=== PATIENT | male | born 1995 | race Caucasian/White ===

== ENCOUNTER 2020-06-04 18:29 | Emergency (ER) | payer MEDICAID, SELFPAY ==
[2020-06-04 18:31] VITALS: BP 172/100; PULSE 120; RESP 20; TEMP 38.7; O2SAT 98; BMI 21.4
[2020-06-04 19:29] LABS: Strep Scrn Group A (Rapid) Positive (Negative)
[2020-06-04 19:40] VITALS: BP 159/88; PULSE 110; RESP 18; O2SAT 100
[2020-06-04 20:14] VITALS: BP 154/83; PULSE 90; RESP 18; O2SAT 95
--- NOTE | 2020-06-04 20:18 | HMH.EDURI ---
ED Disposition Clinical Impression: Strep pharyngitis Disposition: Home, Self-Care Condition on Discharge: Good Instructions: DI for Strep Throat Additional Instructions: see pcp for follow up Referrals: Jeannette Hernandez MD [Primary Care Provider] - - Critical Care Critical Care Time: No Attestation: On 06/04/20, the high probability of a clinically significant, sudden or life threatening deterioration of the following system(s) required my full and direct attention, intervention and personal management. The time I documented below is in addition to time spent performing reported procedures but includes the following listed in this critical care notation. Medical Decision Making - Medical Records Medical records reviewed: Yes: I reviewed the patient's medical records. - Omar Inquiry Pt receiving controlled substance: No Vital Signs: 06/04/20 18:31 06/04/20 19:40 06/04/20 20:14 Temperature 101.6 F H Temperature Source Oral Pulse Rate [Left Radial] 120 H 110 H 90 Respiratory Rate 20 18 18 Blood Pressure [Right Arm] 172/100 H 159/88 H 154/83 H Blood Pressure Mean [Right Arm] 124 111 106 Blood Pressure Position [Right Arm] Sitting 02 Sat by Pulse Oximetry 98 100 95 Oxygen Delivery Method Room Air Room Air - Lab Data Lab results reviewed: Yes: I reviewed the patient's lab results. Lab Results 06/04/20 19:15: Influenza Type A Ag Negative, Influenza Type B Ag Negative 06/04/20 19:15: Group A Strep Rapid Positive A Orders (Tests/Meds): ED MEDICATIONS Discontinued Medications Generic Name Dose Route Start Last Admin Trade Name Freq PRN Reason Stop Dose Admin Acetaminophen 1,000 mg 06/04/20 19:08 06/04/20 19:11 Tylenol 500mg Tablet PO 06/04/20 19:09 1,000 mg ONCE ONE Administration URI/Sore Throat HPI - General Chief Complaint: Fever Stated Complaint: fever Time Seen by Provider: 06/04/20 20:00 Mode of Arrival: Ambulatory Source of Information: Patient, Medical Record Limitations: No Limitations Description of Symptoms (Recalled from ER Triage Doc. by RN): to ed per pvt car with c/o fever, sorethroat, generalized aches, headache, chills, x 3 days pt states tested for covid 2 days ago with neg results. 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 - History of Present Illness HPI Narrative: sore throat with fever over the last few days - no rash MD Complaint: fever, cough, sore throat Onset (ago): day(s) Severity: moderate Able to tolerate fluids by mouth: Yes Associated symptoms: denies other symptoms Treatments prior to arrival: none - Related Data Home Medications Medication Instructions Recorded Confirmed dextroamphetamine-amphetamine 20 20 mg PO DAILY tab 02/21/18 12/07/19 mg tablet Dextroamphetamine/Amphetamine 7.5 mg PO DAILY 12/07/19 12/07/19 [Dextroamp-Amphetam 7.5 mg Tab] Gabapentin [Neurontin 400mg 400 mg PO QID 12/07/19 12/07/19 cap] Hydrocodone/Acetaminophen [[place] 1 each PO BID 12/07/19 12/07/19 5-325 Tablet] Tramadol HCl [Tramadol 50mg 50 mg PO TID PRN 12/07/19 12/07/19 Tab] Venlafaxine HCl [Effexor XR 75mg 150 mg PO DAILY 12/07/19 12/07/19 capsule] Previous Rx's Medication Instructions Recorded Azithromycin [Z-Lemuel 250mg Tab*] 250 mg PO UD DOSE PK #6 tab 12/07/19 Allergies Allergy/AdvReac Type Severity Reaction Status Date / Time doxycycline [DOXYCYCLINE] Allergy Intermediate Verified 03/06/18 08:58 codeine [CODEINE] Allergy Mild Verified 03/06/18 08:58 [facility] History - Hepatitis A Screen Drug use history?: No High risk sexual behaviors?: No History of sexually transmitted infection?: No Currently employed?: No Childcare worker?: No Do you have indoor plumbing?: Yes Do you have electricity?: Yes Attestation statement:: This patient has been screened for Hepatitis A risk factors. I have reviewed the patient's past medical history: Yes Medical History: Reports:: Anxiety Denies:: Cancer, Diabet
[2020-06-04 20:51] VITALS: BP 154/83; PULSE 90; RESP 18; TEMP 37.9; O2SAT 95
== END 2020-06-04 20:35 | disposition home or self-care (01) ==
PROVIDERS: Emergency Provider Emergency Medicine; PCP Internal Medicine
DX: J02.0 Streptococcal pharyngitis (principal); F41.9 Anxiety disorder, unspecified; Z88.5 Allergy status to narcotic agent; F17.210 Nicotine dependence, cigarettes, uncomplicated
CPT/HCPCS: 87275; 87276; 87430; 96372; 99283; J0561

== ENCOUNTER 2020-09-01 15:50 | Emergency (ER) | payer MEDICAID, SELFPAY ==
[2020-09-01 16:00] VITALS: BP 164/95; PULSE 127; RESP 20; TEMP 37.3; O2SAT 95; BMI 21.4
[2020-09-01 16:23] VITALS: BP 164/95; PULSE 116; O2SAT 95
[2020-09-01 16:35] VITALS: BP 141/85; PULSE 118; O2SAT 95
--- NOTE | 2020-09-01 16:39 | XR_ITS ---
PROCEDURE: XR KNEE RT 3V CLINICAL INDICATION: right knee trauma Posttraumatic pain COMPARISON: No exams were available for comparison FINDINGS: No fracture or dislocation. No lytic or blastic change. There is normal mineralization. The joint spaces are well-preserved. No significant degenerative/arthritic changes. No erosive changes evident. Other findings:None. IMPRESSION: No acute findings. Dictated by: Antony Stratton MD 09/01/2020 17:43 Antony Stratton MD in [place] 09/01/2020 17:44
--- NOTE | 2020-09-01 16:40 | HMH.EDGENADL ---
ED Disposition Clinical Impression: Knee injury Disposition: Home, Self-Care Condition on Discharge: Good Additional Instructions: Return to the emergency department for pain swelling or any other concerns within the next day. Otherwise follow-up with your primary care physician within the next week Prescriptions: Ketorolac Tromethamine [Toradol 10mg tablet] 10 mg PO Q6H 5 Days #20 tab Transmission Status: Pending to [facility] Referrals: Jeannette Hernandez MD [Primary Care Provider] - - Critical Care Critical Care Time: No Attestation: On 09/01/20, the high probability of a clinically significant, sudden or life threatening deterioration of the following system(s) required my full and direct attention, intervention and personal management. The time I documented below is in addition to time spent performing reported procedures but includes the following listed in this critical care notation. Medical Decision Making - Medical Records Medical records reviewed: Yes: I reviewed the patient's medical records. - Omar Inquiry Pt receiving controlled substance: No Vital Signs: 09/01/20 16:00 09/01/20 16:23 09/01/20 16:35 Temperature 99.2 F Temperature Source Tympanic Pulse Rate [Left] 127 H 116 H 118 H Respiratory Rate 20 Blood Pressure [Right Arm] 164/95 H 164/95 H 141/85 H Blood Pressure Mean [Right Arm] 118 118 103 Blood Pressure Source [Right Arm] Automatic Cuff Automatic Cuff Automatic Cuff Blood Pressure Position [Right Arm] Sitting Sitting Sitting 02 Sat by Pulse Oximetry 95 95 95 Oxygen Delivery Method Room Air Room Air Room Air 09/01/20 17:11 Temperature Temperature Source Pulse Rate [Left] 96 H Respiratory Rate 18 Blood Pressure [Right Arm] 140/81 Blood Pressure Mean [Right Arm] 100 Blood Pressure Source [Right Arm] Blood Pressure Position [Right Arm] 02 Sat by Pulse Oximetry 95 Oxygen Delivery Method Orders (Tests/Meds): ED MEDICATIONS Discontinued Medications Generic Name Dose Route Start Last Admin Trade Name Freq PRN Reason Stop Dose Admin Ketorolac Tromethamine 60 mg 09/01/20 16:39 09/01/20 16:44 Ketorolac 60mg/2ml Vial IM 09/01/20 16:40 60 mg ONCE ONE Administration ORDERS Category Date Time Status Knee XR right 3 views [XR knee RT 3V] Stat Exams 09/01/20 16:39 Taken Medical Decision Narrative: Patient presents with right knee injury as above. No concern for septic joint on exam or traumatic effusion that needs to be drained. X-ray was obtained to evaluate for displaced fracture. X-ray shows no large displaced fracture on my initial read. Plan to give crutches and anti-inflammatories as the Toradol did help in the emergency department. Recommend RICE treatment and follow-up with primary care physician for continued outpatient management General Adult HPI - General Chief complaint: PAIN Stated complaint: Pain in Rt Knee;Fall 08/29/20 Time Seen by Provider: 09/01/20 16:05 Mode of Arrival: Ambulatory Limitations: No Limitations Description of Symptoms (Recalled from ER Triage Doc. by RN): Right knee pain- Pt states he got up on Sunday night and tripped over something and hit his right knee on the wall. Pt states that he is unable to put pressure on it. - History of Present Illness HPI narrative: 24-year-old male with history of multiple sclerosis has right knee pain. He says he hit his knee on a desk while he was walking and now has medial pain no swelling or deformity. No redness or warmth. He has had difficulty bearing weight because of the pain on the medial side of his knee. Onset (ago): day(s) (3) Location: lower extremity Radiation: non-radiation Severity: mild Quality: constant Consistency: constant - Related Data Home Medications Medication Instructions Recorded Confirmed dextroamphetamine-amphetamine 20 20 mg PO DAILY tab 02/21/1820 mg tablet Gabapentin [Neurontin 400mg 400 mg PO QID
[2020-09-01 17:11] VITALS: BP 140/81; PULSE 96; RESP 18; O2SAT 95
[2020-09-01 17:57] VITALS: BP 140/81; PULSE 96; RESP 18; TEMP 37.3; O2SAT 95
== END 2020-09-01 17:58 | disposition home or self-care (01) ==
PROVIDERS: Emergency Provider Emergency Medicine; PCP Internal Medicine
DX: S80.11XA Contusion of right lower leg, initial encounter (principal); W01.0XXA Fall on same level from slipping, tripping and stumbling without subsequent striking against object, initial encounter; Y92.019 Unspecified place in single-family (private) house as the place of occurrence of the external cause; Z88.1 Allergy status to other antibiotic agents; F41.9 Anxiety disorder, unspecified; G35 Multiple sclerosis
CPT/HCPCS: 73562; 99283

== ENCOUNTER 2020-09-23 11:27 | Observation (INO) | payer MEDICAID, SELFPAY ==
[2020-09-23] VITALS (13 sets, daily range): BP systolic 124–181; BP diastolic 71–103; PULSE 70–130; RESP 14–20; TEMP 36.4–37; O2SAT 93–100; BMI 22.8; BMI 21.6
--- NOTE | 2020-09-23 11:53 | HMH.EDGENADL ---
ED Disposition Clinical Impression: Delirium Headache Qualifiers: Headache type: unspecified Headache chronicity pattern: acute headache Intractability: not intractable Qualified Code(s): R51.9 - Headache, unspecified Disposition: Admitted as Observation Condition on Discharge: Fair - Critical Care Critical Care Time: Yes Attestation: On 09/23/20, the high probability of a clinically significant, sudden or life threatening deterioration of the following system(s) required my full and direct attention, intervention and personal management. The time I documented below is in addition to time spent performing reported procedures but includes the following listed in this critical care notation. Total Critical Care Time: 40 Vital system(s) involved:: Central Nervous System My critical care processes included: Assessment & monitoring of V/S, Initial and Re-exams, Data Review/Interpretation, Coordinating Care, Medication Orders and management, Documentation Medical Decision Making - Omar Inquiry Pt receiving controlled substance: Yes Omar was queried for this patient: No Reference #:: [id number] Reason not queried -: Emergent pt cond-no time Risks and benefits of using a controlled substance: were not discussed with pt by me Comment: 53 rxs. last 2 rxs zolpidem. Vital Signs: 09/23/20 11:28 09/23/20 11:50 09/23/20 12:23 Temperature 98.6 F Temperature Source Oral Pulse Rate Pulse Rate [Right] 87 110 H 109 H Respiratory Rate 14 20 16 Blood Pressure Blood Pressure [Right Arm] 181/96 H 143/71 H 158/99 H Blood Pressure Mean [Right Arm] 124 95 118 Blood Pressure Source Blood Pressure Source [Right Arm] Automatic Cuff Automatic Cuff Blood Pressure Position Blood Pressure Position [Right Arm] Sitting Sitting 02 Sat by Pulse Oximetry 99 93 L 95 Oxygen Delivery Method Room Air Room Air 09/23/20 13:00 09/23/20 13:19 09/23/20 13:31 Temperature Temperature Source Pulse Rate Pulse Rate [Right] 115 H 130 H 118 H Respiratory Rate 20 20 Blood Pressure Blood Pressure [Right Arm] 155/89 H 132/86 131/87 Blood Pressure Mean [Right Arm] 111 101 101 Blood Pressure Source Blood Pressure Source [Right Arm] Automatic Cuff Automatic Cuff Blood Pressure Position Blood Pressure Position [Right Arm] Sitting Sitting Sitting 02 Sat by Pulse Oximetry 94 L 97 Oxygen Delivery Method Room Air 09/23/20 14:29 09/23/20 14:41 09/23/20 15:03 Temperature Temperature Source Pulse Rate Pulse Rate [Right] 114 H 101 H 101 H Respiratory Rate 20 16 18 Blood Pressure Blood Pressure [Right Arm] 141/82 H 141/82 H 156/103 H Blood Pressure Mean [Right Arm] 101 101 120 Blood Pressure Source Blood Pressure Source [Right Arm] Automatic Cuff Automatic Cuff Automatic Cuff Blood Pressure Position Blood Pressure Position [Right Arm] Sitting 02 Sat by Pulse Oximetry 95 93 L 97 Oxygen Delivery Method Room Air Room Air 09/23/20 16:12 09/23/20 17:26 Temperature 98 F Temperature Source Oral Pulse Rate 70 Pulse Rate [Right] 89 Respiratory Rate 16 16 Blood Pressure 128/75 Blood Pressure [Right Arm] 135/84 Blood Pressure Mean [Right Arm] 101 Blood Pressure Source Automatic Cuff Blood Pressure Source [Right Arm] Automatic Cuff Blood Pressure Position Sitting Blood Pressure Position [Right Arm] Sitting 02 Sat by Pulse Oximetry 98 Oxygen Delivery Method Room Air - Lab Data Lab results reviewed: Yes: I reviewed the patient's lab results. Lab Results 09/23/20 11:35: WBC 9.6, RBC 5.03, Hgb 14.2, Hct 43.1, MCV 85.7, MCH 28.3, MCHC 33.0, RDW 13.1, Plt Count 333, MPV 7.1 L, Neut % (Auto) 71.2, Lymph % (Auto) 24.0, [place] % (Auto) 4.3, Eos % (Auto) 0.2, Baso % (Auto) 0.3, Neut # (Auto) 6.8, Lymph # (Auto) 2.3, [place] # (Auto) 0.4, Eos # (Auto) 0.0, Baso # (Auto) 0.0 09/23/20 11:35: Sodium 137, Potassium 3.9, Chloride 102, Carbon Dioxide 25, Anion Gap 13.9, BUN 10, Creatinine 0.90, Estimate
--- NOTE | 2020-09-23 12:07 | CT_ITS ---
PROCEDURE: CT HEAD/BRAIN WO CON CLINICAL INDICATION: migraine Severe headache, Altered mental status, altered level of consciousness, confusion, disorientation COMPARISON: CT HDWO CT HEAD W/O CONTRAST from 01/28/2017 TECHNIQUE: Axial images obtained. All CT scans at the facility use one or more dose reduction, viz: automated exposure control, ma/kV adjustment per patient size (including targeted exams where dose is matched to indication, i.e. head), or iterative reconstruction technique. FINDINGS: No midline shift, mass effect, intracranial hemorrhage, hydrocephalus, or extra-axial fluid collection is evident. The calvarium has an unremarkable appearance. No mastoid effusion. No sinus air-fluid level. IMPRESSION: No acute intracranial finding Dictated by: Antony Stratton MD 09/23/2020 13:07 Antony Stratton MD in [place] 09/23/2020 13:07
[2020-09-23 12:14] LABS: Basophils % 0.3 % (0.1-2.0); Eosinophils % 0.2 % (0.1-12.0); Hematocrit 43.1 % (42.0-52.0); Hemoglobin 14.2 g/dL (14.1-18.0); Lymphocytes # 2.3 K/mm3 (0.7-4.5); Mean Corpuscular Hemoglobin 28.3 pg (27.0-31.2); Mean Corpuscular Volume 85.7 fl (80-94); Mean Platelet Volume 7.1 fl (7.4-10.4); Monocytes # 0.4 K/mm3 (0.1-1.0); Monocytes % 4.3 % (1.7-9.3); Neutrophils # 6.8 K/mm3 (1.8-7.8); Neutrophils % 71.2 % (37.0-80.0); Platelet Count 333 K/mm3 (142-424); Red Blood Count 5.03 M/mm3 (4.60-6.20); Red Cell Distribution Width 13.1 % (11.5-17.5); White Blood Count 9.6 K/mm3 (4.8-10.8)
--- NOTE | 2020-09-23 12:18 | PC.NURSE ---
Pt medicated per MAR and when MD went in to asses pt he was having a ahrd time speaking. went in with Fausto and was able to arouse pt and he sat up on the side of the bed and c/o leg/knee joint pain. Pt was moved over to room 6 and placed on monitor and order for head CT was placed.
[2020-09-23 12:23] LABS: Chloride 102 mmol/L (98-107); Potassium 3.9 mmoL/L (3.5-5.1); Sodium 137 mmol/L (136-145)
[2020-09-23 12:26] LABS: Anion Gap 13.9 mEq/L (5-15); Blood Urea Nitrogen 10 mg/dl (9-20); Calcium 9.4 mg/dl (8.4-10.2); Carbon Dioxide 25 mmol/L (22.0-30.0); Creatinine Clearance Estimated 125 mL/min (50-200); Estimated Glomerular Filt Rate 103 ml/min (>60); GFR (African American) 124 ML/MIN (>60); Glucose 103 mg/dl (74-100)
--- NOTE | 2020-09-23 12:40 | PC.NURSE ---
RADIOLOGY CALLED WANTED SOMEONE TO COME UP THERE , PT VERY ANXIOUS BUT HE LAID STILL FOR HIS CT, AFTER RETURNING TO ER PT STILL VERY ANXIOUS DR LUGO IN WITH PT. ATIVAN 1MG ORDERED AND RECEIVED
--- NOTE | 2020-09-23 12:44 | PC.NURSE ---
PT GONE TO CT
--- NOTE | 2020-09-23 12:44 | PC.NURSE ---
pt tp CT
[2020-09-23 14:03] LABS: Microscopic, Urine URINE MICROSCOPIC (MICROSCOPIC)
[2020-09-23 14:07] LABS: Appearance,Urine CLEAR (Clear); Bilirubin,Urine Negative (Negative); Blood, Urine Negative (Negative); Color,Urine YELLOW (Yellow); Glucose,Urine (UA) Negative (Negative); Ketones,Urine Negative (Negative); Leukocyte Esterase,Urine Negative (Negative); Nitrate,Urine Negative (Negative); PH,Urine 5.5 (5.0-8.5); Protein,Urine TRACE (Negative); Specific Gravity, Urine >= 1.030 (1.005-1.030); Urobilinogen,Urine 0.2 EU/dl (0.2)
[2020-09-23 14:19] LABS: Amphetamine/Metha Screen,Urine Negative ng/ml (<1000)
[2020-09-23 14:20] LABS: Barbiturates Screen,Urine Negative ng/ml (<200)
[2020-09-23 14:21] LABS: Benzodiazepines Screen,Urine Negative ng/ml (<200); Cannabinoid Screen,Urine Negative ng/ml (<50)
[2020-09-23 14:22] LABS: Cocaine Screen,Urine Negative ng/ml (<300)
[2020-09-23 14:23] LABS: Methadone Screen,Urine Negative ng/ml (<300); Opiate Screen,Urine Positive ng/ml (<300)
[2020-09-23 14:24] LABS: Phencyclidine Screen,Urine Negative ng/ml (<25)
--- NOTE | 2020-09-23 14:40 | PC.NURSE ---
decided to do LP at this time. Aunt with pt gives consent for us to complete procedure. Spoke with pt and he is agreeable also. Procedure consent signed by aunt and pt set up for LP
[2020-09-23 15:21] LABS: Glucose,CSF 61 mg/dl (40-70)
--- NOTE | 2020-09-23 15:28 | PC.NURSE ---
Pt tolerated procedure well and is resting at this time
[2020-09-23 15:30] LABS: Coronavirus 19 IgG Antibody Negative (Negative); Coronavirus 19 IgM Antibody Negative (Negative)
[2020-09-23 15:31] LABS: Appearance,CSF Clear (Clear); Red Blood Cell,CSF 72 cells/uL (0); Volume,CSF 3 mL; White Blood Cell,CSF 16 cells/uL (0-5)
--- NOTE | 2020-09-23 15:59 | PC.NURSE ---
speaking with Dr. Jay
--- NOTE | 2020-09-23 16:05 | PC.NURSE ---
notoified eclectic of admission
--- NOTE | 2020-09-23 16:44 | PC.NURSE ---
Notified floor pt ready for admission
--- NOTE | 2020-09-23 20:06 | HMH.HP ---
*Admission Date: 09/23/20 *Chief complaint: migraine headache and delerium *History of present illness: Patient is a 24-year-old white male who presented to the emergency room earlier today with complaints of a migraine headache x3 hours. Patient has a longstanding history of migraines. In the emergency room he received a mixture of Toradol Compazine and Benadryl, he became restless after receiving the above medications, also became tachycardic into the 140s. He began repeatedly shouting out oh God oh God and got increasingly restless. Further work-up included a CT of the brain which was negative. A lumbar puncture was performed, the fluid was clear, 16 white cells, 72 red cells normal protein normal glucose. Urine drug screen was positive for opiates, he did relay taking a [place] earlier. He received several doses of Ativan in the emergency room, a total of 4 mg. He is admitted for further observation and treatment of his delirium. On examination the patient was sleeping heavily. He did arouse and was startled. He spoke clearly and coherently, he is oriented to person and place. He knows the date. He has recollection of his time in the emergency room, but is not delirious at the time of his exam. He reports a residual headache, minimal. Denies nausea, emesis, or seizure activity. [facility] History Medical History: Reports:: Anxiety Denies:: Cancer, Diabetes Mellitus Type 1, Diabetes Mellitus Type 2, Internal Pacemaker, MRSA, Seizures *Have you ever received a pneumonia vaccine?: No *Have you received a flu vaccine this season?: No Other Medical History: Reports: Arthritis, Other (Gastric ulcers, ADHD, smoker). Denies: Blood Transfusion Reaction Laterality Cases: Right: Arthroscopy Shoulder, Bilateral: Other Other Surgeries: No: Pacemaker Amputation: No Fractures: No - *Social History Last grade of school completed: High school graduate Smoking Status: Current every day smoker Tobacco Type: e-cigarettes # Packs/Day (cigarettes): 1 Alcohol Intake: never *Occupational Status:: unemployed Housing: other Household Members: other *Travel in the last 8 weeks: None - Psychiatric History Pschychiatric History:: Reports:: Anxiety Family Hx:: Cancer, Diabetes Review of Systems - Constitutional Reports headache(s) - Eyes Reports pain, Reports sensitivity to light, Denies change in vision - ENT Denies bleeding gums - *Cardiovascular Denies chest pain - *Respiratory Denies chest congestion - *Gastrointestinal Denies abdominal pain - *Genitourinary Denies difficulty urinating - *Musculoskeletal Denies abnormal walking - Integumentary/Breasts Denies yellowing of the skin - *Neurologic Reports confusion, Denies seizure-like activity, Denies seizure-like activity - Psychiatric Reports anxiety - Endocrine Denies cold intolerance, Denies flushing, Denies heat intolerance - Hematologic/Lymphatic Denies easy bleeding - Allergic/Immunologic Denies hives Meds Home Medications Medication Instructions Recorded Confirmed Type Gabapentin [Neurontin 400mg 400 mg PO QID 12/07/19 09/23/20 History cap] Hydrocodone/Acetaminophen [[place] 1 each PO BID 12/07/19 09/23/20 History 5-325 Tablet] Tramadol HCl [Tramadol 50mg 50 mg PO TID PRN 12/07/19 09/23/20 History Tab] Venlafaxine HCl [Effexor XR 75mg 150 mg PO DAILY 12/07/19 09/23/20 History capsule] Baclofen 20 mg PO TID 09/23/20 09/23/20 History Diclofenac Sodium [Diclofenac 75mg 75 mg PO BID 09/23/20 09/23/20 History Tab] Ketorolac Tromethamine [Toradol 10 mg PO Q6H 09/23/20 09/23/20 History 10mg tablet] Zolpidem Tartrate 10 mg PO HS 09/23/20 09/23/20 History Allergies Allergy/AdvReac Type Severity Reaction Status Date / Time doxycycline [DOXYCYCLINE] Allergy Intermediate Verified 09/01/20 16:06 codeine [CODEINE] Allergy Mild Verified 09/01/20 16:06 Exam Vital signs and Labs for Last 24 Hours: Temp Pu
[2020-09-24 04:00] VITALS: BP 144/78; PULSE 103; RESP 16; TEMP 36.7; O2SAT 98
--- NOTE | 2020-09-24 04:38 | PC.NURSE ---
PT. ABLE TO STATE NAME, , PLACE AND YEAR. PT. HAS HAD NO EPISODES OF AGITATION OR CONFUSION. ABLE TO FOLLOW COMMANDS AND STATE NEEDS. AMBULATES TO BR INDEPENDENTLY, STAFF STILL ON STANDBY FOR SAFETY. NO C/O H/A, DIZZINESS, N/V/D, SOA OR PAIN.
[2020-09-24 05:00] VITALS: BMI 21.6
--- NOTE | 2020-09-24 07:20 | HMH.PHAVTE ---
[facility] Pharmacy VTE Monitoring - Patient Demographics Admission date: 09/23/20 Report Date: 09/24/20 Time: 07:20 Allergies/Adverse Reactions: Patient Allergies doxycycline [DOXYCYCLINE] Allergy (Intermediate, Verified 09/01/20 16:06) codeine [CODEINE] Allergy (Mild, Verified 09/01/20 16:06) Height: 1.78 m Weight: 68.492 kg Patient Problems: Current Active Problems Delirium (Acute) Headache (Acute) Migraine (Chronic) - VTE Risk Labs: VTE Related Lab Results Hgb 14.2 g/dL (14.1-18.0) 09/23/20 11:35 Hct 43.1 % (42.0-52.0) 09/23/20 11:35 Plt Count 333 K/mm3 (142-424) 09/23/20 11:35 BUN 10 mg/dl (9-20) 09/23/20 11:35 Creatinine 0.90 mg/dl (0.66-1.25) 09/23/20 11:35 Estimated Creat Clear 125 mL/min (50-200) 09/23/20 11:35 VTE Score: 1 VTE Risk Level: Very Low Risk - Prophylaxis VTE Prophylaxis Ordered?: Yes Types of VTE Prophylaxis: TEDS Knee High Location of Applied Device: Bilateral Lower Extremeties
[2020-09-24 08:00] VITALS: BP 144/78; PULSE 95; RESP 18; TEMP 36.9; O2SAT 96
--- NOTE | 2020-09-24 09:00 | HMH.DCSUM ---
General - General Admission date:: 09/23/20 Discharge date: 09/24/20 HPI HPI: Patient is a 24-year-old white male who presented to the emergency room earlier today with complaints of a migraine headache x3 hours. Patient has a longstanding history of migraines. In the emergency room he received a mixture of Toradol Compazine and Benadryl, he became restless after receiving the above medications, also became tachycardic into the 140s. He began repeatedly shouting out oh God oh God and got increasingly restless. Further work-up included a CT of the brain which was negative. A lumbar puncture was performed, the fluid was clear, 16 white cells, 72 red cells normal protein normal glucose. Urine drug screen was positive for opiates, he did relay taking a [place] earlier. He received several doses of Ativan in the emergency room, a total of 4 mg. He is admitted for further observation and treatment of his delirium. On examination the patient was sleeping heavily. He did arouse and was startled. He spoke clearly and coherently, he is oriented to person and place. He knows the date. He has recollection of his time in the emergency room, but is not delirious at the time of his exam. He reports a residual headache, minimal. Denies nausea, emesis, or seizure activity. Hospital Course Hospital Course: Laboratory Tests 09/23/20 09/23/20 09/23/20 11:35 11:35 11:35 WBC 9.6 RBC 5.03 Hgb 14.2 Hct 43.1 MCV 85.7 MCH 28.3 MCHC 33.0 RDW 13.1 Plt Count 333 MPV 7.1 L Neut % (Auto) 71.2 Lymph % (Auto) 24.0 [place] % (Auto) 4.3 Eos % (Auto) 0.2 Baso % (Auto) 0.3 Neut # (Auto) 6.8 Lymph # (Auto) 2.3 [place] # (Auto) 0.4 Eos # (Auto) 0.0 Baso # (Auto) 0.0 Sodium 137 Potassium 3.9 Chloride 102 Carbon Dioxide 25 Anion Gap 13.9 BUN 10 Creatinine 0.90 Estimated Creat Clear 125 Estimated GFR 103 Est GFR ( Amer) 124 Glucose 103 H Calcium 9.4 Urine Color Urine Appearance Urine pH Ur Specific [place] Urine Protein Urine Glucose (UA) Urine Ketones Urine Blood Urine Nitrate Urine Bilirubin Urine Urobilinogen Ur Leukocyte Esterase Urine WBC Ur Squamous Epith Cells CSF Volume CSF Appearance CSF WBC CSF RBC CSF Mononuclear WBCs % CSF Polynuclear WBCs % CSF Glucose CSF Total Protein Urine Opiates Screen Urine Methadone Screen Ur Barbituates Screen Ur Phencyclidine Scrn Ur Amphetamines Screen U Benzodiazepines Scrn Urine Cocaine Screen U Marijuana (THC) Screen SARS-CoV-2 IgG Ab (Rapid) Negative SARS-CoV-2 IgM Ab (Rapid) Negative 09/23/20 09/23/20 09/23/20 13:58 13:58 15:00 WBC RBC Hgb Hct MCV MCH MCHC RDW Plt Count MPV Neut % (Auto) Lymph % (Auto) [place] % (Auto) Eos % (Auto) Baso % (Auto) Neut # (Auto) Lymph # (Auto) [place] # (Auto) Eos # (Auto) Baso # (Auto) Sodium Potassium Chloride Carbon Dioxide Anion Gap BUN Creatinine Estimated Creat Clear Estimated GFR Est GFR ( Amer) Glucose Calcium Urine Color Yellow Urine Appearance Clear Urine pH 5.5 Ur Specific [place] >= 1.030 Urine Protein Trace Urine Glucose (UA) Negative Urine Ketones Negative Urine Blood Negative Urine Nitrate Negative Urine Bilirubin Negative Urine Urobilinogen 0.2 Ur Leukocyte Esterase Negative Urine WBC 3-5 Ur Squamous Epith Cells 3-5 CSF Volume 3 CSF Appearance Clear CSF WBC 16 H CSF RBC 72 CSF Mononuclear WBCs % CSF Polynuclear WBCs % CSF Glucose CSF Total Protein Urine Opiates Screen Positive H Urine Methadone Screen Negative Ur Barbituates Screen Negative Ur Phencyclidine Scrn Negative Ur Amphetamines Screen Negative U Benzodiazepine
== END 2020-09-24 09:30 | disposition home or self-care (01) ==
LOC: ER 16:08 → 2ND 16:33
PROVIDERS: Admitting Provider Family Medicine; Emergency Provider Emergency Medicine; Visit Provider Family Medicine
DX: G43.909 Migraine, unspecified, not intractable, without status migrainosus (principal); Z79.899 Other long term (current) drug therapy; Z72.0 Tobacco use; Z88.5 Allergy status to narcotic agent
CPT/HCPCS: 62270; 70450; 80048; 80305; 81001; 82945; 84155; 85025; 86328; 87070; 87205; 89051; 96365; 96375; 96376; 99284; G0378

== ENCOUNTER 2020-09-27 14:20 | Outpatient (RCR) | payer MEDICAID, SELFPAY | END 2020-12-26 14:20 | disposition home or self-care (01) | LOC: PT 14:20 | PROVIDERS: Visit Provider Internal Medicine | DX: M25.561 Pain in right knee (principal) | CPT/HCPCS: 97110; 97163 ==

== ENCOUNTER 2021-11-18 08:35 | Day surgery (SDC) | payer MEDICAID, SELFPAY ==
[2021-11-16 11:20] VITALS: BMI 21.4
[2021-11-18] VITALS (7 sets, daily range): BP systolic 104–152; BP diastolic 61–85; PULSE 64–92; RESP 16–18; TEMP 36.4–36.5; O2SAT 97–100
--- NOTE | 2021-11-18 10:42 | HMH.ANESCL ---
[facility] Anesthesia Checklist - Structural Data Admitted From: Home Planned Operative Procedure/s: cysto Consent for Planned Operative Procedure(s) Verified: Yes - Additional verifications Anesthesia Reactions: No Hx Blood Transfusions: No Blood Transfusion Reaction: No - Airway Assessment C-Spine Mobility Assessed: Yes TMJ Mobility Assessed: Yes Dentition: Dentures-good fit - Neurological Assessment Level of Consciousness: Awake, Alert, Appropriate - Anesthesia Plan Anesthesia Risk discussed: Yes Anesthesia Plan: Verified ASA Class: II Anesthesia Type: MAC [facility] History I have reviewed the patient's past medical history: Yes Medical History: Reports:: Anxiety, MRSA Denies:: Cancer, Diabetes Mellitus Type 1, Diabetes Mellitus Type 2, Internal Pacemaker, Seizures *Have you ever received a pneumonia vaccine?: No *Have you received a flu vaccine this season?: No Other Medical History: Reports: Arthritis, Other. Denies: Blood Transfusion Reaction Anesthesia experience/problems:: none Laterality Cases: Right: Arthroscopy Shoulder, Bilateral: Other Other Surgeries: No: Pacemaker Amputation: No Fractures: No - *Social History Last grade of school completed: Some college Smoking Status: Current every day smoker Tobacco Type: cigarettes # Packs/Day (cigarettes): 1 Alcohol Intake: never Substance Use Type: denies use *Occupational Status:: unemployed Housing: house Household Members: other *Travel in the last 8 weeks: None - Psychiatric History Pschychiatric History:: Reports:: Anxiety Family Hx:: Diabetes, Hypertension
--- NOTE | 2021-11-18 13:00 | HMH.OPNOTE ---
Date of procedure: 11/18/21 Pre-op Diagnosis:: History of interstitial cystitis Post-op Diagnosis:: History of interstitial cystitis Procedure performed:: Cystoscopy with hydrodistention of bladder Surgeon:: Anjum Brar MD [employer] PORT[employer] DEVELOPER:: Manny Breaux Anesthesia: MAC Estimated blood loss (mL): 0 Clinical Note:: 26-year-old white male with lower urinary tract symptoms and suprapubic pain has a history of interstitial cystitis. He states that hydrodistention has been therapeutic in the past for his symptoms and wishes to repeat the procedure. Operative findings:: Bladder capacity was 1 L after gravity fill. There was some mild petechial hemorrhages along the bladder base after distention. Operative note:: Patient taken to the operating room after informed consent was obtained. Was placed on the operating table in the supine position and general anesthesia administered. Preoperative antibiotics were administered. He was then placed into the dorsal lithotomy position and prepped and draped in the standard surgical fashion. A 22 [place] cystoscope passed into the urethra and into the bladder without difficulty. The bladder was entered and examined in a systematic fashion. There is no evidence of stones, diverticula, cellules or trabeculation. The ureteral orifices in their normal anatomic position with clear efflux of urine. With a 3 L bag at the appropriate height water was allowed to fill the bladder under gravity. When the flow came to a stop we emptied the bladder and there was 1 L noted as the bladder capacity. After emptying the bladder we looked back in with the scope and there was some mild petechial hemorrhages along the bladder base. The bladder was filled again under gravity and once the flow was stopped and again emptied the bladder and there was a 1 L residual. There was no increase in the amount of small petechial hemorrhages at the bladder base. Little bit of oozing was noted from the bladder neck. Scope then removed. Patient tolerated procedure well. Condition: stable Disposition: same day Specimens:: None Complications:: None
== END 2021-11-18 12:05 | disposition home or self-care (01) ==
LOC: OR 08:36
PROVIDERS: PCP Internal Medicine; Visit Provider Urology
PROC: 0TJB8ZZ Inspection of Bladder, Via Natural or Artificial Opening Endoscopic (ICD-10-PCS; CPT 52000; principal; 2021-11-18 10:30)
DX: N30.11 Interstitial cystitis (chronic) with hematuria (principal); F41.9 Anxiety disorder, unspecified; Z86.14 Personal history of Methicillin resistant Staphylococcus aureus infection; Z72.0 Tobacco use; Z83.3 Family history of diabetes mellitus; Z82.49 Family history of ischemic heart disease and other diseases of the circulatory system; Z88.6 Allergy status to analgesic agent; Z79.899 Other long term (current) drug therapy
CPT/HCPCS: 52260; 96374

== ENCOUNTER 2023-12-22 20:46 | Observation (INO) | payer MEDICAID, SELFPAY ==
[2023-12-22] VITALS (8 sets, daily range): BP systolic 131–166; BP diastolic 78–109; PULSE 93–106; RESP 18–21; TEMP 36.8–37; O2SAT 95–98; BMI 23.1; BMI 25.3
--- NOTE | 2023-12-22 21:18 | CT_ITS ---
PROCEDURE INFORMATION: Exam: CT Abdomen And Pelvis With Contrast Exam date and time: 12/22/2023 9:40 PM Age: 28 years old Clinical indication: Constipation; Additional info: Recently sbo TECHNIQUE: Imaging protocol: Computed tomography of the abdomen and pelvis with contrast. Radiation optimization: All CT scans at this facility use at least one of these dose optimization techniques: automated exposure control; mA and/or kV adjustment per patient size (includes targeted exams where dose is matched to clinical indication); or iterative reconstruction. Contrast material: ISOVUE; Contrast volume: 75 ml; Contrast route: IV; COMPARISON: CR XR CHEST 2V 12/07/2019 8:18 PM FINDINGS: Tubes, catheters and devices: Enteric tube extends to the stomach there is moderate gas and stool distension of the colon without a focal point of obstruction seen. Liver: Normal. Gallbladder and bile ducts: No acute process. Pancreas: Normal. Spleen: Normal. Adrenal glands: The adrenal glands appear normal. Kidneys and ureters: There are no soft tissue renal masses or hydronephrosis. Stomach and bowel: Small bowel is mildly dilated and fluid-filled without a focal point of obstruction identified. Appendix: No evidence of appendicitis. Intraperitoneal space: Unremarkable. Vasculature: The abdominal aorta and its major branches appear normal without evidence of aneurysm or stenosis. There are pelvic phleboliths. Lymph nodes: Mildly prominent nodes in the central mesentery, nonspecific. Urinary bladder: There is moderate distention of the urinary bladder. Reproductive: No acute process. Bones/joints: The visualized osseous structures of the abdomen and pelvis appear normal for patient age. Soft tissues: There is a small fat containing umbilical hernia. IMPRESSION: Air and stool distension of the colon. Fluid distension of small bowel loops without a focal point of obstruction identified.
[2023-12-22 21:26] LABS: Chloride 109 mmol/L (98-107); Potassium 4.4 mmoL/L (3.5-5.1); Sodium 138 mmol/L (136-145)
[2023-12-22 21:27] LABS: Basophils # 0.1 K/mm3 (0-0.2); Basophils % 1.3 % (0.1-2.0); Eosinophils # 0.2 K/mm3 (0.0-0.4); Eosinophils % 4.5 % (0.1-12.0); Hematocrit 36.9 % (42.0-52.0); Hemoglobin 11.9 g/dL (14.1-18.0); Lymphocytes # 2.1 K/mm3 (0.7-4.5); Lymphocytes % 39.4 % (10-50); Mean Corpuscular HGB Conc 32.3 g/dL (31.8-35.4); Mean Corpuscular Hemoglobin 29.4 pg (27.0-31.2); Mean Corpuscular Volume 91.1 fl (80-94); Mean Platelet Volume 7.9 fl (7.4-10.4); Monocytes # 0.3 K/mm3 (0.1-1.0); Monocytes % 4.9 % (1.7-9.3); Neutrophils # 2.6 K/mm3 (1.8-7.8); Neutrophils % 49.9 % (37.0-80.0); Platelet Count 325 K/mm3 (142-424); Red Blood Count 4.05 M/mm3 (4.60-6.20); Red Cell Distribution Width 14.2 % (11.5-17.5); White Blood Count 5.2 K/mm3 (4.8-10.8)
[2023-12-22 21:29] LABS: Alanine Aminotransferase 20 U/L (12-78); Albumin Level 3.3 g/dl (3.5-5.0); Albumin/Globulin Ratio 1.4 (1.1-1.8); Alkaline Phosphatase 97 U/L (38-126); Anion Gap 5.4 mEq/L (5-15); Aspartate Amino Transferase 31 U/L (17-59); Bilirubin,Total 0.2 mg/dl (0.2-1.3); Blood Urea Nitrogen 5 mg/dl (9-20); Carbon Dioxide 28 mmol/L (22.0-30.0); Creatinine Clearance Estimated 100 mL/min (50-200); Estimated Glomerular Filt Rate 79 ml/min (>60); GFR (African American) 96 ML/MIN (>60); Globulin 2.4 g/dL (1.3-3.2); Total Protein,Serum 5.7 g/dl (6.3-8.2)
[2023-12-22 21:30] LABS: Calcium 8.5 mg/dl (8.4-10.2); Glucose 102 mg/dl (74-100)
--- NOTE | 2023-12-22 21:36 | XR_ITS ---
PROCEDURE INFORMATION: Exam: XR Chest Exam date and time: 12/22/2023 9:42 PM Age: 28 years old Clinical indication: Device placement; Ng tube; Additional info: Ng placement TECHNIQUE: Imaging protocol: Radiologic exam of the chest. Views: 1 view. COMPARISON: CR XR CHEST 2V 12/07/2019 8:18 PM FINDINGS: Tubes, catheters and devices: Enteric tube in place, tip and side port project over the stomach. Lungs: See Heart/Mediastinum finding. Pleural spaces: See Heart/Mediastinum finding. Heart/Mediastinum: Visualized portions of the heart, lungs, pleural spaces, and osseous structures are without significant pathology. Bones/joints: See Heart/Mediastinum finding. Gastrointestinal tract: Moderate gaseous distension of the colon is noted. IMPRESSION: Radiographically appropriate position of enteric tube.
[2023-12-22] MEDS: PHENOL THROAT SPRAY 177 ML BOTTLE MM (21:43)
[2023-12-22] MEDS: LACTATED RINGERS 1000ML 1,000 ML 999 ML IV (21:43)
--- NOTE | 2023-12-22 21:43 | ED_ITS ---
Discharge Plan Disposition Patient Disposition: Admitted Clinical Impressions Clinical Impression: Small bowel obstruction Discharge ED Provider: Samm Gupta General Adult HPI General Chief complaint: Abdominal Pain Stated complaint: poss SBO Time Seen by Provider: 12/22/23 21:01 Mode of Arrival: Wheelchair Source of Information: Patient Limitations: No Limitations Description of Symptoms (Recalled from ER Triage Doc. by RN): pt states was admitted last sunday @ [facility] for SBO and on sunday night had a small BM and was discharged on sunday. pt states hasn't had BM since sunday and no passing gas. pt c/o abd pain and swelling and vomitting History of Present Illness HPI narrative: 28-year-old male with history of numerous abdominal surgeries presenting with distention and concern for obstruction. Patient states he was discharged from [facility] a few days prior to this visit. He had 1 small bowel movement at [place]. Had NG tube and concern for obstruction at that point. States that he was passing gas until today, 12/21. Since this morning, no gas and extremely distended. He is also nauseated and vomiting what looks like dark reddish-orange. No fevers or chills, dysuria, but abdominal pain is severe, does not radiate, diffuse. Please note that above description of symptoms, in this electronic medical record under categorization of recalled from ER triage doctor by RN are reflective of an initial nursing assessment, however, is not reflective of my full history and physical exam that was personally taken and clarified. Consequentially, this preceding description of symptoms, which may include the patient's categorized chief complaint in the EMR, do not reflect my personal clinical impression, and the ultimate description of history of present illness and patient stated complaints should be deferred to this section of the note. Unless stated otherwise or congruent with this section of the note, additional signs, symptoms, or incongruence should be interpreted as inaccurate with my clinical impression. Related Data Home Medications Medication Instructions Recorded Confirmed gabapentin 400 mg capsule 400 mg PO QID NERVE PAIN 12/07/19 12/22/23 tramadol 50 mg tablet 50 mg PO TID PRN Moderate Pain 12/07/19 12/22/23 baclofen 20 mg tablet 20 mg PO TID Pain 09/23/20 12/22/23 diclofenac sodium 75 mg 75 mg PO BID Pain 09/23/20 12/22/23 tablet,delayed release erenumab-aooe 70 mg/mL 70 mg SQ MONTHLY MIGRAINES 11/08/21 12/22/23 subcutaneous auto-injector (Aimovig Autoinjector) ergocalciferol (vitamin D2) 1,250 1,250 mcg PO WEEKLY Supplement 11/08/21 12/22/23 mcg (50,000 unit) capsule (Vitamin D2) fesoterodine 8 mg tablet,extended 8 mg PO DAILY BLADDER 11/08/21 12/22/23 release 24 hr (Toviaz) hydroxyzine pamoate 25 mg capsule 25 mg PO TID PRN Anxiety 11/08/21 12/22/23 loratadine 10 mg tablet 10 mg PO DAILY ALLERGIES 11/08/21 12/22/23 ondansetron 4 mg disintegrating 4 mg PO Q8 PRN nausea and vomiting 11/08/21 12/22/23 tablet ubrogepant 50 mg tablet (Ubrelvy) 50 mg PO BID PRN MIGRAINES 11/08/21 12/22/23 venlafaxine 150 mg 150 mg PO DAILY Anxiety 11/08/21 12/22/23 capsule,extended release 24 hr quetiapine 25 mg tablet 25 mg PO HS 12/22/23 12/22/23 Allergies Allergy/AdvReac Type Severity Reaction Status Date / Time doxycycline [DOXYCYCLINE] Allergy Intermediate Verified 11/16/21 10:56 codeine [CODEINE] Allergy Mild Verified 11/16/21 10:56 lidocaine AdvReac Verified 11/16/21 10:56 PFSH PFSH Disclaimer: The information contained in this section may have been updated after the patient was seen, as this information can be updated by other users. Medical History (Updated 12/22/23 @ 23:14 by Jenna Elder RN) Interstitial cystitis Surgical History (Updated 12/22/23 @ 23:14 by Jenna Elder RN) H/O shoulder surgery Social History Smoking Status: Current every day smoker tobacco type: cigarettes packs per day: 1 second hand exposure: Yes alcohol intake: never substance use type: denies use current occupational status: unemployed Travel in the last 8 weeks: None household members: other housing: house current occupational exposures/hazards: No caffeine: Yes ROS Obtained: Yes All systems reviewed & no additional complaints except as documented Physical Exam General General appearance: alert and in no apparent distress Head Head exam: atraumatic and normocephalic Eye Eye exam: Present normal appearance, PERRL and EOMI ENT ENT exam: Present mucous membranes moist Neck Neck exam: Present normal inspection, full ROM and trachea midline Respiratory Respiratory exam: Present normal lung sounds bilaterally; Absent respiratory distress, wheezes, stridor, accessory muscle use or prolonged expiratory phase Cardiovascular Cardiovascular exam: Present regular rate and normal rhythm Abdominal Exam Abdominal exam: Present distention, tenderness and guarding; Absent soft, rebound or rigidity Abdominal tenderness: Present diffuse and moderate Extremities Exam Extremities exam: Absent edema Neurological Exam Neurological exam: Present alert, oriented X3, CN II-XII intact and normal gait; Absent motor sensory deficit Skin Skin exam: Present warm and dry; Absent diaphoresis or erythema Medical Decision Making Medical Records Medical records reviewed: Yes I reviewed the patient's medical records. Omar Inquiry Pt receiving controlled substance: No Omar was queried for this patient: No Vital Signs: 12/22/23 20:48 12/22/23 21:14 12/22/23 21:31 Temperature 98.2 F Temperature Source Oral Pulse Rate 98 H 106 H Pulse Rate [Right] 93 H Respiratory Rate 21 Blood Pressure 164/103 H 165/78 H Blood Pressure [Right Arm] 164/103 H Blood Pressure Mean 123 117 Blood Pressure Mean [Right Arm] 123 02 Sat by Pulse Oximetry 98 95 95 Oxygen Delivery Method 12/22/23 21:35 12/22/23 22:00 12/22/23 22:30 Temperature Temperature Source Pulse Rate 106 H 95 H 95 H Pulse Rate [Right] Respiratory Rate Blood Pressure 131/104 H 154/109 H 166/98 H Blood Pressure [Right Arm] Blood Pressure Mean 113 119 128 Blood Pressure Mean [Right Arm] 02 Sat by Pulse Oximetry 98 98 95 Oxygen Delivery Method 12/22/23 22:43 Temperature 98.5 F Temperature Source Oral Pulse Rate 94 H Pulse Rate [Right] Respiratory Rate 18 Blood Pressure 166/98 H Blood Pressure [Right Arm] Blood Pressure Mean Blood Pressure Mean [Right Arm] 02 Sat by Pulse Oximetry Oxygen Delivery Method Room Air Lab Data Lab Results 12/22/23 21:10: WBC 5.2, RBC 4.05 L, Hgb 11.9 L, Hct 36.9 L, MCV 91.1, MCH 29.4, MCHC 32.3, RDW 14.2, Plt Count 325, MPV 7.9, Neut % (Auto) 49.9, Lymph % (Auto) 39.4, Bibb % (Auto) 4.9, Eos % (Auto) 4.5, Baso % (Auto) 1.3, Neut # (Auto) 2.6, Lymph # (Auto) 2.1, Bibb # (Auto) 0.3, Eos # (Auto) 0.2, Baso # (Auto) 0.1, Sodium 138, Potassium 4.4, Chloride 109 H, Carbon Dioxide 28, Anion Gap 5.4, BUN 5 L, Creatinine 1.10, Estimated Creat Clear 100, Estimated GFR 79, Est GFR ( Amer) 96, Glucose 102 H, Calcium 8.5, Total Bilirubin 0.2, AST 31, ALT 20, Alkaline Phosphatase 97, Total Protein 5.7 L, Albumin 3.3 L, Globulin 2.4, Albumin/Globulin Ratio 1.4, Lipase 253 12/22/23 21:44: Lactate 1.0 12/22/23 21:10 12/22/23 21:10 Orders (Tests/Meds): ED MEDICATIONS Generic Name Dose Route Start Last Admin Trade Name Freq PRN Reason Stop Dose Admin Phenol 0 ml 12/22/23 21:19 12/22/23 21:43 Phenol Throat [place] 177 Ml Bottle MM 01/21/24 21:18 1 ml NEEDED PRN Administration Cough Sodium Chloride 10 ml 12/22/23 22:00 12/22/23 22:01 Sodium Chloride 0.9% 10ml Syr (Rad Only) IV 01/21/24 21:59 10 ml NEEDED PRN Administration Maintain IV Site Discontinued Medications Generic Name Dose Route Start Last Admin Trade Name Freq PRN Reason Stop Dose Admin Hydromorphone HCl 1 mg 12/22/23 22:02 12/22/23 22:06 Hydromorphone 2mg/Ml Syringe IV 12/22/23 22:03 1 mg ONCE ONE Administration Lactated Ringer's 1,000 mls @ 999 mls/hr 12/22/23 21:18 12/22/23 21:43 Lactated Ringer's 1000 Ml Bag IV 12/22/23 22:18 999 mls/hr .Q1H1M ONE Administration Iopamidol 75 ml 12/22/23 22:00 12/22/23 22:01 Iopamidol-370 (76%);100ml Bottle IV 12/22/23 22:01 75 ml ONCE ONE Administration Ketorolac Tromethamine 30 mg 12/22/23 21:18 12/22/23 21:44 Ketorolac 30mg/Ml Vial IV 12/22/23 21:19 30 mg ONCE ONE Administration Ondansetron HCl 4 mg 12/22/23 21:18 12/22/23 21:44 Ondansetron 4mg/2ml Vial IV 12/22/23 21:19 4 mg ONCE ONE Administration ORDERS Category Date Time Status CT abdomen pelvis w con Stat Cat Scan 12/22/23 21:18 Completed Chest XR -- portable [XR chest portable] Stat Exams 12/22/23 21:36 Completed Complete Blood Count Auto Diff Stat Lab 12/22/23 21:10 Completed Comprehensive Metabolic Panel Stat Lab 12/22/23 21:10 Completed Lactic Acid Stat Lab 12/22/23 21:44 Completed Lipase Stat Lab 12/22/23 21:10 Completed Medical Decision Narrative: 28-year-old male with history of numerous abdominal surgeries including cholecystectomy, bowel bowel e twisting surgery, appendectomy presenting with distention and concern for obstruction. Patient states he was discharged from [facility] a few days prior to this visit. He had 1 small bowel movement at [place]. Had NG tube and concern for obstruction at that point. States that he was passing gas until today, 12/21. Since this morning, no gas and extremely distended. He is also nauseated and vomiting what looks like dark reddish-orange. No fevers or chills, dysuria, but abdominal pain is severe, does not radiate, diffuse. History was obtained via conversation with patient and family. On arrival, patient hemodynamically stable, alert, oriented x4, appropriate, GCS 15, moving all extremities spontaneously, pupils equal and reactive to light. Full physical exam performed and significant for extremely distended, tender abdomen with voluntary guarding. Tympanitic, no flank tenderness. Lungs are clear to auscultation bilaterally. Mildly tachycardic intermittently. No overlying skin changes. Differential includes obstruction, pancreatitis, gastroenteritis, perforation, among others. Patient was given Toradol, Zofran, NG tube for symptomatic management and correction of underlying abnormalities. Patient had immediate relief after NG tube. Workup independently interpreted and significant for nonactionable CBC or chemistry. CT abdomen pelvis with significant distention of multiple loops of bowel concerning for small bowel obstruction. See radiology read for full review of final resusults. on reevaluation, patient's pain significantly better, minimal at best. Results relayed to patient, frustrated, but understanding. Because patient high risk for clinical decompensation, deemed appropriate for inpatient admission. Results were relayed to patient who voiced understanding and patient was agreeable to inpatient admission and management. Patient was admitted to the hospital for further definitive management. Critical Care Critical Care Time Critical Care Time: No
[2023-12-22] MEDS: KETOROLAC 30MG/ML VIAL 30 MG IV (21:44)
[2023-12-22] MEDS: ONDANSETRON 4MG/2ML VIAL 4 MG IV (21:44)
--- NOTE | 2023-12-22 21:53 | PC.NURSE ---
medical release faxed and received by [facility]
[2023-12-22 22:00] LABS: Lipase 253 U/L (23-300)
[2023-12-22] MEDS: IOPAMIDOL-370 (76%);100ML BOTTLE 75 ML IV (22:01)
[2023-12-22] MEDS: SODIUM CHLORIDE 0.9% 10ML SYR (RAD ONLY) 10 ML IV (22:01)
[2023-12-22] MEDS: HYDROMORPHONE 2MG/ML SYRINGE 1 MG IV ×2 (22:06→23:55)
--- NOTE | 2023-12-22 22:39 | PC.NURSE ---
notified nanny/household manager of admission
--- NOTE | 2023-12-22 23:04 | PC.NURSE ---
NGT right nare @ 59 on [facility] with castellanos output - 5ml residual. Patient's abd tender in all 4 quads, distended, and hypoactive BS. States he has not had a BM since 12/15 and was very small.
--- NOTE | 2023-12-22 23:54 | EXP.HP ---
History of Present Illness *Admission Date: 12/22/23 *Reason for visit:: SBO *History of present illness: 28 year old male presented to [facility] ED for c/o abdominal pain, distention, nausea, and vomiting since this afternoon. He recently was admitted at [place] one week prior for a SBO that was decompressed with an NG tube. He was discharged a few days ago. He also reports having abdominal surgery in [place], [place] one year prior for bowel twisting . PMHX of HTN, tobacco abuse, and chronic pain medication use for a torn rotator cuff. Upon arrival to the ED, a NG tube was placed and the pt felt relief. CT of abd and pelvis demonstrate air and stool distention of the colon with fluid distention in the small bowel loops. On exam the pt is still distended pt states nausea has improved. The ED physician consulted the hospitalist team for further medical management. I admitted the pt to the medical floor. He will remain NPO for bowel rest, receive PRN medications for nausea and pain, and gentle IV hydration. [facility] Disclaimer: The information contained in this section may have been updated after the patient was seen, as this information can be updated by other users. Medical History (Updated 12/23/23 @ 00:26 by LISA Bender) Interstitial cystitis Surgical History (Updated 12/22/23 @ 23:14 by Jenna Elder RN) H/O shoulder surgery Social History Smoking Status: Current every day smoker tobacco type: cigarettes packs per day: 1 second hand exposure: Yes alcohol intake: never substance use type: denies use current occupational status: unemployed Travel in the last 8 weeks: None household members: other housing: house current occupational exposures/hazards: No caffeine: Yes Review of Systems Review of Systems Review of systems:: pertinent systems reviewed and negative unless documented below *Gastrointestinal Gastrointestinal: Reports as per [facility] Meds Home Medications and Allergies Home Medications Medication Instructions Recorded Confirmed Type gabapentin 400 mg capsule 400 mg PO QID NERVE PAIN 12/07/19 12/22/23 History tramadol 50 mg tablet 50 mg PO TID PRN Moderate Pain 12/07/19 12/22/23 History baclofen 20 mg tablet 20 mg PO TID Pain 09/23/20 12/22/23 History diclofenac sodium 75 mg 75 mg PO BID Pain 09/23/20 12/22/23 History tablet,delayed release erenumab-aooe 70 mg/mL 70 mg SQ MONTHLY MIGRAINES 11/08/21 12/22/23 History subcutaneous auto-injector (Aimovig Autoinjector) ergocalciferol (vitamin D2) 1,250 1,250 mcg PO WEEKLY Supplement 11/08/21 12/22/23 History mcg (50,000 unit) capsule (Vitamin D2) fesoterodine 8 mg tablet,extended 8 mg PO DAILY BLADDER 11/08/21 12/22/23 History release 24 hr (Toviaz) hydroxyzine pamoate 25 mg capsule 25 mg PO TID PRN Anxiety 11/08/21 12/22/23 History loratadine 10 mg tablet 10 mg PO DAILY ALLERGIES 11/08/21 12/22/23 History ondansetron 4 mg disintegrating 4 mg PO Q8 PRN nausea and vomiting 11/08/21 12/22/23 History tablet ubrogepant 50 mg tablet (Ubrelvy) 50 mg PO BID PRN MIGRAINES 11/08/21 12/22/23 History venlafaxine 150 mg 150 mg PO DAILY Anxiety 11/08/21 12/22/23 History capsule,extended release 24 hr quetiapine 25 mg tablet 25 mg PO HS 12/22/23 12/22/23 History New Prescriptions to Start Prescriptions: Allergies Allergy/AdvReac Type Severity Reaction Status Date / Time doxycycline [DOXYCYCLINE] Allergy Intermediate Verified 11/16/21 10:56 codeine [CODEINE] Allergy Mild Verified 11/16/21 10:56 lidocaine AdvReac Verified 11/16/21 10:56 Exam Data for Last 24 hours Vital signs and Labs for Last 24 Hours: Temp Pulse Resp BP Pulse Ox O2 Del Method 98.5 F 94 H 18 166/98 H 95 Room Air 12/22/23 22:43 12/22/23 22:43 12/22/23 22:43 12/22/23 22:43 12/22/23 22:30 12/22/23 23:00 Laboratory Results - last 24 hr 12/22/23 21:10: WBC 5.2, RBC 4.05 L, Hgb 11.9 L, Hct 36.9 L, MCV 91.1, MCH 29.4, MCHC 32.3, RDW 14.2, Plt Count 325, MPV 7.9, Neut % (Auto) 49.9, Lymph % (Auto) 39.4, [place] % (Auto) 4.9, Eos % (Auto) 4.5, Baso % (Auto) 1.3, Neut # (Auto) 2.6, Lymph # (Auto) 2.1, [place] # (Auto) 0.3, Eos # (Auto) 0.2, Baso # (Auto) 0.1, Sodium 138, Potassium 4.4, Chloride 109 H, Carbon Dioxide 28, Anion Gap 5.4, BUN 5 L, Creatinine 1.10, Estimated Creat Clear 100, Estimated GFR 79, Est GFR ( Amer) 96, Glucose 102 H, Calcium 8.5, Total Bilirubin 0.2, AST 31, ALT 20, Alkaline Phosphatase 97, Total Protein 5.7 L, Albumin 3.3 L, Globulin 2.4, Albumin/Globulin Ratio 1.4, Lipase 253 12/22/23 21:44: Lactate 1.0 I & O for Last 24 hours: Intake & Output 12/19/23 12/20/23 12/21/23 12/22/23 23:59 23:59 23:59 23:59 Weight 71.214 kg Constitutional Constitutional: no acute distress *Routine HEENT Exam Head: Present normocephalic and atraumatic Eye: Present EOMI, PERRL and normal accommodation ENT: Present mucous membranes moist *Routine Neck Exam Neck: Present supple and full ROM *Routine Respiratory Exam Respiratory: Present wheezes and symmetric chest movement *Routine Cardiovascular Exam Cardiovascular: Present RRR *Routine Abdominal Exam Abdominal: Present tenderness and distended; Absent soft or rigid *Routine Rectal Exam Rectal:: deferred *Routine Genitalia Exam Genitalia:: deferred *Routine Extremities Exam Extremities: Present full ROM; Absent edema *Routine Skin Exam Skin: Present intact *Routine Neurological Exam Neurological: Present alert and oriented X3 Assessment and Plan *Assessment and plan (1) Small bowel obstruction: Status: Acute Category: Medical Code(s): K56.609 - Unspecified intestinal obstruction, unspecified as to partial versus complete obstruction (2) Interstitial cystitis: Status: Acute Category: Medical Code(s): N30.10 - Interstitial cystitis (chronic) without hematuria (3) HTN (hypertension): Status: Acute Category: Medical Code(s): I10 - Essential (primary) hypertension (4) Chronic pain: Status: Acute Category: Medical Code(s): G89.29 - Other chronic pain (5) Insomnia: Status: Acute Category: Medical Code(s): G47.00 - Insomnia, unspecified (6) Tobacco abuse: Status: Acute Category: Medical Code(s): Z72.0 - Tobacco use Plan 28 year old male presented to [facility] ED for c/o abdominal pain, distention, nausea, and vomiting since this afternoon. He recently was admitted at [place] one week prior for a SBO that was decompressed with an NG tube. He was discharged a few days ago. He also reports having abdominal surgery in [place], [place] one year prior for bowel twisting . CT of abd and pelvis demonstrate air and stool distention of the colon with fluid distention in the small bowel loops. On exam the pt is still distended pt states nausea has improved. The ED physician consulted the hospitalist team for further medical management. I admitted the pt to the medical floor. He will remain NPO for bowel rest, receive PRN medications for nausea and pain, and gentle IV hydration. His ED lab workup was unremarkable. I will repeat CBC and BMP in the morning to monitor for infection, electrolytes, and kidney function. Plan as to follow: SMALL BOWEL OBSTRUCTION -CT of abd and pelvis demonstrate air and stool distention of the colon with fluid distention in the small bowel loops -Admitted last week at [place] for SBO -NPO -General Surgery consult, thank you for the recommendations!! -LR @ 75 mL/hr for gentle hydration -Zofran 4 mg Q 6hr PRN for nasuea -Dilaudid 1mg Q 6 hr PRN for pain INTERSTITIAL CYSTITIS HTN CHRONIC PAIN-chronic pain from torn rotator cuff. INSOMNIA -Changed baclofen, gabapentin, and tramadol from schedule to PRN -Continue quetiapine as needed for insomnia -continue toviaz 8mg TOBACCO ABUSE -nicotine patch PRN FULL CODE NPO DVT: SCD
[2023-12-22] MEDS: NICOTINE 21MG/24HR PATCH 21 MG TD (23:55)
--- NOTE | 2023-12-23 01:46 | PC.NURSE ---
patient had medium soft BM
[2023-12-23] MEDS: ONDANSETRON 4MG/2ML VIAL 4 MG IV ×4 (01:49→21:56)
[2023-12-23 04:00] VITALS: BP 143/90; PULSE 83; RESP 22; TEMP 36.4; O2SAT 95; BMI 25.2
[2023-12-23] MEDS: HYDROMORPHONE 2MG/ML SYRINGE 1 MG IV ×3 (06:25→18:39)
[2023-12-23 07:27] LABS: Chloride 106 mmol/L (98-107); Potassium 4.4 mmoL/L (3.5-5.1); Sodium 140 mmol/L (136-145)
[2023-12-23 07:30] LABS: Anion Gap 5.4 mEq/L (5-15); Blood Urea Nitrogen 7 mg/dl (9-20); Calcium 9.1 mg/dl (8.4-10.2); Carbon Dioxide 33 mmol/L (22.0-30.0); Creatinine Clearance Estimated 92 mL/min (50-200); Estimated Glomerular Filt Rate 65 ml/min (>60); GFR (African American) 79 ML/MIN (>60); Glucose 86 mg/dl (74-100)
[2023-12-23 07:40] LABS: Basophils % 0.9 % (0.1-2.0); Eosinophils # 0.3 K/mm3 (0.0-0.4); Eosinophils % 5.2 % (0.1-12.0); Hematocrit 36.7 % (42.0-52.0); Hemoglobin 11.5 g/dL (14.1-18.0); Lymphocytes # 1.7 K/mm3 (0.7-4.5); Lymphocytes % 35.8 % (10-50); Mean Corpuscular HGB Conc 31.5 g/dL (31.8-35.4); Mean Corpuscular Hemoglobin 29.2 pg (27.0-31.2); Mean Platelet Volume 7.6 fl (7.4-10.4); Monocytes # 0.2 K/mm3 (0.1-1.0); Monocytes % 4.8 % (1.7-9.3); Neutrophils # 2.6 K/mm3 (1.8-7.8); Neutrophils % 53.2 % (37.0-80.0); Platelet Count 300 K/mm3 (142-424); Red Blood Count 3.95 M/mm3 (4.60-6.20); Red Cell Distribution Width 14.1 % (11.5-17.5); White Blood Count 4.8 K/mm3 (4.8-10.8)
[2023-12-23 07:41] VITALS: BP 155/96; PULSE 92; RESP 18; TEMP 36.7; O2SAT 96
[2023-12-23] MEDS: GABAPENTIN 800MG TABLET 800 MG PO ×3 (08:37→20:42)
--- NOTE | 2023-12-23 09:17 | P.CONS_ITS ---
History of Present Illness *Admission Date: 12/22/23 *Reason for visit:: Small bowel obstruction *History of present illness: This is a 28-year-old gentleman seen in consultation for possible small bowel obstruction. Although he continues to complain of abdominal pain he states that it is better after the tube was placed . He reports a small to moderate bowel movement and intermittent flatus over the last 24 hours. Forwarded from admission H&P/emergency department evaluation: 28 year old male presented to [facility] ED for c/o abdominal pain, distention, nausea, and vomiting since this afternoon. He recently was admitted at [place] one week prior for a SBO that was decompressed with an NG tube. He was discharged a few days ago. He also reports having abdominal surgery in [place], [place] one year prior for bowel twisting . PMHX of HTN, tobacco abuse, and chronic pain medication use for a torn rotator cuff. Upon arrival to the ED, a NG tube was placed and the pt felt relief. CT of abd and pelvis demonstrate air and stool distention of the colon with fluid distention in the small bowel loops. On exam the pt is still distended pt states nausea has improved. The ED physician consulted the hospitalist team for further medical management. I admitted the pt to the medical floor. He will remain NPO for bowel rest, receive PRN medications for nausea and pain, and gentle IV hydration. [facility] Disclaimer: The information contained in this section may have been updated after the patient was seen, as this information can be updated by other users. Medical History (Updated 12/23/23 @ 00:26 by LISA Bender) Interstitial cystitis Surgical History (Updated 12/22/23 @ 23:14 by Jenna Elder RN) H/O shoulder surgery Social History Smoking Status: Current every day smoker tobacco type: cigarettes packs per day: 1 second hand exposure: Yes alcohol intake: never substance use type: denies use current occupational status: unemployed Travel in the last 8 weeks: None household members: other housing: house current occupational exposures/hazards: No caffeine: Yes Meds Home Medications and Allergies Home Medications Medication Instructions Recorded Confirmed Type gabapentin 400 mg capsule 400 mg PO QID NERVE PAIN 12/07/19 12/22/23 History tramadol 50 mg tablet 50 mg PO TID PRN Moderate Pain 12/07/19 12/22/23 History baclofen 20 mg tablet 20 mg PO TID Pain 09/23/20 12/22/23 History diclofenac sodium 75 mg 75 mg PO BID Pain 09/23/20 12/22/23 History tablet,delayed release erenumab-aooe 70 mg/mL 70 mg SQ MONTHLY MIGRAINES 11/08/21 12/22/23 History subcutaneous auto-injector (Aimovig Autoinjector) ergocalciferol (vitamin D2) 1,250 1,250 mcg PO WEEKLY Supplement 11/08/21 12/22/23 History mcg (50,000 unit) capsule (Vitamin D2) fesoterodine 8 mg tablet,extended 8 mg PO DAILY BLADDER 11/08/21 12/22/23 History release 24 hr (Toviaz) hydroxyzine pamoate 25 mg capsule 25 mg PO TID PRN Anxiety 11/08/21 12/22/23 History loratadine 10 mg tablet 10 mg PO DAILY ALLERGIES 11/08/21 12/22/23 History ondansetron 4 mg disintegrating 4 mg PO Q8 PRN nausea and vomiting 11/08/21 12/22/23 History tablet ubrogepant 50 mg tablet (Ubrelvy) 50 mg PO BID PRN MIGRAINES 11/08/21 12/22/23 History venlafaxine 150 mg 150 mg PO DAILY Anxiety 11/08/21 12/22/23 History capsule,extended release 24 hr quetiapine 25 mg tablet 25 mg PO HS 12/22/23 12/22/23 History New Prescriptions to Start Prescriptions: Allergies Allergy/AdvReac Type Severity Reaction Status Date / Time doxycycline [DOXYCYCLINE] Allergy Intermediate Verified 11/16/21 10:56 codeine [CODEINE] Allergy Mild Verified 11/16/21 10:56 lidocaine AdvReac Verified 11/16/21 10:56 Exam (Inpt) Vital signs and Labs for Last 24 Hours: Temp Pulse Resp BP Pulse Ox O2 Del Method 98.1 F 92 H 18 155/96 H 96 Room Air 12/23/23 07:41 12/23/23 07:41 12/23/23 07:41 12/23/23 07:41 12/23/23 07:41 12/23/23 07:41 Laboratory Results - last 24 hr 12/22/23 21:10: WBC 5.2, RBC 4.05 L, Hgb 11.9 L, Hct 36.9 L, MCV 91.1, MCH 29.4, MCHC 32.3, RDW 14.2, Plt Count 325, MPV 7.9, Neut % (Auto) 49.9, Lymph % (Auto) 39.4, [place] % (Auto) 4.9, Eos % (Auto) 4.5, Baso % (Auto) 1.3, Neut # (Auto) 2.6, Lymph # (Auto) 2.1, [place] # (Auto) 0.3, Eos # (Auto) 0.2, Baso # (Auto) 0.1, Sodium 138, Potassium 4.4, Chloride 109 H, Carbon Dioxide 28, Anion Gap 5.4, B UN 5 L, Creatinine 1.10, Estimated Creat Clear 100, Estimated GFR 79, Est GFR ( Amer) 96, Glucose 102 H, Calcium 8.5, Total Bilirubin 0.2, AST 31, ALT 20, Alkaline Phosphatase 97, Total Protein 5.7 L, Albumin 3.3 L, Globulin 2.4, Albumin/Globulin Ratio 1.4, Lipase 253 12/22/23 21:44: Lactate 1.0 12/23/23 06:58: WBC 4.8, RBC 3.95 L, Hgb 11.5 L, Hct 36.7 L, MCV 93.0, MCH 29.2, MCHC 31.5 L, RDW 14.1, Plt Count 300, MPV 7.6, Neut % (Auto) 53.2, Lymph % (Auto) 35.8, [place] % (Auto) 4.8, Eos % (Auto) 5.2, Baso % (Auto) 0.9, Neut # (Auto) 2.6, Lymph # (Auto) 1.7, [place] # (Auto) 0.2, Eos # (Auto) 0.3, Baso # (Auto) 0.0, Sodium 140, Potassium 4.4, Chloride 106, Carbon Dioxide 33 H, Anion Gap 5.4, BUN 7 L D, Creatinine 1.30 H, Estimated Creat Clear 92, Estimated GFR 65, Est GFR ( Amer) 79, Glucose 86, Calcium 9.1 I & O for Labs for Last 24 Hours: Intake & Output 12/20/23 12/21/23 12/22/23 12/23/23 11:59 11:59 11:59 11:59 Intake Total 1000 / 1000 Output Total 0 / 0 Balance 1000 / 1000 Weight 170 lb 9 oz Constitutional: no acute distress Respiratory: Absent respiratory distress Cardiac: Absent Tachycardia GI: Present distention and tenderness Comments:: Abdomen is fairly firm Rectal (male): Present deferred (male): Present deferred Extremities: Present full ROM Skin: Present intact Neuro: Present alert and oriented x 3 Results Labs 12/23/23 06:58 12/23/23 06:58 Labs: Laboratory Results - last 24 hr 12/22/23 21:10: WBC 5.2, RBC 4.05 L, Hgb 11.9 L, Hct 36.9 L, MCV 91.1, MCH 29.4, MCHC 32.3, RDW 14.2, Plt Count 325, MPV 7.9, Neut % (Auto) 49.9, Lymph % (Auto) 39.4, [place] % (Auto) 4.9, Eos % (Auto) 4.5, Baso % (Auto) 1.3, Neut # (Auto) 2.6, Lymph # (Auto) 2.1, [place] # (Auto) 0.3, Eos # (Auto) 0.2, Baso # (Auto) 0.1, Sodium 138, Potassium 4.4, Chloride 109 H, Carbon Dioxide 28, Anion Gap 5.4, B UN 5 L, Creatinine 1.10, Estimated Creat Clear 100, Estimated GFR 79, Est GFR ( Amer) 96, Glucose 102 H, Calcium 8.5, Total Bilirubin 0.2, AST 31, ALT 20, Alkaline Phosphatase 97, Total Protein 5.7 L, Albumin 3.3 L, Globulin 2.4, Albumin/Globulin Ratio 1.4, Lipase 253 12/22/23 21:44: Lactate 1.0 12/23/23 06:58: WBC 4.8, RBC 3.95 L, Hgb 11.5 L, Hct 36.7 L, MCV 93.0, MCH 29.2, MCHC 31.5 L, RDW 14.1, Plt Count 300, MPV 7.6, Neut % (Auto) 53.2, Lymph % (Auto) 35.8, [place] % (Auto) 4.8, Eos % (Auto) 5.2, Baso % (Auto) 0.9, Neut # (Auto) 2.6, Lymph # (Auto) 1.7, [place] # (Auto) 0.2, Eos # (Auto) 0.3, Baso # (Auto) 0.0, Sodium 140, Potassium 4.4, Chloride 106, Carbon Dioxide 33 H, Anion Gap 5.4, BUN 7 L D, Creatinine 1.30 H, Estimated Creat Clear 92, Estimated GFR 65, Est GFR ( Amer) 79, Glucose 86, Calcium 9.1 Assessment and Plan *Assessment and plan (1) Small bowel obstruction: Status: Acute Category: Medical Code(s): K56.609 - Unspecified intestinal obstruction, unspecified as to partial versus complete obstruction Plan: CT shows mild dilatation with fluid-filled small bowel loops without transition point and air/stool distention of the colon. Radiographically, this is not consistent with complete obstruction. In addition, he notes at least some degree of ongoing bowel function over the past 24 hours. His abdominal exam however remains somewhat concerning. Continue NPO/nasogastric decompression for now Continue serial abdominal exams Modified Gastrografin challenge with follow-up films in AM
--- NOTE | 2023-12-23 09:40 | PC.NURSE ---
dr vaughn at bedside
[2023-12-23] MEDS: TRAMADOL 50MG TABLET 50 MG PO (10:34)
[2023-12-23] MEDS: GLYCERIN ADULT 3GM SUPP 3 GM RC (10:35)
[2023-12-23 12:00] VITALS: BP 153/98; PULSE 98; RESP 17; TEMP 36.7; O2SAT 93
--- NOTE | 2023-12-23 12:25 | HMH.PHAINT1 ---
Pharmacy Intervention Comments: MEDICATION RECONCILIATION COMPLETED ON PATIENT USING EXTERNAL FILL HISTORY FROM PHARMACY AND АНДРЕЙ REPORT. -PADMINI PIMENTEL, MELISSAD
[2023-12-23] MEDS: LACTATED RINGERS 1000ML 1,000 ML 75 ML IV ×2 (12:55)
[2023-12-23] MEDS: MINERAL OIL ENEMA 133ML 133 ML RC (14:46)
[2023-12-23] MEDS: NICOTINE 21MG/24HR PATCH 21 MG TD (15:20)
--- NOTE | 2023-12-23 15:46 | EXP.PN ---
Subjective *Date: 12/23/23 *Time: 15:46 Interval history: seen at bedside, passing gas, denied CP, SOB Exam Data for Last 24 hours Vital signs and Labs for Last 24 Hours: Temp Pulse Resp BP Pulse Ox O2 Del Method 98.0 F 98 H 17 153/98 H 93 L Room Air 12/23/23 12:00 12/23/23 12:00 12/23/23 12:00 12/23/23 12:00 12/23/23 12:00 12/23/23 13:15 Laboratory Results - last 24 hr 12/22/23 21:10: WBC 5.2, RBC 4.05 L, Hgb 11.9 L, Hct 36.9 L, MCV 91.1, MCH 29.4, MCHC 32.3, RDW 14.2, Plt Count 325, MPV 7.9, Neut % (Auto) 49.9, Lymph % (Auto) 39.4, [place] % (Auto) 4.9, Eos % (Auto) 4.5, Baso % (Auto) 1.3, Neut # (Auto) 2.6, Lymph # (Auto) 2.1, [place] # (Auto) 0.3, Eos # (Auto) 0.2, Baso # (Auto) 0.1, Sodium 138, Potassium 4.4, Chloride 109 H, Carbon Dioxide 28, Anion Gap 5.4, BUN 5 L, Creatinine 1.10, Estimated Creat Clear 100, Estimated GFR 79, Est GFR ( Amer) 96, Glucose 102 H, Calcium 8.5, Total Bilirubin 0.2, AST 31, ALT 20, Alkaline Phosphatase 97, Total Protein 5.7 L, Albumin 3.3 L, Globulin 2.4, Albumin/Globulin Ratio 1.4, Lipase 253 12/22/23 21:44: Lactate 1.0 12/23/23 06:58: WBC 4.8, RBC 3.95 L, Hgb 11.5 L, Hct 36.7 L, MCV 93.0, MCH 29.2, MCHC 31.5 L, RDW 14.1, Plt Count 300, MPV 7.6, Neut % (Auto) 53.2, Lymph % (Auto) 35.8, [place] % (Auto) 4.8, Eos % (Auto) 5.2, Baso % (Auto) 0.9, Neut # (Auto) 2.6, Lymph # (Auto) 1.7, [place] # (Auto) 0.2, Eos # (Auto) 0.3, Baso # (Auto) 0.0, Sodium 140, Potassium 4.4, Chloride 106, Carbon Dioxide 33 H, Anion Gap 5.4, BUN 7 L D, Creatinine 1.30 H, Estimated Creat Clear 92, Estimated GFR 65, Est GFR ( Amer) 79, Glucose 86, Calcium 9.1 I & O for Last 24 hours: Intake & Output 12/20/23 12/21/23 12/22/23 12/23/23 23:59 23:59 23:59 23:59 Intake Total 1000 / 1000 Output Total 0 / 0 Balance 1000 / 1000 0 / 0 Weight 77.621 kg 77.366 kg Constitutional Constitutional: no acute distress Comments: he has NG tube placed in *Routine HEENT Exam Head: Present normocephalic Eye: Present EOMI and PERRL ENT: Present mucous membranes moist *Routine Neck Exam Neck: Present supple; Absent lymphadenopathy *Routine Respiratory Exam Respiratory: Present CTA bilaterally *Routine Cardiovascular Exam Cardiovascular: Present RRR *Routine Abdominal Exam Abdominal: Present soft and normoactive bowel sounds; Absent tenderness *Routine Extremities Exam Extremities: Absent cyanosis, clubbing or edema *Routine Skin Exam Skin: Present warm; Absent rash *Routine Neurological Exam Neurological: Present alert and oriented X3 Assessment and Plan *Assessment and plan (1) Small bowel obstruction: Status: Acute Category: Medical Code(s): K56.609 - Unspecified intestinal obstruction, unspecified as to partial versus complete obstruction (2) Interstitial cystitis: Status: Acute Category: Medical Code(s): N30.10 - Interstitial cystitis (chronic) without hematuria (3) HTN (hypertension): Status: Acute Category: Medical Code(s): I10 - Essential (primary) hypertension (4) Chronic pain: Status: Acute Category: Medical Code(s): G89.29 - Other chronic pain (5) Insomnia: Status: Acute Category: Medical Code(s): G47.00 - Insomnia, unspecified (6) Tobacco abuse: Status: Acute Category: Medical Code(s): Z72.0 - Tobacco use Plan 28 year old male presented to [facility] ED for c/o abdominal pain, distention, nausea, and vomiting since this afternoon. He recently was admitted at [place] one week prior for a SBO that was decompressed with an NG tube. He was discharged a few days ago. He also reports having abdominal surgery in [place], [place] one year prior for bowel twisting . CT of abd and pelvis demonstrate air and stool distention of the colon with fluid distention in the small bowel loops. SMALL BOWEL OBSTRUCTION -CT of abd and pelvis demonstrate air and stool distention of the colon with fluid distention in the small bowel loops -Admitted last week at [place] for SBO -NPO -General Surgery consult, thank you for the recommendations!! - plan for SBFT/gastrograffin test -LR @ 75 mL/hr for gentle hydration -Zofran 4 mg Q 6hr PRN for nasuea -Dilaudid 1mg Q 6 hr PRN for pain INTERSTITIAL CYSTITIS HTN CHRONIC PAIN-chronic pain from torn rotator cuff. INSOMNIA -Changed baclofen, gabapentin, and tramadol from schedule to PRN -Continue quetiapine as needed for insomnia -continue toviaz 8mg TOBACCO ABUSE -nicotine patch PRN FULL CODE NPO DVT: SCD continue NPO, continue NG tube IV fluids, follow up gastrograffin test tomorrow, serial abdominal xrays
--- NOTE | 2023-12-23 15:52 | PC.NURSE ---
A&OX4. PT HAS BEEN NPO THROUGHOUT SHIFT. PT IS ON RA TOLERATING WELL. RESPIRATIONS REGULAR AND UNLABORED. LUNG SOUNDS CLEAR THROUGHOUT. HAND SEARCH ADVERTISING STRATEGIST EQUAL. +2 PULSES NOTED THROUGHOUT. NO EDEMA NOTED. ROUND, TENDER, DISTENDED, FIRM ABDOMEN NOTED. HYPOACTIVE BOWEL SOUNDS. PT RECEIVED SUPPOSITORY AND MINERAL OIL ENEMA THIS SHIFT. TOLERATED WELL. REPORTS LARGE FORMED BM AFTER SUPPOSITORY AND SMALL AMOUNT AFTER ENEMA. VOIDS PER BATHROOM WITH CLEAR YELLOW URINE NOTED. STEADY GAIT NOTED WITH AMBULATION AROUND THE ROOM. PT DID WALK A LAP AROUND 2ND FLOOR TODAY AND TOLERATED WELL. REPORTS PASSING FLATUS. HEART RATE REGULAR. NG IN PLACE TO R NARE CONNECTED TO LOW WALL SUCTION. PT HAS REPORTED NAUSEA TWICE THIS SHIFT AND RECEIVED ZOFREN PER NOV. ON REASSESSMENT, NAUSEA HAD EASED. PT STATES HE STATES NAUSEOUS OFF AND ON AFTER A SURGERY HE HAD AROUND A YEAR AGO. PT REPORTED PAIN TWICE THIS SHIFT THUS FAR. PAIN MEDS ADMINISTERED PER MAR. ON REASSESSMENT, PAIN WAS TOLERABLE. PT DID RECEIVE A SHOWER TODAY. TOLERATED WELL. MOM HAS REMAINED AT BEDSIDE THROUGHOUT SHIFT. VSS. BED IN LOWEST POSITION. CALL LIGHT WITHIN REACH.
[2023-12-23 16:00] VITALS: BP 151/91; PULSE 87; RESP 18; TEMP 37.2; O2SAT 93
[2023-12-23 20:00] VITALS: BP 159/92; PULSE 90; RESP 20; TEMP 36.9; O2SAT 98
[2023-12-23] MEDS: QUETIAPINE 25MG TABLET 25 MG PO (20:42)
[2023-12-23] MEDS: SODIUM PHOS/BIPHOSPHATE FLEET 133ML ENEMA 133 ML RC (20:42)
[2023-12-23] MEDS: DIATRIZOATE MEG 66% & DIATRIZOATE NA 10% 30ML UDC 120 ML PO (21:59)
[2023-12-24] VITALS (7 sets, daily range): BP systolic 132–165; BP diastolic 71–105; PULSE 82–99; RESP 16–21; TEMP 36.6–37.3; O2SAT 91–100; BMI 25.0
[2023-12-24] MEDS: HYDROMORPHONE 2MG/ML SYRINGE 1 MG IV ×3 (00:30→15:12)
[2023-12-24] MEDS: TRAMADOL 50MG TABLET 50 MG PO ×2 (02:55→22:26)
[2023-12-24] MEDS: LACTATED RINGERS 1000ML 1,000 ML 75 ML IV ×2 (03:44→15:19)
--- NOTE | 2023-12-24 04:37 | PC.NURSE ---
Addendum entered by Aziza Recio RN 12/24/23 05:09: NG output 350mL dark green. Original Note: Pt is alert and oriented. Pt had one small bowel movement this shift. Pt has complained of pain and nausea, treated per mar. Bowel sounds active all quadrants, passing gas. Abdomen distended and tender. NG tube in place and hooked to suction. Pt received gastrografin per orders. Pt independent in room, mother at bedside. Call light in reach.
[2023-12-24] MEDS: ONDANSETRON 4MG/2ML VIAL 4 MG IV (05:40)
--- NOTE | 2023-12-24 05:49 | PC.NURSE ---
Pt is alert and oriented. NG in place to right nare connected to suction, 400mL dark output noted. Pt has complained of pain and nausea, treated per mar. Abdomen distended and tender, bowel sounds active. Pt has one small stool early in the shift, pt had extra large loose bowel movement this AM, passing gas. Pt has had no other complaints. Ambulates to the restroom. Call light in reach.
--- NOTE | 2023-12-24 06:00 | XR_ITS ---
FINAL REPORT CLINICAL HISTORY: sbo FINDINGS: A single view of the abdomen was obtained. An NG tube is present with the tip in the region of the fundus of the stomach. Contrast is seen mostly within the colon. IMPRESSION: Nonspecific bowel gas pattern with contrast seen mostly within the colon. Reviewed, Interpreted and Dictated by Glynn Pearce III, MD Transcribed by Greta Gordillo Authenticated and [facility]
[2023-12-24 06:27] LABS: Chloride 105 mmol/L (98-107); Potassium 4.3 mmoL/L (3.5-5.1); Sodium 138 mmol/L (136-145)
[2023-12-24 06:30] LABS: Anion Gap 7.3 mEq/L (5-15); Basophils % 0.6 % (0.1-2.0); Blood Urea Nitrogen 8 mg/dl (9-20); Carbon Dioxide 30 mmol/L (22.0-30.0); Creatinine Clearance Estimated 99 mL/min (50-200); Eosinophils # 0.2 K/mm3 (0.0-0.4); Eosinophils % 2.8 % (0.1-12.0); Estimated Glomerular Filt Rate 72 ml/min (>60); GFR (African American) 87 ML/MIN (>60); Hematocrit 36.5 % (42.0-52.0); Hemoglobin 12.1 g/dL (14.1-18.0); Lymphocytes # 2.1 K/mm3 (0.7-4.5); Lymphocytes % 31.6 % (10-50); Mean Corpuscular HGB Conc 33.1 g/dL (31.8-35.4); Mean Corpuscular Hemoglobin 29.6 pg (27.0-31.2); Mean Corpuscular Volume 89.3 fl (80-94); Mean Platelet Volume 7.5 fl (7.4-10.4); Monocytes # 0.3 K/mm3 (0.1-1.0); Monocytes % 4.7 % (1.7-9.3); Neutrophils % 60.3 % (37.0-80.0); Platelet Count 295 K/mm3 (142-424); Red Blood Count 4.09 M/mm3 (4.60-6.20); Red Cell Distribution Width 14.3 % (11.5-17.5); White Blood Count 6.6 K/mm3 (4.8-10.8)
[2023-12-24 06:31] LABS: Calcium 9.1 mg/dl (8.4-10.2); Glucose 96 mg/dl (74-100)
--- NOTE | 2023-12-24 08:49 | EXP.SURG.PN ---
Subjective Patient reports: no new complaints, feels better, flatus and bowel movement Narrative: Excellent response to suppositories/enemas yesterday. Exam Data for Last 24 hours Vital signs and Labs for Last 24 Hours: Temp Pulse Resp BP Pulse Ox O2 Del Method 98.6 F 94 H 21 159/89 H 94 L Room Air 12/24/23 08:00 12/24/23 08:00 12/24/23 08:00 12/24/23 08:00 12/24/23 08:00 12/24/23 08:31 Laboratory Results - last 24 hr 12/24/23 06:07: WBC 6.6 D, RBC 4.09 L, Hgb 12.1 L, Hct 36.5 L, MCV 89.3, MCH 29.6, MCHC 33.1, RDW 14.3, Plt Count 295, MPV 7.5, Neut % (Auto) 60.3, Lymph % (Auto) 31.6, [place] % (Auto) 4.7, Eos % (Auto) 2.8, Baso % (Auto) 0.6, Neut # (Auto) 4.0, Lymph # (Auto) 2.1, [place] # (Auto) 0.3, Eos # (Auto) 0.2, Baso # (Auto) 0.0, Sodium 138, Potassium 4.3, Chloride 105, Carbon Dioxide 30, Anion Gap 7.3, BUN 8 L, Creatinine 1.20, Estimated Creat Clear 99, Estimated GFR 72, Est GFR ( Amer) 87, Glucose 96, Calcium 9.1 I & O for Last 24 hours: Intake & Output 12/21/23 12/22/23 12/23/23 12/24/23 11:59 11:59 11:59 11:59 Intake Total 1000 / 1000 2143 / 2143 Output Total 0 / 0 1025 / 1025 Balance 1000 / 1000 1118 / 1118 Weight 170 lb 9 oz 169 lb 5 oz Radiology Reports for the Last 24 Hours: Morning flat/upright abdominal films reveal contrast within colon Constitutional Constitutional: no acute distress *Routine Respiratory Exam Respiratory: Absent respiratory distress *Routine Cardiovascular Exam Cardiovascular: Absent tachycardia *Routine Abdominal Exam Abdominal: Absent firm Comments: Much less tenderness and less distention Progress Note: A&P Assessment and plan (1) Colon distention: Status: Acute Assessment and plan: Causative etiology remains somewhat equivocal. Excellent clinical response to suppositories/enemas yesterday. Nasogastric tube to drain bag/clamped Possibly remove nasogastric tube later today and slowly advance diet Further evaluation for colonic pathology (dysmotility, inflammatory bowel disease, etc.) likely deferred to the gastroenterology service (2) Small bowel obstruction: Status: Acute Assessment and plan: No definitive evidence of small bowel obstruction noted radiographically
[2023-12-24] MEDS: GABAPENTIN 800MG TABLET 800 MG PO ×3 (09:05→20:33)
--- NOTE | 2023-12-24 11:13 | P.PN_ITS ---
Subjective *Date: 12/24/23 *Time: 11:13 Interval history: he had 2 BMs this morning, passing gas. Denied Abdominal pain chest pain, SOB Exam Data for Last 24 hours Vital signs and Labs for Last 24 Hours: Temp Pulse Resp BP Pulse Ox O2 Del Method 98.6 F 94 H 21 159/89 H 94 L Room Air 12/24/23 08:00 12/24/23 08:00 12/24/23 08:00 12/24/23 08:00 12/24/23 08:00 12/24/23 08:31 Laboratory Results - last 24 hr 12/24/23 06:07: WBC 6.6 D, RBC 4.09 L, Hgb 12.1 L, Hct 36.5 L, MCV 89.3, MCH 29.6, MCHC 33.1, RDW 14.3, Plt Count 295, MPV 7.5, Neut % (Auto) 60.3, Lymph % (Auto) 31.6, [place] % (Auto) 4.7, Eos % (Auto) 2.8, Baso % (Auto) 0.6, Neut # (Auto) 4.0, Lymph # (Auto) 2.1, [place] # (Auto) 0.3, Eos # (Auto) 0.2, Baso # (Auto) 0.0, Sodium 138, Potassium 4.3, Chloride 105, Carbon Dioxide 30, Anion Gap 7.3, BUN 8 L, Creatinine 1.20, Estimated Creat Clear 99, Estimated GFR 72, Est GFR ( Amer) 87, Glucose 96, Calcium 9.1 I & O for Last 24 hours: Intake & Output 12/21/23 12/22/23 12/23/23 12/24/23 23:59 23:59 23:59 23:59 Intake Total 1000 / 1000 1421 / 1421 722 / 722 Output Total 125 / 125 900 / 900 Balance 1000 / 1000 1296 / 1296 -178 / -178 Weight 77.621 kg 77.366 kg 76.799 kg Constitutional Constitutional: no acute distress Comments: he has NG tube placed in *Routine HEENT Exam Head: Present normocephalic Eye: Present EOMI and PERRL ENT: Present mucous membranes moist *Routine Neck Exam Neck: Present supple; Absent lymphadenopathy *Routine Respiratory Exam Respiratory: Present CTA bilaterally *Routine Cardiovascular Exam Cardiovascular: Present RRR *Routine Abdominal Exam Abdominal: Present soft and normoactive bowel sounds; Absent tenderness *Routine Extremities Exam Extremities: Absent cyanosis, clubbing or edema *Routine Skin Exam Skin: Present warm; Absent rash *Routine Neurological Exam Neurological: Present alert and oriented X3 Assessment and Plan *Assessment and plan (1) Small bowel obstruction: Status: Acute Category: Medical Code(s): K56.609 - Unspecified intestinal obstruction, unspecified as to partial versus complete obstruction (2) Interstitial cystitis: Status: Acute Category: Medical Code(s): N30.10 - Interstitial cystitis (chronic) without hematuria (3) HTN (hypertension): Status: Acute Category: Medical Code(s): I10 - Essential (primary) hypertension (4) Chronic pain: Status: Acute Category: Medical Code(s): G89.29 - Other chronic pain (5) Insomnia: Status: Acute Category: Medical Code(s): G47.00 - Insomnia, unspecified (6) Tobacco abuse: Status: Acute Category: Medical Code(s): Z72.0 - Tobacco use Plan 28 year old male presented to [facility] ED for c/o abdominal pain, distention, nausea, and vomiting since this afternoon. He recently was admitted at [place] one week prior for a SBO that was decompressed with an NG tube. He was discharged a few days ago. He also reports having abdominal surgery in [place], [place] one year prior for bowel twisting . CT of abd and pelvis demonstrate air and stool distention of the colon with fluid distention in the small bowel loops. SMALL BOWEL OBSTRUCTION -CT of abd and pelvis demonstrate air and stool distention of the colon with fluid distention in the small bowel loops -Admitted last week at [place] for SBO -NPO, ok to advance diet per GS -General Surgery consult Xray KUB shows improvement, NG clamped, -LR @ 75 mL/hr for gentle hydration -Zofran 4 mg Q 6hr PRN for nasuea -Dilaudid 1mg Q 6 hr PRN for pain INTERSTITIAL CYSTITIS HTN CHRONIC PAIN-chronic pain from torn rotator cuff. INSOMNIA -Changed baclofen, gabapentin, and tramadol from schedule to PRN -Continue quetiapine as needed for insomnia -continue toviaz 8mg TOBACCO ABUSE -nicotine patch PRN FULL CODE NPO DVT: SCD serial abdominal xrays, advance diet as per GS, likely DC 1-2 days pending improvement, NG tube clamped
[2023-12-24] MEDS: NICOTINE 21MG/24HR PATCH 21 MG TD (11:39)
[2023-12-24] MEDS: UBROGEPANT 50MG TABLET 100 MG PO (15:23)
[2023-12-24] MEDS: LORATADINE 10MG TABLET 10 MG PO (16:50)
--- NOTE | 2023-12-24 18:21 | PC.NURSE ---
pt alert and oriented x4, checked gastric residual at 1145, <50ml clear/brown output noted, patient denied nausea, vomiting, and abdominal pain, NG removed at 12:30. Patient is tolerating clear liquids. Patient has had 3 large liquid bowel movements during my shift, and continues to deny nausea, vomiting, and abdominal pain. He complained of a migraine at 1500, treated per MAR. MD was called and pt home med Ubrelvy 100mg was ordered and given. New IV started in pts R. upper arm, LR going at 75ml/hr. Bed is in lowest position, call light in reach.
[2023-12-24] MEDS: VENLAFAXINE XR 75MG CAPSULE 150 MG PO (20:33)
[2023-12-24] MEDS: QUETIAPINE 25MG TABLET 25 MG PO (20:33)
[2023-12-25] MEDS: LACTATED RINGERS 1000ML 1,000 ML 75 ML IV (00:43)
[2023-12-25 04:00] VITALS: BP 115/76; PULSE 78; RESP 16; TEMP 36.8; O2SAT 95; BMI 23.6
--- NOTE | 2023-12-25 06:00 | XR_ITS ---
PROCEDURE INFORMATION: Exam: XR Complete Acute Abdomen Series Including Chest Exam date and time: 12/25/2023 6:17 AM Age: 28 years old Clinical indication: Other: Sbo TECHNIQUE: Imaging protocol: Radiologic exam. Complete acute abdomen series, including 2 or more views of the abdomen and a single view chest. COMPARISON: CR XR KUB 12/24/2023 5:46 AM FINDINGS: Tubes, catheters and devices: Interval removal of enteric tube Lungs: Normal. No consolidation. Pleural spaces: Normal. No pleural effusions. No pneumothorax. Heart/Mediastinum: Normal. No cardiomegaly. Diaphragm: Left diaphragmatic eventration. Gastrointestinal tract: Prominent loops of air distended bowel. No fluid fluid levels. Dense stool is appreciated within the colon, and rectum. Intraperitoneal space: Normal. No free air. Bones/joints: Normal. No acute fracture. Soft tissues: Normal. IMPRESSION: Air dilated large bowel without fluid fluid levels, nonspecific. Radiopaque contrast and stool is appreciated within the rectum and colon.
[2023-12-25 06:40] LABS: Basophils # 0.1 K/mm3 (0-0.2); Eosinophils # 0.2 K/mm3 (0.0-0.4); Eosinophils % 4.9 % (0.1-12.0); Hematocrit 40.8 % (42.0-52.0); Hemoglobin 13.1 g/dL (14.1-18.0); Lymphocytes # 1.7 K/mm3 (0.7-4.5); Lymphocytes % 37.5 % (10-50); Mean Corpuscular HGB Conc 32.1 g/dL (31.8-35.4); Mean Corpuscular Hemoglobin 29.1 pg (27.0-31.2); Mean Corpuscular Volume 90.6 fl (80-94); Mean Platelet Volume 7.5 fl (7.4-10.4); Monocytes # 0.3 K/mm3 (0.1-1.0); Monocytes % 6.7 % (1.7-9.3); Neutrophils # 2.2 K/mm3 (1.8-7.8); Neutrophils % 49.9 % (37.0-80.0); Platelet Count 348 K/mm3 (142-424); Red Cell Distribution Width 14.5 % (11.5-17.5); White Blood Count 4.5 K/mm3 (4.8-10.8)
--- NOTE | 2023-12-25 06:57 | P.PN_ITS ---
Subjective Patient reports: no new complaints, feels better, flatus and bowel movement Narrative: Nasogastric tube removed yesterday. The patient states he feels almost normal . Exam Data for Last 24 hours Vital signs and Labs for Last 24 Hours: Temp Pulse Resp BP Pulse Ox O2 Del Method 98.2 F 78 16 115/76 95 Room Air 12/25/23 04:00 12/25/23 04:00 12/25/23 04:00 12/25/23 04:00 12/25/23 04:00 12/25/23 05:00 Laboratory Results - last 24 hr 12/25/23 05:40: WBC 4.5 L D, RBC 4.50 L, Hgb 13.1 L, Hct 40.8 L, MCV 90.6, MCH 29.1, MCHC 32.1, RDW 14.5, Plt Count 348, MPV 7.5, Neut % (Auto) 49.9, Lymph % (Auto) 37.5, [place] % (Auto) 6.7, Eos % (Auto) 4.9, Baso % (Auto) 1.0, Neut # (Auto) 2.2, Lymph # (Auto) 1.7, [place] # (Auto) 0.3, Eos # (Auto) 0.2, Baso # (Auto) 0.1 I & O for Last 24 hours: Intake & Output 12/22/23 12/23/23 12/24/23 12/25/23 11:59 11:59 11:59 11:59 Intake Total 1000 / 1000 2143 / 2143 950 / 950 Output Total 0 / 0 1025 / 1025 0 / 0 Balance 1000 / 1000 1118 / 1118 950 / 950 Weight 170 lb 9 oz 169 lb 5 oz 159 lb 11.2 oz Constitutional Constitutional: no acute distress *Routine Respiratory Exam Respiratory: Absent respiratory distress *Routine Cardiovascular Exam Cardiovascular: Absent tachycardia *Routine Abdominal Exam Abdominal: Present soft Progress Note: A&P Assessment and plan (1) Colon distention: Status: Acute Assessment and plan: Causative etiology remains somewhat equivocal. Currently without significant symptoms. Patient does report history of multiple colonoscopies in childhood secondary to ulcers . Okay from surgical standpoint for discharge home with close outpatient follow-up Slowly advance diet over the next few days Further evaluation for colonic pathology (dysmotility, inflammatory bowel disease, etc.) likely deferred to the gastroenterology service (2) Small bowel obstruction: Status: Acute Assessment and plan: No definitive evidence of small bowel obstruction noted radiographically
[2023-12-25 07:06] LABS: Chloride 106 mmol/L (98-107); Sodium 137 mmol/L (136-145)
[2023-12-25 07:07] LABS: Potassium 4.2 mmoL/L (3.5-5.1)
[2023-12-25 07:09] LABS: Alanine Aminotransferase 54 U/L (12-78); Alkaline Phosphatase 110 U/L (38-126); Anion Gap 6.2 mEq/L (5-15); Aspartate Amino Transferase 63 U/L (17-59); Bilirubin,Total 0.4 mg/dl (0.2-1.3); Blood Urea Nitrogen 6 mg/dl (9-20); Carbon Dioxide 29 mmol/L (22.0-30.0); Creatinine Clearance Estimated 112 mL/min (50-200); Estimated Glomerular Filt Rate 88 ml/min (>60); GFR (African American) 107 ML/MIN (>60)
[2023-12-25 07:10] LABS: Albumin Level 3.6 g/dl (3.5-5.0); Albumin/Globulin Ratio 1.4 (1.1-1.8); Calcium 9.5 mg/dl (8.4-10.2); Globulin 2.6 g/dL (1.3-3.2); Glucose 97 mg/dl (74-100); Magnesium 1.8 mg/dl (1.6-2.3); Total Protein,Serum 6.2 g/dl (6.3-8.2)
[2023-12-25 07:27] VITALS: BP 136/75; PULSE 85; RESP 22; TEMP 36.9; O2SAT 98
[2023-12-25 08:00] VITALS: O2SAT 94
[2023-12-25] MEDS: LORATADINE 10MG TABLET 10 MG PO (10:19)
[2023-12-25] MEDS: VENLAFAXINE XR 75MG CAPSULE 150 MG PO (10:19)
[2023-12-25] MEDS: GABAPENTIN 800MG TABLET 800 MG PO (10:20)
[2023-12-25 11:33] VITALS: BP 131/76; PULSE 80; RESP 20; O2SAT 92
--- NOTE | 2023-12-25 11:35 | EXP.DC.SUM ---
General Admission date:: 12/22/23 Discharge date: 12/25/23 HPI HPI HPI: This is a 28-year-old gentleman seen in consultation for possible small bowel obstruction. Although he continues to complain of abdominal pain he states that it is better after the tube was placed . He reports a small to moderate bowel movement and intermittent flatus over the last 24 hours. Forwarded from admission H&P/emergency department evaluation: 28 year old male presented to [facility] ED for c/o abdominal pain, distention, nausea, and vomiting since this afternoon. He recently was admitted at [place] one week prior for a SBO that was decompressed with an NG tube. He was discharged a few days ago. He also reports having abdominal surgery in [place], [place] one year prior for bowel twisting . PMHX of HTN, tobacco abuse, and chronic pain medication use for a torn rotator cuff. Upon arrival to the ED, a NG tube was placed and the pt felt relief. CT of abd and pelvis demonstrate air and stool distention of the colon with fluid distention in the small bowel loops. On exam the pt is still distended pt states nausea has improved. The ED physician consulted the hospitalist team for further medical management. I admitted the pt to the medical floor. He will remain NPO for bowel rest, receive PRN medications for nausea and pain, and gentle IV hydration. Hospital Course Hospital Course Hospital Course: 28 year old male presented to [facility] ED for c/o abdominal pain, distention, nausea, and vomiting since this afternoon. He recently was admitted at [place] one week prior for a SBO that was decompressed with an NG tube. He was discharged a few days ago. He also reports having abdominal surgery in [place], [place] one year prior for bowel twisting . CT of abd and pelvis demonstrate air and stool distention of the colon with fluid distention in the small bowel loops. Patient had numerous bowel movements (greater than 6) after admission. Given improvement in abdominal discomfort, passing of gas and bowel movements, progression of gas to colon on imaging, stable for discharge home. Surgery was consulted and evaluated patient. No surgical intervention at this time. Needs further workup as an outpatient for chronic conditions and follow-up with surgery in the coming weeks for reevaluation. Problems addressed as follows: SMALL BOWEL OBSTRUCTION versus ileus -CT of abd and pelvis demonstrate air and stool distention of the colon with fluid distention in the small bowel loops. Patient was decompressed with NG. Developed progression of bowels with bowel movements and passing of flatus. Was recently admitted to [place] last week for similar presentation. Was discharged after observation. Surgery was consulted, given that patient is passing gas and having bowel movements, stable to discharge home. Will plan to follow-up with surgery as an outpatient for further evaluation. No emesis during admission. Tolerating p.o. intake without difficulty. Symptoms most consistent with ileus. INTERSTITIAL CYSTITIS -Has previously seen urology. On multiple medications for overactive bladder. Will refer to Dr. Weston for further management as he has not seen urology in well over a year. Needs further evaluation of his interstitial cystitis and overactive bladder. Continue Toviaz 8 mg daily. CHRONIC PAIN-chronic pain from torn rotator cuff. INSOMNIA -Changed baclofen, gabapentin, and tramadol from scheduled to PRN during admission. Resume home regimen at discharge. Continue quetiapine as needed for insomnia Exam Data for Last 24 hours Vital signs and Labs for Last 24 Hours: Temp Pulse Resp BP Pulse Ox O2 Del Method 98.5 F 80 20 131/76 92 L Room Air 12/25/23 07:27 12/25/23 11:33 12/25/23 11:33 12/25/23 11:33 12/25/23 11:33 12/25/23 11:33 Laboratory Results - last 24 hr 12/25/23 05:40: WBC 4.5 L D, RBC 4.50 L, Hgb 13.1 L, Hct 40.8 L, MCV 90.6, MCH 29.1, MCHC 32.1, RDW 14.5, Plt Count 348, MPV 7.5, Neut % (Auto) 49.9, Lymph % (Auto) 37.5, [place] % (Auto) 6.7, Eos % (Auto) 4.9, Baso % (Auto) 1.0, Neut # (Auto) 2.2, Lymph # (Auto) 1.7, [place] # (Auto) 0.3, Eos # (Auto) 0.2, Baso # (Auto) 0.1, Sodium 137, Potassium 4.2, Chloride 106, Carbon Dioxide 29, Anion Gap 6.2, BUN 6 L, Creatinine 1.00, Estimated Creat Clear 112, Estimated GFR 88, Est GFR ( Amer) 107 D, Glucose 97, Calcium 9.5, Magnesium 1.8, Total Bilirubin 0.4, AST 63 H D, ALT 54 D, Alkaline Phosphatase 110, Total Protein 6.2 L, Albumin 3.6, Globulin 2.6, Albumin/Globulin Ratio 1.4 I & O for Last 24 hours: Intake & Output 12/22/23 12/23/23 12/24/23 12/25/23 23:59 23:59 23:59 23:59 Intake Total 1000 / 1000 1421 / 1421 1672 / 1672 285 / 285 Output Total 125 / 125 900 / 900 0 / 0 Balance 1000 / 1000 1296 / 1296 772 / 772 285 / 285 Weight 77.621 kg 77.366 kg 76.799 kg 72.439 kg Constitutional Constitutional: no acute distress and average body habitus *Routine HEENT Exam Head: Present normocephalic Eye: Present EOMI and PERRL ENT: Present mucous membranes moist *Routine Neck Exam Neck: Present supple; Absent lymphadenopathy *Routine Respiratory Exam Respiratory: Present CTA bilaterally; Absent rhonchi, wheezes or crackles *Routine Cardiovascular Exam Cardiovascular: Present RRR *Routine Abdominal Exam Abdominal: Present soft and normoactive bowel sounds; Absent tenderness Comments: well healed midline scar below umbilicus *Routine Rectal Exam Patient deferred: visual exam *Routine Exam Patient deferred: penile exam *Routine Extremities Exam Extremities: Absent cyanosis, clubbing or edema *Routine Skin Exam Skin: Present warm; Absent rash *Routine Neurological Exam Neurological: Present alert, oriented X3 and moving all extremities; Absent altered mental status Results Data Completed and Pending Labs on day of discharge: Labs from last 24 hours 12/25/23 05:40 WBC 4.5 L D RBC 4.50 L Hgb 13.1 L Hct 40.8 L MCV 90.6 MCH 29.1 MCHC 32.1 RDW 14.5 Plt Count 348 MPV 7.5 Neut % (Auto) 49.9 Lymph % (Auto) 37.5 [place] % (Auto) 6.7 Eos % (Auto) 4.9 Baso % (Auto) 1.0 Neut # (Auto) 2.2 Lymph # (Auto) 1.7 [place] # (Auto) 0.3 Eos # (Auto) 0.2 Baso # (Auto) 0.1 Sodium 137 Potassium 4.2 Chloride 106 Carbon Dioxide 29 Anion Gap 6.2 BUN 6 L Creatinine 1.00 Estimated Creat Clear 112 Estimated GFR 88 Est GFR ( Amer) 107 D Glucose 97 Calcium 9.5 Magnesium 1.8 Total Bilirubin 0.4 AST 63 H D ALT 54 D Alkaline Phosphatase 110 Total Protein 6.2 L Albumin 3.6 Globulin 2.6 Albumin/Globulin Ratio 1.4 DS: Diagnosis Discharge Diagnosis (1) Colon distention: Status: Acute Code(s): K63.89 - Other specified diseases of intestine (2) Small bowel obstruction: Status: Acute Code(s): K56.609 - Unspecified intestinal obstruction, unspecified as to partial versus complete obstruction Meds Home Medications and Allergies Home Medications Medication Instructions Recorded Confirmed Type tramadol 50 mg tablet 50 mg PO TIDP PRN Moderate Pain 12/07/19 12/23/23 History baclofen 20 mg tablet 20 mg PO TIDP PRN Muscle Spasm 09/23/20 12/23/23 History diclofenac sodium 75 mg 75 mg PO BID 09/23/20 12/22/23 History tablet,delayed release erenumab-aooe 70 mg/mL 70 mg SQ MONTHLY 11/08/21 12/22/23 History subcutaneous auto-injector (Aimovig Autoinjector) ergocalciferol (vitamin D2) 1,250 1,250 mcg PO WEEKLY 11/08/21 12/22/23 History mcg (50,000 unit) capsule (Vitamin D2) fesoterodine 8 mg tablet,extended 8 mg PO DAILY 11/08/21 12/22/23 History release 24 hr (Toviaz) hydroxyzine pamoate 25 mg capsule 25 mg PO TIDP PRN Anxiety 11/08/21 12/23/23 History loratadine 10 mg tablet 10 mg PO DAILY 11/08/21 12/22/23 History ondansetron 4 mg disintegrating 4 mg PO TIDP PRN nausea and 11/08/21 12/23/23 History tablet vomiting venlafaxine 150 mg 150 mg PO DAILY 11/08/21 12/22/23 History capsule,extended release 24 hr quetiapine 25 mg tablet 25 - 50 mg PO HS 12/22/23 12/23/23 History gabapentin 800 mg tablet 800 mg PO TID 12/23/23 12/23/23 History ubrogepant 100 mg tablet (Ubrelvy) 100 mg PO DAILYP PRN Migraines 12/23/23 12/23/23 History New Prescriptions to Start Prescriptions: Allergies Allergy/AdvReac Type Severity Reaction Status Date / Time doxycycline [DOXYCYCLINE] Allergy Intermediate Verified 11/16/21 10:56 codeine [CODEINE] Allergy Mild Verified 11/16/21 10:56 lidocaine AdvReac Verified 11/16/21 10:56 Discharge Plan Disposition Patient Disposition: Home, Self-Care Condition: Fair Discharge Order Discharge Orders: Discharge Order (Routine); Ordered 12/25/23 Ordered By: Jose Issa Follow up Plan Follow up with: Kam Weston MD [Staff Physician] - 01/14/24 10:45 am Moises Silva MD [Staff Physician] - 01/09/24 1:45 pm Prescriptions/Medication Reconciliation: Continued venlafaxine 150 mg capsule,extended release 24hr 150 mg PO DAILY ergocalciferol (vitamin D2) [Vitamin D2] 1,250 mcg (50,000 unit) capsule 1,250 mcg PO WEEKLY Patient Comments: TAKE 1 CAPSULE BY MOUTH EVERY WEEK loratadine 10 mg tablet 10 mg PO DAILY Patient Comments: TAKE 1 TABLET BY MOUTH DAILY. ondansetron 4 mg tablet,disintegrating 4 mg PO TIDP PRN (Reason: nausea and vomiting) Aimovig Autoinjector 70 mg/mL auto-injector 70 mg SQ MONTHLY Toviaz 8 mg tablet extended release 24 hr 8 mg PO DAILY hydroxyzine pamoate 25 mg capsule 25 mg PO TIDP PRN (Reason: Anxiety) tramadol 50 MG tablet 50 mg PO TIDP PRN (Reason: Moderate Pain) baclofen 20 MG tablet 20 mg PO TIDP PRN (Reason: Muscle Spasm) diclofenac sodium 75 MG tablet,delayed release (DR/EC) 75 mg PO BID quetiapine 25 mg tablet 25 - 50 mg PO HS Patient Comments: TAKE 1 TO 2 TABLETS BY MOUTH EVERY NIGHT gabapentin 800 mg tablet 800 mg PO TID Ubrelvy 100 mg tablet 100 mg PO DAILYP PRN (Reason: Migraines) Patient Comments: TAKE 1 TABLET BY MOUTH DAILY NEEDED FOR MIGRAINES FOR UP TO 30 DAYS Problem Reconciliation Problems Reviewed?: Yes Patient Discharge Instructions ACTIVITY: Continue current activity DIET: continue same diet Patient Instructions: Small Bowel Obstruction, DI for Small Bowel Obstruction Providers Primary Care Provider: Jeannette Hernandez Admit Provider: Vincent Gee Attending Provider: Vincent Gee
[2023-12-25] MEDS: TRAMADOL 50MG TABLET 50 MG PO (11:47)
--- NOTE | 2023-12-27 13:48 | CARE MANAGER ---
Attempted to call patient to discuss recent discharge. Unable to reach via phone, call attempted x 2 and VM left.
== END 2023-12-25 12:18 | disposition home or self-care (01) ==
LOC: ER 21:17 → 2ND 22:44
PROVIDERS: Internal Medicine Adolescent Medicine; Nurse Practitioner Critical Care Medicine; Surgery; Admitting Provider Internal Medicine; Emergency Provider Emergency Medicine; PCP Internal Medicine; Visit Provider Internal Medicine
DX: K56.609 Unspecified intestinal obstruction, unspecified as to partial versus complete obstruction (principal); F17.210 Nicotine dependence, cigarettes, uncomplicated; N30.10 Interstitial cystitis (chronic) without hematuria; I10 Essential (primary) hypertension; G47.00 Insomnia, unspecified; G89.29 Other chronic pain; Z79.899 Other long term (current) drug therapy; K63.89 Other specified diseases of intestine
CPT/HCPCS: 36415; 71045; 74018; 74021; 74177; 80048; 80053; 83605; 83690; 83735; 85025; 99285; G0378; J2405; Q9967

== ENCOUNTER 2024-03-20 17:07 | Inpatient (IN) | payer MEDICAID, SELFPAY ==
[2024-03-20] VITALS (10 sets, daily range): BP systolic 121–148; BP diastolic 79–107; PULSE 104–139; RESP 16–24; TEMP 36.9–37; O2SAT 90–96; BMI 23.8; BMI 25.8
--- NOTE | 2024-03-20 17:13 | PC.NURSE ---
DR RONQUILLO AT BEDSIDE
--- NOTE | 2024-03-20 17:25 | HMH.EDGENADL ---
Discharge Plan Disposition Patient Disposition: Admitted Clinical Impressions Clinical Impression: Abdominal pain, Vomiting and diarrhea, BLAIRE (acute kidney injury) Discharge ED Provider: Samm Gupta General Adult HPI General Chief complaint: Abdominal Pain Stated complaint: stomach swelling and diarrhea Time Seen by Provider: 03/20/24 17:09 Mode of Arrival: Ambulatory Source of Information: Patient Limitations: No Limitations Description of Symptoms (Recalled from ER Triage Doc. by RN): N/V/D HX OF SBO History of Present Illness HPI narrative: Please note that above description of symptoms, in this electronic medical record under categorization of recalled from ER triage doctor by RN are reflective of an initial nursing assessment, however, is not reflective of my full history and physical exam that was personally taken and clarified. Consequentially, this preceding description of symptoms, which may include the patient's categorized chief complaint in the EMR, do not reflect my personal clinical impression, and the ultimate description of history of present illness and patient stated complaints should be deferred to this section of the note. Unless stated otherwise or congruent with this section of the note, additional signs, symptoms, or incongruence should be interpreted as inaccurate with my clinical impression. Related Data Home Medications Medication Instructions Recorded Confirmed ergocalciferol (vitamin D2) 1,250 1,250 mcg PO WEEKLY 03/20/24 03/20/24 mcg (50,000 unit) capsule fesoterodine 8 mg tablet,extended 8 mg PO DAILY 03/20/24 03/20/24 release 24 hr (Toviaz) gabapentin 800 mg tablet 800 mg PO TID 03/20/24 03/20/24 hydroxyzine pamoate 25 mg capsule 25 mg PO TIDP PRN Anxiety 03/20/24 03/20/24 linaclotide 145 mcg capsule 145 mcg PO DAILY 03/20/24 03/20/24 (Linzess) metoprolol tartrate 25 mg tablet 25 mg PO DAILY 03/20/24 03/20/24 ondansetron 4 mg disintegrating 4 mg PO Q8HP PRN Nausea And 03/20/24 03/20/24 tablet Vomiting quetiapine 25 mg tablet 25 - 50 mg PO HS 03/20/24 03/20/24 sodium,potassium,mag sulfates 17.5 See Rx Instructions .Route .COMPLEX 03/20/24 03/20/24 gram-3.13 gram-1.6 gram oral soln tramadol 50 mg tablet 50 mg PO Q8HP PRN Moderate Pain 03/20/24 03/20/24 (Scale Score 5-6) ubrogepant 100 mg tablet (Ubrelvy) 100 mg PO DAILYP PRN Migraine 03/20/24 03/20/24 Headache venlafaxine 150 mg 150 mg PO DAILY 03/20/24 03/20/24 capsule,extended release 24 hr Allergies Allergy/AdvReac Type Severity Reaction Status Date / Time doxycycline [DOXYCYCLINE] Allergy Intermediate Verified 01/14/24 10:33 codeine [CODEINE] Allergy Mild Verified 01/14/24 10:33 lidocaine AdvReac Verified 01/14/24 10:33 PFSH PFSH Disclaimer: The information contained in this section may have been updated after the patient was seen, as this information can be updated by other users. Medical History Interstitial cystitis Surgical History History of colonoscopy H/O shoulder surgery Social History Smoking Status: Never smoker second hand exposure: Yes alcohol intake: never substance use type: denies use current occupational status: unemployed Travel in the last 8 weeks: None household members: other housing: house current occupational exposures/hazards: No caffeine: Yes ROS Obtained: Yes All systems reviewed & no additional complaints except as documented Physical Exam General General appearance: alert and in distress (Secondary to pain, splinting in bed) Head Head exam: atraumatic and normocephalic Eye Eye exam: Present normal appearance, PERRL and EOMI ENT ENT exam: Present mucous membranes moist Neck Neck exam: Present normal inspection, full ROM and trachea midline Respiratory Respiratory exam: Present normal lung sounds bilaterally; Absent respiratory distress, wheezes, stridor, accessory muscle use or prolonged expiratory phase Cardiovascular Cardiovascular exam: Present normal rhythm and tachycardia Abdominal Exam Abdominal exam: Present soft, distention, tenderness, guarding and scar; Absent rebound or rigidity Abdominal tenderness: Present LLQ, diffuse and severe Extremities Exam Extremities exam: Absent edema Neurological Exam Neurological exam: Present alert, oriented X3, CN II-XII intact and normal gait; Absent motor sensory deficit Skin Skin exam: Present warm and dry; Absent diaphoresis or erythema Medical Decision Making Medical Records Medical records reviewed: Yes I reviewed the patient's medical records. Omar Inquiry Pt receiving controlled substance: No Omar was queried for this patient: No Vital Signs: 03/20/24 17:08 03/20/24 17:30 03/20/24 18:00 Temperature 98.5 F Temperature Source Oral Pulse Rate 130 H 128 H Pulse Rate [Right] 139 H Respiratory Rate 20 Blood Pressure 141/97 H 148/100 H Blood Pressure [Right Arm] 131/103 H Blood Pressure Mean Blood Pressure Mean [Right Arm] 112 02 Sat by Pulse Oximetry 96 92 L 92 L Oxygen Delivery Method Room Air Room Air Room Air 03/20/24 18:30 03/20/24 19:00 03/20/24 19:12 Temperature Temperature Source Pulse Rate 126 H 119 H 119 H Pulse Rate [Right] Respiratory Rate 19 Blood Pressure 138/96 H 141/99 H 131/90 Blood Pressure [Right Arm] Blood Pressure Mean 103 Blood Pressure Mean [Right Arm] 02 Sat by Pulse Oximetry 91 L 91 L 94 L Oxygen Delivery Method Room Air Room Air Room Air 03/20/24 19:31 03/20/24 20:00 Temperature Temperature Source Pulse Rate 121 H 119 H Pulse Rate [Right] Respiratory Rate 24 19 Blood Pressure 147/107 H 131/84 Blood Pressure [Right Arm] Blood Pressure Mean 118 Blood Pressure Mean [Right Arm] 02 Sat by Pulse Oximetry 94 L 90 L Oxygen Delivery Method Room Air Room Air Lab Data Lab Results 03/20/24 17:22: WBC 18.1 H, RBC 5.36, Hgb 15.8, Hct 47.4, MCV 88.4, MCH 29.4, MCHC 33.3, RDW 14.8, Plt Count 328, MPV 8.0, Neut % (Auto) 77.2, Lymph % (Auto) 15.5, [place] % (Auto) 4.7, Eos % (Auto) 2.0, Baso % (Auto) 0.5, Neut # (Auto) 14.0 H, Lymph # (Auto) 2.8, [place] # (Auto) 0.9, Eos # (Auto) 0.4, Baso # (Auto) 0.1, Total Counted 100, Neutrophils % (Manual) 72, Lymphocytes % (Manual) 21, Atypical Lymphs % 3.0, Monocytes % (Manual) 4, Platelet Estimate Normal, RBC Morphology Normal, ESR 5, Sodium 137, Potassium 4.3, Chloride 108 H, Carbon Dioxide 15 L, Anion Gap 18.3 H, BUN 13, Creatinine 1.40 H, Estimated Creat Clear 80, Estimated GFR 60, Est GFR ( Amer) 72, Glucose 123 H, Lactate 2.1, Calcium 9.5, Total Bilirubin 0.6, AST 25, ALT 32, Alkaline Phosphatase 88, C-Reactive Protein 8.0 H, Total Protein 8.2 D, Albumin 5.0, Globulin 3.2, Albumin/Globulin Ratio 1.6, Lipase 72 03/20/24 17:48: Stl Aeromonas (PCR) Not detected, Stl C. cayetanensis PCR Not detected, Stool Rotavirus (PCR) Not detected, Stl Adenov F 40/41 PCR Not detected, Stool Astrovirus (PCR) Not detected, Stool Campylobacter PCR Not detected, Stl C.difficile Tox PCR Not detected, Stool Cryptosporidium PCR Not detected, Stl E.coli Shiga Tox PCR Not detected, Stool E coli O157 PCR Not detected, Stl Enterotoxigenic E PCR Not detected, Stool EPEC (PCR) Not detected, Stool EAEC (PCR) Not detected, Stl E. histolytica PCR Not detected, Stool Giardia Lamblia PCR Not detected, Stool Salmonella PCR Not detected, Stool Sapovirus (PCR) Not detected, Stl P. shigelloides PCR Not detected, Stl Shigella/EIEC PCR Not detected, St Y.enterocolitica PCR Not detected, Stool Vibrio (PCR) Not detected, Stl Vibrio cholerae PCR Not detected, Stl Norovirus GI/GII PCR Not detected 03/20/24 19:23: Urine Color Yellow, Urine Appearance Clear, Urine pH 6.0, Ur Specific [place] >= 1.030, Urine Protein 1+, Urine Glucose (UA) Negative, Urine Ketones Trace, Urine Blood Negative, Urine Nitrate Negative, Urine Bilirubin 1+ A, Urine Urobilinogen 0.2, Ur Leukocyte Esterase Negative, Urine RBC None, Urine WBC Occasional, Ur Squamous Epith Cells Occasional, Urine Bacteria Trace, Hyaline Casts 10-20, Urine Mucus 2+ 03/20/24 17:22 03/20/24 17:22 Orders (Tests/Meds): ED MEDICATIONS Generic Name Dose Route Start Last Admin Trade Name Freq PRN Reason Stop Dose Admin Acetaminophen 650 mg 03/20/24 21:52 Acetaminophen 325mg Tab PO 04/19/24 21:51 Q4HP PRN Fever or Mild Pain (1-3) Enoxaparin Sodium 40 mg 03/21/24 09:00 Enoxaparin 40mg/0.4ml Syringe SQ 04/20/24 08:59 DAILY HECTOR Lactated Ringer's 1,000 mls @ 50 mls/hr 03/20/24 22:00 Lactated Ringer's 1000 Ml Bag IV 04/19/24 21:59 .Q20H HECTOR Morphine Sulfate 4 mg 03/20/24 21:52 Morphine 4mg/Ml Syringe IV 04/19/24 21:51 Q4HP PRN Severe Pain (7-10) Nicotine 21 mg 03/20/24 21:52 Nicotine 21mg/24hr Patch TD 04/19/24 21:51 DAILYP PRN Nicotine Cravings Ondansetron HCl 4 mg 03/20/24 21:52 Ondansetron 4mg/2ml Vial IV 04/19/24 21:51 Q8HP PRN Nausea Pantoprazole Sodium 40 mg 03/21/24 21:00 Pantoprazole 40mg Vial IV 04/20/24 20:59 HS [facility] Discontinued Medications Generic Name Dose Route Start Last Admin Trade Name Freddie PRN Reason Stop Dose Admin Hydromorphone HCl 0.5 mg 03/20/24 17:21 03/20/24 17:36 Hydromorphone 2mg/Ml Syringe IV 03/20/24 17:22 0.5 mg ONCE ONE Administration Hydromorphone HCl 1 mg 03/20/24 19:13 03/20/24 19:17 Hydromorphone 2mg/Ml Syringe IV 03/20/24 19:14 1 mg ONCE ONE Administration Lactated Ringer's 1,000 mls @ 999 mls/hr 03/20/24 17:21 03/20/24 17:35 Lactated Ringer's 1000 Ml Bag IV 03/20/24 18:21 999 mls/hr .Q1H1M ONE Administration Lactated Ringer's 1,000 mls @ 999 mls/hr 03/20/24 19:20 03/20/24 19:21 Lactated Ringer's 1000 Ml Bag IV 03/20/24 20:20 999 mls/hr .Q1H1M ONE Administration Ampicillin Sodium/Sulbactam 100 mls @ 200 mls/hr 03/20/24 19:22 03/20/24 19:44 Sodium 3 gm/ Sodium Chloride IV 03/20/24 19:23 Not Given ONCE ONE Ampicillin Sodium/Sulbactam 100 mls @ 200 mls/hr 03/20/24 19:41 03/20/24 19:41 Sodium 3 gm/ Sodium Chloride IV 03/20/24 19:42 200 mls/hr ONCE ONE Administration Iopamidol 75 ml 03/20/24 19:51 03/20/24 19:52 Iopamidol-370 (76%);100ml Bottle IV 03/20/24 19:52 75 ml ONCE ONE Administration Ketorolac Tromethamine 15 mg 03/20/24 17:21 03/20/24 17:36 Ketorolac 30mg/Ml Vial IV 03/20/24 17:22 15 mg ONCE ONE Administration Loperamide HCl 4 mg 03/20/24 19:22 03/20/24 19:44 Loperamide 2mg Capsule PO 03/20/24 19:23 4 mg ONCE ONE Administration Ondansetron HCl 4 mg 03/20/24 17:21 03/20/24 17:36 Ondansetron 4mg/2ml Vial IV 03/20/24 17:22 4 mg ONCE ONE Administration Sodium Chloride 10 ml 03/20/24 19:51 03/20/24 19:52 Sodium Chloride 0.9% 10ml Syr (Rad Only) IV 03/20/24 19:52 10 ml ONCE ONE Administration ORDERS Category Date Time Status CT abdomen pelvis w con Stat Cat Scan 03/20/24 18:14 Completed Surgery Consult (on-call) [Consult to On-Call Gen'l Cons 03/20/24 21:52 Ordered Surgeon] [CONS] Routine CBC w/Auto Diff [Complete Blood Count Auto Diff] Stat Lab 03/20/24 17:22 Completed CMP [Comprehensive Metabolic Panel] Stat Lab 03/20/24 17:22 Completed CRP [C-Reactive Protein] Stat Lab 03/20/24 17:22 Completed Complete Blood Count Auto Diff AMLAB Lab 03/21/24 06:00 Ordered Comprehensive Metabolic Panel AMLAB Lab 03/21/24 06:00 Ordered Diarrhea 6-11 Panel, Cdiff PCR Stat Lab 03/20/24 17:48 Completed ESR [Erythrocyte Sedimentation Rate] Stat Lab 03/20/24 17:22 Completed Lactic Acid Stat Lab 03/20/24 17:22 Completed Lipase Stat Lab 03/20/24 17:22 Completed Magnesium AMLAB Lab 03/21/24 06:00 Ordered UA [Urinalysis and Microscopic] Stat Lab 03/20/24 19:23 Completed Blood Culture Stat Micro 03/20/24 19:31 Received Medical Decision Narrative: 28-year-old male history of spontaneous small bowel obstruction in 2022 necessitating surgical intervention, appendectomy, numerous small bowel obstructions managed medically with nonsurgical options presenting with abdominal pain. Abdomen started hurting this morning, 03/20 around 6 AM. Has had 11 episodes of diarrhea, a few episodes of vomiting. No blood in either. No bile needed. Patient states that his abdomen is distended, tender diffusely, but primarily in left lower quadrant and suprapubic area. No urinary symptoms. No fevers or chills, but has not been able to tolerate any p.o. intake. Has not been around anybody has been sick. He states that this feels like his first bowel obstruction, the 1 that necessitated surgery. Has not noticed anything that makes his pain better. History was obtained via conversation with patient and family. On arrival, patient hemodynamically stable, alert, oriented x4, appropriate, GCS 15, moving all extremities spontaneously, pupils equal and reactive to light. Full physical exam performed and significant for uncomfortable appearing male in mild distress secondary to pain. Sitting still in bed. Abdomen is soft, but distended and diffusely tender, primarily in left lower quadrant. No overlying skin changes. He does have previous surgical scar. No flank tenderness. Tachycardic, hypertensive. Differential includes SBO, pancreatitis, colitis, diverticulitis, nephrolithiasis, UTI, cholecystitis, PUD, gastritis, enteritis, gastroenteritis, aortic pathology, mesenteric ischemia among others. Patient was given Dilaudid, Toradol, fluids, Zofran for symptomatic management and correction of underlying abnormalities. Workup independently interpreted and significant for leukocytosis 18,000, chemistry with mild BLAIRE with creatinine 1.4. Anion gap elevated mildly at 18. Glucose normal. Lipase negative. On independent rotation, CT abdomen pelvis with diffuse dilation of the colon, but normal-appearing small bowel. Patient given another milligram of Dilaudid due to continued pain. Conversation was had with radiologist. Given similar appearance on previous CT scan, could be due to underlying IBD versus undiagnosed Hirschsprung's disease. ESR and CRP sent, these were negative on independent interpretation. Conversation was had with patient regarding home-going versus staying. I feel patient is appropriate for home-going as we would be doing pain control and hydration here in the emergency department. Patient able to tolerate p.o. intake here. Because would be doing largely pain control and symptomatic control if admitted, patient wanted some time to think about home-going versus not. After contemplation, patient opting for coming into the hospital for fluids, symptomatic management, etc. Patient does have a follow-up with his GI doctor on 03/28. It was recommended that he talk to the GI doctor about potential Hirschsprung's and rectal biopsy for diagnosis or rule out. Patient voiced his understanding. Hospitalist was contacted and case was discussed at length, patient to be admitted for further definitive management. Addiction Medicine Physician disclaimer Much of this encounter note is an electronic fisher hand line spoken language to printed text. Electronic fisher hand line of the spoken language may permit errors. Although I have reviewed the note, some errors may still exist. Critical Care Critical Care Time Critical Care Time: No
[2024-03-20 17:32] LABS: Basophils # 0.1 K/mm3 (0-0.2); Basophils % 0.5 % (0.1-2.0); Eosinophils # 0.4 K/mm3 (0.0-0.4); Hematocrit 47.4 % (42.0-52.0); Hemoglobin 15.8 g/dL (14.1-18.0); Lymphocytes # 2.8 K/mm3 (0.7-4.5); Lymphocytes % 15.5 % (10-50); MANUAL DIFFERENTIAL MANUAL DIFFERENTIAL (MANUAL DIFF); Mean Corpuscular HGB Conc 33.3 g/dL (31.8-35.4); Mean Corpuscular Hemoglobin 29.4 pg (27.0-31.2); Mean Corpuscular Volume 88.4 fl (80-94); Monocytes # 0.9 K/mm3 (0.1-1.0); Monocytes % 4.7 % (1.7-9.3); Neutrophils % 77.2 % (37.0-80.0); Platelet Count 328 K/mm3 (142-424); Red Blood Count 5.36 M/mm3 (4.60-6.20); Red Cell Distribution Width 14.8 % (11.5-17.5); White Blood Count 18.1 K/mm3 (4.8-10.8)
[2024-03-20] MEDS: LACTATED RINGERS 1000ML 1,000 ML 999 ML IV ×2 (17:35→19:21)
[2024-03-20] MEDS: HYDROMORPHONE 2MG/ML SYRINGE 0.5 MG IV (17:36)
[2024-03-20] MEDS: KETOROLAC 30MG/ML VIAL 15 MG IV (17:36)
[2024-03-20] MEDS: ONDANSETRON 4MG/2ML VIAL 4 MG IV ×2 (17:36→23:02)
[2024-03-20 17:39] LABS: Alanine Aminotransferase 32 U/L (12-78); Albumin/Globulin Ratio 1.6 (1.1-1.8); Alkaline Phosphatase 88 U/L (38-126); Anion Gap 18.3 mEq/L (5-15); Aspartate Amino Transferase 25 U/L (17-59); Bilirubin,Total 0.6 mg/dl (0.2-1.3); Blood Urea Nitrogen 13 mg/dl (9-20); Calcium 9.5 mg/dl (8.4-10.2); Carbon Dioxide 15 mmol/L (22.0-30.0); Chloride 108 mmol/L (98-107); Creatinine Clearance Estimated 80 mL/min (50-200); Estimated Glomerular Filt Rate 60 ml/min (>60); GFR (African American) 72 ML/MIN (>60); Globulin 3.2 g/dL (1.3-3.2); Glucose 123 mg/dl (74-100); Lipase 72 U/L (23-300); Potassium 4.3 mmoL/L (3.5-5.1); Sodium 137 mmol/L (136-145); Total Protein,Serum 8.2 g/dl (6.3-8.2)
[2024-03-20 17:44] LABS: Lactic Acid 2.1 mmol/L (0.7-2.1)
[2024-03-20 17:53] LABS: Adenovirus F 40/41, stool Not Detected (NotDetected); Astrovirus Not Detected (NotDetected); Campylobacter Not Detected (NotDetected); Clostridium Difficile A/B, PCR Not Detected (NotDetected); Cryptosporidium Not Detected (NotDetected); Cyclospora Cayetanesis Not Detected (NotDetected); Entamoeba histolytica Not Detected (NotDetected); Enteroaggregative E coli Not Detected (NotDetected); Enteropathogenic E coli Not Detected (NotDetected); Enterotoxigenic E coli Not Detected (NotDetected); Giardia lamblia Not Detected (NotDetected); Norovirus Not Detected (NotDetected); Plesimonas Shigalloides, PCR Not Detected (NotDetected); Rotavirus A Not Detected (NotDetected); Salmonella, PCR Not Detected (NotDetected); Sapovirus Not Detected (NotDetected); Shiga-like toxin E coli Not Detected (NotDetected); Shigella Enterovasive E coli Not Detected (NotDetected); Vibrio Cholerae Not Detected (NotDetected); Vibrio, PCR Not Detected (NotDetected); Yersinia Entercolitica, PCR Not Detected (NotDetected)
[2024-03-20 18:10] LABS: Lymphocytes % 21 % (10-50); Monocytes % 4 % (2-9); Neutrophils % 72 % (42-76); Platelet Estimate Normal; RBC Morphology Normal; Total Cells Counted 100
--- NOTE | 2024-03-20 18:14 | CT_ITS ---
PROCEDURE INFORMATION: Exam: CT Abdomen And Pelvis With Contrast Exam date and time: 03/20/2024 7:52 PM Age: 28 years old Clinical indication: Abdominal pain; Additional info: Severe diffuse abd pain TECHNIQUE: Imaging protocol: Computed tomography of the abdomen and pelvis with contrast. Radiation optimization: All CT scans at this facility use at least one of these dose optimization techniques: automated exposure control; mA and/or kV adjustment per patient size (includes targeted exams where dose is matched to clinical indication); or iterative reconstruction. Contrast material: ISOVUE; Contrast volume: 75 ml; Contrast route: IV; COMPARISON: CT ABDOMEN PELVIS W CON 12/22/2023 9:40 PM FINDINGS: Lungs: Focal soft tissue nodule with a central area of calcification measures 11 mm anterior basal segment right lower lobe abutting the major fissure. Stable from prior exam most likely a partially calcified granuloma. Liver: The liver appears within normal limits. Gallbladder and biliary ducts: The gallbladder is normal. There is no evidence of biliary ductal dilation. Pancreas: The pancreas is normal. Spleen: The spleen is normal. Adrenal glands: The adrenal glands appear within normal limits. Kidneys and ureters: Focal area of cortical scarring within the right kidney upper pole. Otherwise the kidneys unremarkable. Stomach and bowel: Redemonstration of moderate distension of the ascending and transverse colon descending colon. The colon is noted to be redundant. There is a persistent area of transition between distended descending colon and at the level of the upper sigmoid colon best seen on sagittal image 54. This transition persists from the prior CT scan raising concern for a colonic stricture with secondary dilation. Appendix: No evidence of appendicitis. Intraperitoneal space: Unremarkable. No free air. No significant fluid collection. Vasculature: Unremarkable. No abdominal aortic aneurysm. Lymph nodes: Unremarkable. No enlarged lymph nodes. Urinary bladder: Unremarkable as visualized. Reproductive: Unremarkable as visualized. Bones/joints: Unremarkable. No acute fracture. Soft tissues: Unremarkable. IMPRESSION: 1. Persistent moderate dilation of a significant portion of the colon mostly the ascending transverse and varying degrees of the descending colon. There is a persistent narrowing near the mid sigmoid colon junction with decompressed remainder of sigmoid and rectum. This finding noted on prior CT scan. The chronicity of this finding raises concern for entities adult diagnosis of Hirschsprung disease or a variant form of inflammatory bowel disease of the colon. Recommend GI consultation and colonoscopy 2. No significant small bowel dilation. 3. Other incidental and ancillary findings as discussed above. 4. These findings were verbally discussed withSamm Gupta at03/20/2024 851 PM EDT. The ordering provider acknowledged findings..
--- NOTE | 2024-03-20 19:09 | PC.NURSE ---
Report received from Mayelin Lea RN
[2024-03-20] MEDS: HYDROMORPHONE 2MG/ML SYRINGE 1 MG IV (19:17)
[2024-03-20 19:26] LABS: Microscopic, Urine URINE MICROSCOPIC (MICROSCOPIC)
[2024-03-20 19:29] LABS: Appearance,Urine CLEAR (Clear); Blood, Urine Negative (Negative); Color,Urine YELLOW (Yellow); Glucose,Urine (UA) Negative (Negative); Ketones,Urine TRACE (Negative); Leukocyte Esterase,Urine Negative (Negative); Nitrate,Urine Negative (Negative); Protein,Urine 1+ (Negative); Specific Gravity, Urine >= 1.030 (1.005-1.030); Urobilinogen,Urine 0.2 EU/dl (0.2)
[2024-03-20 19:35] LABS: Bacteria,Urine Trace /lpf; Bilirubin,Urine 1+ (Negative); Mucus,Urine 2+ /lpf; Squamous Epithelial Cell,Urine Occasional #/hpf (0-5); WBC,Urine Occasional #/hpf (0-3)
[2024-03-20] MEDS: AMPICILLIN SODIUM/SULBACTAM 3 GM in 0.9 % SODIUM CHLORIDE 100 ML IV (19:41)
[2024-03-20] MEDS: LOPERAMIDE 2MG CAPSULE 4 MG PO (19:44)
--- NOTE | 2024-03-20 19:46 | PC.NURSE ---
Patient and mother has been updated that they are next to get CT scan. They understood the wait r/t other critical patient's before him. No needs or concerns
--- NOTE | 2024-03-20 19:49 | PC.NURSE ---
STool has 35 min left to result
[2024-03-20] MEDS: IOPAMIDOL-370 (76%);100ML BOTTLE 75 ML IV (19:52)
[2024-03-20] MEDS: SODIUM CHLORIDE 0.9% 10ML SYR (RAD ONLY) 10 ML IV (19:52)
[2024-03-20 21:26] LABS: Reflex Lactic Add Lactic Reflex
[2024-03-20 21:28] LABS: Erythrocyte Sedimentation Rate 5 mm/hr (0-15)
--- NOTE | 2024-03-20 21:47 | PC.NURSE ---
on phone with hospitalist
--- NOTE | 2024-03-20 21:47 | PC.NURSE ---
[facility] worker notified of admission
--- NOTE | 2024-03-20 21:52 | EXP.HP ---
History of Present Illness *Admission Date: 03/20/24 *Reason for visit:: abd pain *History of present illness: This is a 28-year-old male history of spontaneous small bowel obstruction in 2022 necessitating surgical intervention, appendectomy, numerous small bowel obstructions managed medically with nonsurgical options presenting with abdominal pain. Abdomen started hurting this morning, 03/20 around 6 AM. Has had 11 episodes of diarrhea, a few episodes of vomiting. No blood in either. No bile needed. Patient states that his abdomen is distended, tender diffusely, but primarily in left lower quadrant and suprapubic area. No urinary symptoms. No fevers or chills, but has not been able to tolerate any p.o. intake. Has not been around anybody has been sick. Admitted for further management. [facility] Disclaimer: The information contained in this section may have been updated after the patient was seen, as this information can be updated by other users. Medical History Interstitial cystitis Surgical History History of colonoscopy H/O shoulder surgery Social History (Updated 03/20/24 @ 22:25 by Elvira Brenner RN) Smoking Status: Never smoker second hand exposure: Yes alcohol intake: never substance use type: denies use current occupational status: unemployed Travel in the last 8 weeks: None household members: other housing: house current occupational exposures/hazards: No caffeine: Yes Review of Systems Review of Systems Review of systems:: pertinent systems reviewed and negative unless documented below Meds Home Medications and Allergies Home Medications Medication Instructions Recorded Confirmed Type ergocalciferol (vitamin D2) 1,250 1,250 mcg PO WEEKLY 03/20/24 03/20/24 History mcg (50,000 unit) capsule fesoterodine 8 mg tablet,extended 8 mg PO DAILY 03/20/24 03/20/24 History release 24 hr (Toviaz) gabapentin 800 mg tablet 800 mg PO TID 03/20/24 03/20/24 History hydroxyzine pamoate 25 mg capsule 25 mg PO TIDP PRN Anxiety 03/20/24 03/20/24 History linaclotide 145 mcg capsule 145 mcg PO DAILY 03/20/24 03/20/24 History (Linzess) metoprolol tartrate 25 mg tablet 25 mg PO DAILY 03/20/24 03/20/24 History ondansetron 4 mg disintegrating 4 mg PO Q8HP PRN Nausea And 03/20/24 03/20/24 History tablet Vomiting quetiapine 25 mg tablet 25 - 50 mg PO HS 03/20/24 03/20/24 History tramadol 50 mg tablet 50 mg PO Q8HP PRN Moderate Pain 03/20/24 03/20/24 History (Scale Score 5-6) ubrogepant 100 mg tablet (Ubrelvy) 100 mg PO DAILYP PRN Migraine 03/20/24 03/20/24 History Headache venlafaxine 150 mg 150 mg PO DAILY 03/20/24 03/20/24 History capsule,extended release 24 hr New Prescriptions to Start Prescriptions: Allergies Allergy/AdvReac Type Severity Reaction Status Date / Time doxycycline [DOXYCYCLINE] Allergy Intermediate Verified 01/14/24 10:33 codeine [CODEINE] Allergy Mild Verified 01/14/24 10:33 lidocaine AdvReac Verified 01/14/24 10:33 Exam Data for Last 24 hours Vital signs and Labs for Last 24 Hours: Temp Pulse Resp BP Pulse Ox O2 Del Method 98.5 F 119 H 19 131/84 90 L Room Air 03/20/24 17:08 03/20/24 20:00 03/20/24 20:00 03/20/24 20:00 03/20/24 20:00 03/20/24 20:00 Laboratory Results - last 24 hr 03/20/24 17:22: WBC 18.1 H, RBC 5.36, Hgb 15.8, Hct 47.4, MCV 88.4, MCH 29.4, MCHC 33.3, RDW 14.8, Plt Count 328, MPV 8.0, Neut % (Auto) 77.2, Lymph % (Auto) 15.5, [place] % (Auto) 4.7, Eos % (Auto) 2.0, Baso % (Auto) 0.5, Neut # (Auto) 14.0 H, Lymph # (Auto) 2.8, [place] # (Auto) 0.9, Eos # (Auto) 0.4, Baso # (Auto) 0.1, Total Counted 100, Neutrophils % (Manual) 72, Lymphocytes % (Manual) 21, Atypical Lymphs % 3.0, Monocytes % (Manual) 4, Platelet Estimate Normal, RBC Morphology Normal, ESR 5, Sodium 137, Potassium 4.3, Chloride 108 H, Carbon Dioxide 15 L, Anion Gap 18.3 H, BUN 13, Creatinine 1.40 H, Estimated Creat Clear 80, Estimated GFR 60, Est GFR ( Amer) 72, Glucose 123 H, Lactate 2.1, Calcium 9.5, Total Bilirubin 0.6, AST 25, ALT 32, Alkaline Phosphatase 88, C-Reactive Protein 8.0 H, Total Protein 8.2 D, Albumin 5.0, Globulin 3.2, Albumin/Globulin Ratio 1.6, Lipase 72 03/20/24 17:48: Stl Aeromonas (PCR) Not detected, Stl C. cayetanensis PCR Not detected, Stool Rotavirus (PCR) Not detected, Stl Adenov F 40/41 PCR Not detected, Stool Astrovirus (PCR) Not detected, Stool Campylobacter PCR Not detected, Stl C.difficile Tox PCR Not detected, Stool Cryptosporidium PCR Not detected, Stl E.coli Shiga Tox PCR Not detected, Stool E coli O157 PCR Not detected, Stl Enterotoxigenic E PCR Not detected, Stool EPEC (PCR) Not detected, Stool EAEC (PCR) Not detected, Stl E. histolytica PCR Not detected, Stool Giardia Lamblia PCR Not detected, Stool Salmonella PCR Not detected, Stool Sapovirus (PCR) Not detected, Stl P. shigelloides PCR Not detected, Stl Shigella/EIEC PCR Not detected, St Y.enterocolitica PCR Not detected, Stool Vibrio (PCR) Not detected, Stl Vibrio cholerae PCR Not detected, Stl Norovirus GI/GII PCR Not detected 03/20/24 19:23: Urine Color Yellow, Urine Appearance Clear, Urine pH 6.0, Ur Specific [place] >= 1.030, Urine Protein 1+, Urine Glucose (UA) Negative, Urine Ketones Trace, Urine Blood Negative, Urine Nitrate Negative, Urine Bilirubin 1+ A, Urine Urobilinogen 0.2, Ur Leukocyte Esterase Negative, Urine RBC None, Urine WBC Occasional, Ur Squamous Epith Cells Occasional, Urine Bacteria Trace, Hyaline Casts 10-20, Urine Mucus 2+ Temp Pulse Resp BP Pulse Ox O2 Del Method 98.5 F 94 H 18 166/98 H 95 Room Air 12/22/23 22:43 12/22/23 22:43 12/22/23 22:43 12/22/23 22:43 12/22/23 22:30 12/22/23 23:00 Laboratory Results - last 24 hr 12/22/23 21:10: WBC 5.2, RBC 4.05 L, Hgb 11.9 L, Hct 36.9 L, MCV 91.1, MCH 29.4, MCHC 32.3, RDW 14.2, Plt Count 325, MPV 7.9, Neut % (Auto) 49.9, Lymph % (Auto) 39.4, [place] % (Auto) 4.9, Eos % (Auto) 4.5, Baso % (Auto) 1.3, Neut # (Auto) 2.6, Lymph # (Auto) 2.1, [place] # (Auto) 0.3, Eos # (Auto) 0.2, Baso # (Auto) 0.1, Sodium 138, Potassium 4.4, Chloride 109 H, Carbon Dioxide 28, Anion Gap 5.4, BUN 5 L, Creatinine 1.10, Estimated Creat Clear 100, Estimated GFR 79, Est GFR ( Amer) 96, Glucose 102 H, Calcium 8.5, Total Bilirubin 0.2, AST 31, ALT 20, Alkaline Phosphatase 97, Total Protein 5.7 L, Albumin 3.3 L, Globulin 2.4, Albumin/Globulin Ratio 1.4, Lipase 253 12/22/23 21:44: Lactate 1.0 I & O for Last 24 hours: Intake & Output 03/17/24 03/18/24 03/19/24 03/20/24 23:59 23:59 23:59 23:59 Weight 73.028 kg Intake & Output 12/19/23 12/20/23 12/21/23 12/22/23 23:59 23:59 23:59 23:59 Weight 71.214 kg Constitutional Constitutional: no acute distress *Routine HEENT Exam Head: Present normocephalic and atraumatic Eye: Present EOMI, PERRL and normal accommodation ENT: Present mucous membranes moist *Routine Neck Exam Neck: Present supple and full ROM *Routine Respiratory Exam Respiratory: Present wheezes and symmetric chest movement *Routine Cardiovascular Exam Cardiovascular: Present RRR *Routine Abdominal Exam Abdominal: Present tenderness and distended; Absent soft or rigid *Routine Rectal Exam Rectal:: deferred *Routine Genitalia Exam Genitalia:: deferred *Routine Extremities Exam Extremities: Present full ROM; Absent edema *Routine Skin Exam Skin: Present intact *Routine Neurological Exam Neurological: Present alert and oriented X3 Assessment and Plan *Assessment and plan (1) BLAIRE (acute kidney injury): Status: Acute Category: Medical Code(s): N17.9 - Acute kidney failure, unspecified (2) Abdominal pain: Status: Acute Qualifiers: Abdominal location: lower abdomen, unspecified Qualified Code(s): R10.30 - Lower abdominal pain, unspecified Category: Medical Code(s): R10.9 - Unspecified abdominal pain (3) Vomiting and diarrhea: Status: Acute Category: Medical Code(s): R11.10 - Vomiting, unspecified; R19.7 - Diarrhea, unspecified (4) Colon distention: Problem Comment: History of colon ulcers in childhood. Status: Acute Category: Medical Code(s): K63.89 - Other specified diseases of intestine (5) HTN (hypertension): Status: Acute Qualifiers: Hypertension type: unspecified Qualified Code(s): I10 - Essential (primary) hypertension Category: Medical Code(s): I10 - Essential (primary) hypertension (6) Insomnia: Status: Acute Qualifiers: Insomnia type: unspecified Qualified Code(s): G47.00 - Insomnia, unspecified Category: Medical Code(s): G47.00 - Insomnia, unspecified (7) Tobacco abuse: Status: Acute Category: Medical Code(s): Z72.0 - Tobacco use Plan 28-year-old male history of spontaneous small bowel obstruction in 2022 necessitating surgical intervention, appendectomy, numerous small bowel obstructions managed medically with nonsurgical options presenting with abdominal pain . Workup independently interpreted and significant for leukocytosis 18,000, chemistry with mild BLAIRE with creatinine 1.4. Anion gap elevated mildly at 18. Glucose normal. Lipase negative. On independent rotation, CT abdomen pelvis with diffuse dilation of the colon, but normal-appearing small bowel. Patient given another milligram of Dilaudid due to continued pain. Conversation was had with radiologist. Given similar appearance on previous CT scan, could be due to underlying IBD versus undiagnosed Hirschsprung's disease. ED requested admission for symptoms management. we agreed for it. Plan: -Acute kidney injury secondary to dehydration, due to intractable nausea and vomiting with diarrhea Abdominal pain related to colon distention leukocytosis likely inflammatory CT of abd and pelvis demonstrate air and stool distention of the colon. concerning Hirschsprung's disease -NPO, -General Surgery consult diarrhea panel pending continue iV hydration pain management avoid nephrotoxic medication patient would benefit for colon biopsy for definitive diagnosis, patient has appt for GI f/u on March 28 as outpatient. -LR @ 125 mL/hr for gentle hydration -Zofran 4 mg Q 6hr PRN for nasuea -Dilaudid 1mg Q 6 hr PRN for pain HTN INSOMNIA hold nephrotoxic meds -Continue quetiapine as needed for insomnia TOBACCO ABUSE -nicotine patch PRN FULL CODE NPO DVT: lovenox Rounded on patient after nurse practitioner. Personally examined and interviewed patient. Agree with exam findings and care plan as documented.
[2024-03-20] MEDS: LACTATED RINGERS 1000ML 1,000 ML 50 ML IV ×2 (22:05→23:08)
--- NOTE | 2024-03-20 22:05 | PC.NURSE ---
Report to DEJUAN Brown
[2024-03-20] MEDS: MORPHINE 4MG/ML SYRINGE 4 MG IV (23:02)
[2024-03-20] MEDS: QUETIAPINE 25MG TABLET 50 MG PO (23:56)
[2024-03-21] VITALS: BP 128/83; PULSE 92; RESP 16; TEMP 37.1; O2SAT 100
[2024-03-21 01:30] VITALS: PULSE 104; O2SAT 95
[2024-03-21 04:00] VITALS: BP 105/69; PULSE 84; RESP 16; TEMP 36.4; O2SAT 93; BMI 25.9
[2024-03-21] MEDS: MORPHINE 4MG/ML SYRINGE 4 MG IV ×5 (04:00→20:32)
[2024-03-21] MEDS: NICOTINE 21MG/24HR PATCH 21 MG TD (04:04)
[2024-03-21 06:22] LABS: Basophils % 0.3 % (0.1-2.0); Eosinophils # 0.4 K/mm3 (0.0-0.4); Eosinophils % 5.3 % (0.1-12.0); Hematocrit 37.1 % (42.0-52.0); Lymphocytes # 2.2 K/mm3 (0.7-4.5); Lymphocytes % 30.1 % (10-50); Mean Corpuscular HGB Conc 33.3 g/dL (31.8-35.4); Mean Corpuscular Hemoglobin 29.9 pg (27.0-31.2); Mean Corpuscular Volume 89.6 fl (80-94); Mean Platelet Volume 8.3 fl (7.4-10.4); Monocytes # 0.4 K/mm3 (0.1-1.0); Monocytes % 5.7 % (1.7-9.3); Neutrophils # 4.3 K/mm3 (1.8-7.8); Neutrophils % 58.5 % (37.0-80.0); Platelet Count 197 K/mm3 (142-424); Red Blood Count 4.14 M/mm3 (4.60-6.20); Red Cell Distribution Width 14.9 % (11.5-17.5); White Blood Count 7.3 K/mm3 (4.8-10.8)
[2024-03-21 06:25] LABS: Chloride 110 mmol/L (98-107)
--- NOTE | 2024-03-21 06:25 | PC.NURSE ---
Patient alert and oriented x4 throughout shift. Tolerating room air well. Patient reported one loose bowel movement this shift. He stated this was a smaller amount than he had been having. Frequently complaining of abdominal pain and nausea, rating the pain an 8/10, treated per MAR. Bowel sounds active. Patient ambulates to and from bathroom independently and does well. Mother at bedside throughout night. Call light within reach.
[2024-03-21 06:26] LABS: Potassium 3.7 mmoL/L (3.5-5.1); Sodium 138 mmol/L (136-145)
[2024-03-21 06:28] LABS: Blood Urea Nitrogen 12 mg/dl (9-20); Creatinine Clearance Estimated 102 mL/min (50-200); Estimated Glomerular Filt Rate 72 ml/min (>60); GFR (African American) 87 ML/MIN (>60)
[2024-03-21 06:29] LABS: Alanine Aminotransferase 16 U/L (12-78); Albumin Level 3.3 g/dl (3.5-5.0); Albumin/Globulin Ratio 1.4 (1.1-1.8); Alkaline Phosphatase 76 U/L (38-126); Anion Gap 9.7 mEq/L (5-15); Aspartate Amino Transferase 18 U/L (17-59); Bilirubin,Total 0.6 mg/dl (0.2-1.3); Calcium 8.3 mg/dl (8.4-10.2); Carbon Dioxide 22 mmol/L (22.0-30.0); Globulin 2.4 g/dL (1.3-3.2); Glucose 90 mg/dl (74-100); Magnesium 1.4 mg/dl (1.6-2.3); Total Protein,Serum 5.7 g/dl (6.3-8.2)
[2024-03-21 06:30] LABS: Hemoglobin 12.4 g/dL (14.1-18.0)
[2024-03-21] MEDS: ONDANSETRON 4MG/2ML VIAL 4 MG IV ×3 (06:39→21:50)
--- NOTE | 2024-03-21 07:04 | EXP.ACUTE.PN ---
Subjective *Date: 03/21/24 *Time: 22:28 Interval history: Still having abdominal pain this morning. States he is feeling little better with no nausea or vomiting. Has been tolerating ice chips and states he would like to try some liquids. Denies any current nausea. Did have 3 bowel movements this morning that he described as 6/7 on the [place] stool scale. At home he has been having difficulty with his bowels, they have been loose predominantly over the past few months. Recently had a colonoscopy per his report at [facility] that did not show Crohn's or UC per his report but we have not received the records yet. Denies any chest pain. No shortness of breath. Further history and talking to his mother, she reports that he has had issues with bowel dysfunction since infancy. Was constipated as an infant necessitating manual disimpaction with a baby spoon . Had multiple colonoscopies as a child. Unclear the findings. States he has been struggling with his bowels most of his life. Struggling to the point he cannot keep a job. Had an episode in his teens where an enema was given that improved his symptoms. Unclear if he had a volvulus or intussusception. Denies any blood in his stool. Reviewed CT showing narrowing in the sigmoid colon with paucity of gas or stool through the rectum. Medical Exam Vital signs and Labs for Last 24 Hours: Vital Signs Temp Pulse Pulse Resp BP BP Pulse Ox 03/21/24 06:39 03/21/24 05:00 03/21/24 04:00 97.5 F L 84 16 105/69 L 93 L 03/21/24 03:00 03/21/24 01:30 104 H 95 03/21/24 01:00 03/21/24 00:00 98.7 F 92 H 16 128/83 100 03/20/24 23:00 03/20/24 22:26 98.6 F 104 H 16 145/83 H 95 03/20/24 22:05 98.5 F 104 H 16 121/79 03/20/24 20:00 119 H 19 131/84 90 L 03/20/24 19:31 121 H 24 147/107 H 94 L 03/20/24 19:12 119 H 19 131/90 94 L 03/20/24 19:00 119 H 141/99 H 91 L 03/20/24 18:30 126 H 138/96 H 91 L 03/20/24 18:00 128 H 148/100 H 92 L 03/20/24 17:30 130 H 141/97 H 92 L 03/20/24 17:08 98.5 F 139 H 20 131/103 H 96 O2 Del Method 03/21/24 06:39 Room Air 03/21/24 05:00 Room Air 03/21/24 04:00 Room Air 03/21/24 03:00 Room Air 03/21/24 01:30 Room Air 03/21/24 01:00 Room Air 03/21/24 00:00 Room Air 03/20/24 23:00 Room Air 03/20/24 22:26 Room Air 03/20/24 22:05 Room Air 03/20/24 20:00 Room Air 03/20/24 19:31 Room Air 03/20/24 19:12 Room Air 03/20/24 19:00 Room Air 03/20/24 18:30 Room Air 03/20/24 18:00 Room Air 03/20/24 17:30 Room Air 03/20/24 17:08 Room Air Intake and Output 03/20/24 03/20/24 03/21/24 15:59 23:59 07:59 Intake Total 365 / 365 Output Total 0 / 0 Balance 365 / 365 Intake: Intake, Total IV Amount 365 / 365 Lactated Ringers 1000ML 1,000 365 / 365 ml @ 50 mls/hr IV .Q20H [facility] Rx# :[id number] Output: Output, Urine Amount 0 / 0 Other: Number of Unmeasured Voids 1 Number of Bowel Movements 2 Weight 79.124 kg 79.464 kg Patient Weight 03/21/24 23:59 Weight 79.464 kg Laboratory Results - last 24 hr 03/20/24 17:22: WBC 18.1 H, RBC 5.36, Hgb 15.8, Hct 47.4, MCV 88.4, MCH 29.4, MCHC 33.3, RDW 14.8, Plt Count 328, MPV 8.0, Neut % (Auto) 77.2, Lymph % (Auto) 15.5, [place] % (Auto) 4.7, Eos % (Auto) 2.0, Baso % (Auto) 0.5, Neut # (Auto) 14.0 H, Lymph # (Auto) 2.8, [place] # (Auto) 0.9, Eos # (Auto) 0.4, Baso # (Auto) 0.1, Total Counted 100, Neutrophils % (Manual) 72, Lymphocytes % (Manual) 21, Atypical Lymphs % 3.0, Monocytes % (Manual) 4, Platelet Estimate Normal, RBC Morphology Normal, ESR 5, Sodium 137, Potassium 4.3, Chloride 108 H, Carbon Dioxide 15 L, Anion Gap 18.3 H, BUN 13, Creatinine 1.40 H, Estimated Creat Clear 80, Estimated GFR 60, Est GFR ( Amer) 72, Glucose 123 H, Lactate 2.1, Calcium 9.5, Total Bilirubin 0.6, AST 25, ALT 32, Alkaline Phosphatase 88, C-Reactive Protein 8.0 H, Total Protein 8.2 D, Albumin 5.0, Globulin 3.2, Albumin/Globulin Ratio 1.6, Lipase 72 03/20/24 17:48: Stl Aeromonas (PCR) Not detected, Stl C. cayetanensis PCR Not detected, Stool Rotavirus (PCR) Not detected, Stl Adenov F 40/41 PCR Not detected, Stool Astrovirus (PCR) Not detected, Stool Campylobacter PCR Not detected, Stl C.difficile Tox PCR Not detected, Stool Cryptosporidium PCR Not detected, Stl E.coli Shiga Tox PCR Not detected, Stool E coli O157 PCR Not detected, Stl Enterotoxigenic E PCR Not detected, Stool EPEC (PCR) Not detected, Stool EAEC (PCR) Not detected, Stl E. histolytica PCR Not detected, Stool Giardia Lamblia PCR Not detected, Stool Salmonella PCR Not detected, Stool Sapovirus (PCR) Not detected, Stl P. shigelloides PCR Not detected, Stl Shigella/EIEC PCR Not detected, St Y.enterocolitica PCR Not detected, Stool Vibrio (PCR) Not detected, Stl Vibrio cholerae PCR Not detected, Stl Norovirus GI/GII PCR Not detected 03/20/24 19:23: Urine Color Yellow, Urine Appearance Clear, Urine pH 6.0, Ur Specific [place] >= 1.030, Urine Protein 1+, Urine Glucose (UA) Negative, Urine Ketones Trace, Urine Blood Negative, Urine Nitrate Negative, Urine Bilirubin 1+ A, Urine Urobilinogen 0.2, Ur Leukocyte Esterase Negative, Urine RBC None, Urine WBC Occasional, Ur Squamous Epith Cells Occasional, Urine Bacteria Trace, Hyaline Casts 10-20, Urine Mucus 2+ 03/21/24 05:15: WBC 7.3 D, RBC 4.14 L, Hgb 12.4 L D, Hct 37.1 L, MCV 89.6, MCH 29.9, MCHC 33.3, RDW 14.9, Plt Count 197 D, MPV 8.3, Neut % (Auto) 58.5, Lymph % (Auto) 30.1, [place] % (Auto) 5.7, Eos % (Auto) 5.3, Baso % (Auto) 0.3, Neut # (Auto) 4.3, Lymph # (Auto) 2.2, [place] # (Auto) 0.4, Eos # (Auto) 0.4, Baso # (Auto) 0.0, Sodium 138, Potassium 3.7, Chloride 110 H, Carbon Dioxide 22, Anion Gap 9.7, BUN 12, Creatinine 1.20, Estimated Creat Clear 102, Estimated GFR 72, Est GFR ( Amer) 87 D, Glucose 90 D, Calcium 8.3 L, Magnesium 1.4 L, Total Bilirubin 0.6, AST 18 D, ALT 16 D, Alkaline Phosphatase 76, Total Protein 5.7 L D, Albumin 3.3 L D, Globulin 2.4, Albumin/Globulin Ratio 1.4 I & O for Labs for Last 24 Hours: Intake & Output 03/18/24 03/19/24 03/20/24 03/21/24 23:59 23:59 23:59 23:59 Intake Total 365 / 365 Output Total 0 / 0 Balance 365 / 365 Weight 79.124 kg 79.464 kg Constitutional: Present no acute distress, average body habitus and chronically ill appearing Head: Present atraumatic and normocephalic ENT: Present normal exam Respiratory: Present normal respiratory effort; Absent rhonchi, wheezes or crackles Cardiac: Present Reg Rate and Rhythm GI: Present soft, distention, tenderness (Diffuse, worse in left lower abdomen.) and diminished bowel sounds Comments:: Well-healed midline scar. Rectal (male): Present deferred Extremities: Present normal inspection and full ROM Skin: Present intact; Absent erythema Neuro: Present Grossly Intact, alert, awake, oriented x 3 and moves all extremities Assessment and Plan *Assessment and plan (1) BLAIRE (acute kidney injury): Status: Acute Category: Medical Code(s): N17.9 - Acute kidney failure, unspecified (2) Abdominal pain: Status: Acute Qualifiers: Abdominal location: lower abdomen, unspecified Qualified Code(s): R10.30 - Lower abdominal pain, unspecified Category: Medical Code(s): R10.9 - Unspecified abdominal pain (3) Vomiting and diarrhea: Status: Acute Category: Medical Code(s): R11.10 - Vomiting, unspecified; R19.7 - Diarrhea, unspecified (4) Colon distention: Problem Comment: History of colon ulcers in childhood. Status: Acute Category: Medical Code(s): K63.89 - Other specified diseases of intestine (5) HTN (hypertension): Status: Acute Qualifiers: Hypertension type: unspecified Qualified Code(s): I10 - Essential (primary) hypertension Category: Medical Code(s): I10 - Essential (primary) hypertension (6) Insomnia: Status: Acute Qualifiers: Insomnia type: unspecified Qualified Code(s): G47.00 - Insomnia, unspecified Category: Medical Code(s): G47.00 - Insomnia, unspecified (7) Tobacco abuse: Status: Acute Category: Medical Code(s): Z72.0 - Tobacco use Plan 28-year-old male history of spontaneous small bowel obstruction in 2022 necessitating surgical intervention, appendectomy, numerous small bowel obstructions managed medically with nonsurgical options presenting with abdominal pain . Workup independently interpreted and significant for leukocytosis 18,000, chemistry with mild BALIRE with creatinine 1.4. Anion gap elevated mildly at 18. Glucose normal. Lipase negative. On independent rotation, CT abdomen pelvis with diffuse dilation of the colon, but normal-appearing small bowel. Patient given another milligram of Dilaudid due to continued pain. Conversation was had with radiologist. Given similar appearance on previous CT scan, could be due to underlying IBD versus undiagnosed Hirschsprung's disease. ED requested admission for symptoms management. we agreed for it. Continues to require inpatient management. Intolerance of p.o. intake. Nausea and vomiting persist today. Attempting transfer. Problems addressed as follows: -Acute kidney injury secondary to dehydration, due to intractable nausea and vomiting with diarrhea Abdominal pain related to colon distention leukocytosis likely inflammatory CT of abd and pelvis demonstrate air and stool distention of the colon. concerning Hirschsprung's disease Surgery consulted, discussed case today, concerned that patient needs evaluation by colorectal surgery and GI. Would benefit from scope with deep tissue biopsies. Recommend attempting transfer. Diarrhea panel negative pain management with Toradol, morphine, Tylenol. Monitoring for toxicity. avoid nephrotoxic medication -LR @ 125 mL/hr for gentle hydration -Zofran 4 mg Q 6hr PRN for nasuea BLAIRE somewhat better creatinine 1.4. Electrolytes stable with potassium 3.7, sodium 138. Bicarb 22. -NG placed due to persistent nausea and abdominal pain. HTN INSOMNIA hold nephrotoxic meds -Continue quetiapine as needed for insomnia TOBACCO ABUSE: nicotine patch PRN FULL CODE NPO DVT: lovenox
--- NOTE | 2024-03-21 07:21 | EXP.SURG.CON ---
History of Present Illness *Admission Date: 03/20/24 *Reason for visit:: Abdominal pain, colon distention *History of present illness: Patient is a 28-year-old male with previous abdominal surgical and GI issues essentially his entire life. Reportedly has had bowel issues since he was an infant. Reportedly had previous colonoscopies and upper endoscopy when he was young for ulcers . Reportedly he had undergone laparotomy in [place], [place] in 2022 for obstruction described as bowel twisting . Exact details are unknown. Reportedly had numerous hospitalizations for bowel obstruction managed nonoperatively, most recently in [place], [place]. He was admitted to this facility on 12/22/2023 with possible bowel obstruction characterized by abdominal pain, distention, nausea. At that time he had a CT scan performed which revealed air and stool distention of the colon but some fluid distention of small bowel loops without focal obstruction. He was managed nonoperatively and he was seen by Dr. Silva as an inpatient and followed up as an outpatient. Recommendations were for gastroenterology assessment. Patient reportedly did undergo evaluation with Dr. Nino in [place] and had a subsequent colonoscopy. Apparently biopsies were not performed according to the patient. Patient had presented to the emergency department on 03/20/2024 with multiple episodes of diarrhea and vomiting with abdominal distention and tenderness. He underwent CT scan of the abdomen pelvis which revealed persistent moderate dilatation of a significant portion of the colon mostly the ascending transverse and varying degrees of the descending colon. There is persistent narrowing near the mid sigmoid junction with decompressed remainder of sigmoid colon and rectum. This finding noted on prior CT scan. The chronicity of this finding raises concern for entities adult diagnosis of Hirschsprung's disease or a variant form of inflammatory bowel disease of the colon. Recommend GI consultation and colonoscopy. Given these findings tentative plan was for management as an outpatient. However, the patient had persistent pain and was admitted for inpatient management. Surgical consultation was ordered. He has had some bowel movements. . [facility] Disclaimer: The information contained in this section may have been updated after the patient was seen, as this information can be updated by other users. Medical History Interstitial cystitis Surgical History History of colonoscopy H/O shoulder surgery Social History (Updated 03/20/24 @ 22:25 by Elvira Brenner RN) Smoking Status: Never smoker second hand exposure: Yes alcohol intake: never substance use type: denies use current occupational status: unemployed Travel in the last 8 weeks: None household members: other housing: house current occupational exposures/hazards: No caffeine: Yes Meds Home Medications and Allergies Home Medications Medication Instructions Recorded Confirmed Type ergocalciferol (vitamin D2) 1,250 1,250 mcg PO WEEKLY 03/20/24 03/20/24 History mcg (50,000 unit) capsule fesoterodine 8 mg tablet,extended 8 mg PO DAILY 03/20/24 03/20/24 History release 24 hr (Toviaz) gabapentin 800 mg tablet 800 mg PO TID 03/20/24 03/20/24 History hydroxyzine pamoate 25 mg capsule 25 mg PO TIDP PRN Anxiety 03/20/24 03/20/24 History linaclotide 145 mcg capsule 145 mcg PO DAILY 03/20/24 03/20/24 History (Linzess) metoprolol tartrate 25 mg tablet 25 mg PO DAILY 03/20/24 03/20/24 History ondansetron 4 mg disintegrating 4 mg PO Q8HP PRN Nausea And 03/20/24 03/20/24 History tablet Vomiting quetiapine 25 mg tablet 25 - 50 mg PO HS 03/20/24 03/20/24 History tramadol 50 mg tablet 50 mg PO Q8HP PRN Moderate Pain 03/20/24 03/20/24 History (Scale Score 5-6) ubrogepant 100 mg tablet (Ubrelvy) 100 mg PO DAILYP PRN Migraine 03/20/24 03/20/24 History Headache venlafaxine 150 mg 150 mg PO DAILY 03/20/24 03/20/24 History capsule,extended release 24 hr New Prescriptions to Start Prescriptions: Allergies Allergy/AdvReac Type Severity Reaction Status Date / Time doxycycline [DOXYCYCLINE] Allergy Intermediate Verified 01/14/24 10:33 codeine [CODEINE] Allergy Mild Verified 01/14/24 10:33 lidocaine AdvReac Verified 01/14/24 10:33 Exam (Inpt) Vital signs and Labs for Last 24 Hours: Temp Pulse Resp BP Pulse Ox O2 Del Method 97.5 F L 84 16 105/69 L 93 L Room Air 03/21/24 04:00 03/21/24 04:00 03/21/24 04:00 03/21/24 04:00 03/21/24 04:00 03/21/24 06:39 Laboratory Results - last 24 hr 03/20/24 17:22: WBC 18.1 H, RBC 5.36, Hgb 15.8, Hct 47.4, MCV 88.4, MCH 29.4, MCHC 33.3, RDW 14.8, Plt Count 328, MPV 8.0, Neut % (Auto) 77.2, Lymph % (Auto) 15.5, [place] % (Auto) 4.7, Eos % (Auto) 2.0, Baso % (Auto) 0.5, Neut # (Auto) 14.0 H, Lymph # (Auto) 2.8, [place] # (Auto) 0.9, Eos # (Auto) 0.4, Baso # (Auto) 0.1, Total Counted 100, Neutrophils % (Manual) 72, Lymphocytes % (Manual) 21, Atypical Lymphs % 3.0, Monocytes % (Manual) 4, Platelet Estimate Normal, RBC Morphology Normal, ESR 5, Sodium 137, Potassium 4.3, Chloride 108 H, Carbon Dioxide 15 L, Anion Gap 18.3 H, BUN 13, Creatinine 1.40 H, Estimated Creat Clear 80, Estimated GFR 60, Est GFR ( Amer) 72, Glucose 123 H, Lactate 2.1, Calcium 9.5, Total Bilirubin 0.6, AST 25, ALT 32, Alkaline Phosphatase 88, C-Reactive Protein 8.0 H, Total Protein 8.2 D, Albumin 5.0, Globulin 3.2, Albumin/Globulin Ratio 1.6, Lipase 72 03/20/24 17:48: Stl Aeromonas (PCR) Not detected, Stl C. cayetanensis PCR Not detected, Stool Rotavirus (PCR) Not detected, Stl Adenov F 40/41 PCR Not detected, Stool Astrovirus (PCR) Not detected, Stool Campylobacter PCR Not detected, Stl C.difficile Tox PCR Not detected, Stool Cryptosporidium PCR Not detected, Stl E.coli Shiga Tox PCR Not detected, Stool E coli O157 PCR Not detected, Stl Enterotoxigenic E PCR Not detected, Stool EPEC (PCR) Not detected, Stool EAEC (PCR) Not detected, Stl E. histolytica PCR Not detected, Stool Giardia Lamblia PCR Not detected, Stool Salmonella PCR Not detected, Stool Sapovirus (PCR) Not detected, Stl P. shigelloides PCR Not detected, Stl Shigella/EIEC PCR Not detected, St Y.enterocolitica PCR Not detected, Stool Vibrio (PCR) Not detected, Stl Vibrio cholerae PCR Not detected, Stl Norovirus GI/GII PCR Not detected 03/20/24 19:23: Urine Color Yellow, Urine Appearance Clear, Urine pH 6.0, Ur Specific [place] >= 1.030, Urine Protein 1+, Urine Glucose (UA) Negative, Urine Ketones Trace, Urine Blood Negative, Urine Nitrate Negative, Urine Bilirubin 1+ A, Urine Urobilinogen 0.2, Ur Leukocyte Esterase Negative, Urine RBC None, Urine WBC Occasional, Ur Squamous Epith Cells Occasional, Urine Bacteria Trace, Hyaline Casts 10-20, Urine Mucus 2+ 03/21/24 05:15: WBC 7.3 D, RBC 4.14 L, Hgb 12.4 L D, Hct 37.1 L, MCV 89.6, MCH 29.9, MCHC 33.3, RDW 14.9, Plt Count 197 D, MPV 8.3, Neut % (Auto) 58.5, Lymph % (Auto) 30.1, [place] % (Auto) 5.7, Eos % (Auto) 5.3, Baso % (Auto) 0.3, Neut # (Auto) 4.3, Lymph # (Auto) 2.2, [place] # (Auto) 0.4, Eos # (Auto) 0.4, Baso # (Auto) 0.0, Sodium 138, Potassium 3.7, Chloride 110 H, Carbon Dioxide 22, Anion Gap 9.7, BUN 12, Creatinine 1.20, Estimated Creat Clear 102, Estimated GFR 72, Est GFR ( Amer) 87 D, Glucose 90 D, Calcium 8.3 L, Magnesium 1.4 L, Total Bilirubin 0.6, AST 18 D, ALT 16 D, Alkaline Phosphatase 76, Total Protein 5.7 L D, Albumin 3.3 L D, Globulin 2.4, Albumin/Globulin Ratio 1.4 I & O for Labs for Last 24 Hours: Intake & Output 03/18/24 03/19/24 03/20/24 03/21/24 11:59 11:59 11:59 11:59 Intake Total 365 / 365 Output Total 0 / 0 Balance 365 / 365 Weight 175 lb 3 oz Constitutional: no acute distress Head: Present normocephalic Respiratory: Present accessory muscle use GI: Present soft, tenderness and scar Results Labs 03/21/24 05:15 03/21/24 05:15 Labs: Laboratory Results - last 24 hr 03/20/24 17:22: WBC 18.1 H, RBC 5.36, Hgb 15.8, Hct 47.4, MCV 88.4, MCH 29.4, MCHC 33.3, RDW 14.8, Plt Count 328, MPV 8.0, Neut % (Auto) 77.2, Lymph % (Auto) 15.5, [place] % (Auto) 4.7, Eos % (Auto) 2.0, Baso % (Auto) 0.5, Neut # (Auto) 14.0 H, Lymph # (Auto) 2.8, [place] # (Auto) 0.9, Eos # (Auto) 0.4, Baso # (Auto) 0.1, Total Counted 100, Neutrophils % (Manual) 72, Lymphocytes % (Manual) 21, Atypical Lymphs % 3.0, Monocytes % (Manual) 4, Platelet Estimate Normal, RBC Morphology Normal, ESR 5, Sodium 137, Potassium 4.3, Chloride 108 H, Carbon Dioxide 15 L, Anion Gap 18.3 H, BUN 13, Creatinine 1.40 H, Estimated Creat Clear 80, Estimated GFR 60, Est GFR ( Amer) 72, Glucose 123 H, Lactate 2.1, Calcium 9.5, Total Bilirubin 0.6, AST 25, ALT 32, Alkaline Phosphatase 88, C-Reactive Protein 8.0 H, Total Protein 8.2 D, Albumin 5.0, Globulin 3.2, Albumin/Globulin Ratio 1.6, Lipase 72 03/20/24 17:48: Stl Aeromonas (PCR) Not detected, Stl C. cayetanensis PCR Not detected, Stool Rotavirus (PCR) Not detected, Stl Adenov F 40/41 PCR Not detected, Stool Astrovirus (PCR) Not detected, Stool Campylobacter PCR Not detected, Stl C.difficile Tox PCR Not detected, Stool Cryptosporidium PCR Not detected, Stl E.coli Shiga Tox PCR Not detected, Stool E coli O157 PCR Not detected, Stl Enterotoxigenic E PCR Not detected, Stool EPEC (PCR) Not detected, Stool EAEC (PCR) Not detected, Stl E. histolytica PCR Not detected, Stool Giardia Lamblia PCR Not detected, Stool Salmonella PCR Not detected, Stool Sapovirus (PCR) Not detected, Stl P. shigelloides PCR Not detected, Stl Shigella/EIEC PCR Not detected, St Y.enterocolitica PCR Not detected, Stool Vibrio (PCR) Not detected, Stl Vibrio cholerae PCR Not detected, Stl Norovirus GI/GII PCR Not detected 03/20/24 19:23: Urine Color Yellow, Urine Appearance Clear, Urine pH 6.0, Ur Specific [place] >= 1.030, Urine Protein 1+, Urine Glucose (UA) Negative, Urine Ketones Trace, Urine Blood Negative, Urine Nitrate Negative, Urine Bilirubin 1+ A, Urine Urobilinogen 0.2, Ur Leukocyte Esterase Negative, Urine RBC None, Urine WBC Occasional, Ur Squamous Epith Cells Occasional, Urine Bacteria Trace, Hyaline Casts 10-20, Urine Mucus 2+ 03/21/24 05:15: WBC 7.3 D, RBC 4.14 L, Hgb 12.4 L D, Hct 37.1 L, MCV 89.6, MCH 29.9, MCHC 33.3, RDW 14.9, Plt Count 197 D, MPV 8.3, Neut % (Auto) 58.5, Lymph % (Auto) 30.1, [place] % (Auto) 5.7, Eos % (Auto) 5.3, Baso % (Auto) 0.3, Neut # (Auto) 4.3, Lymph # (Auto) 2.2, [place] # (Auto) 0.4, Eos # (Auto) 0.4, Baso # (Auto) 0.0, Sodium 138, Potassium 3.7, Chloride 110 H, Carbon Dioxide 22, Anion Gap 9.7, BUN 12, Creatinine 1.20, Estimated Creat Clear 102, Estimated GFR 72, Est GFR ( Amer) 87 D, Glucose 90 D, Calcium 8.3 L, Magnesium 1.4 L, Total Bilirubin 0.6, AST 18 D, ALT 16 D, Alkaline Phosphatase 76, Total Protein 5.7 L D, Albumin 3.3 L D, Globulin 2.4, Albumin/Globulin Ratio 1.4 Assessment and Plan *Assessment and plan (1) Abdominal pain: Status: Acute Qualifiers: Abdominal location: lower abdomen, unspecified Qualified Code(s): R10.30 - Lower abdominal pain, unspecified Category: Medical Code(s): R10.9 - Unspecified abdominal pain Plan I reviewed his CT scan. There is concern for possible stricture left colon creating possible partial large bowel obstruction. Underlying etiology is unclear but may be inflammatory bowel disease or possible Hirschsprung's disease. This is beyond the capabilities of treatment at this facility and recommend transfer to facility with gastroenterology and potential colorectal availability.
[2024-03-21 07:42] VITALS: BP 112/74; PULSE 93; RESP 18; TEMP 36.6; O2SAT 96
--- NOTE | 2024-03-21 08:27 | HMH.PHAINT1 ---
Pharmacy Intervention Comments: HOME MEDICATION LIST VERIFIED USING LIST FROM OUTPATIENT PHARMACY
[2024-03-21] MEDS: MAGNESIUM SULFATE IN WATER 2 GM/50 ML PIGGYBACK IV (08:34)
[2024-03-21] MEDS: ENOXAPARIN 40MG/0.4ML SYRINGE 40 MG SQ (08:34)
[2024-03-21] MEDS: GABAPENTIN 400MG CAPSULE 400 MG PO (10:24)
[2024-03-21] MEDS: VENLAFAXINE XR 75MG CAPSULE 150 MG PO (11:04)
[2024-03-21] MEDS: GABAPENTIN 800MG TABLET 800 MG PO ×2 (12:03→20:32)
[2024-03-21 16:00] VITALS: BP 123/69; PULSE 91; RESP 18; TEMP 36.7; O2SAT 93
--- NOTE | 2024-03-21 18:43 | PC.NURSE ---
Went to help place a NG tube and patient refused and wants more pain meds before allowing.
[2024-03-21] MEDS: KETOROLAC 30MG/ML VIAL 15 MG IV (19:49)
[2024-03-21 20:00] VITALS: BP 134/68; PULSE 98; RESP 16; TEMP 37.2; O2SAT 99
[2024-03-21] MEDS: QUETIAPINE 25MG TABLET 50 MG PO (20:32)
[2024-03-21] MEDS: SODIUM CHLORIDE 0.9% 10ML VIAL 10 ML IV (20:32)
[2024-03-21] MEDS: PANTOPRAZOLE 40MG VIAL 40 MG IV (20:32)
[2024-03-21] MEDS: LACTATED RINGERS 1000ML 1,000 ML 50 ML IV (20:40)
--- NOTE | 2024-03-21 21:15 | PC.NURSE ---
14 F NG tube placed to right nare, secured at 60, pt. tolerated well, Xray to confirm placement ordered, pt. requesting nausea medication notified [facility], ethanfran ordered q4 hr
--- NOTE | 2024-03-21 21:19 | XR_ITS ---
PROCEDURE INFORMATION: Exam: XR Chest Exam date and time: 03/21/2024 9:45 PM Age: 28 years old Clinical indication: Device placement; Ng tube; Additional info: Confirm ng placement TECHNIQUE: Imaging protocol: Radiologic exam of the chest. Views: 1 view. COMPARISON: CR XR CHEST PORTABLE 12/22/2023 9:42 PM FINDINGS: Tubes, catheters and devices: Enteral tube is in satisfactory position. Lungs: Clear, symmetrically inflated lungs. Pleural spaces: No pleural effusion. No pneumothorax. Heart/Mediastinum: Cardiac silhouette is normal in size for technique. Bones/joints: Age appropriate. IMPRESSION: No acute cardiopulmonary abnormality. Enteral tube is in satisfactory
[2024-03-22] MEDS: MORPHINE 4MG/ML SYRINGE 4 MG IV ×6 (00:40→22:35)
[2024-03-22] MEDS: PROCHLORPERAZINE 10MG/2ML VIAL 5 MG IV (00:40)
[2024-03-22 04:00] VITALS: BP 125/74; PULSE 85; RESP 16; TEMP 36.4; O2SAT 96; BMI 25.9
[2024-03-22] MEDS: ONDANSETRON 4MG/2ML VIAL 4 MG IV ×5 (06:44→22:35)
[2024-03-22 07:22] LABS: Basophils % 0.4 % (0.1-2.0); Eosinophils # 0.2 K/mm3 (0.0-0.4); Eosinophils % 5.6 % (0.1-12.0); Hematocrit 36.8 % (42.0-52.0); Hemoglobin 12.1 g/dL (14.1-18.0); Lymphocytes # 1.5 K/mm3 (0.7-4.5); Lymphocytes % 36.9 % (10-50); Mean Corpuscular HGB Conc 32.9 g/dL (31.8-35.4); Mean Corpuscular Hemoglobin 29.6 pg (27.0-31.2); Mean Platelet Volume 7.8 fl (7.4-10.4); Monocytes # 0.3 K/mm3 (0.1-1.0); Monocytes % 7.2 % (1.7-9.3); Platelet Count 196 K/mm3 (142-424); Red Blood Count 4.09 M/mm3 (4.60-6.20); Red Cell Distribution Width 14.8 % (11.5-17.5)
[2024-03-22 07:31] LABS: Alanine Aminotransferase 16 U/L (12-78); Albumin Level 3.3 g/dl (3.5-5.0); Albumin/Globulin Ratio 1.4 (1.1-1.8); Alkaline Phosphatase 73 U/L (38-126); Anion Gap 3.9 mEq/L (5-15); Aspartate Amino Transferase 20 U/L (17-59); Bilirubin,Total 0.5 mg/dl (0.2-1.3); Blood Urea Nitrogen 7 mg/dl (9-20); Calcium 8.4 mg/dl (8.4-10.2); Carbon Dioxide 29 mmol/L (22.0-30.0); Chloride 110 mmol/L (98-107); Creatinine Clearance Estimated 111 mL/min (50-200); Estimated Glomerular Filt Rate 79 ml/min (>60); GFR (African American) 96 ML/MIN (>60); Globulin 2.3 g/dL (1.3-3.2); Glucose 81 mg/dl (74-100); Magnesium 1.8 mg/dl (1.6-2.3); Potassium 3.9 mmoL/L (3.5-5.1); Sodium 139 mmol/L (136-145); Total Protein,Serum 5.6 g/dl (6.3-8.2)
[2024-03-22 08:00] VITALS: BP 127/75; PULSE 83; RESP 18; TEMP 36.3; O2SAT 96
--- NOTE | 2024-03-22 08:36 | PC.NURSE ---
Just spoke with , they stated that they may have a bed later today
--- NOTE | 2024-03-22 08:56 | EXP.SURG.PN ---
Subjective Narrative: Patient has had nausea. Required nasogastric tube placement. No output. He has had some bowel movements. Still having abdominal pain. Exam Data for Last 24 hours Vital signs and Labs for Last 24 Hours: Temp Pulse Resp BP Pulse Ox O2 Del Method 97.4 F L 83 18 127/75 96 Room Air 03/22/24 08:00 03/22/24 08:00 03/22/24 08:00 03/22/24 08:00 03/22/24 08:00 03/22/24 08:00 Laboratory Results - last 24 hr 03/22/24 06:30: WBC 4.0 L D, RBC 4.09 L, Hgb 12.1 L, Hct 36.8 L, MCV 90.0, MCH 29.6, MCHC 32.9, RDW 14.8, Plt Count 196, MPV 7.8, Neut % (Auto) 50.0, Lymph % (Auto) 36.9, [place] % (Auto) 7.2, Eos % (Auto) 5.6, Baso % (Auto) 0.4, Neut # (Auto) 2.0, Lymph # (Auto) 1.5, Drew # (Auto) 0.3, Eos # (Auto) 0.2, Baso # (Auto) 0.0, Sodium 139, Potassium 3.9, Chloride 110 H, Carbon Dioxide 29, Anion Gap 3.9 L, BUN 7 L D, Creatinine 1.10, Estimated Creat Clear 111, Estimated GFR 79, Est GFR ( Amer) 96, Glucose 81, Calcium 8.4, Magnesium 1.8 D, Total Bilirubin 0.5, AST 20, ALT 16, Alkaline Phosphatase 73, Total Protein 5.6 L, Albumin 3.3 L, Globulin 2.3, Albumin/Globulin Ratio 1.4 I & O for Last 24 hours: Intake & Output 03/19/24 03/20/24 03/21/24 03/22/24 11:59 11:59 11:59 11:59 Intake Total / 365 2720 / 2720 Output Total 0 / 0 0 / 0 Balance / 365 2720 / 2720 Weight 175 lb 3 oz 175 lb 3.01 oz Microbiology Reports for the Last 24 Hours: Microbiology 03/20/24 19:15 Blood Blood Culture - Preliminary NO GROWTH AFTER 24 HOURS 03/20/24 19:31 Blood Blood Culture - Preliminary NO GROWTH AFTER 24 HOURS *Routine Abdominal Exam Abdominal: Present tenderness and distended Progress Note: A&P Assessment and plan (1) BLAIRE (acute kidney injury): Status: Acute (2) Abdominal pain: Status: Acute Assessment and plan: Patient has been accepted reportedly after discussion with colorectal surgery at [facility]. Awaiting bed availability (3) Vomiting and diarrhea: Status: Acute (4) Colon distention: Problem details: History of colon ulcers in childhood. Status: Acute (5) HTN (hypertension): Status: Acute (6) Insomnia: Status: Acute (7) Tobacco abuse: Status: Acute
[2024-03-22] MEDS: ENOXAPARIN 40MG/0.4ML SYRINGE 40 MG SQ (09:02)
[2024-03-22] MEDS: METOPROLOL TARTRATE 25MG TABLET 25 MG PO (09:03)
[2024-03-22] MEDS: GABAPENTIN 800MG TABLET 800 MG PO ×3 (09:03→20:00)
--- NOTE | 2024-03-22 15:50 | PC.NURSE ---
Pt placed to intermittent low wall suction to see if he is having any output. If little to no output NG may be removed this evening.
[2024-03-22 16:00] VITALS: BP 132/78; PULSE 81; RESP 20; TEMP 36.6; O2SAT 97
--- NOTE | 2024-03-22 17:45 | PC.NURSE ---
at approx. 1700 pt called out and stated that he sneezed out his NG tube. This RN went to check on pt. NG tube was laying on the bedside table. MD made aware and stated to NOT reinsert the NG tube.
--- NOTE | 2024-03-22 17:52 | EXP.ACUTE.PN ---
Subjective *Date: 03/22/24 *Time: 17:52 Interval history: No further emesis after placement of NG. Still having abdominal pain and distention. Has had a loose bowel movement. Denies any chest pain or shortness of breath. Afebrile. Awaiting transfer to . Medical Exam Vital signs and Labs for Last 24 Hours: Vital Signs Temp Pulse Resp BP Pulse Ox O2 Del Method 03/22/24 17:00 Room Air 03/22/24 16:00 98 F 81 20 132/78 97 Room Air 03/22/24 15:00 Room Air 03/22/24 13:00 Room Air 03/22/24 11:00 Room Air 03/22/24 09:00 Room Air 03/22/24 08:00 Room Air 03/22/24 08:00 97.4 F L 83 18 127/75 96 Room Air 03/22/24 06:48 Room Air 03/22/24 05:00 Room Air 03/22/24 04:00 97.6 F 85 16 125/74 96 Room Air 03/22/24 03:00 Room Air 03/22/24 01:00 Room Air 03/21/24 23:00 Room Air 03/21/24 21:00 Room Air 03/21/24 20:00 Room Air 03/21/24 20:00 98.9 F 98 H 16 134/68 99 Room Air 03/21/24 19:00 Room Air Intake and Output 03/22/24 03/22/24 03/22/24 07:59 15:59 23:59 Intake Total 720 / 1717 997 / 1717 Output Total 0 / 0 0 / 0 Balance 720 / 1717 997 / 1717 Intake: Intake, Oral Amount 120 / 762 642 / 762 Intake, Total IV Amount 600 / 955 355 / 955 Lactated Ringers 1000ML 1,000 600 / 955 355 / 955 ml @ 50 mls/hr IV .Q20H [facility] Rx# :[id number] Output: Output, Urine Amount 0 / 0 0 / 0 Other: Number of Voids 0 Number of Unmeasured Voids 1 Weight 79.464 kg Patient Weight 03/22/24 23:59 Weight 79.464 kg Laboratory Results - last 24 hr 03/22/24 06:30: WBC 4.0 L D, RBC 4.09 L, Hgb 12.1 L, Hct 36.8 L, MCV 90.0, MCH 29.6, MCHC 32.9, RDW 14.8, Plt Count 196, MPV 7.8, Neut % (Auto) 50.0, Lymph % (Auto) 36.9, [place] % (Auto) 7.2, Eos % (Auto) 5.6, Baso % (Auto) 0.4, Neut # (Auto) 2.0, Lymph # (Auto) 1.5, [place] # (Auto) 0.3, Eos # (Auto) 0.2, Baso # (Auto) 0.0, Sodium 139, Potassium 3.9, Chloride 110 H, Carbon Dioxide 29, Anion Gap 3.9 L, BUN 7 L D, Creatinine 1.10, Estimated Creat Clear 111, Estimated GFR 79, Est GFR ( Amer) 96, Glucose 81, Calcium 8.4, Magnesium 1.8 D, Total Bilirubin 0.5, AST 20, ALT 16, Alkaline Phosphatase 73, Total Protein 5.6 L, Albumin 3.3 L, Globulin 2.3, Albumin/Globulin Ratio 1.4 I & O for Labs for Last 24 Hours: Intake & Output 03/19/24 03/20/24 03/21/24 03/22/24 23:59 23:59 23:59 23:59 Intake Total 2365 / 2485 1717 / 1717 Output Total 0 / 0 0 / 0 Balance 2365 / 2485 1717 / 1717 Weight 79.124 kg 79.464 kg 79.464 kg Microbiology Reports for the Last 24 Hours: Microbiology 03/20/24 19:15 Blood Blood Culture - Preliminary NO GROWTH AFTER 24 HOURS 03/20/24 19:31 Blood Blood Culture - Preliminary NO GROWTH AFTER 24 HOURS Constitutional: Present no acute distress, average body habitus and chronically ill appearing Head: Present atraumatic and normocephalic ENT: Present normal exam Comment:: NG in right nare Respiratory: Present normal respiratory effort; Absent rhonchi, wheezes or crackles Cardiac: Present Reg Rate and Rhythm GI: Present soft, distention, tenderness (Diffuse, worse in left lower abdomen.) and diminished bowel sounds Comments:: Well-healed midline scar. Rectal (male): Present deferred Extremities: Present normal inspection and full ROM Skin: Present intact; Absent erythema Neuro: Present Grossly Intact, alert, awake, oriented x 3 and moves all extremities Assessment and Plan *Assessment and plan (1) Vomiting and diarrhea: Status: Acute Category: Medical Code(s): R11.10 - Vomiting, unspecified; R19.7 - Diarrhea, unspecified (2) Abdominal pain: Status: Acute Qualifiers: Abdominal location: lower abdomen, unspecified Qualified Code(s): R10.30 - Lower abdominal pain, unspecified Category: Medical Code(s): R10.9 - Unspecified abdominal pain (3) BLAIRE (acute kidney injury): Status: Acute Category: Medical Code(s): N17.9 - Acute kidney failure, unspecified (4) Colon distention: Problem Comment: History of colon ulcers in childhood. Status: Acute Category: Medical Code(s): K63.89 - Other specified diseases of intestine (5) HTN (hypertension): Status: Acute Qualifiers: Hypertension type: unspecified Qualified Code(s): I10 - Essential (primary) hypertension Category: Medical Code(s): I10 - Essential (primary) hypertension (6) Insomnia: Status: Acute Qualifiers: Insomnia type: unspecified Qualified Code(s): G47.00 - Insomnia, unspecified Category: Medical Code(s): G47.00 - Insomnia, unspecified (7) Tobacco abuse: Status: Acute Category: Medical Code(s): Z72.0 - Tobacco use Plan 28-year-old male history of spontaneous small bowel obstruction in 2022 necessitating surgical intervention, appendectomy, numerous small bowel obstructions managed medically with nonsurgical options presenting with abdominal pain . Workup independently interpreted and significant for leukocytosis 18,000, chemistry with mild BLAIRE with creatinine 1.4. Anion gap elevated mildly at 18. Glucose normal. Lipase negative. On independent rotation, CT abdomen pelvis with diffuse dilation of the colon, but normal-appearing small bowel. Patient given another milligram of Dilaudid due to continued pain. Conversation was had with radiologist. Given similar appearance on previous CT scan, could be due to underlying IBD versus undiagnosed Hirschsprung's disease. ED requested admission for symptoms management. we agreed for it. Continues to require inpatient management. Intolerance of p.o. intake. Continue NG. Awaiting transfer. Has been accepted to . Problems addressed as follows: Acute kidney injury secondary to dehydration, due to intractable nausea and vomiting with diarrhea Abdominal pain related to colon distention leukocytosis likely inflammatory CT of abd and pelvis demonstrate air and stool distention of the colon. concerning Hirschsprung's disease Surgery consulted, discussed case today, concerned that patient needs evaluation by colorectal surgery and GI. Would benefit from scope with deep tissue biopsies. Recommend transfer. Diarrhea panel negative pain management with Toradol, morphine, Tylenol. Monitoring for toxicity. avoid nephrotoxic medication Appears euvolemic. Will provide bolus fluids as needed. Discontinue maintenance fluids Zofran 4 mg Q 6hr PRN for nasuea Kidney function improved. BUN 7, creatinine 1.1. Potassium 3.9, magnesium 1.8. Sodium 139. Bicarb 29. NG placed due to persistent nausea and abdominal pain. Repeat CBC, CMP, magnesium ordered for the morning HTN INSOMNIA hold nephrotoxic meds -Continue quetiapine as needed for insomnia TOBACCO ABUSE: nicotine patch PRN FULL CODE NPO DVT: lovenox In regard to abdominal symptoms that are longstanding: At home he has been having difficulty with his bowels, they have been loose predominantly over the past few months. Recently had a colonoscopy per his report at [facility] (attempting to obtain records) that did not show Crohn's or UC per his report but we have not received the records yet. Denies any chest pain. No shortness of breath. Further history and talking to his mother, she reports that he has had issues with bowel dysfunction since infancy. Was constipated as an infant necessitating manual disimpaction with a baby spoon . Had multiple colonoscopies as a child. Unclear the findings. States he has been struggling with his bowels most of his life. Struggling to the point he cannot keep a job. Had an episode in his teens where an enema was given that improved his symptoms. Unclear if he had a volvulus or intussusception. Denies any blood in his stool. Reviewed CT showing narrowing in the sigmoid colon with paucity of gas or stool through the rectum. Image finding concerning for Hirschsprung's.
[2024-03-22 20:00] VITALS: BP 159/98; PULSE 87; RESP 18; TEMP 37.1; O2SAT 97
[2024-03-22] MEDS: SODIUM CHLORIDE 0.9% 10ML VIAL 10 ML IV (20:00)
[2024-03-22] MEDS: QUETIAPINE 25MG TABLET 50 MG PO (20:00)
[2024-03-22] MEDS: PANTOPRAZOLE 40MG VIAL 40 MG IV (20:00)
[2024-03-22] MEDS: KETOROLAC 30MG/ML VIAL 15 MG IV (20:03)
[2024-03-22] MEDS: OXYMETAZOLINE NASAL SPRAY 0.05% 15ML NS (23:22)
[2024-03-23] MEDS: PROCHLORPERAZINE 10MG/2ML VIAL 5 MG IV (01:06)
[2024-03-23] MEDS: ONDANSETRON 4MG/2ML VIAL 4 MG IV ×5 (03:49→21:13)
[2024-03-23] MEDS: MORPHINE 4MG/ML SYRINGE 4 MG IV ×5 (03:49→20:57)
[2024-03-23 04:00] VITALS: BP 124/78; PULSE 104; RESP 16; TEMP 36.6; O2SAT 94; BMI 25.4
--- NOTE | 2024-03-23 05:14 | PC.NURSE ---
Patient has had a good night. Remains in pain and was medicated per Nov. Patient did walk the halls most of the evening when i first came on shift and was up walking in the room with no issues. Other than pain patient has had no complaints. Family at bedside
[2024-03-23 07:08] LABS: Basophils % 0.7 % (0.1-2.0); Eosinophils # 0.3 K/mm3 (0.0-0.4); Eosinophils % 5.3 % (0.1-12.0); Hematocrit 37.8 % (42.0-52.0); Hemoglobin 12.4 g/dL (14.1-18.0); Lymphocytes # 1.8 K/mm3 (0.7-4.5); Mean Corpuscular HGB Conc 32.8 g/dL (31.8-35.4); Mean Corpuscular Volume 88.3 fl (80-94); Monocytes # 0.3 K/mm3 (0.1-1.0); Monocytes % 6.7 % (1.7-9.3); Neutrophils # 2.3 K/mm3 (1.8-7.8); Neutrophils % 49.4 % (37.0-80.0); Platelet Count 225 K/mm3 (142-424); Red Blood Count 4.29 M/mm3 (4.60-6.20); Red Cell Distribution Width 14.8 % (11.5-17.5); White Blood Count 4.7 K/mm3 (4.8-10.8)
[2024-03-23 07:14] LABS: Alanine Aminotransferase 17 U/L (12-78); Albumin Level 3.4 g/dl (3.5-5.0); Albumin/Globulin Ratio 1.5 (1.1-1.8); Alkaline Phosphatase 66 U/L (38-126); Anion Gap 7.5 mEq/L (5-15); Aspartate Amino Transferase 22 U/L (17-59); Bilirubin,Total 0.5 mg/dl (0.2-1.3); Blood Urea Nitrogen 6 mg/dl (9-20); Calcium 9.1 mg/dl (8.4-10.2); Carbon Dioxide 31 mmol/L (22.0-30.0); Chloride 106 mmol/L (98-107); Creatinine Clearance Estimated 93 mL/min (50-200); Estimated Glomerular Filt Rate 65 ml/min (>60); GFR (African American) 79 ML/MIN (>60); Globulin 2.3 g/dL (1.3-3.2); Glucose 105 mg/dl (74-100); Potassium 4.5 mmoL/L (3.5-5.1); Sodium 140 mmol/L (136-145); Total Protein,Serum 5.7 g/dl (6.3-8.2)
[2024-03-23 07:27] VITALS: BP 123/81; PULSE 81; RESP 18; TEMP 36.6; O2SAT 95
[2024-03-23 07:44] LABS: Magnesium 2.5 mg/dl (1.6-2.3)
[2024-03-23] MEDS: METOPROLOL TARTRATE 25MG TABLET 25 MG PO (08:36)
[2024-03-23] MEDS: GABAPENTIN 800MG TABLET 800 MG PO ×3 (08:36→20:56)
[2024-03-23] MEDS: ENOXAPARIN 40MG/0.4ML SYRINGE 40 MG SQ (08:36)
[2024-03-23] MEDS: VENLAFAXINE XR 75MG CAPSULE 150 MG PO (08:37)
--- NOTE | 2024-03-23 09:00 | EXP.PN ---
Subjective *Date: 03/23/24 *Time: 12:05 Interval history: Patient is seen and examined today at bedside. The patient is accompanied by his mother. He lives with his mother in [place]. I am accompanied by nursing staff (Pearl RN). They report that the patient remains afebrile with stable vital signs and saturating appropriately on room air. His morning labs identify white blood cell count is 4.7 with stable hemoglobin. His creatinine is 1.3 with a baseline of 0.9. The patient reports that he is tolerating his liquid diet and reports a bowel movement today characterized as runny diarrhea. He denies melena, hematochezia, hematemesis or increasing abdominal pain. He is awaiting transfer to [facility]. Exam Data for Last 24 hours Vital signs and Labs for Last 24 Hours: Temp Pulse Resp BP Pulse Ox O2 Del Method 97.8 F 81 18 123/81 95 Room Air 03/23/24 07:27 03/23/24 07:27 03/23/24 07:27 03/23/24 07:27 03/23/24 07:27 03/23/24 08:55 Laboratory Results - last 24 hr 03/23/24 06:35: WBC 4.7 L, RBC 4.29 L, Hgb 12.4 L, Hct 37.8 L, MCV 88.3, MCH 29.0, MCHC 32.8, RDW 14.8, Plt Count 225, MPV 8.0, Neut % (Auto) 49.4, Lymph % (Auto) 38.0, [place] % (Auto) 6.7, Eos % (Auto) 5.3, Baso % (Auto) 0.7, Neut # (Auto) 2.3, Lymph # (Auto) 1.8, [place] # (Auto) 0.3, Eos # (Auto) 0.3, Baso # (Auto) 0.0, Sodium 140, Potassium 4.5, Chloride 106, Carbon Dioxide 31 H, Anion Gap 7.5, BUN 6 L, Creatinine 1.30 H, Estimated Creat Clear 93, Estimated GFR 65, Est GFR ( Amer) 79, Glucose 105 H, Calcium 9.1, Magnesium 2.5 H D, Total Bilirubin 0.5, AST 22, ALT 17, Alkaline Phosphatase 66, Total Protein 5.7 L, Albumin 3.4 L, Globulin 2.3, Albumin/Globulin Ratio 1.5 I & O for Last 24 hours: Intake & Output 03/20/24 03/21/24 03/22/24 03/23/24 23:59 23:59 23:59 23:59 Intake Total 2365 / 2485 2433 / 2433 600 / 600 Output Total 0 / 0 0 / 0 0 / 0 Balance 2365 / 2485 2433 / 2433 600 / 600 Weight 79.124 kg 79.464 kg 79.464 kg 78.018 kg Microbiology Reports for the Last 24 Hours: Microbiology 03/20/24 19:31 Blood Blood Culture - Preliminary NO GROWTH AFTER 48 HOURS 03/20/24 19:15 Blood Blood Culture - Preliminary NO GROWTH AFTER 48 HOURS Constitutional Constitutional: no acute distress and average body habitus *Routine HEENT Exam Head: Present normocephalic ENT: Present mucous membranes moist *Routine Neck Exam Neck: Present supple *Routine Respiratory Exam Respiratory: Present CTA bilaterally, normal respiratory effort and symmetric chest movement *Routine Cardiovascular Exam Cardiovascular: Present RRR; Absent murmur *Routine Abdominal Exam Abdominal: Present soft and normoactive bowel sounds *Routine Extremities Exam Extremities: Present full ROM; Absent edema *Routine Skin Exam Skin: Present normal turgor; Absent rash *Routine Neurological Exam Neurological: Present alert, oriented X3, moving all extremities, vision grossly intact, hearing grossly intact and normal speech Routine Psychiatric Exam Psychiatric: Present normal affect, normal thought process, cooperative and good insight Assessment and Plan *Assessment and plan (1) Vomiting and diarrhea: Status: Acute Category: Medical Code(s): R11.10 - Vomiting, unspecified; R19.7 - Diarrhea, unspecified (2) Abdominal pain: Status: Acute Qualifiers: Abdominal location: lower abdomen, unspecified Qualified Code(s): R10.30 - Lower abdominal pain, unspecified Category: Medical Code(s): R10.9 - Unspecified abdominal pain (3) BLAIRE (acute kidney injury): Status: Acute Category: Medical Code(s): N17.9 - Acute kidney failure, unspecified (4) Colon distention: Problem Comment: History of colon ulcers in childhood. Status: Acute Category: Medical Code(s): K63.89 - Other specified diseases of intestine (5) HTN (hypertension): Status: Acute Qualifiers: Hypertension type: unspecified Qualified Code(s): I10 - Essential (primary) hypertension Category: Medical Code(s): I10 - Essential (primary) hypertension (6) Insomnia: Status: Acute Qualifiers: Insomnia type: unspecified Qualified Code(s): G47.00 - Insomnia, unspecified Category: Medical Code(s): G47.00 - Insomnia, unspecified (7) Tobacco abuse: Status: Acute Category: Medical Code(s): Z72.0 - Tobacco use Plan 28-year-old male history of spontaneous small bowel obstruction in 2022 necessitating surgical intervention, appendectomy, numerous small bowel obstructions managed medically with nonsurgical options presenting with abdominal pain. CT abdomen pelvis with diffuse dilation of the colon, but normal-appearing small bowel. Continues to require inpatient management and awaiting transfer to [facility] for higher level of care. Problems addressed as follows: Acute kidney injury secondary to dehydration, due to intractable nausea and vomiting with diarrhea Abdominal pain related to colon distention CT of abd and pelvis demonstrate air and stool distention of the colon. concerning Hirschsprung's disease Surgery consult reviewed, transitioning to [facility] for colorectal surgery and GI evaluations. Diarrhea PCR panel negative Pain management with Toradol, morphine, Tylenol. (Parenterally administered controlled substance for comfort care) Avoid nephrotoxic agents IV maintenance fluids until taking p.o. well Antiemetic therapy Trending labs and inflammatory markers No longer requiring NG tube HTN Routine blood pressure monitoring Beta-maria e therapy Avoiding thiazide diuretics Mood disorder Routine nursing interaction SRNI therapy Antipsychotic therapy TOBACCO ABUSE Tobacco cessation education Nicotine patch PRN FULL CODE Clear liquids DVT: lovenox The patient is hospitalized day 3 with above diagnoses. We appreciate career development consultant evaluation and recommendations for transition of care to the [facility]. Case management is assisting with transition of care to [facility]. Barriers to discharge currently include no bed capacity at accepting facility. Expected date of discharge once receiving facility capacity is available.
--- NOTE | 2024-03-23 09:39 | EXP.SURG.PN ---
Subjective Narrative: Patient has had his NG tube removed. He is taking limited amounts of liquids. He is having some loose stools. However he still has abdominal tenderness. His IV is currently out. Exam Data for Last 24 hours Vital signs and Labs for Last 24 Hours: Temp Pulse Resp BP Pulse Ox O2 Del Method 97.8 F 81 18 123/81 95 Room Air 03/23/24 07:27 03/23/24 07:27 03/23/24 07:27 03/23/24 07:27 03/23/24 07:27 03/23/24 08:55 Laboratory Results - last 24 hr 03/23/24 06:35: WBC 4.7 L, RBC 4.29 L, Hgb 12.4 L, Hct 37.8 L, MCV 88.3, MCH 29.0, MCHC 32.8, RDW 14.8, Plt Count 225, MPV 8.0, Neut % (Auto) 49.4, Lymph % (Auto) 38.0, [place] % (Auto) 6.7, Eos % (Auto) 5.3, Baso % (Auto) 0.7, Neut # (Auto) 2.3, Lymph # (Auto) 1.8, [place] # (Auto) 0.3, Eos # (Auto) 0.3, Baso # (Auto) 0.0, Sodium 140, Potassium 4.5, Chloride 106, Carbon Dioxide 31 H, Anion Gap 7.5, BUN 6 L, Creatinine 1.30 H, Estimated Creat Clear 93, Estimated GFR 65, Est GFR ( Amer) 79, Glucose 105 H, Calcium 9.1, Magnesium 2.5 H D, Total Bilirubin 0.5, AST 22, ALT 17, Alkaline Phosphatase 66, Total Protein 5.7 L, Albumin 3.4 L, Globulin 2.3, Albumin/Globulin Ratio 1.5 I & O for Last 24 hours: Intake & Output 03/20/24 03/21/24 03/22/24 03/23/24 11:59 11:59 11:59 11:59 Intake Total / 365 2720 / 2720 2313 / 2313 Output Total 0 / 0 0 / 0 0 / 0 Balance 365 / 365 2720 / 2720 2313 / 2313 Weight 175 lb 3 oz 175 lb 3.01 oz 172 lb Microbiology Reports for the Last 24 Hours: Microbiology 03/20/24 19:31 Blood Blood Culture - Preliminary NO GROWTH AFTER 48 HOURS 03/20/24 19:15 Blood Blood Culture - Preliminary NO GROWTH AFTER 48 HOURS *Routine Abdominal Exam Abdominal: Present tenderness and distended Comments: Abdomen moderately distended with some tenderness in the left upper quadrant. Progress Note: A&P Assessment and plan (1) Vomiting and diarrhea: Status: Acute (2) Abdominal pain: Status: Acute Assessment and plan: Awaiting bed availability at [facility]. Recommend limit oral intake. Needs IV for some slight elevation in creatinine. (3) BLAIRE (acute kidney injury): Status: Acute (4) Colon distention: Problem details: History of colon ulcers in childhood. Status: Acute (5) HTN (hypertension): Status: Acute (6) Insomnia: Status: Acute (7) Tobacco abuse: Status: Acute
[2024-03-23] MEDS: FESOTERODINE 8 MG 8 EACH PO (09:46)
[2024-03-23] MEDS: 0.9 % SODIUM CHLORIDE 1000ML 1,000 ML 100 ML IV ×2 (09:50→21:00)
[2024-03-23] MEDS: KETOROLAC 30MG/ML VIAL 15 MG IV (14:53)
[2024-03-23 16:00] VITALS: BP 131/79; PULSE 89; RESP 20; TEMP 36.8; O2SAT 94
--- NOTE | 2024-03-23 18:02 | PC.NURSE ---
PT IS RESTING IN BED WITH MOTHER AT BEDSIDE. PT HAS CALLED OUT FOR PAIN MEDICATION MULTIPLE TIMES THROUGHOUT THE SHIFT (EACH TIME THAT THE MEDICATION WAS DUE) AND EXPRESSES THAT HIS PAIN IS A 7 EACH TIME. TORADOL AND MORPHINE ADMINISTERED PER MAR WITH POSITIVE EFFECTS. ZOFRAN ALSO ADMINISTERED MULTIPLE TIMES THIS SHIFT WITH REDUCTION IN NAUSEA. PT HAS ATE MOST OF MEALS AND TOLERATED WELL. NS @[address] ORDERS FOR ELEVATED CREATININE. NEW IV WAS INSERTED IN THE RT FOREARM AFTER LT FOREARM IV BECAME LEAKY. PT INSTRUCTED ON IMPORTANCE OF INCREASING ORAL FLUID INTAKE TOLERABLE. PT AGREEABLE. PT HAS AMBULATED INSIDE THE ROOM MULTIPLE TIMES AND HAS TAKEN A SHOWER. [facility] CALLED AROUND 1100 STATING THAT THEY HAD A BED OPEN FOR PT, BUT NO FURTHER UPDATES OBTAINED FROM [facility]. VSS. BOWEL SOUNDS ACTIVE AND ABDOMEN IS SOFT, SLIGHTLY DISTENDED AND NON TENDER.
[2024-03-23 20:00] VITALS: BP 154/107; PULSE 98; RESP 17; TEMP 36.9; O2SAT 91
[2024-03-23] MEDS: PANTOPRAZOLE 40MG VIAL 40 MG IV (20:56)
[2024-03-23] MEDS: SODIUM CHLORIDE 0.9% 10ML VIAL 10 ML IV (20:56)
[2024-03-23] MEDS: QUETIAPINE 25MG TABLET 50 MG PO (21:13)
[2024-03-23] MEDS: MELATONIN 5MG TABLET 5 MG PO (23:39)
--- NOTE | 2024-03-24 01:05 | PC.NURSE ---
Call from , still no bed available for pt.
[2024-03-24] MEDS: MORPHINE 4MG/ML SYRINGE 4 MG IV ×4 (03:22→16:22)
[2024-03-24] MEDS: ONDANSETRON 4MG/2ML VIAL 4 MG IV ×4 (03:23→16:22)
[2024-03-24 04:00] VITALS: BP 142/94; PULSE 79; RESP 16; TEMP 36.5; O2SAT 96; BMI 25.9
--- NOTE | 2024-03-24 05:24 | PC.NURSE ---
Pt continues to complain of left sided abdominal pain and nausea, at worst , pain is 9 at best, after morphine, pain is 0. Nausea relieved with zofran IVP. Pt has been medicated with Morphine and Zofran X 2 this shift and has slept well. Pt did ask for something for sleep after taking morphine and seroquel at bedtime, order obtained for melatonin which seemed to be effective. He is tolerating clear liquids with no vomiting. Mom at bedside through the night
[2024-03-24] MEDS: 0.9 % SODIUM CHLORIDE 1000ML 1,000 ML 100 ML IV (06:47)
[2024-03-24] MEDS: KETOROLAC 30MG/ML VIAL 15 MG IV ×2 (06:47→13:31)
[2024-03-24 07:04] LABS: Alanine Aminotransferase 15 U/L (12-78); Albumin Level 3.3 g/dl (3.5-5.0); Albumin/Globulin Ratio 1.5 (1.1-1.8); Alkaline Phosphatase 62 U/L (38-126); Anion Gap 6.2 mEq/L (5-15); Aspartate Amino Transferase 22 U/L (17-59); Bilirubin,Total 0.4 mg/dl (0.2-1.3); Blood Urea Nitrogen 7 mg/dl (9-20); Calcium 8.6 mg/dl (8.4-10.2); Carbon Dioxide 29 mmol/L (22.0-30.0); Chloride 110 mmol/L (98-107); Creatinine Clearance Estimated 102 mL/min (50-200); Estimated Glomerular Filt Rate 72 ml/min (>60); GFR (African American) 87 ML/MIN (>60); Globulin 2.2 g/dL (1.3-3.2); Glucose 79 mg/dl (74-100); Potassium 4.2 mmoL/L (3.5-5.1); Sodium 141 mmol/L (136-145); Total Protein,Serum 5.5 g/dl (6.3-8.2)
--- NOTE | 2024-03-24 07:53 | XR_ITS ---
FINAL REPORT CLINICAL HISTORY: ABDOMINAL PAIN, BLOATING FINDINGS: Chest: Single view was obtained. The heart and mediastinum are within normal limits. There is linear atelectasis in the left lung base. There is no pneumothorax. Abdomen: 2 views were obtained. There are multiple air-filled bowel loops in a nonspecific pattern. There is no free air. There are no abnormal calcifications. IMPRESSION: Multiple air-filled bowel loops in a nonspecific pattern. Reviewed, Interpreted and Dictated by Glynn Pearce III, MD Transcribed by Greta Gordillo Authenticated and [facility]
--- NOTE | 2024-03-24 07:54 | P.PN_ITS ---
Subjective Narrative: Patient taking clear liquid diets. Describes some increasing abdominal bloating postprandially with significantly increasing tenderness and pain. Exam Data for Last 24 hours Vital signs and Labs for Last 24 Hours: Temp Pulse Resp BP Pulse Ox O2 Del Method 97.7 F 79 16 142/94 H 96 Room Air 03/24/24 04:00 03/24/24 04:00 03/24/24 04:00 03/24/24 04:00 03/24/24 04:00 03/24/24 06:46 Laboratory Results - last 24 hr 03/24/24 06:00: Sodium 141, Potassium 4.2, Chloride 110 H, Carbon Dioxide 29, Anion Gap 6.2, BUN 7 L, Creatinine 1.20, Estimated Creat Clear 102, Estimated GFR 72, Est GFR ( Amer) 87, Glucose 79 D, Calcium 8.6, Total Bilirubin 0.4, AST 22, ALT 15, Alkaline Phosphatase 62, Total Protein 5.5 L, Albumin 3.3 L , Globulin 2.2, Albumin/Globulin Ratio 1.5 I & O for Last 24 hours: Intake & Output 03/21/24 03/22/24 03/23/24 03/24/24 11:59 11:59 11:59 11:59 Intake Total 365 / 365 2720 / 2720 2313 / 2313 5 / 2274 Output Total 0 / 0 0 / 0 0 / 0 0 / 0 Balance 365 / 365 2720 / 2720 2313 / 2313 2275 / 2275 Weight 175 lb 3 oz 175 lb 3.01 oz 172 lb 175 lb 8 oz *Routine Abdominal Exam Abdominal: Present tenderness, distended and firm Progress Note: A&P Assessment and plan (1) Vomiting and diarrhea: Status: Acute (2) Abdominal pain: Status: Acute (3) BLAIRE (acute kidney injury): Status: Acute (4) Colon distention: Problem details: History of colon ulcers in childhood. Status: Acute Assessment and plan: Patient likely has high-grade partial distal colon obstruction of uncertain etiology. Potential inflammatory bowel stricture or Hirschsprung's disease. Would best be served at a tertiary facility with colorectal surgical and potential gastroenterology involvement however he has been awaiting a bed for several days. Recommend making n.p.o. at this time due to the potential he could require urgent intervention. I will go ahead and check acute abdominal series. (5) HTN (hypertension): Status: Acute (6) Insomnia: Status: Acute (7) Tobacco abuse: Status: Acute
[2024-03-24 08:00] VITALS: BP 140/89; PULSE 101; RESP 18; TEMP 36.6; O2SAT 93
[2024-03-24] MEDS: GABAPENTIN 800MG TABLET 800 MG PO ×2 (08:25→14:19)
[2024-03-24] MEDS: METOPROLOL TARTRATE 25MG TABLET 25 MG PO (08:25)
[2024-03-24] MEDS: FESOTERODINE 8 MG 8 EACH PO (08:26)
[2024-03-24] MEDS: ENOXAPARIN 40MG/0.4ML SYRINGE 40 MG SQ (08:26)
[2024-03-24] MEDS: VENLAFAXINE XR 75MG CAPSULE 150 MG PO (08:26)
--- NOTE | 2024-03-24 14:28 | EXP.PN ---
Subjective *Date: 03/24/24 *Time: 14:28 Interval history: The patient is seen and examined at bedside today. I am accompanied by his nurse Kam. Nursing staff report that he remains afebrile with stable vital signs and saturating appropriately on room air. He tried clear liquids yesterday with crescendo abdominal pain. General surgery has recommended transition to [facility] for higher level of care and oracle ascp consultant evaluations. I was able to speak with [facility] transfer line this morning and they are aware of our recommendations. [facility] has voiced concerns with bed capacity. Exam Data for Last 24 hours Vital signs and Labs for Last 24 Hours: Temp Pulse Resp BP Pulse Ox O2 Del Method 97.9 F 101 H 18 140/89 93 L Room Air 03/24/24 08:00 03/24/24 08:00 03/24/24 08:00 03/24/24 08:00 03/24/24 08:00 03/24/24 13:00 Laboratory Results - last 24 hr 03/24/24 06:00: Sodium 141, Potassium 4.2, Chloride 110 H, Carbon Dioxide 29, Anion Gap 6.2, BUN 7 L, Creatinine 1.20, Estimated Creat Clear 102, Estimated GFR 72, Est GFR ( Amer) 87, Glucose 79 D, Calcium 8.6, Total Bilirubin 0.4, AST 22, ALT 15, Alkaline Phosphatase 62, Total Protein 5.5 L, Albumin 3.3 L, Globulin 2.2, Albumin/Globulin Ratio 1.5 I & O for Last 24 hours: Intake & Output 03/21/24 03/22/24 03/23/24 03/24/24 23:59 23:59 23:59 23:59 Intake Total 2365 / 2485 2433 / 2433 168 / 1685 2510 / 2510 Output Total 0 / 0 0 / 0 0 / 0 0 / 0 Balance 2365 / 2485 2433 / 2433 1685 / 1685 2510 / 2510 Weight 79.464 kg 79.464 kg 78.018 kg 79.605 kg Constitutional Constitutional: no acute distress and average body habitus *Routine HEENT Exam Head: Present normocephalic ENT: Present mucous membranes moist *Routine Neck Exam Neck: Present supple *Routine Respiratory Exam Respiratory: Present CTA bilaterally, normal respiratory effort and symmetric chest movement *Routine Cardiovascular Exam Cardiovascular: Present RRR; Absent murmur *Routine Abdominal Exam Abdominal: Present soft and normoactive bowel sounds *Routine Extremities Exam Extremities: Present full ROM; Absent edema *Routine Skin Exam Skin: Present normal turgor; Absent rash *Routine Neurological Exam Neurological: Present alert, oriented X3, moving all extremities, vision grossly intact, hearing grossly intact and normal speech Routine Psychiatric Exam Psychiatric: Present normal affect, normal thought process, cooperative and good insight Assessment and Plan *Assessment and plan (1) Vomiting and diarrhea: Status: Acute Category: Medical Code(s): R11.10 - Vomiting, unspecified; R19.7 - Diarrhea, unspecified (2) Abdominal pain: Status: Acute Qualifiers: Abdominal location: lower abdomen, unspecified Qualified Code(s): R10.30 - Lower abdominal pain, unspecified Category: Medical Code(s): R10.9 - Unspecified abdominal pain (3) BLAIRE (acute kidney injury): Status: Acute Category: Medical Code(s): N17.9 - Acute kidney failure, unspecified (4) Colon distention: Problem Comment: History of colon ulcers in childhood. Status: Acute Category: Medical Code(s): K63.89 - Other specified diseases of intestine (5) HTN (hypertension): Status: Acute Qualifiers: Hypertension type: unspecified Qualified Code(s): I10 - Essential (primary) hypertension Category: Medical Code(s): I10 - Essential (primary) hypertension (6) Insomnia: Status: Acute Qualifiers: Insomnia type: unspecified Qualified Code(s): G47.00 - Insomnia, unspecified Category: Medical Code(s): G47.00 - Insomnia, unspecified (7) Tobacco abuse: Status: Acute Category: Medical Code(s): Z72.0 - Tobacco use Plan 28-year-old male history of spontaneous small bowel obstruction in 2022 necessitating surgical intervention, appendectomy, numerous small bowel obstructions managed medically with nonsurgical options presenting with abdominal pain. CT abdomen pelvis with diffuse dilation of the colon, but normal-appearing small bowel. Continues to require inpatient management and awaiting transfer to [facility] for higher level of care. Problems addressed as follows: Acute kidney injury secondary to dehydration, due to intractable nausea and vomiting with diarrhea Abdominal pain related to colon distention CT of abd and pelvis demonstrate air and stool distention of the colon. concerning Hirschsprung's disease Surgery consult reviewed, transitioning to [facility] for colorectal surgery and GI evaluations. Diarrhea PCR panel negative Pain management with Toradol, morphine, Tylenol. (Parenterally administered controlled substance for comfort care) Avoid nephrotoxic agents IV maintenance fluids until taking p.o. well Antiemetic therapy Trending labs and inflammatory markers No longer requiring NG tube HTN Routine blood pressure monitoring Beta-maria e therapy Avoiding thiazide diuretics Mood disorder Routine nursing interaction SRNI therapy Antipsychotic therapy TOBACCO ABUSE Tobacco cessation education Nicotine patch PRN FULL CODE Clear liquids DVT: lovenox The patient is hospitalized day 4 with above diagnoses. We appreciate oracle ascp consultant evaluation and recommendations for transition of care to the [facility]. Case management is assisting with transition of care to [facility]. Barriers to discharge currently include no bed capacity at accepting facility. Expected date of discharge once receiving facility capacity is available.
[2024-03-24 15:16] VITALS: BMI 25.9
[2024-03-24 16:00] VITALS: BP 151/95; PULSE 98; RESP 16; TEMP 36.6; O2SAT 97
--- NOTE | 2024-03-24 16:28 | PC.NURSE ---
NO ACUTE CHANGES SINCE PREVIOUS ASSESSMENT. MEDICATED FOR PAIN AND NAUSEA AT FREQUENT INTERVALS PER NOV. SPOKE WITH [facility] FOR UPDATE BUT NO BED AVAILABLE AT TIME OF WRITING.
--- NOTE | 2024-03-24 18:39 | P.DS_ITS ---
General Admission date:: 03/20/24 Discharge date: 03/24/24 HPI HPI HPI: Patient is a 28-year-old male with previous abdominal surgical and GI issues essentially his entire life. Reportedly has had bowel issues since he was an infant. Reportedly had previous colonoscopies and upper endoscopy when he was young for ulcers . Reportedly he had undergone laparotomy in [place], [place] in 2022 for obstruction described as bowel twisting . Exact details are unknown. Reportedly had numerous hospitalizations for bowel obstruction managed nonoperatively, most recently in [place], [place]. He was admitted to this [facility] on 12/22/2023 with possible bowel obstruction characterized by abdominal pain, distention, nausea. At that time he had a CT scan performed which revealed air and stool distention of the colon but some fluid distention of small bowel loops without focal obstruction. He was managed nonoperatively and he was seen by Dr. Silva as an inpatient and followed up as an outpatient. Recommendations were for gastroenterology assessment. Patient reportedly did undergo evaluation with Dr. Nino in [place] and had a subsequent colonoscopy. Apparently biopsies were not performed according to the patient. Patient had presented to the emergency department on 03/20/2024 with multiple episodes of diarrhea and vomiting with abdominal distention and tenderness. He underwent CT scan of the abdomen pelvis which revealed persistent moderate dilatation of a significant portion of the colon mostly the ascending transverse and varying degrees of the descending colon. There is persistent narrowing near the mid sigmoid junction with decompressed remainder of sigmoid colon and rectum. This finding noted on prior CT scan. The chronicity of this finding raises concern for entities adult diagnosis of Hirschsprung's disease or a variant form of inflammatory bowel disease of the colon. Recommend GI consultation and colonoscopy. Given these findings tentative plan was for management as an outpatient. However, the patient had persistent pain and was admitted for inpatient management. Surgical consultation was ordered. He has had some bowel movements. . Hospital Course Hospital Course Hospital Course: The patient was admitted with general surgery consultation. Imaging, labs and inflammatory markers were assessed and trended. A trial of clear liquids identified ongoing abdominal pain and general surgery recommended transitioning to higher level of care for instructional design consultant evaluations. The patient was amendable to transition of care recommendations. [facility] was gracious in accepting the patient for transition of care. I spent 35 minutes in [id number] time with the patient and nursing staff concerning the discharge process. We discussed the admitting diagnoses and hospital course. We discussed identified abdominal pain and the patient's desire to transition for higher level of care. We reviewed inpatient studies and imaging. The patient voiced understanding on the importance of follow-up with his primary care provider and specialist(s). His care will be transitioned to the [facility]. Exam Data for Last 24 hours Vital signs and Labs for Last 24 Hours: Temp Pulse Resp BP Pulse Ox O2 Del Method 97.9 F 98 H 16 151/95 H 97 Room Air 03/24/24 16:00 03/24/24 16:00 03/24/24 16:00 03/24/24 16:00 03/24/24 16:00 03/24/24 16:36 Laboratory Results - last 24 hr 03/24/24 06:00: Sodium 141, Potassium 4.2, Chloride 110 H, Carbon Dioxide 29, Anion Gap 6.2, BUN 7 L, Creatinine 1.20, Estimated Creat Clear 102, Estimated GFR 72, Est GFR ( Amer) 87, Glucose 79 D, Calcium 8.6, Total Bilirubin 0.4, AST 22, ALT 15, Alkaline Phosphatase 62, Total Protein 5.5 L, Albumin 3.3 L , Globulin 2.2, Albumin/Globulin Ratio 1.5 I & O for Last 24 hours: Intake & Output 03/21/24 03/22/24 03/23/24 03/24/24 23:59 23:59 23:59 23:59 Intake Total 2365 / 2485 2433 / 2433 1685 / 1685 5404 / 5404 Output Total 0 / 0 0 / 0 0 / 0 0 / 0 Balance 2365 / 2485 2433 / 2433 1685 / 1685 5404 / 5404 Weight 79.464 kg 79.464 kg 78.018 kg 79.6 kg Constitutional Constitutional: no acute distress and average body habitus *Routine HEENT Exam Head: Present normocephalic ENT: Present mucous membranes moist *Routine Neck Exam Neck: Present supple *Routine Respiratory Exam Respiratory: Present CTA bilaterally, normal respiratory effort and symmetric chest movement *Routine Cardiovascular Exam Cardiovascular: Present RRR; Absent murmur *Routine Abdominal Exam Abdominal: Present soft and normoactive bowel sounds *Routine Extremities Exam Extremities: Present full ROM; Absent edema *Routine Skin Exam Skin: Present normal turgor; Absent rash *Routine Neurological Exam Neurological: Present alert, oriented X3, moving all extremities, vision grossly intact, hearing grossly intact and normal speech Routine Psychiatric Exam Psychiatric: Present normal affect, normal thought process, cooperative and good insight Results Data Completed and Pending Labs on day of discharge: Labs from last 24 hours 03/24/24 06:00 Sodium 141 Potassium 4.2 Chloride 110 H Carbon Dioxide 29 Anion Gap 6.2 BUN 7 L Creatinine 1.20 Estimated Creat Clear 102 Estimated GFR 72 Est GFR ( Amer) 87 Glucose 79 D Calcium 8.6 Total Bilirubin 0.4 AST 22 ALT 15 Alkaline Phosphatase 62 Total Protein 5.5 L Albumin 3.3 L Globulin 2.2 Albumin/Globulin Ratio 1.5 Preliminary micro results at discharge 03/20/24 19:31 Blood Culture - Preliminary Blood NO GROWTH AFTER 48 HOURS 03/20/24 19:15 Blood Culture - Preliminary Blood NO GROWTH AFTER 48 HOURS DS: Diagnosis Discharge Diagnosis (1) Vomiting and diarrhea: Status: Acute Code(s): R11.10 - Vomiting, unspecified; R19.7 - Diarrhea, unspecified (2) Abdominal pain: Status: Acute Code(s): R10.9 - Unspecified abdominal pain Qualifiers: Abdominal location: lower abdomen, unspecified Qualified Code(s): R10.30 - Lower abdominal pain, unspecified (3) BLAIRE (acute kidney injury): Status: Acute Code(s): N17.9 - Acute kidney failure, unspecified (4) Colon distention: Status: Acute Code(s): K63.89 - Other specified diseases of intestine Problem details: History of colon ulcers in childhood. (5) HTN (hypertension): Status: Acute Code(s): I10 - Essential (primary) hypertension Qualifiers: Hypertension type: unspecified Qualified Code(s): I10 - Essential (primary) hypertension (6) Insomnia: Status: Acute Code(s): G47.00 - Insomnia, unspecified Qualifiers: Insomnia type: unspecified Qualified Code(s): G47.00 - Insomnia, unspecified (7) Tobacco abuse: Status: Acute Code(s): Z72.0 - Tobacco use Meds Home Medications and Allergies Home Medications Medication Instructions Recorded Confirmed Type ergocalciferol (vitamin D2) 1,250 1,250 mcg PO WEEKLY 03/20/24 03/20/24 History mcg (50,000 unit) capsule fesoterodine 8 mg tablet,extended 8 mg PO DAILY 03/20/24 03/20/24 History release 24 hr (Toviaz) gabapentin 800 mg tablet 800 mg PO TID 03/20/24 03/20/24 History hydroxyzine pamoate 25 mg capsule 25 mg PO TIDP PRN Anxiety 03/20/24 03/20/24 History linaclotide 145 mcg capsule 145 mcg PO DAILY 03/20/24 03/20/24 History (Linzess) metoprolol tartrate 25 mg tablet 25 mg PO DAILY 03/20/24 03/20/24 History ondansetron 4 mg disintegrating 4 mg PO Q8HP PRN Nausea And 03/20/24 03/20/24 History tablet Vomiting quetiapine 25 mg tablet 25 - 50 mg PO HS 03/20/24 03/20/24 History tramadol 50 mg tablet 50 mg PO Q8HP PRN Moderate Pain 03/20/24 03/20/24 History (Scale Score 5-6) ubrogepant 100 mg tablet (Ubrelvy) 100 mg PO DAILYP PRN Migraine 03/20/24 03/20/24 History Headache venlafaxine 150 mg 150 mg PO DAILY 03/20/24 03/20/24 History capsule,extended release 24 hr New Prescriptions to Start Prescriptions: Allergies Allergy/AdvReac Type Severity Reaction Status Date / Time doxycycline [DOXYCYCLINE] Allergy Intermediate Verified 01/14/24 10:33 codeine [CODEINE] Allergy Mild Verified 01/14/24 10:33 lidocaine AdvReac Verified 01/14/24 10:33 Discharge Plan Disposition Patient Disposition: Xfer Other Condition: Fair Discharge Order Discharge Orders: Discharge Order (Routine); Ordered 03/24/24 Ordered By: Isma Fitzgerald Follow up Plan Follow up with: Jeannette Hernandez MD [Primary Care Provider] - 1 week Moises Silva MD [Staff Physician] - 2 weeks Prescriptions/Medication Reconciliation: Continued quetiapine 25 mg tablet 25 - 50 mg PO HS Patient Comments: TAKE 1 TO 2 TABLETS BY MOUTH EVERY NIGHT venlafaxine 150 mg capsule,extended release 24hr 150 mg PO DAILY Patient Comments: TAKE 1 CAPSULE BY MOUTH DAILY tramadol 50 mg tablet 50 mg PO Q8HP PRN (Reason: Moderate Pain (Scale Score 5-6)) Patient Comments: TAKE 1 TABLET BY MOUTH EVERY 8 HOURS NEEDED FOR MODERATE PAIN gabapentin 800 mg tablet 800 mg PO TID Patient Comments: TAKE 1 TABLET BY MOUTH THREE TIMES DAILY ergocalciferol (vitamin D2) 1,250 mcg (50,000 unit) capsule 1,250 mcg PO WEEKLY Patient Comments: TAKE 1 CAPSULE BY MOUTH 1 TIME EVERY WEEK ondansetron 4 mg tablet,disintegrating 4 mg PO Q8HP PRN (Reason: Nausea And Vomiting) Patient Comments: DISSOLVE 1 TABLET ON THE TONGUE EVERY 8 HOURS NEEDED FOR NAUSEA OR VOMITING hydroxyzine pamoate 25 mg capsule 25 mg PO TIDP PRN (Reason: Anxiety) Patient Comments: TAKE 1 CAPSULE BY MOUTH THREE TIMES DAILY NEEDED FOR ANXIETY metoprolol tartrate 25 mg tablet 25 mg PO DAILY Patient Comments: TAKE 1 TABLET BY MOUTH DAILY fesoterodine [Toviaz] 8 mg tablet extended release 24 hr 8 mg PO DAILY Patient Comments: TAKE 1 TABLET BY MOUTH DAILY Linzess 145 mcg capsule 145 mcg PO DAILY Ubrelvy 100 mg tablet 100 mg PO DAILYP PRN (Reason: Migraine Headache) Patient Comments: TAKE 1 TABLET BY MOUTH DAILY NEEDED FOR MIGRAINES FOR UP TO 30 DAYS Problem Reconciliation Problems Reviewed?: Yes Patient Discharge Instructions ACTIVITY: Continue current activity DIET: NPO Patient Instructions: DI for Abdominal Pain-Adult, DI for Nausea -- Adult, DI for Vomiting -- Adult, DI for Acute Kidney Injury Providers Primary Care Provider: Jeannette Hernandez Provider: Jose Issa Attending Provider: Jose Issa
--- NOTE | 2024-03-24 18:59 | PC.NURSE ---
Addendum entered by Kam Traore RN 03/24/24 19:01: report called to rosy Original Note: dr nieves approved for patient to be transferred by private car. iv removed and paperwork completed.
--- NOTE | 2024-03-24 19:01 | PC.NURSE ---
Patient left facility in family vehicle at 19:02.
== END 2024-03-24 19:03 | disposition short-term general hospital (02) | DRG 389 ==
LOC: ER 21:40 → 2ND 21:56
PROVIDERS: Nurse Practitioner Family; Admitting Provider Internal Medicine Adolescent Medicine; Emergency Provider Emergency Medicine; PCP Internal Medicine; Visit Provider Internal Medicine Adolescent Medicine
DX: K56.690 Other partial intestinal obstruction (principal); N17.9 Acute kidney failure, unspecified; Q43.1 Hirschsprung's disease; E86.0 Dehydration; I10 Essential (primary) hypertension; F17.210 Nicotine dependence, cigarettes, uncomplicated; Z79.899 Other long term (current) drug therapy
CPT/HCPCS: 36415; 71045; 74021; 74177; 80053; 81001; 83605; 83690; 83735; 85007; 85025; 85027; 85651; 86140; 87040; 87506; 99285; J1170; J1650; J1885; J2270; J2405; J3475; J7120; Q9967

== ENCOUNTER 2024-04-06 23:33 | Emergency (ER) | payer MEDICAID, SELFPAY ==
[2024-04-06 23:33] VITALS: BP 133/90; PULSE 81; RESP 18; TEMP 36.6; O2SAT 97; BMI 24.5
--- NOTE | 2024-04-06 23:49 | HMH.EDGENADL ---
Discharge Plan Disposition Patient Disposition: Home, Self-Care Prescriptions Prescriptions: No Action quetiapine 25 mg tablet 25 - 50 mg PO HS Patient Comments: TAKE 1 TO 2 TABLETS BY MOUTH EVERY NIGHT venlafaxine 150 mg capsule,extended release 24hr 150 mg PO DAILY Patient Comments: TAKE 1 CAPSULE BY MOUTH DAILY tramadol 50 mg tablet 50 mg PO Q8HP PRN (Reason: Moderate Pain (Scale Score 5-6)) Patient Comments: TAKE 1 TABLET BY MOUTH EVERY 8 HOURS NEEDED FOR MODERATE PAIN gabapentin 800 mg tablet 800 mg PO TID Patient Comments: TAKE 1 TABLET BY MOUTH THREE TIMES DAILY ergocalciferol (vitamin D2) 1,250 mcg (50,000 unit) capsule 1,250 mcg PO WEEKLY Patient Comments: TAKE 1 CAPSULE BY MOUTH 1 TIME EVERY WEEK ondansetron 4 mg tablet,disintegrating 4 mg PO Q8HP PRN (Reason: Nausea And Vomiting) Patient Comments: DISSOLVE 1 TABLET ON THE TONGUE EVERY 8 HOURS NEEDED FOR NAUSEA OR VOMITING hydroxyzine pamoate 25 mg capsule 25 mg PO TIDP PRN (Reason: Anxiety) Patient Comments: TAKE 1 CAPSULE BY MOUTH THREE TIMES DAILY NEEDED FOR ANXIETY metoprolol tartrate 25 mg tablet 25 mg PO DAILY Patient Comments: TAKE 1 TABLET BY MOUTH DAILY fesoterodine [Toviaz] 8 mg tablet extended release 24 hr 8 mg PO DAILY Patient Comments: TAKE 1 TABLET BY MOUTH DAILY Linzess 145 mcg capsule 145 mcg PO DAILY Ubrelvy 100 mg tablet 100 mg PO DAILYP PRN (Reason: Migraine Headache) Patient Comments: TAKE 1 TABLET BY MOUTH DAILY NEEDED FOR MIGRAINES FOR UP TO 30 DAYS Referrals Follow up/Referrals: Provider,Referral, MD [Primary Care Provider] - See instructions Activity Restrictions/Add. Instructions Additional Instructions/Restrictions: Please follow-up with your primary care provider. Please return to the emergency department if you develop any new or worsening symptoms or become concerned for your health. Clinical Impressions Clinical Impression: Abdominal pain, Colon distention Instructions Patient Instructions: DI for Acute Abdominal Pain Discharge ED Provider: Lee Holland General Adult HPI General Chief complaint: PAIN Stated complaint: post surgical pain Time Seen by Provider: 04/06/24 23:40 History of Present Illness HPI narrative: 28-year-old male presents for worsening abdominal pain. He reports that he has extensive history of GI issues. He was recently admitted to this hospital and transferred here to [place] where he had a small segment of small bowel excised for small bowel obstruction. He also had the lower portion of his colon removed and had a colostomy placed. He is not sure how much colon was taken out. This happened earlier this month. He has been on clear liquid and then full liquid diet until today when he ate a large serving of spaghetti with sauce. Shortly after that meal, he began having severe crampy abdominal pain. He reports that it feels similar to when he had an obstruction in the past. He reports that he is still having colostomy output. Related Data Home Medications Medication Instructions Recorded Confirmed ergocalciferol (vitamin D2) 1,250 1,250 mcg PO WEEKLY 03/20/24 03/20/24 mcg (50,000 unit) capsule fesoterodine 8 mg tablet,extended 8 mg PO DAILY 03/20/24 03/20/24 release 24 hr (Toviaz) gabapentin 800 mg tablet 800 mg PO TID 03/20/24 03/20/24 hydroxyzine pamoate 25 mg capsule 25 mg PO TIDP PRN Anxiety 03/20/24 03/20/24 linaclotide 145 mcg capsule 145 mcg PO DAILY 03/20/24 03/20/24 (Linzess) metoprolol tartrate 25 mg tablet 25 mg PO DAILY 03/20/24 03/20/24 ondansetron 4 mg disintegrating 4 mg PO Q8HP PRN Nausea And 03/20/24 03/20/24 tablet Vomiting quetiapine 25 mg tablet 25 - 50 mg PO HS 03/20/24 03/20/24 tramadol 50 mg tablet 50 mg PO Q8HP PRN Moderate Pain 03/20/24 03/20/24 (Scale Score 5-6) ubrogepant 100 mg tablet (Ubrelvy) 100 mg PO DAILYP PRN Migraine 03/20/24 03/20/24 Headache venlafaxine 150 mg 150 mg PO DAILY 03/20/24 03/20/24 capsule,extended release 24 hr Allergies Allergy/AdvReac Type Severity Reaction Status Date / Time doxycycline [DOXYCYCLINE] Allergy Intermediate Verified 01/14/24 10:33 codeine [CODEINE] Allergy Mild Verified 01/14/24 10:33 lidocaine AdvReac Verified 01/14/24 10:33 [facility] Disclaimer: The information contained in this section may have been updated after the patient was seen, as this information can be updated by other users. Medical History Interstitial cystitis Surgical History History of colonoscopy H/O shoulder surgery Social History (Updated 03/20/24 @ 22:25 by Elvira Brenner RN) Smoking Status: Current every day smoker tobacco type: cigarettes packs per day: 1 second hand exposure: Yes alcohol intake: never substance use type: denies use current occupational status: unemployed Travel in the last 8 weeks: None household members: other housing: house current occupational exposures/hazards: No caffeine: Yes ROS Obtained: Yes All systems reviewed & no additional complaints except as documented Physical Exam General General appearance: alert Comment: Uncomfortable appearing Head Head exam: atraumatic and normocephalic Eye Eye exam: Present normal appearance, PERRL and EOMI ENT ENT exam: Present normal oropharynx and normal external ear exam Neck Neck exam: Present normal inspection and full ROM Chest Chest inspection: Present normal inspection and symmetric chest wall rise; Absent tenderness Respiratory Respiratory exam: Present normal lung sounds bilaterally; Absent respiratory distress Cardiovascular Cardiovascular exam: Present regular rate and normal rhythm Abdominal Exam Abdominal exam: Present soft, distention, tenderness (Generalized, without peritonitis.) and other (Well-appearing colostomy noted with output); Absent guarding Extremities Exam Extremities exam: Present normal inspection; Absent edema or joint swelling Back Exam Back exam: Present normal inspection; Absent tenderness Neurological Exam Neurological exam: Present alert and oriented X3; Absent motor sensory deficit Psychiatric Psychiatric exam: Present normal affect and normal mood Skin Skin exam: Present warm, dry and normal color Lymphatic Lymphatic Findings: no adenopathy Medical Decision Making Medical Records Medical records reviewed: Yes I reviewed the patient's medical records. Omar Inquiry Pt receiving controlled substance: No Omar was queried for this patient: No Vital Signs: 04/06/24 23:33 Temperature 97.9 F Temperature Source Oral Pulse Rate [Left] 81 Respiratory Rate 18 Blood Pressure [Right Arm] 133/90 Blood Pressure Mean [Right Arm] 104 02 Sat by Pulse Oximetry 97 Oxygen Delivery Method Room Air Lab Data Lab results reviewed: Yes I reviewed the patient's lab results. Lab Results 04/07/24 00:15: WBC 6.7, RBC 4.35 L, Hgb 13.2 L, Hct 39.1 L, MCV 90.0, MCH 30.3, MCHC 33.7, RDW 14.7, Plt Count 274, MPV 7.3 L, Neut % (Auto) 56.0, Lymph % (Auto) 34.9, Teller % (Auto) 6.0, Eos % (Auto) 2.2, Baso % (Auto) 0.9, Neut # (Auto) 3.8, Lymph # (Auto) 2.4, Teller # (Auto) 0.4, Eos # (Auto) 0.2, Baso # (Auto) 0.1, Sodium 141, Potassium 3.9, Chloride 107, Carbon Dioxide 27, Anion Gap 10.9, BUN 13, Creatinine 1.20, Estimated Creat Clear 97, Estimated GFR 72, Est GFR ( Amer) 87, Glucose 119 H, Calcium 9.3, Total Bilirubin 0.3, AST 72 H, ALT 49, Alkaline Phosphatase 134 H, Total Protein 7.2 D, Albumin 4.1, Globulin 3.1, Albumin/Globulin Ratio 1.3, Lipase 709 H 04/07/24 00:15 04/07/24 00:15 Orders (Tests/Meds): ED MEDICATIONS Discontinued Medications Generic Name Dose Route Start Last Admin Trade Name Jaisonq PRN Reason Stop Dose Admin Lactated Ringer's 1,000 mls @ 999 mls/hr 04/06/24 23:45 04/07/24 00:17 Lactated Ringer's 1000 Ml Bag IV 04/07/24 00:45 999 mls/hr .Q1H1M HECTOR Administration Iopamidol 75 ml 04/07/24 00:29 04/07/24 00:30 Iopamidol-370 (76%);100ml Bottle IV 04/07/24 00:30 75 ml ONCE ONE Administration Morphine Sulfate 4 mg 04/06/24 23:59 04/07/24 00:17 Morphine 4mg/Ml Syringe IV 04/07/24 00:00 4 mg ONCE ONE Administration Morphine Sulfate 4 mg 04/07/24 01:59 04/07/24 02:02 Morphine 4mg/Ml Syringe IV 04/07/24 02:00 4 mg ONCE ONE Administration Ondansetron HCl 4 mg 04/07/24 00:06 04/07/24 00:17 Ondansetron 4mg/2ml Vial IV 04/07/24 00:07 4 mg ONCE ONE Administration Sodium Chloride 10 ml 04/07/24 00:29 04/07/24 00:30 Sodium Chloride 0.9% 10ml Syr (Rad Only) IV 04/07/24 00:30 10 ml ONCE ONE Administration ORDERS Category Date Time Status CT abdomen pelvis w con Stat Cat Scan 04/06/24 23:58 Completed CBC w/Auto Diff [Complete Blood Count Auto Diff] Stat Lab 04/06/24 23:58 Completed CMP [Comprehensive Metabolic Panel] Stat Lab 04/06/24 23:58 Completed Lipase Stat Lab 04/06/24 23:58 Completed Medical Decision Narrative: 28-year-old male with recent surgical history as documented above presents for worsening abdominal pain after transitioning from a full liquid diet to a large meal of spaghetti and sauce this evening. History was obtained via interactive discussion with patient, family, chart review. On arrival, patient is [afebrile, hemodynamically stable, satting appropriately, alert, oriented x4, GCS 15], moving all extremities spontaneously. Full physical exam performed and significant for abdominal distention and tenderness generally without peritonitis. Differential includes but is not limited to GI distress secondary to change in diet, bowel obstruction, bowel perforation, pancreatitis Patient was given IV morphine, Zofran, 1 L fluid bolus for symptomatic management and correction of underlying abnormalities. Workup initiated including CBC CMP lipase CT abdomen pelvis with IV contrast. On re-evaluation, patient [remains afebrile, HD stable.] He was completely pain-free for short period of time. Pain then returned and he was given additional 4 morphine. Laboratory workup independently interpreted by me and significant for elevation in lipase at 700. No leukocytosis, renal function, normal electrolytes, mild elevation in AST and alk phos. Imaging independently interpreted by me and significant for large volume of stool in the colon as well as some fluid-filled small bowel loops and moderately distended stomach. No evidence of pancreatic inflammation or biliary pathology.. See radiology read for full review of final results. Admission for obstruction was considered, but deemed unnecessary due to patient continued having liquid and solid colostomy output. Given patient history, exam and workup, patient's presentation most likely represents acute crampy abdominal pain and distress secondary to reinitiation of solid foods. CT scan does show some evidence of colonic and small bowel distention, though patient has had these findings in the past as well. Given patient's abdominal exam and colostomy output, I do not believe he has a obstruction at this time. Patient has a bowel regimen at home that he will continue taking. Patient was discharged in stable condition with strict return precautions including for uncontrollable pain, intractable vomiting, decreased colostomy output etc. Procedures Risk/Benefits of Procedure(s) Were Explained: Yes Critical Care Critical Care Time Critical Care Time: No
--- NOTE | 2024-04-06 23:58 | CT_ITS ---
PROCEDURE INFORMATION: Exam: CT Abdomen And Pelvis With Contrast Exam date and time: 04/07/2024 12:24 AM Age: 28 years old Clinical indication: Abdominal pain; Generalized; Prior surgery; Surgery date: <1 month; Surgery type: Partial colectomy; Additional info: Abd pain, recent partial colectomy and sbo TECHNIQUE: Imaging protocol: Computed tomography of the abdomen and pelvis with contrast. Radiation optimization: All CT scans at this facility use at least one of these dose optimization techniques: automated exposure control; mA and/or kV adjustment per patient size (includes targeted exams where dose is matched to clinical indication); or iterative reconstruction. Contrast material: ISOVUE; Contrast volume: 75 ml; Contrast route: IV; COMPARISON: CT ABDOMEN PELVIS W CON 03/20/2024 7:52 PM FINDINGS: Lungs: A 13 mm soft tissue density nodule with a tiny focus of central calcification noted in the anterior right lower lobe on axial image 13 without significant change compared to the prior CTs dating back to 12/22/2023. No older CTs available. Liver: Normal. No mass. Gallbladder and biliary ducts: Normal. No calcified stones. No ductal dilation. Pancreas: Normal. No ductal dilation. Spleen: Normal. No splenomegaly. Adrenal glands: Normal. No mass. Kidneys and ureters: Scarring of the posterosuperior right kidney. Kidneys and ureters otherwise unremarkable with no obstructing stones or uropathy. Stomach and bowel: Patient has undergone interval distal colon resection with creation of a left midabdomen colostomy and a rectosigmoid pouch. Colon is diffusely distended with [id number] amounts of fecal material extending to the level of the ostomy. Soft tissue stranding and edema noted involving the fat within the ostomy that may be inflammatory or residual from recent surgery. Stomach is moderately distended with food and air. Multiple fluid distended small bowel loops noted throughout the abdomen and pelvis measuring up to 2.8 cm in caliber extending to the level of the terminal ileum without obvious transition zone. Appendix: No evidence of appendicitis. Intraperitoneal space: Unremarkable. No free air. No significant fluid collection. Vasculature: Unremarkable. No abdominal aortic aneurysm. Lymph nodes: Unremarkable. No enlarged lymph nodes. Urinary bladder: Unremarkable as visualized. Reproductive: Unremarkable as visualized. Bones/joints: Unremarkable. No acute fracture. Soft tissues: Unremarkable. Other findings: No other findings. IMPRESSION: 1. Interval distal colon resection with left sided ostomy. Associated edema and stranding of the ostomy fat that may be related to the recent surgery. 2. Diffusely distended colon with [id number] amount of fecal material to the level of the ostomy suggesting constipation. The possibility of developing distal large bowel obstruction at the level of the ostomy cannot be excluded. 3. Fluid distended small bowel loops and moderately distended stomach noted that might be ileus but could also be secondary to developing distal large bowel obstruction. 4. A 13 mm soft tissue density nodule with a tiny focus of central calcification noted in the anterior right lower lobe stable compared to the prior CTs dating back to 12/22/2023. Although benign process is favored continued follow-up to ensure stability is advised. I would advise a six-month follow-up CT to ensure continued stability.
[2024-04-07] MEDS: LACTATED RINGERS 1000ML 1,000 ML 999 ML IV (00:17)
[2024-04-07] MEDS: ONDANSETRON 4MG/2ML VIAL 4 MG IV (00:17)
[2024-04-07] MEDS: MORPHINE 4MG/ML SYRINGE 4 MG IV ×2 (00:17→02:02)
[2024-04-07 00:25] LABS: Chloride 107 mmol/L (98-107); Sodium 141 mmol/L (136-145)
[2024-04-07 00:26] LABS: Hemoglobin 13.2 g/dL (14.1-18.0); Potassium 3.9 mmoL/L (3.5-5.1); Red Blood Count 4.35 M/mm3 (4.60-6.20); White Blood Count 6.7 K/mm3 (4.8-10.8)
[2024-04-07 00:27] LABS: Basophils # 0.1 K/mm3 (0-0.2); Basophils % 0.9 % (0.1-2.0); Eosinophils # 0.2 K/mm3 (0.0-0.4); Eosinophils % 2.2 % (0.1-12.0); Hematocrit 39.1 % (42.0-52.0); Lymphocytes # 2.4 K/mm3 (0.7-4.5); Lymphocytes % 34.9 % (10-50); Mean Corpuscular HGB Conc 33.7 g/dL (31.8-35.4); Mean Corpuscular Hemoglobin 30.3 pg (27.0-31.2); Mean Platelet Volume 7.3 fl (7.4-10.4); Monocytes # 0.4 K/mm3 (0.1-1.0); Neutrophils # 3.8 K/mm3 (1.8-7.8); Platelet Count 274 K/mm3 (142-424); Red Cell Distribution Width 14.7 % (11.5-17.5)
[2024-04-07 00:28] LABS: Alanine Aminotransferase 49 U/L (12-78); Albumin Level 4.1 g/dl (3.5-5.0); Albumin/Globulin Ratio 1.3 (1.1-1.8); Alkaline Phosphatase 134 U/L (38-126); Anion Gap 10.9 mEq/L (5-15); Aspartate Amino Transferase 72 U/L (17-59); Bilirubin,Total 0.3 mg/dl (0.2-1.3); Blood Urea Nitrogen 13 mg/dl (9-20); Calcium 9.3 mg/dl (8.4-10.2); Carbon Dioxide 27 mmol/L (22.0-30.0); Creatinine Clearance Estimated 97 mL/min (50-200); Estimated Glomerular Filt Rate 72 ml/min (>60); GFR (African American) 87 ML/MIN (>60); Globulin 3.1 g/dL (1.3-3.2); Glucose 119 mg/dl (74-100); Total Protein,Serum 7.2 g/dl (6.3-8.2)
[2024-04-07 00:30] LABS: Lipase 709 U/L (23-300)
[2024-04-07] MEDS: IOPAMIDOL-370 (76%);100ML BOTTLE 75 ML IV (00:30)
[2024-04-07] MEDS: SODIUM CHLORIDE 0.9% 10ML SYR (RAD ONLY) 10 ML IV (00:30)
--- NOTE | 2024-04-07 00:30 | PC.NURSE ---
Critical Lipase per Tsering in lab of 709. Reported to Attending, Amalia at this time
[2024-04-07 02:25] VITALS: BP 111/75; PULSE 75; RESP 18; TEMP 36.6
== END 2024-04-07 02:36 | disposition home or self-care (01) ==
PROVIDERS: Emergency Provider Emergency Medicine
DX: R10.84 Generalized abdominal pain (principal); K63.89 Other specified diseases of intestine; F17.210 Nicotine dependence, cigarettes, uncomplicated; Z93.3 Colostomy status; Z90.49 Acquired absence of other specified parts of digestive tract
CPT/HCPCS: 74177; 80053; 83690; 85025; 96361; 96374; 96375; 96376; 99285; J2270; J2405; J7120; Q9967

== ENCOUNTER 2024-04-07 14:25 | Observation (INO) | payer MEDICAID, SELFPAY ==
[2024-04-07] VITALS (8 sets, daily range): BP systolic 120–150; BP diastolic 73–101; PULSE 121–133; RESP 16–18; TEMP 36.6–36.7; O2SAT 96–98; BMI 23.6; BMI 24.9
--- NOTE | 2024-04-07 15:27 | HMH.EDGENADL ---
Discharge Plan Disposition Patient Disposition: Admitted Prescriptions Prescriptions: No Action quetiapine 25 mg tablet 25 - 50 mg PO HS Patient Comments: TAKE 1 TO 2 TABLETS BY MOUTH EVERY NIGHT venlafaxine 150 mg capsule,extended release 24hr 150 mg PO DAILY Patient Comments: TAKE 1 CAPSULE BY MOUTH DAILY tramadol 50 mg tablet 50 mg PO Q8HP PRN (Reason: Moderate Pain (Scale Score 5-6)) Patient Comments: TAKE 1 TABLET BY MOUTH EVERY 8 HOURS NEEDED FOR MODERATE PAIN gabapentin 800 mg tablet 800 mg PO TID Patient Comments: TAKE 1 TABLET BY MOUTH THREE TIMES DAILY ergocalciferol (vitamin D2) 1,250 mcg (50,000 unit) capsule 1,250 mcg PO WEEKLY Patient Comments: TAKE 1 CAPSULE BY MOUTH 1 TIME EVERY WEEK ondansetron 4 mg tablet,disintegrating 4 mg PO Q8HP PRN (Reason: Nausea And Vomiting) Patient Comments: DISSOLVE 1 TABLET ON THE TONGUE EVERY 8 HOURS NEEDED FOR NAUSEA OR VOMITING hydroxyzine pamoate 25 mg capsule 25 mg PO TIDP PRN (Reason: Anxiety) Patient Comments: TAKE 1 CAPSULE BY MOUTH THREE TIMES DAILY NEEDED FOR ANXIETY metoprolol tartrate 25 mg tablet 25 mg PO DAILY Patient Comments: TAKE 1 TABLET BY MOUTH DAILY fesoterodine [Toviaz] 8 mg tablet extended release 24 hr 8 mg PO DAILY Patient Comments: TAKE 1 TABLET BY MOUTH DAILY Linzess 145 mcg capsule 145 mcg PO DAILY Ubrelvy 100 mg tablet 100 mg PO DAILYP PRN (Reason: Migraine Headache) Patient Comments: TAKE 1 TABLET BY MOUTH DAILY NEEDED FOR MIGRAINES FOR UP TO 30 DAYS Referrals Follow up/Referrals: Jeannette Hernandez MD [Primary Care Provider] - See instructions Clinical Impressions Clinical Impression: Tachycardia, Postoperative abdominal pain, Hirschsprung's disease, Acute constipation, Nausea & vomiting Instructions Patient Instructions: DI for Acute Abdominal Pain Discharge ED Provider: Aury Wilkerson General Adult HPI General Chief complaint: Abdominal Pain Stated complaint: abd pain Time Seen by Provider: 04/07/24 15:08 Mode of Arrival: Ambulatory Limitations: No Limitations Description of Symptoms (Recalled from ER Triage Doc. by RN): Pt reports constant severe lower right sided pain. Pt was seen in our ED last night and recently discharged from on sunday and had an ostomy placed. Pt reports vomiting. History of Present Illness HPI narrative: 28 yo recently admitted to for partial colectomy and ostomy after diagnosis of large bowel obstruction and probable Hirschprung's dx. Dr. Mancera did the surgery. Dx 03/20 dc on 04/04. Pain worsening with n/v was here last night with CT with distended bowel but no def surgical emergency and was dc home back with worsening sx. Related Data Home Medications Medication Instructions Recorded Confirmed ergocalciferol (vitamin D2) 1,250 1,250 mcg PO WEEKLY 03/20/24 03/20/24 mcg (50,000 unit) capsule fesoterodine 8 mg tablet,extended 8 mg PO DAILY 03/20/24 03/20/24 release 24 hr (Toviaz) gabapentin 800 mg tablet 800 mg PO TID 03/20/24 03/20/24 hydroxyzine pamoate 25 mg capsule 25 mg PO TIDP PRN Anxiety 03/20/24 03/20/24 linaclotide 145 mcg capsule 145 mcg PO DAILY 03/20/24 03/20/24 (Linzess) metoprolol tartrate 25 mg tablet 25 mg PO DAILY 03/20/24 03/20/24 ondansetron 4 mg disintegrating 4 mg PO Q8HP PRN Nausea And 03/20/24 03/20/24 tablet Vomiting quetiapine 25 mg tablet 25 - 50 mg PO HS 03/20/24 03/20/24 tramadol 50 mg tablet 50 mg PO Q8HP PRN Moderate Pain 03/20/24 03/20/24 (Scale Score 5-6) ubrogepant 100 mg tablet (Ubrelvy) 100 mg PO DAILYP PRN Migraine 03/20/24 03/20/24 Headache venlafaxine 150 mg 150 mg PO DAILY 03/20/24 03/20/24 capsule,extended release 24 hr Allergies Allergy/AdvReac Type Severity Reaction Status Date / Time doxycycline [DOXYCYCLINE] Allergy Intermediate Verified 01/14/24 10:33 codeine [CODEINE] Allergy Mild Verified 01/14/24 10:33 lidocaine AdvReac Verified 01/14/24 10:33 [facility] Disclaimer: The information contained in this section may have been updated after the patient was seen, as this information can be updated by other users. Medical History Interstitial cystitis Surgical History History of colonoscopy H/O shoulder surgery Social History (Updated 03/20/24 @ 22:25 by Elvira Brenner RN) Smoking Status: Current every day smoker tobacco type: cigarettes packs per day: 1 second hand exposure: Yes alcohol intake: never substance use type: denies use current occupational status: unemployed Travel in the last 8 weeks: None household members: other housing: house current occupational exposures/hazards: No caffeine: Yes ROS Obtained: Yes All systems reviewed & no additional complaints except as documented Physical Exam General General appearance: alert and in no apparent distress Respiratory Respiratory exam: Present normal lung sounds bilaterally Cardiovascular Cardiovascular exam: Present tachycardia Abdominal Exam Abdominal exam: Present soft, distention and tenderness (ostomy distended with ttp throughout no rebound or guarding ) Neurological Exam Neurological exam: Present alert and oriented X3 Medical Decision Making Omar Inquiry Pt receiving controlled substance: No Vital Signs: 04/07/24 15:09 04/07/24 16:00 04/07/24 16:30 Pulse Rate 126 H 123 H Pulse Rate [Bilateral Brachial] 133 H Respiratory Rate 18 Blood Pressure 120/81 131/93 H Blood Pressure [Right Arm] 122/73 Blood Pressure Mean 91 Blood Pressure Mean [Right Arm] 89 02 Sat by Pulse Oximetry 98 98 98 Oxygen Delivery Method Room Air Room Air Room Air 04/07/24 17:00 Pulse Rate 121 H Pulse Rate [Bilateral Brachial] Respiratory Rate Blood Pressure 144/101 H Blood Pressure [Right Arm] Blood Pressure Mean Blood Pressure Mean [Right Arm] 02 Sat by Pulse Oximetry 96 Oxygen Delivery Method Room Air Lab Data Lab results reviewed: Yes I reviewed the patient's lab results. Lab Results 04/07/24 15:10: WBC 11.9 H D, RBC 4.89, Hgb 14.6 D, Hct 43.2, MCV 88.4, MCH 29.8, MCHC 33.7, RDW 14.7, Plt Count 356 D, MPV 8.3, Neut % (Auto) 80.3 H, Lymph % (Auto) 14.6, [place] % (Auto) 3.3, Eos % (Auto) 1.3, Baso % (Auto) 0.5, Neut # (Auto) 9.6 H, Lymph # (Auto) 1.7, [place] # (Auto) 0.4, Eos # (Auto) 0.2, Baso # (Auto) 0.1, Sodium 138, Potassium 4.3, Chloride 105, Carbon Dioxide 23, Anion Gap 14.3, BUN 14, Creatinine 1.10, Estimated Creat Clear 102, Estimated GFR 79, Est GFR ( Amer) 96, Glucose 141 H, Calcium 9.9, Total Bilirubin 0.5, AST 48 D, ALT 49, Alkaline Phosphatase 134 H, Total Protein 7.4, Albumin 4.3, Globulin 3.1, Albumin/Globulin Ratio 1.4, Lipase 442 H 04/07/24 15:10 04/07/24 15:10 Orders (Tests/Meds): ED MEDICATIONS Discontinued Medications Generic Name Dose Route Start Last Admin Trade Name Freq PRN Reason Stop Dose Admin Acetaminophen 1,000 mg 04/07/24 18:14 Acetaminophen 1,000mg/100ml Vial IV 04/07/24 18:15 ONCE ONE Lactated Ringer's 1,000 mls @ 999 mls/hr 04/07/24 15:30 04/07/24 15:37 Lactated Ringer's 1000 Ml Bag IV 04/07/24 16:30 999 mls/hr .Q1H1M HECTOR Administration Lactated Ringer's 1,000 mls @ 999 mls/hr 04/07/24 17:15 04/07/24 17:22 Lactated Ringer's 1000 Ml Bag IV 04/07/24 18:15 999 mls/hr .Q1H1M HECTOR Administration Methocarbamol 1,000 mg 04/07/24 17:13 04/07/24 17:22 Methocarbamol 500mg Tablet PO 04/07/24 17:14 1,000 mg ONCE ONE Administration Morphine Sulfate 4 mg 04/07/24 15:24 04/07/24 15:37 Morphine 4mg/Ml Syringe IV 04/07/24 15:25 4 mg ONCE ONE Administration Ondansetron HCl 4 mg 04/07/24 15:24 04/07/24 15:37 Ondansetron 4mg/2ml Vial IV 04/07/24 15:25 4 mg ONCE ONE Administration ORDERS Category Date Time Status CBC w/Auto Diff [Complete Blood Count Auto Diff] Stat Lab 04/07/24 15:10 Completed CMP [Comprehensive Metabolic Panel] Stat Lab 04/07/24 15:10 Completed Lipase Stat Lab 04/07/24 15:10 Completed Medical Decision Narrative: Pt with worsening abd pain n/v diff includes bowel obstruction, post operative pain etc. Will give IVF nausea and pain meds and reassess. May discuss with Dr. Mancera's team given the bounceback. Reassessment 4:04 PM I have reviewed the patient's CT scans and radiology read recently as well as reviewed the notes from [facility] he was taken to the operating room on 710 and had a lap partial colectomy with end colostomy no significant postoperative complications. I will PowerShare the images from his ED visit yesterday I discussed the case with colorectal surgery at . Reassessment images were shared with [facility] and through [facility] I spoke with Dr. Rodriguez who is on-call for colorectal surgery. From an acute surgical standpoint he was unimpressed and states that the patient's symptoms just need to be controlled and that if patient symptoms were adequately controlled he could call make an earlier appointment. However patient continued to be uncomfortable he was given morphine initially which I think over time will worsen his underlying pathology as he has significant retained stool. Constipation is likely the main cause of his ongoing symptoms. Dr. Mancera told the patient that he likely has Hirschsprung's disease and that she had removed the diseased portion of the bowel. After morphine was given he was administered Robaxin which he stated was somewhat helpful in the hospital and IV Tylenol has been given. A second liter of fluids were given he was placed in ED observation to see if he improved and he has not. After 4 hours of total ED length of stay is heart rate is still between 120 and 130 at rest. For this reason given his significant discomfort and likely persistent tachycardia from volume loss from all the nausea and vomiting has had since his ED visit last night we decided to keep him for observation IV fluids and symptomatic control. I spoke with Dr. Issa who is on-call with the hospital medicine who agreed to accept the patient and treat him further to get his vital signs and symptoms improved. Critical Care Critical Care Time Critical Care Time: No
[2024-04-07] MEDS: LACTATED RINGERS 1000ML 1,000 ML 999 ML IV ×2 (15:37→17:22)
[2024-04-07] MEDS: MORPHINE 4MG/ML SYRINGE 4 MG IV (15:37)
[2024-04-07] MEDS: ONDANSETRON 4MG/2ML VIAL 4 MG IV (15:37)
[2024-04-07 15:40] LABS: Basophils # 0.1 K/mm3 (0-0.2); Basophils % 0.5 % (0.1-2.0); Eosinophils # 0.2 K/mm3 (0.0-0.4); Eosinophils % 1.3 % (0.1-12.0); Hematocrit 43.2 % (42.0-52.0); Lymphocytes # 1.7 K/mm3 (0.7-4.5); Lymphocytes % 14.6 % (10-50); Mean Corpuscular HGB Conc 33.7 g/dL (31.8-35.4); Mean Corpuscular Hemoglobin 29.8 pg (27.0-31.2); Mean Corpuscular Volume 88.4 fl (80-94); Mean Platelet Volume 8.3 fl (7.4-10.4); Monocytes # 0.4 K/mm3 (0.1-1.0); Monocytes % 3.3 % (1.7-9.3); Neutrophils # 9.6 K/mm3 (1.8-7.8); Neutrophils % 80.3 % (37.0-80.0); Platelet Count 356 K/mm3 (142-424); Red Blood Count 4.89 M/mm3 (4.60-6.20); Red Cell Distribution Width 14.7 % (11.5-17.5); White Blood Count 11.9 K/mm3 (4.8-10.8)
[2024-04-07 15:44] LABS: Alanine Aminotransferase 49 U/L (12-78); Albumin Level 4.3 g/dl (3.5-5.0); Albumin/Globulin Ratio 1.4 (1.1-1.8); Alkaline Phosphatase 134 U/L (38-126); Anion Gap 14.3 mEq/L (5-15); Aspartate Amino Transferase 48 U/L (17-59); Bilirubin,Total 0.5 mg/dl (0.2-1.3); Blood Urea Nitrogen 14 mg/dl (9-20); Calcium 9.9 mg/dl (8.4-10.2); Carbon Dioxide 23 mmol/L (22.0-30.0); Chloride 105 mmol/L (98-107); Creatinine Clearance Estimated 102 mL/min (50-200); Estimated Glomerular Filt Rate 79 ml/min (>60); GFR (African American) 96 ML/MIN (>60); Globulin 3.1 g/dL (1.3-3.2); Glucose 141 mg/dl (74-100); Lipase 442 U/L (23-300); Potassium 4.3 mmoL/L (3.5-5.1); Sodium 138 mmol/L (136-145); Total Protein,Serum 7.4 g/dl (6.3-8.2)
--- NOTE | 2024-04-07 16:06 | PC.NURSE ---
Call out to [facility]
[2024-04-07 16:09] LABS: Hemoglobin 14.6 g/dL (14.1-18.0)
--- NOTE | 2024-04-07 16:20 | PC.NURSE ---
Dr Wilkerson speaking with Dr. Rodriguez
--- NOTE | 2024-04-07 16:27 | PC.NURSE ---
Dr. Wilkerson at [facility] for update on POC
[2024-04-07] MEDS: METHOCARBAMOL 500MG TABLET 1000 MG PO (17:22)
--- NOTE | 2024-04-07 17:27 | PC.NURSE ---
Dr. Wilkerson at [facility] for update on POC
--- NOTE | 2024-04-07 18:11 | PC.NURSE ---
Dr. Wilkerson at to talk with patient
--- NOTE | 2024-04-07 18:32 | PC.NURSE ---
Spoke with [facility] about admission
[2024-04-07 18:40] LABS: Chloride 107 mmol/L (98-107); Sodium 138 mmol/L (136-145)
[2024-04-07 18:43] LABS: Blood Urea Nitrogen 14 mg/dl (9-20); Calcium 9.2 mg/dl (8.4-10.2); Carbon Dioxide 26 mmol/L (22.0-30.0); Creatinine Clearance Estimated 112 mL/min (50-200); Estimated Glomerular Filt Rate 88 ml/min (>60); GFR (African American) 107 ML/MIN (>60); Glucose 111 mg/dl (74-100)
--- NOTE | 2024-04-07 19:26 | PC.NURSE ---
Report called to DEJUAN Gamez
--- NOTE | 2024-04-07 19:42 | PC.NURSE ---
pt arrived to floor via wheelchair @1941
[2024-04-07] MEDS: MINERAL OIL 30 ML UDC PO (20:28)
[2024-04-07] MEDS: ACETAMINOPHEN 1,000MG/100ML VIAL 1000 MG IV (20:44)
--- NOTE | 2024-04-07 20:48 | P.HP_ITS ---
History of Present Illness *Admission Date: 04/07/24 *Reason for visit:: Abdominal pain *History of present illness: Siddharth Quinones is a 28-year-old male past medical history significant for Hirschsprung's disease status post partial colectomy and ostomy placement a couple weeks ago who presents the emergency room today with complaints of ongoing abdominal pain. Mr. Quinones actually presented last night to the ER and after pain medicine, opted to go home and attempt to manage his pain at home. Patient was apparently supposed male full liquid diet but ate some of his mom ashly last night which prompted his ER visit last night. Today, his abdominal pain is ongoing and he has had multiple episodes of nonbloody, nonbilious, emesis. Currently reporting no nausea at this time, still endorsing some right-sided abdominal pain. Reports normal output from his ostomy. Denies any fever, cough, chest pain, shortness of breath. No focal neurodeficits noted. Does not take any blood thinners. States the only thing that is going to help him get through the pain right now is some morphine. Lab work in the ER showed a slightly elevated white count of 11.9, lipase slightly evaded at 442 which is downtrending from yesterday. CT of the abdomen pelvis yesterday showed distended colon with moderate to large amount of fecal burden suggesting constipation versus distal large bowel obstruction obstruction, also notable for distended small bowel loops and mildly distended stomach consistent with possible ileus versus distal bowel obstruction. Patient not currently vomiting at this time, will withhold NG tube placement. He will be admitted to the hospitalist service for ileus. [facility] Disclaimer: The information contained in this section may have been updated after the patient was seen, as this information can be updated by other users. Medical History Interstitial cystitis Surgical History History of colonoscopy H/O shoulder surgery Social History Smoking Status: Current every day smoker tobacco type: cigarettes packs per day: 1 second hand exposure: Yes alcohol intake: never substance use type: denies use current occupational status: unemployed Travel in the last 8 weeks: None household members: other housing: house current occupational exposures/hazards: No caffeine: Yes Review of Systems Review of Systems Review of systems:: pertinent systems reviewed and negative unless documented below *Gastrointestinal Gastrointestinal: Reports abdominal pain and Reports vomiting Comments: right sided abdominal pain, no peritoneal signs, no guarding Meds Home Medications and Allergies Home Medications Medication Instructions Recorded Confirmed Type ergocalciferol (vitamin D2) 1,250 1,250 mcg PO WEEKLY 03/20/24 04/07/24 History mcg (50,000 unit) capsule fesoterodine 8 mg tablet,extended 8 mg PO DAILY 03/20/24 04/07/24 History release 24 hr (Toviaz) gabapentin 800 mg tablet 800 mg PO TID 03/20/24 04/07/24 History hydroxyzine pamoate 25 mg capsule 25 mg PO TIDP PRN Anxiety 03/20/24 04/07/24 History linaclotide 145 mcg capsule 145 mcg PO DAILY 03/20/24 04/07/24 History (Chel) metoprolol tartrate 25 mg tablet 25 mg PO DAILY 03/20/24 04/07/24 History ondansetron 4 mg disintegrating 4 mg PO Q8HP PRN Nausea And 03/20/24 04/07/24 History tablet Vomiting quetiapine 25 mg tablet 25 - 50 mg PO HS 03/20/24 04/07/24 History tramadol 50 mg tablet 50 mg PO Q8HP PRN Moderate Pain 03/20/24 04/07/24 History (Scale Score 5-6) ubrogepant 100 mg tablet (Ubrelvy) 100 mg PO DAILYP PRN Migraine 03/20/24 04/07/24 History Headache venlafaxine 150 mg 150 mg PO DAILY 03/20/24 04/07/24 History capsule,extended release 24 hr magnesium oxide 400 mg (241.3 mg 400 mg PO DAILY 30 days #30 tabs 04/08/24 Rx magnesium) tablet sennosides 8.6 mg-docusate sodium 1 tab PO BID 04/08/24 04/08/24 History 50 mg tablet (Senexon-S) New Prescriptions to Start Prescriptions: magnesium oxide Jose Issa Allergies Allergy/AdvReac Type Severity Reaction Status Date / Time doxycycline [DOXYCYCLINE] Allergy Intermediate Verified 01/14/24 10:33 codeine [CODEINE] Allergy Mild Verified 01/14/24 10:33 lidocaine AdvReac Verified 01/14/24 10:33 Exam Data for Last 24 hours Vital signs and Labs for Last 24 Hours: Temp Pulse Resp BP Pulse Ox O2 Del Method 97.9 F 125 H 16 150/88 H 97 Room Air 04/07/24 19:27 04/07/24 19:27 04/07/24 19:27 04/07/24 19:27 04/07/24 18:00 04/07/24 19:27 Laboratory Results - last 24 hr 04/07/24 15:10: WBC 11.9 H D, RBC 4.89, Hgb 14.6 D, Hct 43.2, MCV 88.4, MCH 29.8, MCHC 33.7, RDW 14.7, Plt Count 356 D, MPV 8.3, Neut % (Auto) 80.3 H, Lymph % (Auto) 14.6, [place] % (Auto) 3.3, Eos % (Auto) 1.3, Baso % (Auto) 0.5, Neut # (Auto) 9.6 H, Lymph # (Auto) 1.7, [place] # (Auto) 0.4, Eos # (Auto) 0.2, Baso # (Auto) 0.1, Sodium 138, Potassium 4.3, Chloride 105, Carbon Dioxide 23, Anion Gap 14.3, BUN 14, Creatinine 1.10, Estimated Creat Clear 102, Estimated GFR 79, Est GFR ( Amer) 96, Glucose 141 H, Calcium 9.9, Total Bilirubin 0.5, AST 48 D, ALT 49, Alkaline Phosphatase 134 H, Total Protein 7.4, Albumin 4.3, Globulin 3.1, Albumin/Globulin Ratio 1.4, Lipase 442 H 04/07/24 18:30: Sodium 138, Potassium 4.0, Chloride 107, Carbon Dioxide 26, Anion Gap 9.0, BUN 14, Creatinine 1.00, Estimated Creat Clear 112, Estimated GFR 88, Est GFR ( Amer) 107, Glucose 111 H D, Calcium 9.2 I & O for Last 24 hours: Intake & Output 04/04/24 04/05/24 04/06/24 04/07/24 23:59 23:59 23:59 23:59 Weight 72.575 kg *Routine HEENT Exam Head: Present normocephalic and atraumatic Eye: Present EOMI and PERRL ENT: Present mucous membranes moist *Routine Neck Exam Neck: Present supple *Routine Respiratory Exam Respiratory: Present CTA bilaterally *Routine Cardiovascular Exam Cardiovascular: Present RRR, Normal S1 and Normal S2 *Routine Abdominal Exam Abdominal: Present soft, normoactive bowel sounds, tenderness, surgical scars and ostomy Comments: ostomy beefy red with good output *Routine Rectal Exam Rectal:: deferred *Routine Genitalia Exam Genitalia:: deferred *Routine Extremities Exam Extremities: Present pulses intact and normal capillary refill *Routine Skin Exam Skin: Present intact *Routine Neurological Exam Neurological: Present alert and oriented X3 Assessment and Plan *Assessment and plan (1) Ileus: Status: Acute Category: Medical Code(s): K56.7 - Ileus, unspecified (2) Abdominal pain: Status: Acute Category: Medical Code(s): R10.9 - Unspecified abdominal pain (3) Hirschsprung's disease: Status: Acute Category: Medical Code(s): Q43.1 - Hirschsprung's disease (4) Acute constipation: Status: Acute Category: Medical Code(s): K59.00 - Constipation, unspecified (5) HTN (hypertension): Status: Acute Qualifiers: Hypertension type: unspecified Qualified Code(s): I10 - Essential (primary) hypertension Category: Medical Code(s): I10 - Essential (primary) hypertension Plan Assessment: This is a 28-year-old male with history of Hirschsprung's disease status post colon resection and ostomy placement 2 weeks ago. On my exam, patient is lying in bed, complaining of abdominal pain. States the only thing that can help him is morphine right now. No acute distress noted. Plan: Admit to observation-MedSurg Ileus versus constipation versus distal large bowel obstruction -ED physicians spoke with [facility], Dr. Rodriguez, From an acute surgical standpoint he was unimpressed and states that the patient's symptoms just need to be controlled and that if patient symptoms were adequately controlled, he could call make an earlier appointment. -N.p.o. except ice chips -Pain management as needed -Antiemetics as needed -If excessive vomiting noted, will place NG tube, patient not having any nausea or vomiting at this time -Avoid narcotics if at all possible as this will worsen symptoms -Mineral oil twice daily -Will repeat KUB in the morning -Encourage frequent ambulation -Will give a liter of IVF as pt HR still elevated HTN -Continue metoprolol Insomnia -continue seroquel at lower dose Tobacco abuse -Nicotine patch as needed DVT prophylaxis: Lovenox CODE STATUS: Full code Surrogate decision maker: Pilar [phone] Skin: Low risk Rounded on patient after nurse practitioner. Personally examined and interviewed patient. Agree with exam findings and care plan as documented.
[2024-04-07] MEDS: MORPHINE 2MG/ML SYRINGE 2 MG IV (22:33)
[2024-04-08] VITALS: BP 117/64; PULSE 118; RESP 18; TEMP 37.7; O2SAT 97
[2024-04-08] MEDS: ACETAMINOPHEN 325MG TAB 650 MG PO (01:12)
[2024-04-08 04:00] VITALS: BP 128/82; PULSE 112; RESP 18; TEMP 37.4; O2SAT 97; BMI 25.2
[2024-04-08] MEDS: MORPHINE 2MG/ML SYRINGE 2 MG IV (05:01)
--- NOTE | 2024-04-08 06:00 | XR_ITS ---
FINAL REPORT CLINICAL HISTORY: Abdominal pain, ileus COMPARISON: CT abdomen and pelvis dated 04/06/2024 FINDINGS: Fecal impaction has improved since the prior CT. A masslike density in the left upper quadrant represents a hernia associated with an ostomy. IMPRESSION: Improved fecal impaction without obstruction or ileus. Reviewed, Interpreted and Dictated by Cheyanne Bal MD Transcribed by Greta Gordillo Authenticated and [facility]
--- NOTE | 2024-04-08 06:05 | PC.NURSE ---
Patient is alert and oriented X4, patient ambulates in room independently. no acute changes from previous assessment. patient has complained of pain throughout the shift and has been medicated per mar. patient stated that he can not take toradol because his surgeon said that he could not take any kind NSAIDs, [employer] was notified and a one time dose of morphine was ordered twice this shift. patient has emptied his ostomy independently and reports emptying seven times and states there was a ton ever time . patient had ambulated in cannon this shift. patient mother is at bedside. call button is in reach.
[2024-04-08 06:06] LABS: Basophils % 0.4 % (0.1-2.0); Eosinophils # 0.3 K/mm3 (0.0-0.4); Eosinophils % 3.6 % (0.1-12.0); Hematocrit 37.5 % (42.0-52.0); Lymphocytes # 2.1 K/mm3 (0.7-4.5); Lymphocytes % 24.5 % (10-50); Mean Corpuscular HGB Conc 33.2 g/dL (31.8-35.4); Mean Corpuscular Hemoglobin 29.3 pg (27.0-31.2); Mean Corpuscular Volume 88.4 fl (80-94); Mean Platelet Volume 7.8 fl (7.4-10.4); Monocytes # 0.4 K/mm3 (0.1-1.0); Monocytes % 5.1 % (1.7-9.3); Neutrophils # 5.7 K/mm3 (1.8-7.8); Neutrophils % 66.5 % (37.0-80.0); Platelet Count 302 K/mm3 (142-424); Red Blood Count 4.25 M/mm3 (4.60-6.20); Red Cell Distribution Width 14.5 % (11.5-17.5); White Blood Count 8.6 K/mm3 (4.8-10.8)
[2024-04-08 06:12] LABS: Hemoglobin 12.6 g/dL (14.1-18.0)
[2024-04-08 06:16] LABS: Alanine Aminotransferase 36 U/L (12-78); Albumin Level 3.7 g/dl (3.5-5.0); Albumin/Globulin Ratio 1.4 (1.1-1.8); Alkaline Phosphatase 111 U/L (38-126); Anion Gap 11.4 mEq/L (5-15); Aspartate Amino Transferase 35 U/L (17-59); Bilirubin,Total 0.7 mg/dl (0.2-1.3); Blood Urea Nitrogen 13 mg/dl (9-20); Carbon Dioxide 23 mmol/L (22.0-30.0); Chloride 105 mmol/L (98-107); Creatinine Clearance Estimated 118 mL/min (50-200); Estimated Glomerular Filt Rate 88 ml/min (>60); GFR (African American) 107 ML/MIN (>60); Globulin 2.6 g/dL (1.3-3.2); Glucose 113 mg/dl (74-100); Magnesium 1.3 mg/dl (1.6-2.3); Potassium 3.4 mmoL/L (3.5-5.1); Sodium 136 mmol/L (136-145); Total Protein,Serum 6.3 g/dl (6.3-8.2)
--- NOTE | 2024-04-08 07:43 | HMH.PHAINT1 ---
Pharmacy Intervention Comments: HOME MEDICATION LIST VERIFIED USING LIST FROM OUTPATIENT PHARMACY
[2024-04-08 08:00] VITALS: BP 130/82; PULSE 88; RESP 18; TEMP 37.6; O2SAT 99
[2024-04-08] MEDS: METOPROLOL TARTRATE 25MG TABLET 25 MG PO (08:07)
[2024-04-08] MEDS: VENLAFAXINE XR 75MG CAPSULE 150 MG PO (08:07)
[2024-04-08] MEDS: MINERAL OIL 30 ML UDC PO (08:07)
[2024-04-08] MEDS: POTASSIUM CHLORIDE 20MEQ TAB 40 MEQ PO (08:08)
[2024-04-08] MEDS: MAGNESIUM SULFATE IN WATER 2 GM/50 ML PIGGYBACK IV ×2 (08:08→12:30)
[2024-04-08] MEDS: KETOROLAC 30MG/ML VIAL 30 MG IV ×2 (08:17→13:48)
[2024-04-08] MEDS: MAGNESIUM OXIDE 400MG TABLET 400 MG PO (09:14)
--- NOTE | 2024-04-08 11:36 | EXP.DC.SUM ---
General Admission date:: 04/07/24 Discharge date: 04/08/24 HPI HPI HPI: Migel Quinoens is a 28-year-old male past medical history significant for Hirschsprung's disease status post partial colectomy and ostomy placement a couple weeks ago who presents the emergency room today with complaints of ongoing abdominal pain. Mr. Quinones actually presented last night to the ER and after pain medicine, opted to go home and attempt to manage his pain at home. Patient was apparently supposed male full liquid diet but ate some of his mom ashly last night which prompted his ER visit last night. Today, his abdominal pain is ongoing and he has had multiple episodes of nonbloody, nonbilious, emesis. Currently reporting no nausea at this time, still endorsing some right-sided abdominal pain. Reports normal output from his ostomy. Denies any fever, cough, chest pain, shortness of breath. No focal neurodeficits noted. Does not take any blood thinners. States the only thing that is going to help him get through the pain right now is some morphine. Lab work in the ER showed a slightly elevated white count of 11.9, lipase slightly evaded at 442 which is downtrending from yesterday. CT of the abdomen pelvis yesterday showed distended colon with moderate to large amount of fecal burden suggesting constipation versus distal large bowel obstruction obstruction, also notable for distended small bowel loops and mildly distended stomach consistent with possible ileus versus distal bowel obstruction. Patient not currently vomiting at this time, will withhold NG tube placement. He will be admitted to the hospitalist service for ileus. Hospital Course Hospital Course Hospital Course: This is a 28-year-old male with history of Hirschsprung's disease status post colon resection and ostomy placement 2 weeks ago. On my exam, patient is lying in bed, complaining of abdominal pain. States the only thing that can help him is morphine right now. No acute distress noted. Admitted to medicine for further management. Aggressive bowel regimen initiated. Had multiple bowel movements and felt significant improvement. Tolerating p.o. intake and feeling much better. Will discharge home on aggressive bowel regimen and plan for scheduled follow-up with his colorectal surgeon. Problems addressed as follows: Ileus with severe constipation -ED physicians spoke with [facility], Dr. Rodriguez, From an acute surgical standpoint he was unimpressed and states that the patient's symptoms just need to be controlled and that if patient symptoms were adequately controlled, he could call make an earlier appointment. Patient admitted overnight and treated with aggressive bowel regimen. Showed improvement with mineral oil. Started having output from his ostomy. Achieved improvement in belly pain and relief of symptoms. Recommended decreasing his narcotics regimen. Able to advance diet and tolerate p.o. intake without any further nausea or emesis. Will continue aggressive bowel regimen urging clued docusate senna 1 tablet twice scheduled, Linzess daily, mineral oil once daily for the next 3 days, and initiated magnesium oxide for hypomagnesemia but also promotion of regular bowel movements. HTN: Continue metoprolol Insomnia: continue seroquel Anxiety: Effexor 150 daily, hydroxyzine 25 mg 3 times a day as needed. Okay to continue gabapentin 800 mg 3 times a day for pain. Recommend discontinuing tramadol. Got relief from high-dose Tylenol during admission. Continue 1000 mg up to 4 times a day as needed. Overall doing well. Resume home regimen for chronic conditions. Total time spent on discharge 32 minutes in counseling, documentation, chart review, and direct care with patient. Exam Data for Last 24 hours Vital signs and Labs for Last 24 Hours: Temp Pulse Resp BP Pulse Ox O2 Del Method 99.6 F 88 18 130/82 99 Room Air 04/08/24 08:00 04/08/24 08:00 04/08/24 08:00 04/08/24 08:00 04/08/24 08:00 04/08/24 09:00 Laboratory Results - last 24 hr 04/07/24 15:10: WBC 11.9 H D, RBC 4.89, Hgb 14.6 D, Hct 43.2, MCV 88.4, MCH 29.8, MCHC 33.7, RDW 14.7, Plt Count 356 D, MPV 8.3, Neut % (Auto) 80.3 H, Lymph % (Auto) 14.6, [place] % (Auto) 3.3, Eos % (Auto) 1.3, Baso % (Auto) 0.5, Neut # (Auto) 9.6 H, Lymph # (Auto) 1.7, [place] # (Auto) 0.4, Eos # (Auto) 0.2, Baso # (Auto) 0.1, Sodium 138, Potassium 4.3, Chloride 105, Carbon Dioxide 23, Anion Gap 14.3, BUN 14, Creatinine 1.10, Estimated Creat Clear 102, Estimated GFR 79, Est GFR ([facility] Amer) 96, Glucose 141 H, Calcium 9.9, Total Bilirubin 0.5, AST 48 D, ALT 49, Alkaline Phosphatase 134 H, Total Protein 7.4, Albumin 4.3, Globulin 3.1, Albumin/Globulin Ratio 1.4, Lipase 442 H 04/07/24 18:30: Sodium 138, Potassium 4.0, Chloride 107, Carbon Dioxide 26, Anion Gap 9.0, BUN 14, Creatinine 1.00, Estimated Creat Clear 112, Estimated GFR 88, Est GFR ([facility] Am) 107, Glucose 111 H D, Calcium 9.2 04/08/24 05:44: WBC 8.6 D, RBC 4.25 L, Hgb 12.6 L D, Hct 37.5 L, MCV 88.4, MCH 29.3, MCHC 33.2, RDW 14.5, Plt Count 302, MPV 7.8, Neut % (Auto) 66.5, Lymph % (Auto) 24.5, [place] % (Auto) 5.1, Eos % (Auto) 3.6, Baso % (Auto) 0.4, Neut # (Auto) 5.7, Lymph # (Auto) 2.1, [place] # (Auto) 0.4, Eos # (Auto) 0.3, Baso # (Auto) 0.0, Sodium 136, Potassium 3.4 L, Chloride 105, Carbon Dioxide 23, Anion Gap 11.4, BUN 13, Creatinine 1.00, Estimated Creat Clear 118, Estimated GFR 88, Est GFR ([facility] Amer) 107, Glucose 113 H, Calcium 9.0, Magnesium 1.3 L, Total Bilirubin 0.7, AST 35 D, ALT 36 D, Alkaline Phosphatase 111, Total Protein 6.3, Albumin 3.7 D, Globulin 2.6, Albumin/Globulin Ratio 1.4 I & O for Last 24 hours: Intake & Output 04/05/24 04/06/24 04/07/24 04/08/24 23:59 23:59 23:59 23:59 Intake Total 1240 / 1240 Output Total 0 / 0 0 / 0 Balance 0 / 240 1240 / 1240 Weight 76.402 kg 77.167 kg Constitutional Constitutional: no acute distress and average body habitus *Routine HEENT Exam Head: Present normocephalic ENT: Present mucous membranes moist *Routine Neck Exam Neck: Present supple *Routine Respiratory Exam Respiratory: Present CTA bilaterally, normal respiratory effort and symmetric chest movement; Absent rhonchi, wheezes or crackles *Routine Cardiovascular Exam Cardiovascular: Present RRR; Absent murmur *Routine Abdominal Exam Abdominal: Present soft and normoactive bowel sounds; Absent tenderness or distended Comments: Ostomy healthy and pink. Having stool output. Surgical wounds with pink healthy granulation tissue. *Routine Rectal Exam Patient deferred: visual exam *Routine Exam Patient deferred: penile exam *Routine Extremities Exam Extremities: Present full ROM; Absent cyanosis or edema *Routine Skin Exam Skin: Present normal turgor; Absent rash *Routine Neurological Exam Neurological: Present alert, oriented X3, moving all extremities, vision grossly intact, hearing grossly intact and normal speech Routine Psychiatric Exam Psychiatric: Present normal affect, normal thought process, cooperative and good insight Results Data Completed and Pending Labs on day of discharge: Labs from last 24 hours 04/08/24 04/07/24 04/07/24 05:44 18:30 15:10 WBC 8.6 D 11.9 H D RBC 4.25 L 4.89 Hgb 12.6 L D 14.6 D Hct 37.5 L 43.2 MCV 88.4 88.4 MCH 29.3 29.8 MCHC 33.2 33.7 RDW 14.5 14.7 Plt Count 302 356 D MPV 7.8 8.3 Neut % (Auto) 66.5 80.3 H Lymph % (Auto) 24.5 14.6 [place] % (Auto) 5.1 3.3 Eos % (Auto) 3.6 1.3 Baso % (Auto) 0.4 0.5 Neut # (Auto) 5.7 9.6 H Lymph # (Auto) 2.1 1.7 [place] # (Auto) 0.4 0.4 Eos # (Auto) 0.3 0.2 Baso # (Auto) 0.0 0.1 Sodium 136 138 138 Potassium 3.4 L 4.0 4.3 Chloride 105 107 105 Carbon Dioxide 23 26 23 Anion Gap 11.4 9.0 14.3 BUN 13 14 14 Creatinine 1.00 1.00 1.10 Estimated Creat Clear 118 112 102 Estimated GFR 88 88 79 Est GFR ( Amer) 107 107 96 Glucose 113 H 111 H D 141 H Calcium 9.0 9.2 9.9 Magnesium 1.3 L Total Bilirubin 0.7 0.5 AST 35 D 48 D ALT 36 D 49 Alkaline Phosphatase 111 134 H Total Protein 6.3 7.4 Albumin 3.7 D 4.3 Globulin 2.6 3.1 Albumin/Globulin Ratio 1.4 1.4 Lipase 442 H DS: Diagnosis Discharge Diagnosis (1) Ileus: Status: Acute Code(s): K56.7 - Ileus, unspecified (2) Abdominal pain: Status: Acute Code(s): R10.9 - Unspecified abdominal pain (3) Hirschsprung's disease: Status: Acute Code(s): Q43.1 - Hirschsprung's disease (4) Acute constipation: Status: Acute Code(s): K59.00 - Constipation, unspecified (5) HTN (hypertension): Status: Acute Code(s): I10 - Essential (primary) hypertension Qualifiers: Hypertension type: unspecified Qualified Code(s): I10 - Essential (primary) hypertension Meds Home Medications and Allergies Home Medications ?Medication ?Instructions ?Recorded ?Confirmed ?Type ergocalciferol (vitamin D2) 1,250 1,250 mcg PO WEEKLY 03/20/24 04/07/24 History mcg (50,000 unit) capsule fesoterodine 8 mg tablet,extended 8 mg PO DAILY 03/20/24 04/07/24 History release 24 hr (Toviaz) gabapentin 800 mg tablet 800 mg PO TID 03/20/24 04/07/24 History hydroxyzine pamoate 25 mg capsule 25 mg PO TIDP PRN Anxiety 03/20/24 04/07/24 History linaclotide 145 mcg capsule 145 mcg PO DAILY 03/20/24 04/07/24 History (Linzess) metoprolol tartrate 25 mg tablet 25 mg PO DAILY 03/20/24 04/07/24 History ondansetron 4 mg disintegrating 4 mg PO Q8HP PRN Nausea And 03/20/24 04/07/24 History tablet Vomiting quetiapine 25 mg tablet 25 - 50 mg PO HS 03/20/24 04/07/24 History tramadol 50 mg tablet 50 mg PO Q8HP PRN Moderate Pain 03/20/24 04/07/24 History (Scale Score 5-6) ubrogepant 100 mg tablet (Ubrelvy) 100 mg PO DAILYP PRN Migraine 03/20/24 04/07/24 History Headache venlafaxine 150 mg 150 mg PO DAILY 03/20/24 04/07/24 History capsule,extended release 24 hr magnesium oxide 400 mg (241.3 mg 400 mg PO DAILY 30 days #30 tabs 04/08/24 Rx magnesium) tablet sennosides 8.6 mg-docusate sodium 1 tab PO BID 04/08/24 04/08/24 History 50 mg tablet (Senexon-S) New Prescriptions to Start Prescriptions: magnesium oxide Jose Issa Allergies Allergy/AdvReac Type Severity Reaction Status Date / Time doxycycline [DOXYCYCLINE] Allergy Intermediate Verified 01/14/24 10:33 codeine [CODEINE] Allergy Mild Verified 01/14/24 10:33 lidocaine AdvReac Verified 01/14/24 10:33 Discharge Plan Disposition Patient Disposition: Home, Self-Care Condition: Fair Follow up Plan Follow up with: Jeannette Hernandez MD [Primary Care Provider] - Enter time for follow up (The patient made his own follow up appt. ) Prescriptions/Medication Reconciliation: New magnesium oxide 400 mg (241.3 mg magnesium) Tablet 400 mg PO DAILY 30 Days Qty: 30 0RF Continued quetiapine 25 mg tablet 25 - 50 mg PO HS Patient Comments: TAKE 1 TO 2 TABLETS BY MOUTH EVERY NIGHT venlafaxine 150 mg capsule,extended release 24hr 150 mg PO DAILY Patient Comments: TAKE 1 CAPSULE BY MOUTH DAILY tramadol 50 mg tablet 50 mg PO Q8HP PRN (Reason: Moderate Pain (Scale Score 5-6)) Patient Comments: TAKE 1 TABLET BY MOUTH EVERY 8 HOURS NEEDED FOR MODERATE PAIN gabapentin 800 mg tablet 800 mg PO TID Patient Comments: TAKE 1 TABLET BY MOUTH THREE TIMES DAILY ergocalciferol (vitamin D2) 1,250 mcg (50,000 unit) capsule 1,250 mcg PO WEEKLY Patient Comments: TAKE 1 CAPSULE BY MOUTH 1 TIME EVERY WEEK ondansetron 4 mg tablet,disintegrating 4 mg PO Q8HP PRN (Reason: Nausea And Vomiting) Patient Comments: DISSOLVE 1 TABLET ON THE TONGUE EVERY 8 HOURS NEEDED FOR NAUSEA OR VOMITING hydroxyzine pamoate 25 mg capsule 25 mg PO TIDP PRN (Reason: Anxiety) Patient Comments: TAKE 1 CAPSULE BY MOUTH THREE TIMES DAILY NEEDED FOR ANXIETY metoprolol tartrate 25 mg tablet 25 mg PO DAILY Patient Comments: TAKE 1 TABLET BY MOUTH DAILY fesoterodine [Toviaz] 8 mg tablet extended release 24 hr 8 mg PO DAILY Patient Comments: TAKE 1 TABLET BY MOUTH DAILY Linzess 145 mcg capsule 145 mcg PO DAILY Ubrelvy 100 mg tablet 100 mg PO DAILYP PRN (Reason: Migraine Headache) Patient Comments: TAKE 1 TABLET BY MOUTH DAILY NEEDED FOR MIGRAINES FOR UP TO 30 DAYS sennosides-docusate sodium [Senexon-S] 8.6-50 mg tablet 1 tab PO BID Problem Reconciliation Problems Reviewed?: Yes Patient Discharge Instructions ACTIVITY: Continue current activity DIET: continue same diet Patient Instructions: Hirschsprung Disease, Soft Diet, DI for Constipation Print Language: [place] Providers Primary Care Provider: Jeannette Hernandez Admit Provider: Jose Issa Attending Provider: Jose Issa
[2024-04-08] MEDS: ACETAMINOPHEN 1,000 MG/100 ML ML 400 MG IV (11:59)
--- NOTE | 2024-04-10 15:13 | CARE MANAGER ---
Attempted to contact patient x2 related to hospital discharge. Left VM message. DEJUAN Pettit
== END 2024-04-08 15:30 | disposition home or self-care (01) ==
LOC: ER 18:20 → 2ND 18:46
PROVIDERS: Admitting Provider Internal Medicine Adolescent Medicine; Emergency Provider Student in an Organized Health Care Education/Training Program; PCP Internal Medicine; Visit Provider Internal Medicine Adolescent Medicine
DX: K56.7 Ileus, unspecified (principal); Q43.1 Hirschsprung's disease; K59.00 Constipation, unspecified; I10 Essential (primary) hypertension; Z79.899 Other long term (current) drug therapy; Z93.3 Colostomy status
CPT/HCPCS: 36415; 74018; 80048; 80053; 83690; 83735; 85025; 99221; 99285; G0378; J0131; J1885; J2270; J2405; J3475; J7120

== ENCOUNTER 2024-06-30 13:11 | Emergency (ER) | payer MEDICAID, SELFPAY ==
[2024-06-30 13:25] VITALS: BP 134/68; PULSE 113; RESP 20; TEMP 36.9; O2SAT 95; BMI 27.8
--- NOTE | 2024-06-30 13:41 | ED_ITS ---
Discharge Plan Disposition Patient Disposition: Home, Self-Care Condition: Good Prescriptions Prescriptions: New azithromycin [Zithromax] 250 mg tablet 250 mg PO UD DOSE PK Qty: 6 0RF Rx Instructions: Take two (2) tablets today, then one (1) tablet days #2 thru #5 benzonatate 100 mg capsule 100 mg PO TIDP PRN (Reason: Cough) Qty: 30 0RF methylprednisolone 4 mg Tablets,Dose Pack 4 mg PO DIRECTED 6 Days Qty: 21 0RF Rx Instructions: Take 1 pack as directed for 6 days albuterol sulfate [Ventolin HFA] 90 mcg/actuation HFA aerosol inhaler 2 puff inhalation Q6H PRN (Reason: shortness of breath or wheezing) Qty: 6.7 0RF No Action quetiapine 25 mg tablet 25 mg PO HS Patient Comments: TAKE 1 TO 2 TABLETS BY MOUTH EVERY NIGHT venlafaxine 150 mg capsule,extended release 24hr 150 mg PO DAILY tramadol 50 mg tablet 50 mg PO DAILY gabapentin 800 mg tablet 800 mg PO DAILY loratadine 10 mg tablet 10 mg PO DAILY cyclobenzaprine 5 mg tablet 5 mg PO DAILY metoprolol tartrate 25 mg tablet 25 mg PO DAILY eszopiclone 1 mg tablet 1 mg PO DAILY fesoterodine [Toviaz] 8 mg tablet extended release 24 hr 8 mg PO DAILY Patient Comments: TAKE 1 TABLET BY MOUTH DAILY Aimovig Autoinjector 70 mg/mL auto-injector 70 mg SQ MONTHLY Patient Comments: ADMINISTER 1 ML UNDER THE SKIN EVERY 30 DAYS DIRECTED Referrals Follow up/Referrals: Jeannette Hernandez MD [Primary Care Provider] - See instructions Activity Restrictions/Add. Instructions Additional Instructions/Restrictions: Drink plenty of fluids. Take tylenol or ibuprofen for pain or fever. Take the medications as directed. Follow up with your regular doctor. GO TO THE ER FOR ANY WORSENING SYMPTOMS Clinical Impressions Clinical Impression: Acute bronchitis Instructions Patient Instructions: DI for Acute Bronchitis Print Language Print Language: [place] Discharge ED Provider: Jose Gallo [facility] HPI General Stated complaint: cough Mode of Arrival: Ambulatory Source of Information: Patient Limitations: No Limitations Time Seen by Provider: 06/30/24 13:41 Description of Symptoms (Recalled from Triage Doc. by RN): PATIENT C/O COUGH THAT IS WORSE AT NIGHT X 2 WEEKS HEENT Symptoms (Recalled from RN notes): No Resp Symptoms (Recalled from RN notes): Yes Skin Symptoms (Recalled from RN notes): No MS Symptoms (Recalled from RN notes): No Functional Status (Recalled from RN notes): WNL History of Present Illness Provider Complaint: He states that for the past 2 weeks he has had a productive cough. He also has sinus congestion and a scratchy throat. He denies fever/chills. Related Data Home Medications ?Medication ?Instructions ?Recorded ?Confirmed cyclobenzaprine 5 mg tablet 5 mg PO DAILY 06/30/24 06/30/24 erenumab-aooe 70 mg/mL 70 mg SQ MONTHLY 06/30/24 06/30/24 subcutaneous auto-injector (Aimovig Autoinjector) eszopiclone 1 mg tablet 1 mg PO DAILY 06/30/24 06/30/24 fesoterodine 8 mg tablet,extended 8 mg PO DAILY 06/30/24 06/30/24 release 24 hr (Toviaz) gabapentin 800 mg tablet 800 mg PO DAILY 06/30/24 06/30/24 loratadine 10 mg tablet 10 mg PO DAILY 06/30/24 06/30/24 metoprolol tartrate 25 mg tablet 25 mg PO DAILY 06/30/24 06/30/24 quetiapine 25 mg tablet 25 mg PO HS 06/30/24 06/30/24 tramadol 50 mg tablet 50 mg PO DAILY 06/30/24 06/30/24 venlafaxine 150 mg 150 mg PO DAILY 06/30/24 06/30/24 capsule,extended release 24 hr Previous Rx's ?Medication ?Instructions ?Recorded albuterol sulfate 90 mcg/actuation 2 puff inhalation Q6H PRN 06/30/24 aerosol inhaler (Ventolin HFA) shortness of breath or wheezing #6.7 grams azithromycin 250 mg tablet 250 mg PO UD DOSE PK #6 tabs 06/30/24 (Zithromax) benzonatate 100 mg capsule 100 mg PO TIDP PRN Cough #30 caps 06/30/24 methylprednisolone 4 mg tablets in 4 mg PO DIRECTED 6 days #21 tabs 06/30/24 a dose pack Allergies Allergy/AdvReac Type Severity Reaction Status Date / Time doxycycline [DOXYCYCLINE] Allergy Intermediate Cough Verified 06/30/24 13:34 codeine [CODEINE] Allergy Mild Difficulty Verified 06/30/24 13:34 Breathing lidocaine AdvReac Rash Verified 06/30/24 13:34 Worker's Comp Is this a Worker's Comp case?: No [facility] Disclaimer: The information contained in this section may have been updated after the patient was seen, as this information can be updated by other users. Medical History (Updated 06/30/24 @ 14:10 by Jose Gallo APRN) Depression Anxiety Urinary tract infection Kidney stone Migraine Hypertension Interstitial cystitis Surgical History History of colonoscopy H/O shoulder surgery Social History Smoking Status: Current every day smoker tobacco type: cigarettes packs per day: 1 second hand exposure: Yes alcohol intake: never substance use type: denies use current occupational status: unemployed Travel in the last 8 weeks: None household members: other housing: house current occupational exposures/hazards: No caffeine: Yes ROS Obtained: Yes All systems reviewed & no additional complaints except as documented Constitutional Constitutional: Reports poor appetite Eyes Eyes: Reports system reviewed and no additional complaints, except as documented ENT Ears, Nose, Mouth, and Throat: Reports as per HPI Cardiovascular Cardiovascular: Reports system reviewed and no additional complaints, except as documented and Denies chest pain Respiratory Respiratory: Denies shortness of breath, Reports chest congestion, Reports cough, Denies stridor and Denies wheezing Gastrointestinal Gastrointestingal: Reports system reviewed and no additional complaints, except as documented; Denies abdominal pain, diarrhea or vomiting Musculoskeletal Musculoskeletal: Reports system reviewed and no additional complaints, except as documented and Denies arthralgias Integumentary/Breasts Skin/Breast: Reports system reviewed and no additional complaints, except as documented and Denies rash Neurologic Neurologic: Denies paresthesias Allergic/Immunologic Allergic/Immunologic: Denies wheezing Physical Exam General General appearance: alert and in no apparent distress Eye Eye exam: Present normal appearance, PERRL and EOMI ENT ENT exam: Present mucous membranes moist and normal external ear exam Expanded ENT Exam External ear exam: Present normal external inspection TM/Canal exam: Bilateral TM: erythema and bulging Nose exam: Absent sinus tenderness Nasal speculum exam: Bilateral: normal Mouth exam: Present normal external inspection; Absent drooling Teeth exam: Present normal inspection Throat exam: Present tonsillar erythema and tonsillomegaly Neck Neck exam: Present normal inspection, full ROM and trachea midline; Absent tenderness, lymphadenopathy or thyromegaly Chest Chest inspection: Present normal inspection and symmetric chest wall rise; Absent tenderness or rash Respiratory Respiratory exam: Present normal lung sounds bilaterally; Absent respiratory distress, wheezes, stridor or accessory muscle use Cardiovascular Cardiovascular exam: Present regular rate, normal rhythm and normal heart sounds Abdominal Exam Abdominal exam: Present soft; Absent distention, tenderness, guarding, rebound or rigidity Extremities Exam Extremities exam: Present normal inspection, full ROM and normal capillary refill; Absent tenderness or calf tenderness Back Exam Back exam: Present normal inspection and full ROM; Absent tenderness Neurological Exam Neurological exam: Present alert and oriented X3 Psychiatric Psychiatric exam: Present normal affect and normal mood Skin Skin exam: Present warm, dry, intact and normal color Lymphatic Lymphatic Findings: no adenopathy Medical Decision Making Medical Records Medical records reviewed: No I reviewed the patient's medical records. Screening: Per USPSTF and CDC recommendations, given the prevalence of disease in our region, it is our hospital?s policy to screen for HIV and viral Hepatitis for all patients aged 18 and over and those with ongoing risk factors. Omar Inquiry Pt receiving controlled substance: No Vital Signs: 06/30/24 13:25 Temperature 98.4 F Temperature Source Oral Pulse Rate [Left Brachial] 113 H Respiratory Rate 20 Blood Pressure [Left Arm] 134/68 Blood Pressure Mean [Left Arm] 90 Blood Pressure Source [Left Arm] Automatic Cuff Blood Pressure Position [Left Arm] Sitting 02 Sat by Pulse Oximetry 95 Oxygen Delivery Method Room Air
[2024-06-30 14:10] VITALS: BP 134/68; PULSE 113; RESP 20; TEMP 36.9; O2SAT 95
== END 2024-06-30 14:14 | disposition home or self-care (01) ==
PROVIDERS: Emergency Provider Nurse Practitioner Family; PCP Internal Medicine
DX: J20.9 Acute bronchitis, unspecified (principal); R05.9 Cough, unspecified; R09.81 Nasal congestion
CPT/HCPCS: 99212; G0381

== ENCOUNTER 2024-08-27 11:54 | Emergency (ER) | payer MEDICAID, SELFPAY ==
[2024-08-27 13:20] VITALS: BP 134/84; PULSE 74; RESP 19; TEMP 37.1; O2SAT 98; BMI 26.3
[2024-08-27 13:29] LABS: Coronavirus 19, PCR Not Detected (NotDetected); Influenza A, PCR Not Detected (NotDetected); Influenza B, PCR Not Detected (NotDetected)
--- NOTE | 2024-08-27 13:41 | EXP.UTC ---
Discharge Plan Disposition Patient Disposition: Home, Self-Care Condition: Good Prescriptions Prescriptions: New azithromycin [Zithromax Z-Lemuel] 250 mg tablet See Rx Instructions .ROUTE .COMPLEX 5 Days Qty: 6 0RF Rx Instructions: For 250 mg dose pack: take 500 mg today (day 1), then 250 mg for 4 days (days 2-5) methylprednisolone [Medrol (Lemuel)] 4 mg tablets,dose pack See Rx Instructions .Route .COMPLEX 6 Days Qty: 21 0RF Rx Instructions: taper pack; guaifenesin [Mucinex] 600 mg tablet extended release 12hr 1,200 mg PO BID PRN (Reason: cough) Qty: 20 0RF No Action quetiapine 25 mg tablet 25 mg PO HS Patient Comments: TAKE 1 TO 2 TABLETS BY MOUTH EVERY NIGHT metoprolol succinate 50 mg tablet extended release 24 hr 50 mg PO DAILY venlafaxine 150 mg capsule,extended release 24hr 150 mg PO DAILY tramadol 50 mg tablet 50 mg PO DAILY gabapentin 800 mg tablet 800 mg PO DAILY ergocalciferol (vitamin D2) [Vitamin D2] 1,250 mcg (50,000 unit) capsule 1,250 mcg PO WEEKLY albuterol sulfate [Ventolin HFA] 90 mcg/actuation HFA aerosol inhaler 1 puff INHALATION Q6HP PRN (Reason: SOA) ondansetron 4 mg tablet,disintegrating 4 mg PO Q6HP PRN (Reason: Nausea And Vomiting) loratadine 10 mg tablet 10 mg PO DAILY hydroxyzine pamoate 25 mg capsule 25 mg PO DAILY cyclobenzaprine 5 mg tablet 5 mg PO DAILY eszopiclone 1 mg tablet 1 mg PO DAILY Referrals Follow up/Referrals: Jeannette Hernandez MD [Primary Care Provider] - See instructions Activity Restrictions/Add. Instructions Additional Instructions/Restrictions: Start antibiotic today. Be sure to complete entire prescription even if feeling better Monitor temp. Tylenol every 4 hours as needed and / or ibuprofen every 6 hours as needed ( As long as your primary care physician has told you that it ok to take both. For fever/aches/pains ER if no less than 101 despite Tylenol or Motrin Humidifier/vaporizer or hot steamy shower Mucinex for your cough Be sure to drink lots of water. *Start steroid today. Helps with inflammation therefore, cough and wheezing. Follow directions on the package. Reviewed side effects. Patient reports taking them before. Follow up IMMEDIATELY for new or worsening of symptoms OR no noticeable improvement over the next 48-72 hours. 911 immediately for any life threatening symptoms such as chest pain or difficulty breathing Clinical Impressions Clinical Impression: Acute bronchitis Instructions Patient Instructions: DI for Sinusitis, Acute Bronchitis Print Language Print Language: Cameroonian Discharge ED Provider: Lucina Escobar [facility] General Stated complaint: chest /head congestion Mode of Arrival: Ambulatory Source of Information: Patient Limitations: No Limitations Time Seen by Provider: 08/27/24 13:41 Description of Symptoms (Recalled from Triage Doc. by RN): PATIENT C/O PRODUCTIVE COUGH WITH HEAD AND CHEST CONGESTION X 3 DAYS HEENT Symptoms (Recalled from RN notes): Yes Resp Symptoms (Recalled from RN notes): Yes Skin Symptoms (Recalled from RN notes): No MS Symptoms (Recalled from RN notes): No Functional Status (Recalled from RN notes): WNL History of Present Illness Provider Complaint: Patient states that for the last 3 days he has been having head and chest congestion States that feels like he has a sinus infection or bronchitis or both Related Data Home Medications ?Medication ?Instructions ?Recorded ?Confirmed albuterol sulfate 90 mcg/actuation 1 puff inhalation Q6HP PRN SOA 08/27/24 08/27/24 aerosol inhaler (Ventolin HFA) cyclobenzaprine 5 mg tablet 5 mg PO DAILY 08/27/24 08/27/24 ergocalciferol (vitamin D2) 1,250 1,250 mcg PO WEEKLY 08/27/24 08/27/24 mcg (50,000 unit) capsule (Vitamin D2) eszopiclone 1 mg tablet 1 mg PO DAILY 08/27/24 08/27/24 gabapentin 800 mg tablet 800 mg PO DAILY 08/27/24 08/27/24 hydroxyzine pamoate 25 mg capsule 25 mg PO DAILY 08/27/24 08/27/24 loratadine 10 mg tablet 10 mg PO DAILY 08/27/24 08/27/24 metoprolol succinate 50 mg 50 mg PO DAILY 08/27/24 08/27/24 tablet,extended release 24 hr ondansetron 4 mg disintegrating 4 mg PO Q6HP PRN Nausea And 08/27/24 08/27/24 tablet Vomiting quetiapine 25 mg tablet 25 mg PO HS 08/27/24 08/27/24 tramadol 50 mg tablet 50 mg PO DAILY 08/27/24 08/27/24 venlafaxine 150 mg 150 mg PO DAILY 08/27/24 08/27/24 capsule,extended release 24 hr Previous Rx's ?Medication ?Instructions ?Recorded azithromycin 250 mg tablet See Rx Instructions PO .COMPLEX 5 08/27/24 (Zithromax Z-Lemuel) days #6 tabs guaifenesin 600 mg tablet, 1,200 mg (2 x 600 mg) PO BID PRN 08/27/24 extended release 12 hr (Mucinex) cough #20 tabs methylprednisolone 4 mg tablets in See Rx Instructions .Route 08/27/24 a dose pack (Medrol (Lemuel)) .COMPLEX 6 days #21 tabs Allergies Allergy/AdvReac Type Severity Reaction Status Date / Time doxycycline (DOXYCYCLINE) Allergy Intermediate Cough Verified 06/30/24 13:34 codeine (CODEINE) Allergy Mild Difficulty Verified 06/30/24 13:34 Breathing lidocaine AdvReac Rash Verified 06/30/24 13:34 Worker's Comp Is this a Worker's Comp case?: No [facility] Disclaimer: The information contained in this section may have been updated after the patient was seen, as this information can be updated by other users. Medical History (Updated 08/27/24 @ 13:51 by Lucina Escobar APRN) Depression Anxiety Urinary tract infection Kidney stone Migraine Hypertension Interstitial cystitis Surgical History History of colonoscopy H/O shoulder surgery Social History Smoking Status: Current every day smoker tobacco type: cigarettes packs per day: 1 second hand exposure: Yes alcohol intake: never substance use type: denies use current occupational status: unemployed Travel in the last 8 weeks: None household members: other housing: house current occupational exposures/hazards: No caffeine: Yes ROS Obtained: Yes All systems reviewed & no additional complaints except as documented and Yes Systems reviewed as appropriate & no additional complaints except as documented Constitutional Constitutional: Reports system reviewed and no additional complaints, except as documented and Reports as per HPI ENT Ears, Nose, Mouth, and Throat: Reports system reviewed and no additional complaints, except as documented, Reports as per HPI, Reports sinus pain and Reports sinus pressure Cardiovascular Cardiovascular: Reports system reviewed and no additional complaints, except as documented and Reports as per HPI Respiratory Respiratory: Reports system reviewed and no additional complaints, except as documented, Reports as per HPI, Reports chest congestion and Reports cough Gastrointestinal Gastrointestingal: Reports system reviewed and no additional complaints, except as documented and as per HPI Genitourinary Male Genitourinary: Reports system reviewed and no additional complaints, except as documented and Reports as per HPI Physical Exam General General appearance: alert and in no apparent distress ENT ENT exam: Present mucous membranes moist Expanded ENT Exam Nose exam: Present sinus tenderness Throat exam: Present other (PND noted) Respiratory Respiratory exam: Present normal lung sounds bilaterally; Absent respiratory distress or wheezes Cardiovascular Cardiovascular exam: Present regular rate, normal rhythm and normal heart sounds Abdominal Exam Abdominal exam: Present soft, distention and normal bowel sounds Neurological Exam Neurological exam: Present alert, oriented X3 and normal gait Medical Decision Making Medical Records Screening: Per USPSTF and CDC recommendations, given the prevalence of disease in our region, it is our hospital?s policy to screen for HIV and viral Hepatitis for all patients aged 18 and over and those with ongoing risk factors. Omar Inquiry Pt receiving controlled substance: No Omar was queried for this patient: No Vital Signs: 08/27/24 13:20 Temperature 98.7 F Temperature Source Oral Pulse Rate [Left Brachial] 74 Respiratory Rate 19 Blood Pressure [Left Arm] 134/84 Blood Pressure Mean [Left Arm] 100 Blood Pressure Source [Left Arm] Automatic Cuff Blood Pressure Position [Left Arm] Sitting 02 Sat by Pulse Oximetry 98 Oxygen Delivery Method Room Air Lab Data Lab results reviewed: Yes I reviewed the patient's lab results. Orders (Tests/Meds): ORDERS Category Date Time Status Rapid PCR Covid and Flu A/B Stat Lab 08/27/24 13:29 Received Medical Decision Narrative: Patient states that he has taken azithromycin and Medrol in the past without complications or reactions
[2024-08-27 13:50] LABS: UTC Strep Screen (Rapid) Negative (Negative)
[2024-08-27 13:55] VITALS: BP 134/84; PULSE 74; RESP 19; TEMP 37.1; O2SAT 98
== END 2024-08-27 13:57 | disposition home or self-care (01) ==
PROVIDERS: Emergency Provider Nurse Practitioner; PCP Internal Medicine
DX: J20.9 Acute bronchitis, unspecified (principal); R05.9 Cough, unspecified; R09.81 Nasal congestion
CPT/HCPCS: 87636; 87880; 99212; G0381

== ENCOUNTER 2024-09-16 09:04 | Emergency (ER) | payer MEDICAID, SELFPAY ==
[2024-09-16 09:50] VITALS: BP 132/69; PULSE 139; RESP 24; TEMP 37.3; O2SAT 97; BMI 27.8
--- NOTE | 2024-09-16 10:21 | ED_ITS ---
Discharge Plan Disposition Patient Disposition: Home, Self-Care Condition: Good Prescriptions Prescriptions: No Action quetiapine 25 mg tablet 25 mg PO HS Patient Comments: TAKE 1 TO 2 TABLETS BY MOUTH EVERY NIGHT metoprolol succinate 50 mg tablet extended release 24 hr 50 mg PO DAILY venlafaxine 150 mg capsule,extended release 24hr 150 mg PO DAILY tramadol 50 mg tablet 50 mg PO DAILY gabapentin 800 mg tablet 800 mg PO DAILY benzonatate 100 mg capsule 100 mg PO DAILYP PRN (Reason: Cough) zolpidem 5 mg tablet 5 mg PO HS zolpidem 10 mg tablet 10 mg PO HS ondansetron 4 mg tablet,disintegrating 4 mg PO DAILY loratadine 10 mg tablet 10 mg PO DAILY hydroxyzine pamoate 25 mg capsule 25 mg PO DAILY cyclobenzaprine 5 mg tablet 5 mg PO DAILY Referrals Follow up/Referrals: Provider,Referral, MD [Primary Care Provider] - See instructions Activity Restrictions/Add. Instructions Additional Instructions/Restrictions: *Monitor Temp, Over the counter Motrin or Tylenol as directed/as needed Tylenol every 4 hours and Motrin every 6 hours (as long as your family doctor has told you that you can take it) for fever or pain. and straight to ER if unable to lower temp less than 101.0 after medication given *Make sure to drink plenty of fluids??? *Sleep elevated *Humidifier/Vaporizer Your throat swab was sent for culture. Those results are typically sent to your primary care. Be sure to follow up in 2-3 days with your family doctor/primary care physician if no improvement so they can review those result and treat if necessary. If you don?t have a primary care doctor, I recommend you get one but in the mean time, you will have to return to a walk in clinic Follow up IMMEDIATELY for new or worsening symptoms or no Noticeable improvement over the next 48-72 hours. 911 for difficulty breathing or swallowing ? You was given an outpatient order for diarrhea panel, please collect specimen and bring back to outpatient lab then call back to the [facility] or follow up with family doctor for results ? Avoid fruit juices, as these do not replace minerals and can actually increase diarrhea. ? Children and adults can use sports drinks to replenish electrolytes. Younger children and infants should use products formulated for children, like oral rehydration solutions. ? Eat food in small amounts and let your stomach recover. ? Get lots of rest. You may feel tired or weak. ? No greasy or fried foods for the next 24-48 hours BRAT diet Bananas Rice Apples and [place] You were tested for today for COVID19, Influenza A & B, your test result should be back later today, you may view your results on the [facility] [employer] Portal Clinical Impressions Clinical Impression: Viral syndrome Stand Alone Forms Stand Alone Forms: Work/School Release Instructions Patient Instructions: DI for Viral Syndrome, Diarrhea Print Language Print Language: Guatemalan Discharge ED Provider: Lucina Escobar [facility] [place] General Stated complaint: cough, congestion Mode of Arrival: Ambulatory Source of Information: Patient Limitations: No Limitations Time Seen by Provider: 09/16/24 10:21 Description of Symptoms (Recalled from Triage Doc. by RN): PATIENT C/O CHEST AND HEAD CONGESTION, DIARRHEA, COUGH, BODY ACHES AND FEVER THAT STARTED YESTERDAY HEENT Symptoms (Recalled from RN notes): Yes Resp Symptoms (Recalled from RN notes): Yes Skin Symptoms (Recalled from RN notes): No MS Symptoms (Recalled from RN notes): No Functional Status (Recalled from RN notes): WNL History of Present Illness Provider Complaint: Patient states that he started feeling bad yesterday States that he has been having body aches, nasal congestion, diarrhea, fever and flu like symptoms States that he did a telehealth visit with his PCP and they wanted him to come in and get a COVID, Flu and Strep swab and if those are negative she wanted to see him in the office so he came here to get COVID, flu and strep test done States he had diarrhea last night for about 30 min then it stopped and has had one episode of diarrhea today Related Data Home Medications ?Medication ?Instructions ?Recorded ?Confirmed benzonatate 100 mg capsule 100 mg PO DAILYP PRN Cough 09/16/24 09/16/24 cyclobenzaprine 5 mg tablet 5 mg PO DAILY 09/16/24 09/16/24 gabapentin 800 mg tablet 800 mg PO DAILY 09/16/24 09/16/24 hydroxyzine pamoate 25 mg capsule 25 mg PO DAILY 09/16/24 09/16/24 loratadine 10 mg tablet 10 mg PO DAILY 09/16/24 09/16/24 metoprolol succinate 50 mg 50 mg PO DAILY 09/16/24 09/16/24 tablet,extended release 24 hr ondansetron 4 mg disintegrating 4 mg PO DAILY 09/16/24 09/16/24 tablet quetiapine 25 mg tablet 25 mg PO HS 09/16/24 09/16/24 tramadol 50 mg tablet 50 mg PO DAILY 09/16/24 09/16/24 venlafaxine 150 mg 150 mg PO DAILY 09/16/24 09/16/24 capsule,extended release 24 hr zolpidem 10 mg tablet 10 mg PO HS 09/16/24 09/16/24 zolpidem 5 mg tablet 5 mg PO HS 09/16/24 09/16/24 Allergies Allergy/AdvReac Type Severity Reaction Status Date / Time doxycycline (DOXYCYCLINE) Allergy Intermediate Cough Verified 06/30/24 13:34 codeine (CODEINE) Allergy Mild Difficulty Verified 06/30/24 13:34 Breathing lidocaine AdvReac Rash Verified 06/30/24 13:34 Worker's Comp Is this a Worker's Comp case?: No [facility] Disclaimer: The information contained in this section may have been updated after the patient was seen, as this information can be updated by other users. Medical History (Updated 09/16/24 @ 10:35 by Lucina Escobar APRN) Depression Anxiety Urinary tract infection Kidney stone Migraine Hypertension Interstitial cystitis Surgical History History of colonoscopy H/O shoulder surgery Social History Smoking Status: Current every day smoker tobacco type: cigarettes packs per day: 1 second hand exposure: Yes alcohol intake: never substance use type: denies use current occupational status: unemployed Travel in the last 8 weeks: None household members: other housing: house current occupational exposures/hazards: No caffeine: Yes Have you lived/traveled outside [place] in past 30 days?: No Contact w/someone who lives/traveled outside [place] past 30 days?: No Exposure to someone with infectious disease in past 14 days?: No Do you have a fever (greater than 100.4 F or 38 C)?: No Have you tested positive for COVID-19: No Exposed to someone with COVID-19 in past 14 days?: No Do you have a sore throat?: Yes Do you have a cough?: Yes Do you have any weakness?: No Do you have any diarrhea?: No Are you experiencing any unusual bleeding?: No Do you have any muscle aches/pain?: No Do you have any abdominal pain?: No Are you experiencing loss of taste or smell?: No ROS Obtained: Yes All systems reviewed & no additional complaints except as documented and Yes Systems reviewed as appropriate & no additional complaints except as documented Constitutional Constitutional: Reports system reviewed and no additional complaints, except as documented, Reports as per HPI, Reports body ache, Reports chills and Reports fever(s) ENT Ears, Nose, Mouth, and Throat: Reports system reviewed and no additional complaints, except as documented, Reports as per HPI, Reports nasal congestion and Reports nasal discharge Cardiovascular Cardiovascular: Reports system reviewed and no additional complaints, except as documented, Reports as per HPI and Denies chest pain Respiratory Respiratory: Reports system reviewed and no additional complaints, except as documented, Reports as per HPI, Reports chest congestion (had a little) and Reports cough Gastrointestinal Gastrointestingal: Reports system reviewed and no additional complaints, except as documented, as per HPI and diarrhea; Denies abdominal pain, belching, bloating, nausea or vomiting Physical Exam General General appearance: alert and in no apparent distress ENT ENT exam: Present mucous membranes moist Expanded ENT Exam Nose exam: Absent sinus tenderness Throat exam: Present normal inspection Respiratory Respiratory exam: Present normal lung sounds bilaterally; Absent respiratory distress or wheezes Cardiovascular Cardiovascular exam: Present regular rate, normal rhythm and normal heart sounds Abdominal Exam Abdominal exam: Present soft and normal bowel sounds; Absent distention or tenderness Neurological Exam Neurological exam: Present alert, oriented X3 and normal gait Medical Decision Making Medical Records Screening: Per USPSTF and CDC recommendations, given the prevalence of disease in our region, it is our hospital?s policy to screen for HIV and viral Hepatitis for all patients aged 18 and over and those with ongoing risk factors. Omar Inquiry Pt receiving controlled substance: No Omar was queried for this patient: No Vital Signs: 09/16/24 09:50 Temperature 99.1 F Temperature Source Oral Pulse Rate [Left Brachial] 139 H Respiratory Rate 24 Blood Pressure [Left Arm] 132/69 Blood Pressure Mean [Left Arm] 90 Blood Pressure Source [Left Arm] Automatic Cuff Blood Pressure Position [Left Arm] Sitting 02 Sat by Pulse Oximetry 97 Oxygen Delivery Method Room Air Lab Data Lab results reviewed: Yes I reviewed the patient's lab results. Orders (Tests/Meds): ORDERS Category Date Time Status Rapid PCR Covid and Flu A/B Stat Lab 09/16/24 10:16 Ordered Urine Culture Stat Micro 09/16/24 10:16 Ordered Medical Decision Narrative: Discussed with patient due HR being elevated and states not drinking much discussed with patient about IV fluids or transfer to the ED and he declined both States just wants tested and will see his PCP, Patient also states that he has recurrent UTI's UA completed
[2024-09-16 10:24] LABS: UTC Strep Screen (Rapid) Negative (Negative)
[2024-09-16 10:25] LABS: UTC Influenza A Antigen Negative (Negative); UTC Influenza B Antigen Negative (Negative)
[2024-09-16 10:26] LABS: Apearance,Urine Clear (Clear); Bilirubin,Urine Negative (Negative); Blood, Urine Negative (Negative); Color,Urine Dark Yellow (Yellow); Glucose,Urine (UA) Negative (Negative); Ketones,Urine Negative (Negative); PH,Urine 5.5 (5.0-8.5); Protein,Urine Negative (Negative); Specific Gravity, Urine >= 1.030 (1.005-1.030); UTC Leukocyte Esterase,Urine Negative (Negative); UTC Nitrate,Urine Negative (Negative); Urobilinogen,Urine 0.2 EU/dl (0.2)
[2024-09-16 10:39] VITALS: BP 132/69; PULSE 139; RESP 24; TEMP 37.3; O2SAT 97
[2024-09-16 10:51] LABS: Coronavirus 19, PCR Not Detected (NotDetected); Influenza A, PCR Not Detected (NotDetected); Influenza B, PCR Not Detected (NotDetected)
[2024-09-16 10:53] LABS: Adenovirus F 40/41, stool Not Detected (NotDetected); Astrovirus Not Detected (NotDetected); Campylobacter Not Detected (NotDetected); Clostridium Difficile A/B, PCR Not Detected (NotDetected); Cryptosporidium Not Detected (NotDetected); Cyclospora Cayetanesis Not Detected (NotDetected); Entamoeba histolytica Not Detected (NotDetected); Enteropathogenic E coli Not Detected (NotDetected); Enterotoxigenic E coli Not Detected (NotDetected); Giardia lamblia Not Detected (NotDetected); Norovirus Not Detected (NotDetected); Plesimonas Shigalloides, PCR Not Detected (NotDetected); Rotavirus A Not Detected (NotDetected); Salmonella, PCR Not Detected (NotDetected); Sapovirus Not Detected (NotDetected); Shiga-like toxin E coli Not Detected (NotDetected); Shigella Enterovasive E coli Not Detected (NotDetected); Vibrio Cholerae Not Detected (NotDetected); Vibrio, PCR Not Detected (NotDetected); Yersinia Entercolitica, PCR Not Detected (NotDetected)
[2024-09-16 13:02] LABS: Enteroaggregative E coli Detected (NotDetected)
== END 2024-09-16 10:46 | disposition home or self-care (01) ==
PROVIDERS: Emergency Provider Nurse Practitioner
DX: B34.9 Viral infection, unspecified (principal); R50.9 Fever, unspecified; R05.9 Cough, unspecified; R09.81 Nasal congestion; R19.7 Diarrhea, unspecified
CPT/HCPCS: 81003; 87086; 87507; 87636; 87804; 87880; 99212; G0381

== ENCOUNTER 2024-09-18 10:04 | Emergency (ER) | payer MEDICAID, SELFPAY ==
[2024-09-18 10:06] VITALS: BP 155/87; PULSE 112; RESP 18; TEMP 37; O2SAT 97; BMI 27.7
--- NOTE | 2024-09-18 10:41 | ECG_ITS ---
APPROVED REPORT Exam: Resting ECG HR:108 bpm ECG Measurements Heart Rate 108 AXES OK 136 P 56 QRSd 93 QRS 66 QT 312 T 40 QTc 376 Conclusion SINUS TACHYCARDIA NONSPECIFIC T-WAVE ABNORMALITY ABNORMAL RHYTHM ECG UNCONFIRMED REPORT Electronically signed by : Jose Wilkerson, 09/18/2024 15:34:36
[2024-09-18 11:05] LABS: Basophils % 0.2 % (0.1-2.0); Eosinophils # 0.2 K/mm3 (0.0-0.4); Eosinophils % 4.3 % (0.1-12.0); Hematocrit 34.7 % (42.0-52.0); Hemoglobin 11.6 g/dL (14.1-18.0); Lymphocytes # 1.8 K/mm3 (0.7-4.5); Lymphocytes % 32.6 % (10-50); Mean Corpuscular HGB Conc 33.4 g/dL (31.8-35.4); Mean Corpuscular Hemoglobin 29.4 pg (27.0-31.2); Mean Corpuscular Volume 88.1 fl (80-94); Mean Platelet Volume 9.6 fl (7.4-10.4); Monocytes # 0.5 K/mm3 (0.1-1.0); Monocytes % 8.7 % (1.7-9.3); Neutrophils % 53.7 % (37.0-80.0); Platelet Count 180 K/mm3 (142-424); Red Blood Count 3.94 M/mm3 (4.60-6.20); White Blood Count 5.6 K/mm3 (4.8-10.8)
[2024-09-18 11:13] LABS: Coronavirus 19, PCR Not Detected (NotDetected); Influenza A, PCR Not Detected (NotDetected); Influenza B, PCR Not Detected (NotDetected)
[2024-09-18 11:15] VITALS: BP 131/75; PULSE 95; RESP 22; O2SAT 94
[2024-09-18 11:16] LABS: Alanine Aminotransferase 24 U/L (12-78); Albumin Level 3.7 g/dl (3.5-5.0); Albumin/Globulin Ratio 1.6 (1.1-1.8); Alkaline Phosphatase 74 U/L (38-126); Anion Gap 8.5 mEq/L (5-15); Aspartate Amino Transferase 35 U/L (17-59); Bilirubin,Total 0.5 mg/dl (0.2-1.3); Blood Urea Nitrogen 7 mg/dl (9-20); Calcium 9.1 mg/dl (8.4-10.2); Carbon Dioxide 26 mmol/L (22.0-30.0); Chloride 106 mmol/L (98-107); Creatinine Clearance Estimated 110 mL/min (50-200); Estimated Glomerular Filt Rate 72 ml/min (>60); GFR (African American) 87 ML/MIN (>60); Globulin 2.3 g/dL (1.3-3.2); Glucose 120 mg/dl (74-100); Potassium 3.5 mmoL/L (3.5-5.1); Sodium 137 mmol/L (136-145)
--- NOTE | 2024-09-18 11:25 | XR_ITS ---
FINAL REPORT CLINICAL HISTORY: cough COMPARISON: 03/24/2024 FINDINGS: A portable view of the chest was obtained. Cardiac and mediastinal silhouettes are within normal limits. There is scarring in the left lung base. The lungs are otherwise clear. There is no pleural effusion or pneumothorax. IMPRESSION: No acute process on this portable exam. Reviewed, Interpreted and Dictated by Jennifer Oreilly MD Transcribed by Luzma Chung Authenticated and [facility]
--- NOTE | 2024-09-18 11:27 | HMH.EDGENADL ---
Discharge Plan Disposition Patient Disposition: Home, Self-Care Prescriptions Prescriptions: New swcaymciuizkgat-npquabtnl-KG 2-30-10 mg/5 mL syrup 5 ml PO Q6H PRN (Reason: cold symptoms) 7 Days Qty: 118 0RF No Action quetiapine 25 mg tablet 25 mg PO HS Patient Comments: TAKE 1 TO 2 TABLETS BY MOUTH EVERY NIGHT metoprolol succinate 50 mg tablet extended release 24 hr 50 mg PO DAILY venlafaxine 150 mg capsule,extended release 24hr 150 mg PO DAILY tramadol 50 mg tablet 50 mg PO DAILY gabapentin 800 mg tablet 800 mg PO DAILY benzonatate 100 mg capsule 100 mg PO DAILYP PRN (Reason: Cough) zolpidem 5 mg tablet 5 mg PO HS zolpidem 10 mg tablet 10 mg PO HS ondansetron 4 mg tablet,disintegrating 4 mg PO DAILY loratadine 10 mg tablet 10 mg PO DAILY hydroxyzine pamoate 25 mg capsule 25 mg PO DAILY cyclobenzaprine 5 mg tablet 5 mg PO DAILY azithromycin [Zithromax] 250 mg tablet 250 mg PO UD DOSE PK Qty: 6 0RF Rx Instructions: Take two (2) tablets today, then one (1) tablet days #2 thru #5 Referrals Follow up/Referrals: Jeannette Hernandez MD [Primary Care Provider] - See instructions Activity Restrictions/Add. Instructions Additional Instructions/Restrictions: No emergent medical condition identified today. No evidence of pneumonia or sepsis. No evidence of severe intra-abdominal infection. You do have a E. coli associated diarrhea which you may complete your antibiotics for. Please stay well-hydrated take your symptomatic medications including her new cough medicine that we will replace the previous one. You may follow with primary care doctor as needed. Clinical Impressions Clinical Impression: E coli enteritis, Bronchitis, Acute dehydration Print Language Print Language: Macedonian Discharge ED Provider: Aury Wilkerson General Adult HPI General Chief complaint: Chest Pain Stated complaint: cough, poss sepsis per Dr. Esquivel Time Seen by Provider: 09/18/24 11:17 Mode of Arrival: Ambulatory Source of Information: Patient Limitations: No Limitations Description of Symptoms (Recalled from ER Triage Doc. by RN): PT REPORTS POSSIBLY SEPTIC SPOKE WITH PCP R/T COUGH, FEVER, BODYACHES, DIARRHEA AND INCREASED HEART RATE. PT AT [facility] 2 DAYS AGO, REPORTS STOOL + FOR E.COLI. HX OF BOWEL OBSTRUCTIONS History of Present Illness HPI narrative: Patient is a 28-year-old male not immune compromised who presents today with concerns for sepsis. States he has been sick for the last week has had cough fever body aches had diarrhea and was recently in urgent treatment clinic with a GI PCR panel that showed an E. coli infection E AEC was started on azithromycin. No significant abdominal pain. Does have a persistent cough was tachycardic at home called his doctor who told him to come to the emergency department to make sure he is not septic. Related Data Home Medications ?Medication ?Instructions ?Recorded ?Confirmed benzonatate 100 mg capsule 100 mg PO DAILYP PRN Cough 09/16/24 09/16/24 cyclobenzaprine 5 mg tablet 5 mg PO DAILY 09/16/24 09/16/24 gabapentin 800 mg tablet 800 mg PO DAILY 09/16/24 09/16/24 hydroxyzine pamoate 25 mg capsule 25 mg PO DAILY 09/16/24 09/16/24 loratadine 10 mg tablet 10 mg PO DAILY 09/16/24 09/16/24 metoprolol succinate 50 mg 50 mg PO DAILY 09/16/24 09/16/24 tablet,extended release 24 hr ondansetron 4 mg disintegrating 4 mg PO DAILY 09/16/24 09/16/24 tablet quetiapine 25 mg tablet 25 mg PO HS 09/16/24 09/16/24 tramadol 50 mg tablet 50 mg PO DAILY 09/16/24 09/16/24 venlafaxine 150 mg 150 mg PO DAILY 09/16/24 09/16/24 capsule,extended release 24 hr zolpidem 10 mg tablet 10 mg PO HS 09/16/24 09/16/24 zolpidem 5 mg tablet 5 mg PO HS 09/16/24 09/16/24 Previous Rx's ?Medication ?Instructions ?Recorded azithromycin 250 mg tablet 250 mg PO UD DOSE PK #6 tabs 09/17/24 (Zithromax) sevmsuhjxzfppgr-iizhrtbyfzgyeeo-TB 5 ml PO Q6H PRN cold symptoms 7 09/18/24 2 mg-30 mg-10 mg/5 mL oral syrup days #118 mL Allergies Allergy/AdvReac Type Severity Reaction Status Date / Time doxycycline (DOXYCYCLINE) Allergy Intermediate Cough Verified 06/30/24 13:34 codeine (CODEINE) Allergy Mild Difficulty Verified 06/30/24 13:34 Breathing lidocaine AdvReac Rash Verified 06/30/24 13:34 [facility] Disclaimer: The information contained in this section may have been updated after the patient was seen, as this information can be updated by other users. Medical History (Updated 09/18/24 @ 12:18 by Aury Wilkerson MD) Depression Anxiety Urinary tract infection Kidney stone Migraine Hypertension Interstitial cystitis Surgical History History of colonoscopy H/O shoulder surgery Social History Smoking Status: Current every day smoker tobacco type: cigarettes packs per day: 1 second hand exposure: Yes alcohol intake: never substance use type: denies use current occupational status: unemployed Travel in the last 8 weeks: None household members: other housing: house current occupational exposures/hazards: No caffeine: Yes Have you lived/traveled outside US in past 30 days?: No Contact w/someone who lives/traveled outside US past 30 days?: No Exposure to someone with infectious disease in past 14 days?: No Do you have a fever (greater than 100.4 F or 38 C)?: No Have you tested positive for COVID-19: No Exposed to someone with COVID-19 in past 14 days?: No Do you have a sore throat?: No Do you have a cough?: No Do you have any weakness?: No Do you have any diarrhea?: No Are you experiencing any unusual bleeding?: No Do you have any muscle aches/pain?: No Do you have any abdominal pain?: No Are you experiencing loss of taste or smell?: No Other Medical History Have you received the Flu Vaccine for this season: No Have you received the Pneumonia Vaccine: No ROS Obtained: Yes All systems reviewed & no additional complaints except as documented Physical Exam General General appearance: alert and in no apparent distress Respiratory Respiratory exam: Present normal lung sounds bilaterally; Absent respiratory distress Cardiovascular Cardiovascular exam: Present tachycardia (Heart rate 120 on my exam) Abdominal Exam Abdominal exam: Present soft; Absent distention or tenderness Neurological Exam Neurological exam: Present alert and oriented X3 Medical Decision Making Medical Records Screening: Per USPSTF and CDC recommendations, given the prevalence of disease in our region, it is our hospital?s policy to screen for HIV and viral Hepatitis for all patients aged 18 and over and those with ongoing risk factors. Omar Inquiry Pt receiving controlled substance: No Vital Signs: 09/18/24 10:06 09/18/24 11:15 09/18/24 11:30 Temperature 98.6 F Temperature Source Oral Pulse Rate 95 H 99 H Pulse Rate [Right] 112 H Respiratory Rate 18 22 21 Blood Pressure 131/75 113/88 Blood Pressure [Right Arm] 155/87 H Blood Pressure Mean [Right Arm] 109 Blood Pressure Source [Right Arm] Automatic Cuff Blood Pressure Position [Right Arm] Sitting 02 Sat by Pulse Oximetry 97 94 L 98 Oxygen Delivery Method Room Air 09/18/24 11:45 Temperature Temperature Source Pulse Rate 110 H Pulse Rate [Right] Respiratory Rate 24 Blood Pressure 113/88 Blood Pressure [Right Arm] Blood Pressure Mean [Right Arm] Blood Pressure Source [Right Arm] Blood Pressure Position [Right Arm] 02 Sat by Pulse Oximetry 98 Oxygen Delivery Method Room Air Lab Data Lab results reviewed: Yes I reviewed the patient's lab results. Lab Results 09/18/24 10:35: WBC 5.6, RBC 3.94 L, Hgb 11.6 L, Hct 34.7 L, MCV 88.1, MCH 29.4, MCHC 33.4, RDW 14.0, Plt Count 180, MPV 9.6, Neut % (Auto) 53.7, Lymph % (Auto) 32.6, [place] % (Auto) 8.7, Eos % (Auto) 4.3, Baso % (Auto) 0.2, Neut # (Auto) 3.0, Lymph # (Auto) 1.8, [place] # (Auto) 0.5, Eos # (Auto) 0.2, Baso # (Auto) 0.0, Sodium 137, Potassium 3.5, Chloride 106, Carbon Dioxide 26, Anion Gap 8.5, BUN 7 L, Creatinine 1.20, Estimated Creat Clear 110, Estimated GFR 72, Est GFR ( Amer) 87, Glucose 120 H, Lactate 1.6, Calcium 9.1, Total Bilirubin 0.5, AST 35, ALT 24, Alkaline Phosphatase 74, Total Protein 6.0 L, Albumin 3.7, Globulin 2.3, Albumin/Globulin Ratio 1.6, Lipase 37 09/18/24 10:52: SARS-CoV-2 (PCR) Not detected, Influenza A Untype (PCR) Not detected, Influenza Type B (PCR) Not detected 09/18/24 10:35 09/18/24 10:35 Orders (Tests/Meds): ED MEDICATIONS Generic Name Dose Route Start Last Admin Trade Name Freq PRN Reason Stop Dose Admin Sodium Chloride 1,000 mls @ 999 mls/hr 09/18/24 11:30 09/18/24 11:37 Sod Chlor 0.9% 1000ml Bag IV 09/18/24 12:30 999 mls/hr .Q1H1M HECTOR Administration Discontinued Medications Generic Name Dose Route Start Last Admin Trade Name Freq PRN Reason Stop Dose Admin Acetaminophen 1,000 mg 09/18/24 11:23 09/18/24 11:37 Acetaminophen 1,000mg/100ml Vial IV 09/18/24 11:24 1,000 mg ONCE ONE Administration Ondansetron HCl 4 mg 09/18/24 11:23 09/18/24 11:37 Ondansetron 4mg/2ml Vial IV 09/18/24 11:24 4 mg ONCE ONE Administration ORDERS Category Date Time Status CXR --portable [XR chest portable] Stat Exams 09/18/24 11:25 Taken Complete Blood Count Auto Diff Stat Lab 09/18/24 10:35 Completed Comprehensive Metabolic Panel Stat Lab 09/18/24 10:35 Completed HIV Combo Stat Lab 09/18/24 10:35 Received Hep C Ab with Reflex to RNA Stat Lab 09/18/24 10:35 Received Lactic Acid Stat Lab 09/18/24 10:35 Completed Lipase Stat Lab 09/18/24 10:35 Completed Rapid PCR Covid and Flu A/B Stat Lab 09/18/24 10:52 Completed Blood Culture Stat Micro 09/18/24 10:35 Received Medical Decision Narrative: Very anxious 28-year-old presents today with tachycardia and recent infection with an E. coli pathogen found on GI PCR panel. His lung exam is normal but he has a persistent cough as well likely had a viral cause of this to begin with. Get a chest x-ray to further evaluate this no further viral etiology testing warranted. Abdomen exam is benign do not suspect he has significant colitis or surgical pathology at the moment. Will make sure he does not have any type of kidney involvement with volume losses administer IV fluids and Tylenol. Blood cultures will also be obtained to make sure that he is not bacteremic which is unlikely Chest x-ray performed which I personally interpreted which shows no acute cardiopulmonary emergency serial abdominal exams benign labs unremarkable no evidence of renal failure or significant electrolyte abnormalities. Patient feeling better. Symptomatic medications prescribed including Bromfed which may help with the decongestant aspect of this. He has been advised to put sugar and salt containing fluids at home. No evidence of sepsis today. He was discharged in improved stable condition reassured Critical Care Critical Care Time Critical Care Time: No
[2024-09-18 11:30] VITALS: BP 113/88; PULSE 99; RESP 21; O2SAT 98
[2024-09-18] MEDS: ACETAMINOPHEN 1,000MG/100ML VIAL 1000 MG IV (11:37)
[2024-09-18] MEDS: 0.9 % SODIUM CHLORIDE 1000ML 1,000 ML 999 ML IV (11:37)
[2024-09-18] MEDS: ONDANSETRON 4MG/2ML VIAL 4 MG IV (11:37)
[2024-09-18 11:39] LABS: Lactic Acid 1.6 mmol/L (0.7-2.1); Lipase 37 U/L (23-300)
[2024-09-18 11:45] VITALS: BP 113/88; PULSE 110; RESP 24; O2SAT 98
[2024-09-18 12:24] VITALS: BP 121/73; PULSE 102; PULSE 105; RESP 20; TEMP 36.8; O2SAT 95
[2024-09-18 13:37] LABS: HIV Combo NEGATIVE (Negative)
[2024-09-19 05:53] LABS: HCV Ab Non Reactive (Non Reactive)
== END 2024-09-18 12:25 | disposition home or self-care (01) ==
PROVIDERS: Emergency Provider Student in an Organized Health Care Education/Training Program; PCP Internal Medicine
DX: E86.0 Dehydration (principal); J40 Bronchitis, not specified as acute or chronic; A04.4 Other intestinal Escherichia coli infections; R05.9 Cough, unspecified; R50.9 Fever, unspecified; M79.10 Myalgia, unspecified site; R19.7 Diarrhea, unspecified; R00.0 Tachycardia, unspecified
CPT/HCPCS: 71045; 80053; 83605; 83690; 85025; 86803; 87040; 87389; 87636; 93005; 96361; 96374; 96375; 99284; J0131; J2405; J7030

== ENCOUNTER 2024-09-20 10:36 | Emergency (ER) | payer MEDICAID, SELFPAY ==
[2024-09-20 10:45] VITALS: BP 139/90; PULSE 116; RESP 19; TEMP 37.7; O2SAT 100; BMI 26.4
--- NOTE | 2024-09-20 11:06 | EXP.UTC ---
Discharge Plan Disposition Patient Disposition: Home, Self-Care Condition: Good Prescriptions Prescriptions: New metoprolol succinate 50 mg tablet extended release 24 hr 50 mg PO DAILY Qty: 14 0RF No Action quetiapine 25 mg tablet 25 mg PO HS Patient Comments: TAKE 1 TO 2 TABLETS BY MOUTH EVERY NIGHT metoprolol succinate 50 mg tablet extended release 24 hr 50 mg PO DAILY venlafaxine 150 mg capsule,extended release 24hr 150 mg PO DAILY tramadol 50 mg tablet 50 mg PO DAILY gabapentin 800 mg tablet 800 mg PO DAILY benzonatate 100 mg capsule 100 mg PO DAILYP PRN (Reason: Cough) zolpidem 5 mg tablet 5 mg PO HS zolpidem 10 mg tablet 10 mg PO HS ondansetron 4 mg tablet,disintegrating 4 mg PO DAILY loratadine 10 mg tablet 10 mg PO DAILY hydroxyzine pamoate 25 mg capsule 25 mg PO DAILY cyclobenzaprine 5 mg tablet 5 mg PO DAILY azithromycin [Zithromax] 250 mg tablet 250 mg PO UD DOSE PK Qty: 6 0RF Rx Instructions: Take two (2) tablets today, then one (1) tablet days #2 thru #5 mvikzmkrbtbfkrn-cwwyknikk-SE 2-30-10 mg/5 mL syrup 5 ml PO Q6H PRN (Reason: cold symptoms) 7 Days Qty: 118 0RF Referrals Follow up/Referrals: Provider,Referral, MD [Primary Care Provider] - See instructions Activity Restrictions/Add. Instructions Additional Instructions/Restrictions: You was prescribed 2 weeks worth of your Metoprolol to due you until you can get up with your Family Doctor as requested Continue taking the Bromfed you was prescribed for cough Gargle warm salt water to help with your throat irritation You was tested for Mini Viral panel per request it should be back later today Follow up with your Family Doctor if no improvement or any worsening of symptoms Viral infection can last 7-10 days Straight to ER if any life threatening symptoms Clinical Impressions Clinical Impression: Medication refill, URI (upper respiratory infection) Instructions Patient Instructions: Metoprolol, DI for Nasal Congestion, Cough Print Language Print Language: Lithuanian Discharge ED Provider: Lucina Escobar [facility] [place] General Stated complaint: soa, cough Mode of Arrival: Ambulatory Source of Information: Patient Limitations: No Limitations Time Seen by Provider: 09/20/24 11:06 Description of Symptoms (Recalled from Triage Doc. by RN): PATIENT C/O SOA AND COUGH X 1 WEEK HEENT Symptoms (Recalled from RN notes): No Resp Symptoms (Recalled from RN notes): Yes Skin Symptoms (Recalled from RN notes): No MS Symptoms (Recalled from RN notes): No Functional Status (Recalled from RN notes): WNL History of Present Illness Provider Complaint: Patient states that he has been sick about a week with cough and having nasal congestion that makes him feels short of breath at times States that he had diarrhea panel and it came back with E AEC infection and started on azithromycin States that he then went to the ED 2 days ago and had blood work, chest xray and IV fluids and everything was negative and he was prescribed cough medication and not helped much. States he is still having cough and nasal congestion and only has one dose left of azithromycin worried he may need more and also he is out of his Metoprolol and his PCP has been out of office wanting to get a prescription for a couple weeks worth until they can get up with her to get it refilled and requesting viral panel testing Related Data Home Medications ?Medication ?Instructions ?Recorded ?Confirmed benzonatate 100 mg capsule 100 mg PO DAILYP PRN Cough 09/16/24 09/16/24 cyclobenzaprine 5 mg tablet 5 mg PO DAILY 09/16/24 09/16/24 gabapentin 800 mg tablet 800 mg PO DAILY 09/16/24 09/20/24 hydroxyzine pamoate 25 mg capsule 25 mg PO DAILY 09/16/24 09/20/24 loratadine 10 mg tablet 10 mg PO DAILY 09/16/24 09/20/24 metoprolol succinate 50 mg 50 mg PO DAILY 09/16/24 09/20/24 tablet,extended release 24 hr ondansetron 4 mg disintegrating 4 mg PO DAILY 09/16/24 09/16/24 tablet quetiapine 25 mg tablet 25 mg PO HS 09/16/24 09/20/24 tramadol 50 mg tablet 50 mg PO DAILY 09/16/24 09/20/24 venlafaxine 150 mg 150 mg PO DAILY 09/16/24 09/20/24 capsule,extended release 24 hr zolpidem 10 mg tablet 10 mg PO HS 09/16/24 09/20/24 zolpidem 5 mg tablet 5 mg PO HS 09/16/24 09/20/24 Previous Rx's ?Medication ?Instructions ?Recorded azithromycin 250 mg tablet 250 mg PO UD DOSE PK #6 tabs 09/17/24 (Zithromax) fzdspruxlsdmcat-adzpwkuiceavrnn-XF 5 ml PO Q6H PRN cold symptoms 7 09/18/24 2 mg-30 mg-10 mg/5 mL oral syrup days #118 mL metoprolol succinate 50 mg 50 mg PO DAILY #14 tabs 09/20/24 tablet,extended release 24 hr Allergies Allergy/AdvReac Type Severity Reaction Status Date / Time doxycycline (DOXYCYCLINE) Allergy Intermediate Cough Verified 06/30/24 13:34 codeine (CODEINE) Allergy Mild Difficulty Verified 06/30/24 13:34 Breathing lidocaine AdvReac Rash Verified 06/30/24 13:34 Worker's Comp Is this a Worker's Comp case?: No [facility] Disclaimer: The information contained in this section may have been updated after the patient was seen, as this information can be updated by other users. Medical History (Updated 09/20/24 @ 11:26 by Lucina Escobar APRN) Depression Anxiety Urinary tract infection Kidney stone Migraine Hypertension Interstitial cystitis Surgical History History of colonoscopy H/O shoulder surgery Social History Smoking Status: Current every day smoker tobacco type: cigarettes packs per day: 1 second hand exposure: Yes alcohol intake: never substance use type: denies use current occupational status: unemployed Travel in the last 8 weeks: None household members: other housing: house current occupational exposures/hazards: No caffeine: Yes Have you lived/traveled outside US in past 30 days?: No Contact w/someone who lives/traveled outside US past 30 days?: No Exposure to someone with infectious disease in past 14 days?: No Do you have a fever (greater than 100.4 F or 38 C)?: No Have you tested positive for COVID-19: No Exposed to someone with COVID-19 in past 14 days?: No Do you have a sore throat?: No Do you have a cough?: No Do you have any weakness?: No Do you have any diarrhea?: No Are you experiencing any unusual bleeding?: No Do you have any muscle aches/pain?: No Do you have any abdominal pain?: No Are you experiencing loss of taste or smell?: No ROS Obtained: Yes All systems reviewed & no additional complaints except as documented and Yes Systems reviewed as appropriate & no additional complaints except as documented Constitutional Constitutional: Reports system reviewed and no additional complaints, except as documented, Reports as per HPI, Reports body ache, Reports chills and Reports fever(s) ENT Ears, Nose, Mouth, and Throat: Reports system reviewed and no additional complaints, except as documented, Reports as per HPI, Reports nasal congestion and Reports nasal discharge Cardiovascular Cardiovascular: Reports system reviewed and no additional complaints, except as documented and Reports as per HPI Respiratory Respiratory: Reports system reviewed and no additional complaints, except as documented, Reports as per HPI, Reports shortness of breath (reports cant breath out of nose makes him feel SOA at times) and Reports cough Gastrointestinal Gastrointestingal: Reports system reviewed and no additional complaints, except as documented and as per HPI Musculoskeletal Musculoskeletal: Reports system reviewed and no additional complaints, except as documented and Reports as per HPI Physical Exam General General appearance: alert and in no apparent distress ENT ENT exam: Present mucous membranes moist Expanded ENT Exam Nose exam: Absent sinus tenderness Throat exam: Present normal inspection Chest Chest inspection: Present normal inspection and symmetric chest wall rise Respiratory Respiratory exam: Present normal lung sounds bilaterally; Absent respiratory distress or wheezes Cardiovascular Cardiovascular exam: Present regular rate, normal rhythm and tachycardia Abdominal Exam Abdominal exam: Present soft and normal bowel sounds; Absent distention or tenderness Neurological Exam Neurological exam: Present alert, oriented X3 and normal gait Medical Decision Making Medical Records Screening: Per USPSTF and CDC recommendations, given the prevalence of disease in our region, it is our hospital?s policy to screen for HIV and viral Hepatitis for all patients aged 18 and over and those with ongoing risk factors. Omar Inquiry Pt receiving controlled substance: No Omar was queried for this patient: No Vital Signs: 09/20/24 10:45 Temperature 99.9 F H Temperature Source Oral Pulse Rate [Left Brachial] 116 H Respiratory Rate 19 Blood Pressure [Left Arm] 139/90 Blood Pressure Mean [Left Arm] 106 Blood Pressure Source [Left Arm] Automatic Cuff Blood Pressure Position [Left Arm] Sitting 02 Sat by Pulse Oximetry 100 Oxygen Delivery Method Room Air Medical Decision Narrative: Discussed with patient that if viral, viral infections can last 7-10 days States that he is feeling better than he was and his diarrhea has stopped now just having issues breathing out of his nose that makes him feel SOA at times, States that also he has been out of his Metoprolol requesting refill until he can contact his PCP to get more medication requesting viral panel Discussed with patient that we can do viral panel here in the [facility] discussed about transfer to the ED and repeat CXR that may no show anything since he just had it done 2 days ago and he declined States that he was just concerned that after being on cough medication for 2 days he was still having cough and he only had one azithromycin left concerned he may need more viewed patients CXR results, lab and blood culture results
[2024-09-20 11:17] VITALS: BP 139/90; PULSE 116; RESP 19; TEMP 37.7; O2SAT 100
[2024-09-20 11:38] LABS: Coronavirus 19, PCR Not Detected (NotDetected); Influenza A, PCR Not Detected (NotDetected); Influenza B, PCR Not Detected (NotDetected); Respiratory Syncytial Virus Not Detected (NotDetected)
[2024-09-20 14:43] LABS: Human Rhinovirus Detected (NotDetected)
== END 2024-09-20 11:36 | disposition home or self-care (01) ==
PROVIDERS: Emergency Provider Nurse Practitioner
DX: J06.9 Acute upper respiratory infection, unspecified (principal); Z76.0 Encounter for issue of repeat prescription
CPT/HCPCS: 87631; 99213; G0381

== ENCOUNTER 2024-09-23 13:02 | Emergency (ER) | payer MEDICAID, SELFPAY ==
[2024-09-23 13:04] VITALS: BP 153/100; PULSE 87; RESP 20; TEMP 36.7; O2SAT 99; BMI 26.6
[2024-09-23 13:16] VITALS: BP 153/100; PULSE 92; RESP 18; O2SAT 94
--- NOTE | 2024-09-23 14:34 | HMH.EDGENADL ---
Discharge Plan Disposition Patient Disposition: Home, Self-Care Prescriptions Prescriptions: New prednisone 20 mg tablet 40 mg PO DAILY 5 Days Qty: 10 0RF injheyfggkzfhlo-bolvxzfeo-QL [Bromfed DM] 2-30-10 mg/5 mL syrup 5 ml PO Q6H PRN (Reason: cold symptoms) Qty: 118 0RF azithromycin 500 mg tablet 500 mg PO DAILY 3 Days Qty: 3 0RF Rx Instructions: start on day 2 of therapy No Action quetiapine 25 mg tablet 25 mg PO HS Patient Comments: TAKE 1 TO 2 TABLETS BY MOUTH EVERY NIGHT metoprolol succinate 50 mg tablet extended release 24 hr 50 mg PO DAILY venlafaxine 150 mg capsule,extended release 24hr 150 mg PO DAILY tramadol 50 mg tablet 50 mg PO DAILY gabapentin 800 mg tablet 800 mg PO DAILY benzonatate 100 mg capsule 100 mg PO DAILYP PRN (Reason: Cough) zolpidem 5 mg tablet 5 mg PO HS zolpidem 10 mg tablet 10 mg PO HS ondansetron 4 mg tablet,disintegrating 4 mg PO DAILY loratadine 10 mg tablet 10 mg PO DAILY hydroxyzine pamoate 25 mg capsule 25 mg PO DAILY cyclobenzaprine 5 mg tablet 5 mg PO DAILY azithromycin [Zithromax] 250 mg tablet 250 mg PO UD DOSE PK Qty: 6 0RF Rx Instructions: Take two (2) tablets today, then one (1) tablet days #2 thru #5 dfkuglrsnlpfdks-jlrtdwjuu-HM 2-30-10 mg/5 mL syrup 5 ml PO Q6H PRN (Reason: cold symptoms) 7 Days Qty: 118 0RF metoprolol succinate 50 mg tablet extended release 24 hr 50 mg PO DAILY Qty: 14 0RF Referrals Follow up/Referrals: Jeannette Hernandez MD [Primary Care Provider] - See instructions Activity Restrictions/Add. Instructions Additional Instructions/Restrictions: Azithromycin once daily for 3 days. Prednisone each morning for the next 5 days. Bromfed only as needed. Call your family doctor to establish care for this visit to the emergency department and schedule follow-up within 48 hours to ensure improvement. If you have any worsening of your condition or any other concerning signs or symptoms, return to the emergency department or your primary care doctor for further evaluation. Clinical Impressions Clinical Impression: Left lower lobe pneumonia Print Language Print Language: Chinese Discharge ED Provider: Candy,Ross A General Adult HPI General Chief complaint: Upper Respiratory Infection Stated complaint: soa lung pain Time Seen by Provider: 09/23/24 14:18 Mode of Arrival: Ambulatory Source of Information: Patient Limitations: No Limitations Description of Symptoms (Recalled from ER Triage Doc. by RN): Patient reports that he was diagnosed with pneumonia on Sunday and states now he has a worsening cough, shortness of breath, and is out of his cough syrup. History of Present Illness HPI narrative: Please note that above description of symptoms, in this electronic medical record under categorization of recalled from ER triage doctor by RN are reflective of an initial nursing assessment, however, is not reflective of my full history and physical exam that was personally taken and clarified. Consequentially, this preceding description of symptoms, which may include the patient's categorized chief complaint in the EMR, do not reflect my personal clinical impression, and the ultimate description of history of present illness and patient stated complaints should be deferred to this section of the note. Unless stated otherwise or congruent with this section of the note, additional signs, symptoms, or incongruence should be interpreted as inaccurate with my clinical impression. Related Data Home Medications ?Medication ?Instructions ?Recorded ?Confirmed benzonatate 100 mg capsule 100 mg PO DAILYP PRN Cough 09/16/24 09/16/24 cyclobenzaprine 5 mg tablet 5 mg PO DAILY 09/16/24 09/16/24 gabapentin 800 mg tablet 800 mg PO DAILY 09/16/24 09/20/24 hydroxyzine pamoate 25 mg capsule 25 mg PO DAILY 09/16/24 09/20/24 loratadine 10 mg tablet 10 mg PO DAILY 09/16/24 09/20/24 metoprolol succinate 50 mg 50 mg PO DAILY 09/16/24 09/20/24 tablet,extended release 24 hr ondansetron 4 mg disintegrating 4 mg PO DAILY 09/16/24 09/16/24 tablet quetiapine 25 mg tablet 25 mg PO HS 09/16/24 09/20/24 tramadol 50 mg tablet 50 mg PO DAILY 09/16/24 09/20/24 venlafaxine 150 mg 150 mg PO DAILY 09/16/24 09/20/24 capsule,extended release 24 hr zolpidem 10 mg tablet 10 mg PO HS 09/16/24 09/20/24 zolpidem 5 mg tablet 5 mg PO HS 09/16/24 09/20/24 Previous Rx's ?Medication ?Instructions ?Recorded azithromycin 250 mg tablet 250 mg PO UD DOSE PK #6 tabs 09/17/24 (Zithromax) dmlwmdfuuuwrycu-yubsurlfamkxjjd-FQ 5 ml PO Q6H PRN cold symptoms 7 09/18/24 2 mg-30 mg-10 mg/5 mL oral syrup days #118 mL metoprolol succinate 50 mg 50 mg PO DAILY #14 tabs 09/20/24 tablet,extended release 24 hr azithromycin 500 mg tablet 500 mg PO DAILY 3 days #3 tabs 09/23/24 tjbisgqgxkbehsa-kcqakgigephazab-PT 5 ml PO Q6H PRN cold symptoms #118 09/23/24 2 mg-30 mg-10 mg/5 mL oral syrup mL (Bromfed DM) prednisone 20 mg tablet 40 mg (2 x 20 mg) PO DAILY 5 days 09/23/24 #10 tabs Allergies Allergy/AdvReac Type Severity Reaction Status Date / Time doxycycline (DOXYCYCLINE) Allergy Intermediate Cough Verified 06/30/24 13:34 codeine (CODEINE) Allergy Mild Difficulty Verified 06/30/24 13:34 Breathing lidocaine AdvReac Rash Verified 06/30/24 13:34 PFSH PFSH Disclaimer: The information contained in this section may have been updated after the patient was seen, as this information can be updated by other users. Medical History (Updated 09/23/24 @ 14:48 by Samm Gupta MD) Depression Anxiety Urinary tract infection Kidney stone Migraine Hypertension Interstitial cystitis Surgical History History of colonoscopy H/O shoulder surgery Social History Smoking Status: Unknown if ever smoked second hand exposure: Yes alcohol intake: never substance use type: denies use current occupational status: unemployed Travel in the last 8 weeks: None household members: other housing: house current occupational exposures/hazards: No caffeine: Yes Have you lived/traveled outside US in past 30 days?: No Contact w/someone who lives/traveled outside US past 30 days?: No Exposure to someone with infectious disease in past 14 days?: No Do you have a fever (greater than 100.4 F or 38 C)?: No Have you tested positive for COVID-19: No Exposed to someone with COVID-19 in past 14 days?: No Do you have a sore throat?: No Do you have a cough?: No Do you have any weakness?: No Do you have any diarrhea?: No Are you experiencing any unusual bleeding?: No Do you have any muscle aches/pain?: No Do you have any abdominal pain?: No Are you experiencing loss of taste or smell?: No Other Medical History Have you received the Flu Vaccine for this season: No Have you received the Pneumonia Vaccine: No ROS Obtained: Yes All systems reviewed & no additional complaints except as documented Physical Exam General General appearance: alert Head Head exam: atraumatic and normocephalic Eye Eye exam: Present normal appearance, PERRL and EOMI Neck Neck exam: Present normal inspection, full ROM and trachea midline Respiratory Respiratory exam: Present wheezes; Absent respiratory distress, stridor, accessory muscle use or prolonged expiratory phase Cardiovascular Cardiovascular exam: Present other (Pulses equal symmetric in upper and lower extremities) Abdominal Exam Abdominal exam: Present soft; Absent distention, tenderness or pulsatile mass Extremities Exam Extremities exam: Absent edema Neurological Exam Neurological exam: Present alert, oriented X3 and CN II-XII intact; Absent motor sensory deficit Skin Skin exam: Present warm and dry; Absent diaphoresis or erythema Medical Decision Making Medical Records Medical records reviewed: Yes I reviewed the patient's medical records. Screening: Per USPSTF and CDC recommendations, given the prevalence of disease in our region, it is our hospital?s policy to screen for HIV and viral Hepatitis for all patients aged 18 and over and those with ongoing risk factors. Omar Inquiry Pt receiving controlled substance: No Omar was queried for this patient: No Vital Signs: 09/23/24 13:04 09/23/24 13:16 Temperature 98.1 F Temperature Source Oral Pulse Rate 92 H Pulse Rate [Radial] 87 Respiratory Rate 20 18 Blood Pressure 153/100 H Blood Pressure [Right Arm] 153/100 H Blood Pressure Mean [Right Arm] 117 Blood Pressure Source [Right Arm] Automatic Cuff Blood Pressure Position [Right Arm] Sitting 02 Sat by Pulse Oximetry 99 94 L Oxygen Delivery Method Room Air Room Air Orders (Tests/Meds): ORDERS Category Date Time Status HIV (1&2) Antibody Rapid Stat Lab 09/23/24 13:11 Ordered Medical Decision Narrative: 28-year-old male no relevant medical history presenting with upper respiratory syndrome. Patient states that he has been coughing, producing green sputum. Getting worse. Does not feel he gets got better and he is going on nearly a week at this point. Had a CT scan showing pneumonia, was not started on antibiotics. Came in for refill of Bromfed and further evaluation. History obtained with patient. On arrival, speaking in full sentences, nontoxic-appearing and clinically well. Lungs have bilateral wheezes, worse on the left inferior lungs. Nontachycardic. Imaging was considered, but this was deemed unnecessary given he just had a CT scan and was able to pull up the results for me to review personally. Seems patient has left lower lobe pneumonia on CT scan confirmed just a couple days prior to this. Because patient not on antibiotic, doxycycline and prednisone to be sent to pharmacy for bronchial inflammation and pneumonia. Because patient at baseline without signs or symptoms of clinical decompensation, deemed appropriate for discharge. Results were relayed to patient who voiced understanding and were agreeable to outpatient management and follow up. I discussed my clinical impression with patient and answered all questions. At this time, the evidence for any other entities in the differential is insufficient to warrant any further testing or ED observation. This was explained as well. Advisory was given that persistent or worsening symptoms require further evaluation. I confirmed the understanding of this discussion. Patient Resource Coordinator disclaimer Much of this encounter note is an electronic product support consultant spoken language to printed text. Electronic product support consultant of the spoken language may permit errors. Although I have reviewed the note, some errors may still exist. Critical Care Critical Care Time Critical Care Time: No
--- NOTE | 2024-09-23 14:34 | PC.NURSE ---
DR RONQUILLO AT BEDSIDE
[2024-09-23 14:58] VITALS: BP 161/98; PULSE 86; RESP 16; TEMP 36.7; O2SAT 95
== END 2024-09-23 14:58 | disposition home or self-care (01) ==
PROVIDERS: Emergency Provider Emergency Medicine; PCP Internal Medicine
DX: J18.1 Lobar pneumonia, unspecified organism (principal); R06.02 Shortness of breath; R05.9 Cough, unspecified; R06.2 Wheezing
CPT/HCPCS: 99283

== ENCOUNTER 2024-10-16 15:52 | Emergency (ER) | payer MEDICAID, SELFPAY ==
--- NOTE | 2024-10-16 16:11 | XR_ITS ---
PROCEDURE INFORMATION: Exam: XR Chest Exam date and time: 10/16/2024 4:09 PM Age: 29 years old Clinical indication: Cough and shortness of breath; Additional info: SOA TECHNIQUE: Imaging protocol: Radiologic exam of the chest. Views: 2 views. COMPARISON: CR XR CHEST PORTABLE 09/18/2024 11:31 AM FINDINGS: Lungs: No alveolar consolidation. Pleural spaces: No pleural effusion. No pneumothorax. Heart/Mediastinum: No cardiomegaly. Bones/joints: No acute osseous abnormality is detected. Soft tissues: 12 mm nodular opacity projecting over the right lung base is likely a nipple shadow. IMPRESSION: 1. No infiltrate or pleural effusion. 2. Likely nipple shadow projecting over right lung base.
[2024-10-16 16:15] VITALS: BP 123/78; PULSE 143; RESP 20; TEMP 39.6; O2SAT 94; BMI 28.0
[2024-10-16 16:20] LABS: UTC Influenza A Antigen Positive (Negative); UTC Influenza B Antigen Negative (Negative)
[2024-10-16] MEDS: IBUPROFEN 400 MG TABLET 800 MG PO (16:21)
--- NOTE | 2024-10-16 16:26 | EXP.UTC ---
Discharge Plan Disposition Patient Disposition: Home, Self-Care Condition: Good Prescriptions Prescriptions: New cyclobenzaprine 10 mg Tablet 10 mg PO BID PRN (Reason: Muscle Spasm) Qty: 20 0RF oseltamivir [Tamiflu] 75 mg capsule 75 mg PO BID 5 Days Qty: 10 0RF dmzqpwliprcgpls-ozcvmgyiy-WS [Bromfed DM] 2-30-10 mg/5 mL Syrup 5 ml PO Q6H PRN (Reason: Cough) Qty: 240 0RF No Action quetiapine 25 mg tablet 25 mg PO HS Patient Comments: TAKE 1 TO 2 TABLETS BY MOUTH EVERY NIGHT metoprolol succinate 50 mg tablet extended release 24 hr 50 mg PO DAILY venlafaxine 150 mg capsule,extended release 24hr 150 mg PO DAILY tramadol 50 mg tablet 50 mg PO DAILY gabapentin 800 mg tablet 800 mg PO DAILY benzonatate 100 mg capsule 100 mg PO DAILYP PRN (Reason: Cough) zolpidem 5 mg tablet 5 mg PO HS zolpidem 10 mg tablet 10 mg PO HS loratadine 10 mg tablet 10 mg PO DAILY hydroxyzine pamoate 25 mg capsule 25 mg PO DAILY cyclobenzaprine 5 mg tablet 5 mg PO DAILY azithromycin [Zithromax] 250 mg tablet 250 mg PO UD DOSE PK Qty: 6 0RF Rx Instructions: Take two (2) tablets today, then one (1) tablet days #2 thru #5 zftnnshjvozynjt-givkmhvyb-PC 2-30-10 mg/5 mL syrup 5 ml PO Q6H PRN (Reason: cold symptoms) 7 Days Qty: 118 0RF yuxpxbqycamxzui-ilpdolbba-BW [Bromfed DM] 2-30-10 mg/5 mL syrup 5 ml PO Q6H PRN (Reason: cold symptoms) Qty: 118 0RF azithromycin 500 mg tablet 500 mg PO DAILY 3 Days Qty: 3 0RF Rx Instructions: start on day 2 of therapy metoprolol succinate 50 mg tablet extended release 24 hr 50 mg PO DAILY Qty: 14 0RF Referrals Follow up/Referrals: Provider,Referral, MD [Primary Care Provider] - See instructions Activity Restrictions/Add. Instructions Additional Instructions/Restrictions: Drink plenty of fluids. Take tylenol or ibuprofen for pain or fever. Take the medications as directed. Follow up with your regular doctor. GO TO THE ER FOR ANY WORSENING SYMPTOMS The muscle relaxer (cyclobenzaprine--Flexeril) will make you drowsy, so don't drive or operate heavy machinery after taking it. Clinical Impressions Clinical Impression: Influenza A Stand Alone Forms Stand Alone Forms: Work/School Release Instructions Patient Instructions: Influenza, DI for Influenza -- Adult, Cyclobenzaprine, Oseltamivir Print Language Print Language: Arabic Discharge ED Provider: Provider,Referral [facility] [place] HPI General Stated complaint: cough,chest congestion,fever Mode of Arrival: Ambulatory Source of Information: Patient Time Seen by Provider: 10/16/24 16:26 Description of Symptoms (Recalled from Triage Doc. by RN): COUGH, DIZZY, FEVER, FLU A EXP HEENT Symptoms (Recalled from RN notes): Yes Resp Symptoms (Recalled from RN notes): Yes Skin Symptoms (Recalled from RN notes): No MS Symptoms (Recalled from RN notes): No Functional Status (Recalled from RN notes): WNL History of Present Illness Provider Complaint: He states that for the past 2 days he has had fever, dry cough, body aches, malaise and chills. Related Data Home Medications ?Medication ?Instructions ?Recorded ?Confirmed benzonatate 100 mg capsule 100 mg PO DAILYP PRN Cough 09/16/24 09/16/24 cyclobenzaprine 5 mg tablet 5 mg PO DAILY 09/16/24 09/16/24 gabapentin 800 mg tablet 800 mg PO DAILY 09/16/24 09/20/24 hydroxyzine pamoate 25 mg capsule 25 mg PO DAILY 09/16/24 09/20/24 loratadine 10 mg tablet 10 mg PO DAILY 09/16/24 09/20/24 metoprolol succinate 50 mg 50 mg PO DAILY 09/16/24 09/20/24 tablet,extended release 24 hr quetiapine 25 mg tablet 25 mg PO HS 09/16/24 09/20/24 tramadol 50 mg tablet 50 mg PO DAILY 09/16/24 09/20/24 venlafaxine 150 mg 150 mg PO DAILY 09/16/24 09/20/24 capsule,extended release 24 hr zolpidem 10 mg tablet 10 mg PO HS 09/16/24 10/16/24 zolpidem 5 mg tablet 5 mg PO HS 09/16/24 09/20/24 Previous Rx's ?Medication ?Instructions ?Recorded azithromycin 250 mg tablet 250 mg PO UD DOSE PK #6 tabs 09/17/24 (Zithromax) boxqmmgtetwfcjh-xmssqnzjhuoosle-VH 5 ml PO Q6H PRN cold symptoms 7 09/18/24 2 mg-30 mg-10 mg/5 mL oral syrup days #118 mL metoprolol succinate 50 mg 50 mg PO DAILY #14 tabs 09/20/24 tablet,extended release 24 hr azithromycin 500 mg tablet 500 mg PO DAILY 3 days #3 tabs 09/23/24 elbufxwtkpeydmj-jkwapojxakqymkz-SV 5 ml PO Q6H PRN cold symptoms #118 09/23/24 2 mg-30 mg-10 mg/5 mL oral syrup mL (Bromfed DM) pkzddagvknhbvtm-ukscsmefergmtas-RL 5 ml PO Q6H PRN Cough #240 mL 10/16/24 2 mg-30 mg-10 mg/5 mL oral syrup (Bromfed DM) cyclobenzaprine 10 mg tablet 10 mg PO BID PRN Muscle Spasm #20 10/16/24 tabs oseltamivir 75 mg capsule (Tamiflu) 75 mg PO BID 5 days #10 caps 10/16/24 Allergies Allergy/AdvReac Type Severity Reaction Status Date / Time doxycycline (DOXYCYCLINE) Allergy Intermediate Cough Verified 06/30/24 13:34 codeine (CODEINE) Allergy Mild Difficulty Verified 06/30/24 13:34 Breathing lidocaine AdvReac Rash Verified 06/30/24 13:34 Worker's Comp Is this a Worker's Comp case?: No [facility] Disclaimer: The information contained in this section may have been updated after the patient was seen, as this information can be updated by other users. Medical History (Updated 10/16/24 @ 17:28 by Jose Gallo APRN) Depression Anxiety Urinary tract infection Kidney stone Migraine Hypertension Interstitial cystitis Surgical History History of colonoscopy H/O shoulder surgery Social History Smoking Status: Unknown if ever smoked second hand exposure: Yes alcohol intake: never substance use type: denies use current occupational status: unemployed Travel in the last 8 weeks: None household members: other housing: house current occupational exposures/hazards: No caffeine: Yes Have you lived/traveled outside [place] in past 30 days?: No Contact w/someone who lives/traveled outside US past 30 days?: No Exposure to someone with infectious disease in past 14 days?: Yes Do you have a fever (greater than 100.4 F or 38 C)?: Yes Have you tested positive for COVID-19: No Exposed to someone with COVID-19 in past 14 days?: No Do you have a sore throat?: Yes Do you have a cough?: Yes Do you have any weakness?: No Do you have any diarrhea?: No Are you experiencing any unusual bleeding?: No Do you have any muscle aches/pain?: No Do you have any abdominal pain?: No Are you experiencing loss of taste or smell?: No ROS Obtained: Yes All systems reviewed & no additional complaints except as documented Constitutional Constitutional: Reports chills and Reports fever(s) Eyes Eyes: Denies eye discharge ENT Ears, Nose, Mouth, and Throat: Reports as per HPI Cardiovascular Cardiovascular: Denies chest pain Respiratory Respiratory: Denies chest congestion and Reports cough Gastrointestinal Gastrointestingal: Reports nausea; Denies abdominal pain, constipation, cramping, diarrhea or vomiting Musculoskeletal Musculoskeletal: Denies arthralgias Integumentary/Breasts Skin/Breast: Denies rash Neurologic Neurologic: Denies paresthesias Physical Exam General General appearance: alert and in no apparent distress Head Head exam: atraumatic, normocephalic and normal inspection Eye Eye exam: Present normal appearance, PERRL and EOMI ENT ENT exam: Present mucous membranes moist and normal external ear exam Expanded ENT Exam TM/Canal exam: Bilateral TM: erythema and bulging Nose exam: Absent sinus tenderness Mouth exam: Present normal external inspection; Absent drooling Teeth exam: Present normal inspection Throat exam: Present tonsillar erythema, tonsillomegaly and tonsillar exudate Neck Neck exam: Present normal inspection, full ROM and trachea midline; Absent tenderness, meningismus or lymphadenopathy Chest Chest inspection: Present normal inspection and symmetric chest wall rise; Absent tenderness Respiratory Respiratory exam: Present normal lung sounds bilaterally; Absent respiratory distress, wheezes, stridor or accessory muscle use Cardiovascular Cardiovascular exam: Present regular rate and normal rhythm; Absent systolic murmur or diastolic murmur Abdominal Exam Abdominal exam: Present soft and normal bowel sounds; Absent distention, tenderness, guarding, rebound or rigidity Extremities Exam Extremities exam: Present normal inspection and normal capillary refill; Absent calf tenderness Back Exam Back exam: Present normal inspection and full ROM; Absent tenderness, CVA tenderness (R) or CVA tenderness (L) Neurological Exam Neurological exam: Present alert, oriented X3 and CN II-XII intact Psychiatric Psychiatric exam: Present normal affect and normal mood Skin Skin exam: Present warm, dry, intact and normal color Medical Decision Making Medical Records Medical records reviewed: No I reviewed the patient's medical records. Screening: Per USPSTF and CDC recommendations, given the prevalence of disease in our region, it is our hospital?s policy to screen for HIV and viral Hepatitis for all patients aged 18 and over and those with ongoing risk factors. Omar Inquiry Pt receiving controlled substance: No Vital Signs: 10/16/24 16:15 Temperature 103.2 F H Temperature Source Oral Pulse Rate [Left Radial] 143 H Respiratory Rate 20 Blood Pressure [Left Arm] 123/78 Blood Pressure Mean [Left Arm] 93 02 Sat by Pulse Oximetry 94 L Lab Data Lab results reviewed: Yes I reviewed the patient's lab results. Lab Results 10/16/24 16:11: Influenza Type A Ag Positive A, Influenza Type B Ag Negative Orders (Tests/Meds): ED MEDICATIONS Generic Name Dose Route Start Last Admin Trade Name Freq PRN Reason Stop Dose Admin Sodium Chloride 1,000 mls @ 999 mls/hr 10/16/24 16:23 Sod Chlor 0.9% 1000ml Bag IV 10/16/24 17:23 .[id number] ONE Discontinued Medications Generic Name Dose Route Start Last Admin Trade Name Freq PRN Reason Stop Dose Admin Ibuprofen 800 mg 10/16/24 16:19 10/16/24 16:21 Ibuprofen 400 Mg Tablet PO 10/16/24 16:20 800 mg ONCE ONE Administration ORDERS Category Date Time Status Chest XR 2 view (NOT portable) [XR chest 2V] Stat Exams 10/16/24 16:11 Taken
[2024-10-16] MEDS: 0.9 % SODIUM CHLORIDE 1000ML 1,000 ML 999 ML IV (16:31)
[2024-10-16] MEDS: ONDANSETRON 4MG ODT 4 MG SL (16:32)
[2024-10-16 16:47] VITALS: PULSE 126
[2024-10-16 17:05] VITALS: TEMP 37.7
[2024-10-16 17:29] VITALS: BP 123/78; PULSE 126; RESP 20; TEMP 37.7
== END 2024-10-16 17:36 | disposition home or self-care (01) ==
PROVIDERS: Nurse Practitioner Family
DX: J09.X2 Influenza due to identified novel influenza A virus with other respiratory manifestations (principal)
CPT/HCPCS: 71046; 87804; 99212; G0381; J7030; Q0162

== ENCOUNTER 2025-01-09 19:22 | Emergency (ER) | payer MEDICAID, SELFPAY ==
--- OUTSIDE RECORDS SUMMARY | 2025-01-09 19:31 | XMS_ITS | Data Portability ---
Author Organization [place] - [facility] [place] Address [address] [place] [id number] Care Team Providers Care Lead Net Software Developer Name Role Phone ANASTACIO HIGH Primary Care Provider Assessment Encounter Date Assessment Date Assessment LastModified by Organization Details LastModified Time 02/15/2024 02/15/2024 28-year-old male with a history of bowel obstruction and volvulus with constipation, recently hospitalized with small bowel obstruction 11/2023: - Will schedule first available colonoscopy for further evaluation - Will obtain labs per below - Will order small-bowel follow-through at [facility] to evaluate for small bowel strictures or obstructions - Will prescribe Linzess 145 mcg PO daily. Discussed with patient that liquid stools are more permissive for him at this time due to possible strictures or obstruction. - Instructed patient if abdominal distension worsens, he is unable to pass flatus, he does not have a bowel movement, abdominal pain increases, fever or tachycardia develop to go to the ER. If bleeding, fatigue, dizziness, or weakness worsens or he develops hematemesis go to ER. F/u 2-4 weeks after Colonoscopy [email or web address] Not available 02/15/2024 10:27:57 Plan of Treatment Reminders Order Date Submit Date Provider Last Modified By Organization Details Last Modified Time Details Appointments None recorded. Lab CBC w/ auto diff 2023 024 [facility], [address], [address], [place], [address], 14:39:49 CMP, serum or plasma 2023 024 [facility], [address], [address], [place], [address], 4 15:01:36 procalciton in, serum 2023 024 [facility], [address], [address], [place], [address], 4 15:12:04 C reactive protein, QN, serum or plasma 2023 024 [facility], [address], [address], [place], [address], 4 16:12:24 erythrocyte sedimentati on rate by westergren method 2023 024 [facility], [address], [address], [place], [address], 4 16:12:23 calprotecti n, stool 2023 024 [facility], [address], [address], [place], [address], 4 16:12:22 Referral None recorded. Procedures None recorded. Surgeries None recorded. Imaging RF, small bowel follow-thro ugh study [address] ([facility]), [address], [place], [address], 4 13:27:02 Medication Orders Linzess 145 mcg capsule 2023 024 [id number], [address] [facility] [address], [place], [place], [id number], 4 10:10:17 Patient TargetsNo targets recorded. Patient InstructionsNo instructions recorded. Reason for Referral None Reported. Results Created Date Observation Date Name Description Value Unit Range Abnormal Flag Note LastModifiedBy Organization Detail LastModifiedTime 02/15/20 24 02/16/2024 CBC WITH DIFFE RENTI AL/PL ATELE T WBC 8.3 x10e3 /uL 3.4-10 .8 Not Available [facility] ([facility]) [address] [facility], [place], [address], 02/18/2024 16:12:20 02/15/20 24 02/16/2024 CBC WITH DIFFE RENTI AL/PL ATELE T RBC 4.58 x10e6 /uL 4.14-5 .80 Polyc hroma dionisio prese nt Ovalo cytes prese nt. Not Available [facility] ([facility]) [address] [facility], [place], [address], 02/18/2024 16:12:20 02/15/20 24 02/16/2024 CBC WITH DIFFE RENTI AL/PL ATELE T hemoglobin 13.1 g/dL 13.0-1 7.7 Not Available [facility] ([facility]) [address] [facility], [place], [address], 02/18/2024 16:12:20 02/15/20 24 02/16/2024 CBC WITH DIFFE RENTI AL/PL ATELE T hematocrit 40.0 % 37.5-5 1.0 Not Available [facility] ([facility]) [address] [facility], [place], [address], 02/18/2024 16:12:20 02/15/20 24 02/16/2024 CBC WITH DIFFE RENTI AL/PL ATELE T MCV 87 fL 79-97 Not Available [facility] ([facility]) [address] [place], [address], 02/18/2024 16:12:20 02/15/20 24 02/16/2024 CBC WITH DIFFE RENTI AL/PL ATELE T MCH 28.6 pg 26.6-3 3.0 Not Available [facility] ([facility]) [address] [facility], [place], [address], 02/18/2024 16:12:20 02/15/20 24 02/16/2024 CBC WITH DIFFE RENTI AL/PL ATELE T MCHC 32.8 g/dL 31.5-3 5.7 Not Available [facility] ([facility]) [address] [facility], [place], [address], 02/18/2024 16:12:20 02/15/20 24 02/16/2024 CBC WITH DIFFE RENTI AL/PL ATELE T RDW 13.7 % 11.6-1 5.4 Not Available [facility] ([facility]) [address] [facility], [place], [address], 02/18/2024 16:12:20 02/15/20 24 02/16/2024 CBC WITH DIFFE RENTI AL/PL ATELE T platelets 204 x10e3 /uL 150-45 0 Not Available [facility] ([facility]) [address] [facility], [place], [address], 02/18/2024 16:12:20 02/15/20 24 02/16/2024 CBC WITH DIFFE RENTI AL/PL ATELE T neutrophils 71 % not estab. Not Available [facility] ([facility]) [address] [facility], [place], [address], 02/18/2024 16:12:20 02/15/20 24 02/16/2024 CBC WITH DIFFE RENTI AL/PL ATELE T lymphs 17 % not estab. Not Available [facility] ([facility]) [address] [facility], [place], [address], 02/18/2024 16:12:20 02/15/20 24 02/16/2024 CBC WITH DIFFE RENTI AL/PL ATELE T monocytes 5 % not estab. Not Available [facility] ([facility]) [address] [facility], [place], [address], 02/18/2024 16:12:20 02/15/20 24 02/16/2024 CBC WITH DIFFE RENTI AL/PL ATELE T eos 2 % not estab. Not Available [facility] ([facility]) [address] [place], [address], 02/18/2024 16:12:20 02/15/20 24 02/16/2024 CBC WITH DIFFE RENTI AL/PL ATELE T basos 0 % not estab. Not Available [facility] ([facility]) [address] [facility], [place], [address], 02/18/2024 16:12:20 02/15/20 24 02/16/2024 CBC WITH DIFFE RENTI AL/PL ATELE T immature cells Note Not Available [facility] ([facility]) [address] [place], [address], 02/18/2024 16:12:20 02/15/20 24 02/16/2024 CBC WITH DIFFE RENTI AL/PL ATELE T bands CHIEF SCIENTIST Not Available [facility] ([facility]) [address] [place], [address], 02/18/2024 16:12:20 02/15/20 24 02/16/2024 CBC WITH DIFFE RENTI AL/PL ATELE T metamyelocyt es 3 % 0 - 0 above high normal Not Available [facility] ([facility]) [address] [place], [address], 02/18/2024 16:12:20 02/15/20 24 02/16/2024 CBC WITH DIFFE RENTI AL/PL ATELE T myelocytes 2 % 0 - 0 above high normal Not Available [facility] ([facility]) [address] [place], [address], 02/18/2024 16:12:20 02/15/20 24 02/16/2024 CBC WITH DIFFE RENTI AL/PL ATELE T promyelocyte s CHIEF SCIENTIST Not Available [facility] ([facility]) [address] [facility] [place], [address], 02/18/2024 16:12:20 02/15/20 24 02/16/2024 CBC WITH DIFFE RENTI AL/PL ATELE T blasts/blast like cells CHIEF SCIENTIST Not Available [facility] ([facility]) [address] [facility], [place], [address], 02/18/2024 16:12:20 02/15/20 24 02/16/2024 CBC WITH DIFFE RENTI AL/PL ATELE T megakaryocyt es CHIEF SCIENTIST Not Available [facility] ([facility]) [address] [place], [address], 02/18/2024 16:12:20 02/15/20 24 02/16/2024 CBC WITH DIFFE RENTI AL/PL ATELE T other, lineage uncertain CHIEF SCIENTIST Not Available [facility] ([facility]) [address] [place], [address], 02/18/2024 16:12:20 02/15/20 24 02/16/2024 CBC WITH DIFFE RENTI AL/PL ATELE T neutrophils (absolute) 5.9 x10e3 /uL 1.4-7. 0 Not Available [facility] ([facility]) [address] [place], [address], 02/18/2024 16:12:20 02/15/20 24 02/16/2024 CBC WITH DIFFE RENTI AL/PL ATELE T lymphs (absolute) 1.4 x10e3 /uL 0.7-3. 1 Not Available [facility] ([facility]) [address] [place], [address], 02/18/2024 16:12:20 02/15/20 24 02/16/2024 CBC WITH DIFFE RENTI AL/PL ATELE T monocytes(ab solute) 0.4 x10e3 /uL 0.1-0. 9 Not Available [facility] ([facility]) [address] [place], [address], 02/18/2024 16:12:20 02/15/20 24 02/16/2024 CBC WITH DIFFE RENTI AL/PL ATELE T eos (absolute) 0.2 x10e3 /uL 0.0-0. 4 Not Available [facility] ([facility]) [address] [facility], [place], [address], 02/18/2024 16:12:20 02/15/20 24 02/16/2024 CBC WITH DIFFE RENTI AL/PL ATELE T baso (absolute) 0.0 x10e3 /uL 0.0-0. 2 Not Available [facility] ([facility]) [address] [facility], [place], [address], 02/18/2024 16:12:20 02/15/20 24 02/16/2024 CBC WITH DIFFE RENTI AL/PL ATELE T immature granulocytes CHIEF SCIENTIST Not Available [facility] ([facility]) [address] [facility], [place], [address], 02/18/2024 16:12:20 02/15/20 24 02/16/2024 CBC WITH DIFFE RENTI AL/PL ATELE T immature grans (abs) CHIEF SCIENTIST Not Available [facility] ([facility]) [address] [facility], [place], [address], 02/18/2024 16:12:20 02/15/20 24 02/16/2024 CBC WITH DIFFE RENTI AL/PL ATELE T NRBC CHIEF SCIENTIST Not Available [facility] ([facility]) [address] [facility], [place], [address], 02/18/2024 16:12:20 02/15/20 24 02/16/2024 CBC WITH DIFFE RENTI AL/PL ATELE T hematology comments: Note: Keo garcia diffe renti al was perfo rmed. Not Available [facility] ([facility]) [address] [facility], [place], [address], 02/18/2024 16:12:20 02/15/20 24 02/16/2024 COMP. METAB OLIC PANEL (14) glucose 92 mg/dL 70-99 Not Available [facility] ([facility]) [address] [facility] [place] [place], [address], 02/18/2024 16:12:21 02/15/20 24 02/16/2024 COMP. METAB OLIC PANEL (14) BUN 9 mg/dL 6-20 Not Available [facility] ([facility]) [address] [facility] [place] [place], [address], 02/18/2024 16:12:21 02/15/20 24 02/16/2024 COMP. METAB OLIC PANEL (14) creatinine 1.09 mg/dL 0.76-1 .27 Not Available [facility] ([facility]) [address] [place], [address], 02/18/2024 16:12:21 02/15/20 24 02/16/2024 COMP. METAB OLIC PANEL (14) eGFR 94 mL/mi n/1.7 3 >59 Not Available [facility] ([facility]) [address] [place], [address], 02/18/2024 16:12:21 02/15/20 24 02/16/2024 COMP. METAB OLIC PANEL (14) BUN/creatini ne ratio 8 9-20 below low normal Not Available [facility] ([facility]) [address] [place], [address], 02/18/2024 16:12:21 02/15/20 24 02/16/2024 COMP. METAB OLIC PANEL (14) sodium 141 mmol/ L 134-14 4 Not Available [facility] ([facility]) [address] [place], [address], 02/18/2024 16:12:21 02/15/20 24 02/16/2024 COMP. METAB OLIC PANEL (14) potassium 4.1 mmol/ L 3.5-5. 2 Not Available [facility] ([facility]) [address] [facility] [place] [place], [address], 02/18/2024 16:12:21 02/15/20 24 02/16/2024 COMP. METAB OLIC PANEL (14) chloride 103 mmol/ L 96-106 Not Available [facility] ([facility]) [address] [facility] [place] [place], [address], 02/18/2024 16:12:21 02/15/20 24 02/16/2024 COMP. METAB OLIC PANEL (14) carbon dioxide, total 25 mmol/ L 20-29 Not Available [facility] ([facility]) [address] [facility], [place], [address], 02/18/2024 16:12:21 02/15/20 24 02/16/2024 COMP. METAB OLIC PANEL (14) calcium 8.8 mg/dL 8.7-10 .2 Not Available [facility] ([facility]) [address] [facility] [place] [place], [address], 02/18/2024 16:12:21 02/15/20 24 02/16/2024 COMP. METAB OLIC PANEL (14) protein, total 6.2 g/dL 6.0-8. 5 Not Available [facility] ([facility]) [address] [facility] [place] [place], [address], 02/18/2024 16:12:21 02/15/20 24 02/16/2024 COMP. METAB OLIC PANEL (14) albumin 4.1 g/dL 4.3-5. 2 below low normal Not Available [facility] ([facility]) [address] [facility] [place] [place], [address], 02/18/2024 16:12:21 02/15/20 24 02/16/2024 COMP. METAB OLIC PANEL (14) globulin, total 2.1 g/dL 1.5-4. 5 Not Available [facility] ([facility]) [address] [place], [address], 02/18/2024 16:12:21 02/15/20 24 02/16/2024 COMP. METAB OLIC PANEL (14) A/G ratio 2.0 1.2-2. 2 Not Available [facility] ([facility]) [address] [place], [address], 02/18/2024 16:12:21 02/15/20 24 02/16/2024 COMP. METAB OLIC PANEL (14) bilirubin, total <0.2 mg/dL 0.0-1. 2 Not Available [facility] ([facility]) [address] [place], [address], 02/18/2024 16:12:21 02/15/20 24 02/16/2024 COMP. METAB OLIC PANEL (14) alkaline phosphatase 101 IU/L 44-121 Not Available [facility] ([facility]) [address] [place], [address], 02/18/2024 16:12:21 02/15/20 24 02/16/2024 COMP. METAB OLIC PANEL (14) AST (SGOT) 20 IU/L 0-40 Not Available [facility] ([facility]) [address] [place], [address], 02/18/2024 16:12:21 02/15/20 24 02/16/2024 COMP. METAB OLIC PANEL (14) ALT (SGPT) 16 IU/L 0-44 Not Available [facility] ([facility]) [address] [place], [address], 02/18/2024 16:12:21 02/15/20 24 02/16/2024 CALPR OTECT IN, FECAL calprotectin , fecal TNP ug/g Test not perfo rmed. No stool speci men recei luma. Jen ntrat ion Inter preta tion Follo w-Up < 5 - 50 ug/g Iram l None >50 -120 ug/g Borde rline Re-ev aluat e in 4-6 weeks >120 ug/g Abnor mal Repea t as clini jostin indic ated Not Available [facility] ([facility]) [address] [facility], [place], [address], 02/18/2024 16:12:22 02/15/20 24 02/18/2024 PROCA LCITO STONE procalcitoni n 0.07 NG/mL 0.00-0 .08 A proca lcito stone (PCT) level above 2.0 ng/mL on the first day of ICU admis hugo is assoc iated with a high risk for progr essio n to sever e sepsi s and/o r septi c shock . A PCT level below 0.5 ng/mL on the first day of ICU admis hugo is assoc iated with a low risk for progr essio n to sever e sepsi s and/o r septi c shock . Note: Jen ntrat ions <0.5 ng/mL do not exclu de an infec tion, on accou nt of local ized infec tions (with out syste nayeli signs ) which can be assoc iated with such low jen ntrat ions, or a syste nayeli infec tion in its initi al stage s (<6 hours ). Furth ermor e, incre ased proca lcito stone can occur witho ut infec tion. PCT jen ntrat ions betwe en 0.5 and 2.0 ng/mL shoul d be inter prete d takin g into accou nt the patie nt's histo ry. It is recom mateo d to retes t PCT withi n 6-24 hours if any jen ntrat ions <2 ng/mL are obtai ira. Not Available [facility] ([facility]) [address] [facility], [place], [address], 02/18/2024 16:12:23 02/15/20 24 02/16/2024 SEDIM ENTAT ION RATE- WESTE RGREN sedimentatio n rate-westerg elian 2 mm/HR 0-15 Not Available [facility] ([facility]) [address] [facility], [place], [address], 02/18/2024 16:12:23 02/15/20 24 02/16/2024 C-HILDA CTIVE PROTE IN, QUANT C-reactive protein, quant 1 mg/L 0-10 Not Available [facility] ([facility]) [address] [facility], [place], [address], 02/18/2024 16:12:24 02/15/20 24 02/16/2024 SPECI MEN STATU S REPOR T specimen status report TNP Test not perfo rmed. No stool speci men recei luma. TEST: 13009 [id number] Calpr otect in, Fecal Not Available [facility] ([facility]) [address] [facility], [place], [address], 02/18/2024 16:12:25 02/16/20 24 02/16/2024 CBC AUTO W DIFF WBC 10.8 K/uL 4.0-10 .5 high Not Available [facility] ([facility]) [address] [facility], [place], [address], 02/16/2024 14:39:49 02/16/20 24 02/16/2024 CBC AUTO W DIFF RBC 4.6 M/mm3 4.7-6. 1 low Not Available [facility] ([facility]) [address] [facility], [place], [address], 02/16/2024 14:39:49 02/16/20 24 02/16/2024 CBC AUTO W DIFF HGB 13.3 gm/dL 13.5-1 8.0 low Not Available [facility] ([facility]) [address] [facility], [place], [address], 02/16/2024 14:39:49 02/16/20 24 02/16/2024 CBC AUTO W DIFF HCT 40.3 % 42.0-5 2.0 low Not Available [facility] ([facility]) [address] [place], [address], 02/16/2024 14:39:49 02/16/20 24 02/16/2024 CBC AUTO W DIFF MCV 86.9 fL 78-100 Not Available [facility] ([facility]) [address] , [place], [address], 02/16/2024 14:39:49 02/16/20 24 02/16/2024 CBC AUTO W DIFF MCH 28.7 pg 27-31 Not Available [facility] ([facility]) [address] , [place], [address], 02/16/2024 14:39:49 02/16/20 24 02/16/2024 CBC AUTO W DIFF MCHC 33.0 g/dL 32-36 Not Available [facility] ([facility]) [address] , [place], [address], 02/16/2024 14:39:49 02/16/20 24 02/16/2024 CBC AUTO W DIFF RDW 13.5 % 11.5-1 4.0 Not Available [facility] ([facility]) [address] , [place], [address], 02/16/2024 14:39:49 02/16/20 24 02/16/2024 CBC AUTO W DIFF platelet count 235 K/uL 150-45 0 Not Available [facility] ([facility]) [address] , [place], [address], 02/16/2024 14:39:49 02/16/20 24 02/16/2024 CBC AUTO W DIFF MPV 8.9 fL 6-9.5 Not Available [facility] ([facility]) [address] , [place], [address], 02/16/2024 14:39:49 02/16/20 24 02/16/2024 CBC AUTO W DIFF neutrophil% 61.6 % 43-65 Not Available [facility] ([facility]) [address] [place], [address], 02/16/2024 14:39:49 02/16/20 24 02/16/2024 CBC AUTO W DIFF lymphocyte% 25.9 % 20.5-4 5.5 Not Available [facility] ([facility]) [address] [place], [address], 02/16/2024 14:39:49 02/16/20 24 02/16/2024 CBC AUTO W DIFF monocyte% 6.6 % 5.5-11 .7 Not Available [facility] ([facility]) [address] [place], [address], 02/16/2024 14:39:49 02/16/20 24 02/16/2024 CBC AUTO W DIFF eosinophil% 1.9 % 0.9-2. 9 Not Available [facility] ([facility]) [address] [place], [address], 02/16/2024 14:39:49 02/16/20 24 02/16/2024 CBC AUTO W DIFF basophil% 0.5 % 0.2-1. 0 Not Available [facility] ([facility]) [address] [place], [address], 02/16/2024 14:39:49 02/16/20 24 02/16/2024 CBC AUTO W DIFF immature granulocytes % 3.5 % 0.0-0. 8 high Not Available [facility] ([facility]) [address] [place], [address], 02/16/2024 14:39:49 02/16/20 24 02/16/2024 CBC AUTO W DIFF nucleated red blood cells % 0.0 % Not Available [facility] ([facility]) [address] [place], [address], 02/16/2024 14:39:49 02/16/20 24 02/16/2024 CBC AUTO W DIFF neutrophil# 6.7 K/uL 2.2-4. 8 high Not Available [facility] ([facility]) [address], [place], [address], 02/16/2024 14:39:49 02/16/20 24 02/16/2024 CBC AUTO W DIFF lymphocyte# 2.8 cell/ mcL 1.3-2. 9 Not Available [facility] ([facility]) [address] [facility], [place], [address], 02/16/2024 14:39:49 02/16/20 24 02/16/2024 CBC AUTO W DIFF monocyte# 0.7 cell/ mcL 0.3-0. 8 Not Available [facility] ([facility]) [address] [facility], [place], [address], 02/16/2024 14:39:49 02/16/20 24 02/16/2024 CBC AUTO W DIFF eosinophil# 0.2 cell/ mcL 0-0.2 Not Available [facility] ([facility]) [address] [facility], [place], [address], 02/16/2024 14:39:49 02/16/20 24 02/16/2024 CBC AUTO W DIFF basophil# 0.1 cell/ mcL 0.0-1. 0 Not Available [facility] ([facility]) [address] [place], [address], 02/16/2024 14:39:49 02/16/20 24 02/16/2024 CBC AUTO W DIFF immature gramulocytes # 0.38 K/uL Not Available [facility] ([facility]) [address] [place], [address], 02/16/2024 14:39:49 02/16/20 24 02/16/2024 CBC AUTO W DIFF nucleated red blood cells # 0.00 K/uL Not Available [facility] ([facility]) [address], [place], [address], 02/16/2024 14:39:49 02/16/20 24 02/16/2024 CBC AUTO W DIFF manual differential NO Not Available [facility] ([facility]) [address], [place], [address], 02/16/2024 14:39:49 02/16/20 24 02/16/2024 COMP METAB OLIC PANEL sodium 141 mmol/ L 136-14 5 Not Available [facility] ([facility]) [address] , [place], [address], 02/16/2024 15:01:36 02/16/20 24 02/16/2024 COMP METAB OLIC PANEL potassium 4.2 mmol/ L 3.6-5. 0 Not Available [facility] ([facility]) [address] , [place], [address], 02/16/2024 15:01:36 02/16/20 24 02/16/2024 COMP METAB OLIC PANEL chloride 104 mmol/ L 98-107 Not Available [facility] ([facility]) [address] , [place], [address], 02/16/2024 15:01:36 02/16/20 24 02/16/2024 COMP METAB OLIC PANEL carbon dioxide 28.7 mmol/ L 21.0-3 2.0 Not Available [facility] ([facility]) [address] , [place], [address], 02/16/2024 15:01:36 02/16/20 24 02/16/2024 COMP METAB OLIC PANEL anion gap 12.5 Not Available [facility] ([facility]) [address] , [place], [address], 02/16/2024 15:01:36 02/16/20 24 02/16/2024 COMP METAB OLIC PANEL glucose 92 mg/dL 70-120 Not Available [facility] ([facility]) [address], [place], [address], 02/16/2024 15:01:36 02/16/20 24 02/16/2024 COMP METAB OLIC PANEL BUN 16 mg/dL 7-18 Not Available [facility] ([facility]) [address], [place], [address], 02/16/2024 15:01:36 02/16/20 24 02/16/2024 COMP METAB OLIC PANEL creatinine 1.4 mg/dL 0.6-1. 3 high Not Available [facility] ([facility]) [address], [place], [address], 02/16/2024 15:01:36 02/16/20 24 02/16/2024 COMP METAB OLIC PANEL glomerular filtration rate >60 mlper min 60- Not Available [facility] ([facility]) [address], [place], [address], 02/16/2024 15:01:36 02/16/20 24 02/16/2024 COMP METAB OLIC PANEL total protein 6.8 g/dL 6.4-8. 2 Not Available [facility] ([facility]) [address], [place], [address], 02/16/2024 15:01:36 02/16/20 24 02/16/2024 COMP METAB OLIC PANEL albumin 3.7 g/dL 3.4-5. 0 Not Available [facility] ([facility]) [address], [place], [address], 02/16/2024 15:01:36 02/16/20 24 02/16/2024 COMP METAB OLIC PANEL globulin 3.1 Not Available [facility] ([facility]) [address] [place], [address], 02/16/2024 15:01:36 02/16/20 24 02/16/2024 COMP METAB OLIC PANEL alb/glob ratio 1.2 0.7-2 Not Available [facility] ([facility]) [address] , [place], [address], 02/16/2024 15:01:36 02/16/20 24 02/16/2024 COMP METAB OLIC PANEL calcium 8.3 mg/dL 8.5-10 .5 low Not Available [facility] ([facility]) [address], [place], [address], 02/16/2024 15:01:36 02/16/20 24 02/16/2024 COMP METAB OLIC PANEL bilirubin total 0.20 mg/dL 0.10-1 .00 Not Available [facility] ([facility]) [address], [place], [address], 02/16/2024 15:01:36 02/16/20 24 02/16/2024 COMP METAB OLIC PANEL AST (SGOT) 18 U/L 0-37 Not Available [facility] ([facility]) [address], [place], [address], 02/16/2024 15:01:36 02/16/20 24 02/16/2024 COMP METAB OLIC PANEL ALT (SGPT) 29 U/L 0-65 Not Available [facility] ([facility]) [address], [place], [address], 02/16/2024 15:01:36 02/16/20 24 02/16/2024 COMP METAB OLIC PANEL alk phosphatase 110 U/L 46-116 Not Available [facility] ([facility]) [address], [place], [address], 02/16/2024 15:01:36 02/16/20 24 02/16/2024 C-HILDA CTIVE PROTE IN (CRP) C-reactive protein, quant <0.2 mg/dL 0.05-0 .300 Not Available [facility] ([facility]) [address], [place], [address], 02/16/2024 15:01:38 02/16/20 24 02/16/2024 PROCA LCITO STONE procalcitoni n (pct) <0.05 NG/mL 0.00-0 .5 PCT 0.5 to 2 ng/mL : High risk of progr essio n to sever e syste nayeli infec tion (robert re sepsi s/ septi c shock ). PCT >/= 10 ng/mL : High likel ihood of sever e spesi s or septi c shock . Not Available [facility] ([facility]) [address] [facility] [facility], [place], [address], 02/16/2024 15:12:04 02/16/20 24 02/16/2024 SED RATE sed rate auto 5 0-15 Not Available [facility] ([facility]) [address] [facility], [place], [address], 02/16/2024 15:36:56 02/16/20 24 02/22/2024 CALPR OTECT IN, FECAL calprotectin , fecal 121 ug/g 0-120 high Jen ntrat ion Inter preta tion Follo w-Up < 5 - 50 ug/g Iram l None >50 -120 ug/g Borde rline Re-ev aluat e in 4-6 weeks >120 ug/g Abnor mal Repea t as clini jostin indic ated Perfo rmed at: [facility] [place] [address] [facility] , [place] [address] [address] Dire[facility] tor: Felipa banerjee MD, Phone : [phone] Not Available [facility] ([facility]) [address], [place], [address], 02/22/2024 15:13:11 Result Notes None recorded. Procedures Surgical History Date Name Laterality Status Provider Name and Address Organization Details Recorded Time 3 Abdominal Surgery completed Nighat [facility] [place] 02/22/2024 14:56:41 4 Other completed Nighat [facility] [place] 02/22/2024 14:56:41 7 Colonoscopy completed Nighat [facility] [place] 02/22/2024 14:56:41 Imaging Results None recorded. Procedure Notes None recorded. Medical Equipment None Reported. Allergies Allergen ID Allergen Name Allergen Category Reaction Reaction Severity Criticality Documentation Date Start Date Code Code System Note Provider Name and Address Organization Details Recorded Time 874616 codeine medicatio n wheezing moderate Not available 02/15/2024 2670 RxNorm MYRNA Flores [facility] [place] 4 09:13:59 [id number] doxycycli ne Not available Not available Not available Not available 02/15/2024 3640 RxNorm MYRNA Flores [facility] & [place] 4 09:14:07 Medications Name Sig Start Date Stop Date Status Note LastModified by Organization Details LastModified Time quetiapine 25 mg tablet TAKE 1 TO 2 TABLETS BY MOUTH EVERY NIGHT active Not Available Not Available No t Available gabapentin 600 mg tablet TAKE 1 TABLET BY MOUTH THREE TIMES DAILY 01/28 completed Not Available Not Available Not Available Stool Softener 100 mg capsule TAKE 1 CAPSULE BY MOUTH TWICE DAILY NEEDED active Not Available Not Available No t Available valacyclovi r 1 gram tablet TAKE 2 TABLETS BY MOUTH TWICE DAILY FOR 1 DAY 01/28 completed Not Available Not Available Not Available ondansetron HCl 4 mg tablet TAKE 1 TABLET BY MOUTH EVERY 4 HOURS NEEDED FOR NAUSEA AND VOMITING active Not Available Not Available No t Available venlafaxine ER 150 mg capsule,ext ended release 24 hr TAKE 1 CAPSULE BY MOUTH DAILY active Not Available Not Available No t Available sulfamethox azole 800 mg-trimetho prim 160 mg tablet TAKE 1 TABLET BY MOUTH TWICE DAILY FOR 7 DAYS 01/28 completed Not Available Not Available Not Available tramadol 50 mg tablet TAKE 1 TABLET BY MOUTH EVERY 8 HOURS NEEDED FOR MODERATE PAIN active Not Available Not Available No t Available baclofen 20 mg tablet TAKE 1 TABLET BY MOUTH THREE TIMES DAILY active Not Available Not Available No t Available gabapentin 800 mg tablet TAKE 1 TABLET BY MOUTH THREE TIMES DAILY active Not Available Not Available No t Available diclofenac sodium 75 mg tablet,bette yed release TAKE 1 TABLET BY MOUTH TWICE DAILY WITH FOOD NEEDED FOR MODERATE PAIN active Not Available Not Available No t Available ergocalcife rol (vitamin D2) 1,250 mcg (50,000 unit) capsule TAKE 1 CAPSULE BY MOUTH 1 TIME EVERY WEEK active Not Available Not Available No t Available levofloxaci n 750 mg tablet TAKE 1 TABLET BY MOUTH ONCE DAILY FOR 10 DAYS 01/28 completed Not Available Not Available Not Available ondansetron 4 mg disintegrat ing tablet DISSOLVE 1 TABLET ON THE TONGUE EVERY 8 HOURS NEEDED FOR NAUSEA OR VOMITING active Not Available Not Available No t Available loratadine 10 mg tablet TAKE 1 TABLET BY MOUTH EVERY DAY active Not Available Not Available No t Available Ventolin HFA 90 mcg/actuati on aerosol inhaler INHALE 2 PUFFS BY MOUTH EVERY 4 HOURS NEEDED FOR WHEEZING 01/28 completed Not Available Not Available Not Available oxycodone 5 mg tablet TAKE 1 TABLET BY MOUTH THREE TIMES DAILY FOR UP TO 5 DAYS NEEDED FOR SEVERE PAIN OR PAIN 01/28 completed Not Available Not Available Not Available hydroxyzine pamoate 25 mg capsule TAKE 1 CAPSULE BY MOUTH THREE TIMES DAILY NEEDED FOR ANXIETY active Not Available Not Available No t Available cyclobenzap rine 5 mg tablet TAKE 1 TABLET BY MOUTH THREE TIMES DAILY NEEDED FOR MUSCLE SPASMS 01/28 completed Not Available Not Available Not Available metoprolol tartrate 25 mg tablet TAKE 1 TABLET BY MOUTH DAILY active Not Available Not Available No t Available Toviaz 8 mg tablet,exte nded release TAKE 1 TABLET BY MOUTH DAILY active Not Available Not Available No t Available sodium,pota ssium,mag sulfates 17.5 gram-3.13 gram-1.6 gram oral soln MIX AND DRINK DIRECTED active Not Available Not Available No t Available Linzess 145 mcg capsule TAKE 1 CAPSULE BY MOUTH EVERY DAY active Not Available Not Available No t Available Aimovig Autoinjecto r 70 mg/mL subcutaneou s auto-inject or ADMINISTE R 1 ML UNDER THE SKIN EVERY 30 DAYS DIRECTED active Not Available Not Available No t Available Ubrelvy 100 mg tablet TAKE 1 TABLET BY MOUTH DAILY NEEDED FOR MIGRAINES FOR UP TO 30 DAYS active Not Available Not Available No t Available Paxlovid 300 mg (150 mg x 2)-100 mg tablets in a dose pack FOLLOW PACKAGE DIRECTION S 01/28 completed Not Available Not Available Not Available Vitals Date Recorded Body weight Body mass index (BMI) Body height Body temperature Oxygen saturation Oxygen saturation in Arterial blood by Pulse oximetry Heart rate Heart rate Systolic blood pressure Diastolic blood pressure Provider Name and Address Organization Details Last Updated DateTime 4 93837.7 3 g 24.6 kg/m2 177.8 cm 98.6 [degF] 98 % 98 % 110 /min 112 /min 160 mm[Hg] 107 mm[Hg] Raul Adler [facility] & [place] 4 09:13:44 Social History Question Answer Notes LastModified by Organizat ion Details LastModified Time Tobacco Smoking Status Current Every Day Smoker Nighat [facility] [place] 02/22/2024 14:56:40 Do You Have An Advance Directive? No Information not available 02/22/2024 What Is Your Level Of Alcohol Consumption? Occasional Information not available 02/15/2024 Are You Blind Or Do You Have Difficulty Seeing? No Information not available 02/22/2024 What Is Your Level Of Caffeine Consumption? Moderate [email or web address] Information not available 02/15/2024 Do You Or Have You Ever Used E-cigarettes Or Vape? Current User Of Electronic Cigarettes Information not available 02/15/2024 What Was The Date Of Your Most Recent Tobacco Screening? 01/29/2024 Information not available 02/22/2024 Are You Passively Exposed To Smoke? No Information not available 02/22/2024 Do You Or Have You Ever Used Smokeless Tobacco? Never Used Smokeless Tobacco Information not available 02/22/2024 How Much Tobacco Do You Smoke? 1 PPD Information not available 02/22/2024 Do You Feel Stressed (tense, Restless, Nervous, Or Anxious, Or Unable To Sleep At Night)? [id number] Information not available 02/22/2024 Do You Use Any Illicit Or Recreational Drugs? No [email or web address] Information not available 02/15/2024 How Many Years Have You Smoked Tobacco? 12 Information not available 02/22/2024 Do You Or Have You Ever Used Any Other Forms Of Tobacco Or Nicotine? Yes [email or web address] Information not available 02/15/2024 Sex: Male Functional Status Question Answer Note LastModified by Organization D etails LastModified Time What is your exercise level? Moderate Information not available 02/22/2024 Mental Status None recorded. Family History Nothing Reported. Medical History Condition Response Headaches Y Back Problems Y Kidney or Bladder Problems Y Hypertension Y GI Problems Y Past Encounters Encounter ID Performer Location Encounter Start Date Encounter Closed Date Diagnosis/Indication Diagnosis SNOMED-CT Code Diagnosis ICD10 Code Diagnosis Note [id number] [facility] [place] [address] [address] 02/15/2024 08:49:22 02/15/2024 10:31:22 History of small bowel obstruction 2762868756 91961878 Z87.19 Abdominal distension, gaseous 467769512 R14.0 Chronic id iopathic constipation 09522917 K59.04 Nausea 726396327 R11.0 Health Concerns Section Related Observation LastModified by Organization Detai ls LastModified Time None Recorded Concern Status LastModified by Organization Details LastModified Time None Recorded Advance Directives Directive N: Payers Encounter Date Sequence Insurance Name Policy Number Policy Dos Santos Covered Member ID Dos Santos Member ID Guarantor Name 02/15/2024 1 [facility] (MEDICAID REPLACEMENT - HMO) Migel Quinones [id number] Migel Quinones Notes Date Note Type Note Provider Name and Address Organization Details Recorded Time 02/15/2024 text/html CURRENT (02/15/24 Kassi Li): Ms. Quinones is a 28-year-old male who was recently hospitalized at [facility] 11/2023 for small bowel obstruction. The patient was treated with bowel rest and NG tube compression which relieved his symptoms. He reports previous bowel surgery in February 2023 for perforated bowel and appendectomy a the [facility]. I have not reviewed these records. 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 He presents to the clinic today complaining of abdominal distension, colicky abdominal pain and black stools x2 weeks. He does report some weakness, fatigue and dizziness. He is passing flatus daily. He reports constipation with a bowel movement every 2-3 days. His last bowel movement was yesterday. He previously tried MiraLax which caused his abdominal pain to worsen. He complains of constant nausea for which he takes Zofran daily to avoid vomiting. He denies Pepto-Bismol use or iron supplementation. He denies any previous family history of irritable bowel disease, excessive NSAID use, daily alcohol use, or hematemesis. MARIE LI MSN, RAILROAD OPERATOR, MANAGER REPORT-C [id number], [place], [address], [facility] [place] [facility] [place] & [place] 02/15/2024 10:28:26
[2025-01-09 19:33] VITALS: BP 136/90; PULSE 100; RESP 20; TEMP 36.8; O2SAT 97; BMI 26.9
[2025-01-09 19:34] VITALS: PULSE 92; O2SAT 92
--- NOTE | 2025-01-09 19:43 | CT_ITS ---
PROCEDURE INFORMATION: Exam: CT Abdomen And Pelvis With Contrast Exam date and time: 01/09/2025 8:32 PM Age: 29 years old Clinical indication: Abdominal pain; Additional info: Gen abd pain, no bm x 2wk, not passing gas x1d TECHNIQUE: Imaging protocol: Computed tomography of the abdomen and pelvis with contrast. Radiation optimization: All CT scans at this facility use at least one of these dose optimization techniques: automated exposure control; mA and/or kV adjustment per patient size (includes targeted exams where dose is matched to clinical indication); or iterative reconstruction. Contrast material: ISOVUE; Contrast volume: 75 ml; Contrast route: IV; COMPARISON: CT ABDOMEN PELVIS W CON 12/22/2023 9:40 PM FINDINGS: Lungs: Calcified granuloma or hamartoma within the anterior right lower lobe. Liver: Normal. Gallbladder and biliary ducts: Normal. Pancreas: Normal. Spleen: Normal. Adrenal glands: Normal. No mass. Kidneys and ureters: Mild renal parenchymal lobulation, possibly developmental versus scarring. Stomach and bowel: Surgical changes of prior sigmoid colon anastomosis. Moderate amount of stool within the left colon and rectal vault, compatible with constipation. No obstruction. Appendix: Appendix normal. Intraperitoneal space: 2.7 x 2.7 cm focus of inflamed, encapsulated fat within the left peritoneum (series 3, images 35-41), possibly representing epiploic appendagitis or segmental omental infarction. Vasculature: Unremarkable. No abdominal aortic aneurysm. Lymph nodes: Unremarkable. No enlarged lymph nodes. Urinary bladder: Mild urinary bladder wall thickening, with minimal adjacent fat stranding, suggesting cystitis. Reproductive: Unremarkable as visualized. Bones/joints: No acute abnormality. Soft tissues: Normal. IMPRESSION: 1. Moderate amount of stool within the left colon and rectal vault, compatible with constipation. No obstruction. 2. Mild urinary bladder wall thickening, with minimal adjacent fat stranding, suggesting cystitis. 3. 2.7 x 2.7 cm focus of inflamed, encapsulated fat within the left peritoneum (series 3, images 35-41), possibly representing epiploic appendagitis or segmental omental infarction. Findings appear new from comparison study.
--- NOTE | 2025-01-09 19:46 | ED_ITS ---
Discharge Plan Disposition Patient Disposition: Home, Self-Care Condition: Good Prescriptions Prescriptions: New Linzess 72 mcg capsule 72 mcg PO DAILY Qty: 30 0RF No Action phenazopyridine [Pyridium] 200 mg tablet 200 mg PO Q8H Qty: 6 0RF quetiapine 25 mg tablet 25 mg PO HS Patient Comments: TAKE 1 TO 2 TABLETS BY MOUTH EVERY NIGHT venlafaxine 150 mg capsule,extended release 24hr 150 mg PO DAILY tramadol 50 mg tablet 50 mg PO DAILY gabapentin 800 mg tablet 800 mg PO DAILY zolpidem 10 mg tablet 10 mg PO HS loratadine 10 mg tablet 10 mg PO DAILY hydroxyzine pamoate 25 mg capsule 25 mg PO DAILY metoprolol succinate 50 mg tablet extended release 24 hr 50 mg PO DAILY Qty: 14 0RF cyclobenzaprine 10 mg Tablet 10 mg PO BID PRN (Reason: Muscle Spasm) Qty: 20 0RF [id number] [Bromfed DM] 2-30-10 mg/5 mL Syrup 5 ml PO Q6H PRN (Reason: Cough) Qty: 240 0RF Referrals Follow up/Referrals: Jeannette Hernandez MD [Primary Care Provider] - See instructions Activity Restrictions/Add. Instructions Additional Instructions/Restrictions: You were evaluated in the emergency department today. As we discussed, I do recommend an enema for cleanout. I also recommend administering 4-5 capfuls 3-4 capfuls of MiraLAX at 1 time for cleanout. After that, I recommend 1-2 capfuls daily as needed for soft stools. I am refilling your Linzess at your request, however if you have issues getting it filled with your insurance, please follow- up closely with your primary care doctor for this. They can help refill it if need be. Return to the emergency department for new or worsening symptoms, such as significant abdominal pain, vomiting, or inability to have a bowel movement even after interventions. Clinical Impressions Clinical Impression: Fecal impaction, Constipation Instructions Patient Instructions: DI for Constipation, DI for Acute Abdominal Pain, DI for Fecal Impaction Print Language Print Language: Bahamian Discharge ED Provider: Gloria Gore General Adult HPI General Chief complaint: Abdominal Pain Stated complaint: Abdominal pain denies vomiting Time Seen by Provider: 01/09/25 19:33 Mode of Arrival: Ambulatory Source of Information: Patient Description of Symptoms (Recalled from ER Triage Doc. by RN): Pt presents to ED for Abd pain and constipation. Pt has a significant health hx. (Colostomy placed March, removed Jul, small bowel obstruction, lg bowel obstruction) Pt states he's been constipated /for approx 2 weeks however the pain intensified today. Pt is A&O*4 and rates pain History of Present Illness HPI narrative: This patient is a 29-year-old male with a history of Hirschsprung's disease, prior small and large bowel obstruction status post colectomy with ostomy and reversal in July 2024, interstitial cystitis, prior infected kidney stone presenting to the emergency department for evaluation of concern for abdominal pain, nausea, and no bowel movement in 2 weeks. He states that he is been having very small golf ball sized stools that are so hard that they have ripped his rectum. He notes that his last episode of golf ball sized stools was yesterday, and today he has not been able to pass anything, including gas. He is concerned he has a bowel obstruction again. No vomiting, no other concerns noted. His prior surgeries were with Dr. Victor at , but he follows regularly with primary care at [facility]. Related Data Home Medications ?Medication ?Instructions ?Recorded ?Confirmed gabapentin 800 mg tablet 800 mg PO DAILY 09/16/24 01/09/25 hydroxyzine pamoate 25 mg capsule 25 mg PO DAILY 09/16/24 01/09/25 loratadine 10 mg tablet 10 mg PO DAILY 09/16/24 01/09/25 quetiapine 25 mg tablet 25 mg PO HS 09/16/24 01/09/25 tramadol 50 mg tablet 50 mg PO DAILY 09/16/24 01/09/25 venlafaxine 150 mg 150 mg PO DAILY 09/16/24 01/09/25 capsule,extended release 24 hr zolpidem 10 mg tablet 10 mg PO HS 09/16/24 01/09/25 Previous Rx's ?Medication ?Instructions ?Recorded metoprolol succinate 50 mg 50 mg PO DAILY #14 tabs 09/20/24 tablet,extended release 24 hr [id number]-[id number] 5 ml PO Q6H PRN Cough #240 mL 10/16/24 2 mg-30 mg-10 mg/5 mL oral syrup (Bromfed DM) cyclobenzaprine 10 mg tablet 10 mg PO BID PRN Muscle Spasm #20 10/16/24 tabs phenazopyridine 200 mg tablet 200 mg PO Q8H 6 doses #6 tabs 10/27/24 (Pyridium) linaclotide 72 mcg capsule 72 mcg PO DAILY #30 caps 01/09/25 (Linzess) Allergies Allergy/AdvReac Type Severity Reaction Status Date / Time doxycycline (DOXYCYCLINE) Allergy Intermediate Cough Verified 10/27/24 17:15 codeine (CODEINE) Allergy Mild Difficulty Verified 10/27/24 17:15 Breathing lidocaine AdvReac Rash Verified 10/27/24 17:15 [facility] Disclaimer: The information contained in this section may have been updated after the patient was seen, as this information can be updated by other users. Medical History Depression Anxiety Urinary tract infection Kidney stone Migraine Hypertension Interstitial cystitis Surgical History History of colonoscopy H/O shoulder surgery Social History Smoking Status: Current every day smoker tobacco type: cigarettes packs per day: 1 second hand exposure: Yes alcohol intake: never substance use type: denies use current occupational status: unemployed Travel in the last 8 weeks: None household members: other housing: house current occupational exposures/hazards: No caffeine: Yes Have you lived/traveled outside [place] in past 30 days?: No Contact w/someone who lives/traveled outside [place] past 30 days?: No Exposure to someone with infectious disease in past 14 days?: No Do you have a fever (greater than 100.4 F or 38 C)?: No Have you tested positive for COVID-19: No Exposed to someone with COVID-19 in past 14 days?: No Do you have a sore throat?: No Do you have a cough?: No Do you have any weakness?: No Do you have any diarrhea?: No Are you experiencing any unusual bleeding?: No Do you have any muscle aches/pain?: No Do you have any abdominal pain?: No Are you experiencing loss of taste or smell?: No Other Medical History Have you received the Flu Vaccine for this season: No Have you received the Pneumonia Vaccine: No ROS Obtained: Yes All systems reviewed & no additional complaints except as documented Physical Exam General General appearance: alert and in no apparent distress Head Head exam: atraumatic and normocephalic Eye Eye exam: Present normal appearance, PERRL and EOMI ENT ENT exam: Present normal exam, normal oropharynx, mucous membranes moist and normal external ear exam Neck Neck exam: Present normal inspection, full ROM and trachea midline; Absent tenderness Chest Chest inspection: Present normal inspection and symmetric chest wall rise; Absent tenderness Respiratory Respiratory exam: Present normal lung sounds bilaterally; Absent respiratory distress, wheezes, stridor or accessory muscle use Cardiovascular Cardiovascular exam: Present regular rate and normal rhythm Abdominal Exam Abdominal exam: Present soft and tenderness (Left lower quadrant); Absent distention or guarding Extremities Exam Extremities exam: Present normal inspection, full ROM and normal capillary refill; Absent tenderness or edema Back Exam Back exam: Present normal inspection and full ROM; Absent tenderness Neurological Exam Neurological exam: Present alert, oriented X3, CN II-XII intact and normal gait; Absent motor sensory deficit Psychiatric Psychiatric exam: Present normal affect and normal mood Skin Skin exam: Present warm and dry Medical Decision Making Medical Records Medical records reviewed: Yes I reviewed the patient's medical records. Screening: Per USPSTF and CDC recommendations, given the prevalence of disease in our region, it is our hospital?s policy to screen for HIV and viral Hepatitis for all patients aged 18 and over and those with ongoing risk factors. Omar Inquiry Pt receiving controlled substance: No Vital Signs: 01/09/25 19:33 01/09/25 19:34 01/09/25 20:01 Temperature 98.3 F Temperature Source Oral Pulse Rate 92 H 75 Pulse Rate [Left] 100 H Respiratory Rate 20 18 Blood Pressure 154/86 H Blood Pressure [Right Arm] 136/90 Blood Pressure Mean [Right Arm] 105 Blood Pressure Source Blood Pressure Position 02 Sat by Pulse Oximetry 97 92 L 95 Oxygen Delivery Method Room Air 01/09/25 20:38 01/09/25 21:01 01/09/25 21:35 Temperature 97.9 F Temperature Source Oral Pulse Rate 85 77 74 Pulse Rate [Left] Respiratory Rate 16 Blood Pressure 138/88 134/88 128/74 Blood Pressure [Right Arm] Blood Pressure Mean [Right Arm] Blood Pressure Source Automatic Cuff Blood Pressure Position Supine 02 Sat by Pulse Oximetry 95 95 Oxygen Delivery Method Room Air Lab Data Lab results reviewed: Yes I reviewed the patient's lab results. Lab Results 01/09/25 19:33: WBC 7.3, RBC 4.74, Hgb 14.2, Hct 42.2, MCV 89.0, MCH 30.0, MCHC 33.6, RDW 13.4, Plt Count 287, MPV 9.5, Neut % (Auto) 59.4, Lymph % (Auto) 33.0, Hawkins % (Auto) 6.1, Eos % (Auto) 0.8, Baso % (Auto) 0.3, Neut # (Auto) 4.3, Lymph # (Auto) 2.4, Hawkins # (Auto) 0.4, Eos # (Auto) 0.1, Baso # (Auto) 0.0, Sodium 141, Potassium 4.5, Chloride 106, Carbon Dioxide 27, Anion Gap 12.5, BUN 12, C reatinine 1.30 H, Estimated Creat Clear 100, Estimated GFR 65, Est GFR ( Amer) 78, Glucose 87, Lactate 0.8, Calcium 9.1, Total Bilirubin 0.4, AST 30, ALT 16, Alkaline Phosphatase 98, Total Protein 7.6 D, Albumin 4.6, Globulin 3.0, Albumin/Globulin Ratio 1.5, Lipase 102 01/09/25 20:01: Urine Color Yellow, Urine Appearance Clear, Urine pH 6.0, Ur Specific Dorothy 1.015, Urine Protein Negative, Urine Glucose (UA) Negative, Urine Ketones Negative, Urine Blood Negative, Urine Nitrate Negative, Urine Bilirubin Negative, Urine Urobilinogen 0.2, Ur Leukocyte Esterase Negative, Urine RBC None, Urine WBC Occasional, Ur Squamous Epith Cells Occasional, Urine Bacteria Trace 01/09/25 19:33 01/09/25 19:33 Orders (Tests/Meds): ED MEDICATIONS Discontinued Medications Generic Name Dose Route Start Last Admin Trade Name Freq PRN Reason Stop Dose Admin Acetaminophen 1,000 mg 01/09/25 19:44 01/09/25 19:52 Acetaminophen 1,000mg/100ml Vial IV 01/09/25 19:45 1,000 mg ONCE ONE Administration Lactated Ringer's 1,000 mls @ 999 mls/hr 01/09/25 19:44 01/09/25 19:52 Lactated Ringer's 1000 Ml Bag IV 01/09/25 20:44 999 mls/hr .Q1H1M ONE Administration Iopamidol 75 ml 01/09/25 20:37 01/09/25 20:38 Iopamidol-370 (76%);100ml Bottle IV 01/09/25 20:38 75 ml ONCE ONE Administration Ketorolac Tromethamine 15 mg 01/09/25 19:44 01/09/25 19:51 Ketorolac 30mg/Ml Vial IV 01/09/25 19:45 15 mg ONCE ONE Administration Ondansetron HCl 4 mg 01/09/25 19:44 01/09/25 19:51 Ondansetron 4mg/2ml Vial IV 01/09/25 19:45 4 mg ONCE ONE Administration Sodium Chloride 10 ml 01/09/25 20:37 01/09/25 20:37 Sodium Chloride 0.9% 10ml Syr (Rad Only) IV 02/08/25 20:36 10 ml NEEDED PRN Administration Maintain IV Site ORDERS Category Date Time Status CT abdomen pelvis w con Stat Cat Scan 01/09/25 19:43 Completed Complete Blood Count Auto Diff Stat Lab 01/09/25 19:33 Completed Comprehensive Metabolic Panel Stat Lab 01/09/25 19:33 Completed Lactic Acid Stat Lab 01/09/25 19:33 Completed Lipase Stat Lab 01/09/25 19:33 Completed UA [Urinalysis and Microscopic] Stat Lab 01/09/25 20:01 Completed Medical Decision Narrative: In summary, this patient is a 29-year-old male presenting to the Emergency Department for evaluation of abdominal pain, no good bowel movement in 2 weeks, not passing gas since yesterday, nausea. Differential diagnoses considered include but are not limited to bowel obstruction, constipation, fecal impaction, ileus, colitis. Ruling out the most morbid conditions drove assessment. It should be noted patient's history includes extensive surgical abdominal history as well as interstitial cystitis which may or may not be at goal therapy. This complicates all aspects of care by increasing patient's risk for morbidity. I reviewed patient's past medical records and noted prior admission for abdominal pain after colostomy. On exam, the patient is lying in bed in no acute distress. He is some left lower quadrant tenderness but no rebound or guarding. Vitals are reassuring on cardiac telemetry workup included CBC, CMP, lipase, lactic acid, urinalysis, CT abdomen pelvis with IV contrast. He is given a bolus of IV fluids as well as IV Toradol, acetaminophen, and Zofran. I independently interpreted CT scan prior to the radiologist read and noted fecal impaction and constipation without obvious obstruction. Please see their read for final interpretation. Labs were obtained that demonstrated reassuring CBC with no significant leukocytosis, chemistry is reassuring with only mildly elevated creatinine. Urine is not concerning for infection. On reassessment, the patient is resting comfortably in bed with reassuring vital signs and cardiac telemetry and reassuring abdominal exam. I advised him that he has fecal impaction and constipation and recommended enema for disimpaction. He states that he has enemas at home and wants to do it at home as opposed to staying here for disimpaction. Given this, patient was discharged via patient directed discharge with instructions to use MiraLAX and enema for cleanout. He advised that he wanted a refill of his Linzess that he supposed be taking, as he ran out. I did provide this to him. He was given strict return precautions and instructions for close follow-up with primary care Critical Care Critical Care Time Critical Care Time: No
[2025-01-09] MEDS: KETOROLAC 30MG/ML VIAL 15 MG IV (19:51)
[2025-01-09] MEDS: ONDANSETRON 4MG/2ML VIAL 4 MG IV (19:51)
[2025-01-09 19:52] LABS: Basophils % 0.3 % (0.1-2.0); Eosinophils # 0.1 Kmm3 (0.0-0.4); Eosinophils % 0.8 % (0.1-12.0); Hematocrit 42.2 % (42.0-52.0); Hemoglobin 14.2 g/dL (14.1-18.0); Lymphocytes # 2.4 K/mm3 (0.7-4.5); Mean Corpuscular HGB Conc 33.6 g/dL (31.8-35.4); Mean Platelet Volume 9.5 fl (7.4-10.4); Monocytes # 0.4 K/mm3 (0.1-1.0); Monocytes % 6.1 % (1.7-9.3); Neutrophils # 4.3 K/mm3 (1.8-7.8); Neutrophils % 59.4 % (37.0-80.0); Nucleated Red Blood Cells # 0 10^3/uL; Nucleated Red Blood Cells % 0 %; Platelet Count 287 K/mm3 (142-424); Red Blood Count 4.74 M/mm3 (4.60-6.20); Red Cell Distribution Width 13.4 % (11.5-17.5); Red Cell Distribution Width-SD 43.7 fL; White Blood Count 7.3 K/mm3 (4.8-10.8)
[2025-01-09] MEDS: ACETAMINOPHEN 1,000MG/100ML VIAL 1000 MG IV (19:52)
[2025-01-09] MEDS: LACTATED RINGERS 1000ML 1,000 ML 999 ML IV (19:52)
[2025-01-09 19:53] LABS: Albumin Level 4.6 g/dl (3.5-5.0); Chloride 106 mmol/L (98-107)
[2025-01-09 19:54] LABS: Potassium 4.5 mmoL/L (3.5-5.1); Sodium 141 mmol/L (136-145)
[2025-01-09 19:56] LABS: Alanine Aminotransferase 16 U/L (12-78); Alkaline Phosphatase 98 U/L (38-126); Anion Gap 12.5 mEq/L (5-15); Aspartate Amino Transferase 30 U/L (17-59); Bilirubin,Total 0.4 mg/dl (0.2-1.3); Blood Urea Nitrogen 12 mg/dl (9-20); Carbon Dioxide 27 mmol/L (22.0-30.0); Creatinine Clearance Estimated 100 mL/min (50-200); Estimated Glomerular Filt Rate 65 ml/min (>60); GFR (African American) 78 ML/MIN (>60)
[2025-01-09 19:57] LABS: Albumin/Globulin Ratio 1.5 (1.1-1.8); Calcium 9.1 mg/dl (8.4-10.2); Glucose 87 mg/dl (74-100); Lipase 102 U/L (23-300); Total Protein,Serum 7.6 g/dl (6.3-8.2)
[2025-01-09 19:59] LABS: Lactic Acid 0.8 mmol/L (0.7-2.1)
[2025-01-09 20:01] VITALS: BP 154/86; PULSE 75; RESP 18; O2SAT 95
[2025-01-09 20:05] LABS: Appearance,Urine CLEAR (Clear); Bilirubin,Urine Negative (Negative); Blood, Urine Negative (Negative); Color,Urine YELLOW (Yellow); Glucose,Urine (UA) Negative (Negative); Ketones,Urine Negative (Negative); Leukocyte Esterase,Urine Negative (Negative); Microscopic, Urine URINE MICROSCOPIC (MICROSCOPIC); Nitrate,Urine Negative (Negative); Protein,Urine Negative (Negative); Specific Gravity, Urine 1.015 (1.005-1.030); Urobilinogen,Urine 0.2 EU/dl (0.2)
[2025-01-09 20:21] LABS: Bacteria,Urine Trace /lpf; Squamous Epithelial Cell,Urine Occasional #/hpf (0-5); WBC,Urine Occasional #/hpf (0-3)
[2025-01-09] MEDS: SODIUM CHLORIDE 0.9% 10ML SYR (RAD ONLY) 10 ML IV (20:37)
[2025-01-09 20:38] VITALS: BP 138/88; PULSE 85; O2SAT 95
[2025-01-09] MEDS: IOPAMIDOL-370 (76%);100ML BOTTLE 75 ML IV (20:38)
[2025-01-09 21:01] VITALS: BP 134/88; PULSE 77; O2SAT 95
[2025-01-09 21:35] VITALS: BP 128/74; PULSE 74; RESP 16; TEMP 36.6; O2SAT 98
== END 2025-01-09 21:35 | disposition home or self-care (01) ==
PROVIDERS: Emergency Provider Emergency Medicine; PCP Internal Medicine
DX: R10.32 Left lower quadrant pain (principal); K56.41 Fecal impaction
CPT/HCPCS: 74177; 80053; 81001; 83605; 83690; 85025; 96361; 96374; 96375; 99285; J0131; J1885; J2405; J7120; Q9967

== ENCOUNTER 2025-07-08 10:21 | Outpatient (CLI) | payer MEDICAID, SELFPAY ==
--- NOTE | 2025-07-08 10:28 | XR_ITS ---
FINAL REPORT CLINICAL HISTORY: PAIN unable to reach overhead. COMPARISON: 07/22/2015 FINDINGS: Three views of the right shoulder show no evidence of acute displaced fracture or dislocation of the visualized bony architecture. The joint spaces appear normal. IMPRESSION: Unremarkable exam. No change from the prior exam. Reviewed, Interpreted and Dictated by Cheyanne Bal MD Transcribed by Carole Sorto Authenticated and [facility]
== END 2025-07-08 23:59 | disposition home or self-care (01) ==
LOC: RAD 10:23
PROVIDERS: PCP Internal Medicine; Visit Provider Internal Medicine
DX: M25.511 Pain in right shoulder (principal); G89.29 Other chronic pain
CPT/HCPCS: 73030

== ENCOUNTER 2025-08-30 08:38 | Outpatient (CLI) | payer MEDICAID, SELFPAY ==
--- OUTSIDE RECORDS SUMMARY | 2025-07-01 09:45 | XMS_ITS | Encounter Summary ---
Author Organization [facility] yste Address [address] [place] [address] Care Team Providers Care Power Distribution Engineer Name Role Phone Jeannette Hernandez MD Primary Care Provi henry Reason for Referral * Diagnostic Imaging (Routine) - Authorized Specialty Diagnoses / Procedures Referred By Contac t Referred To Contact Radiology Diagnoses Chronic right shoulder pain Procedures XR Shoulder 2+ View Right Jeannette Hernandez MD [address] [address] Phone: tel: fax: Referral ID Status Reason Start Date Expiration Date V isits Requested Visits Authorized [id number] Authorized 07/01/2025 09/30/2026 1 1 Reason for Visit * Reason Comments Shoulder Pain Encounter Details Date Type Department Care Team (Late st Contact Info) Description 07/01/2025 10:45 AM EDT Office Visit [facility] 120 [facility] [address] [place] [address] Jeannette Hernandez MD 120 [facility] [address] [place] [address] Routine screening for STI (sexually transmitted infection) (Primary Dx); Chronic right shoulder pain; Chronic insomnia; Need for influenza vaccination Social History Tobacco Use Types Packs/Day Years Used Date Smoking Tobacco: Every Day Cigarettes 1 16 Started: 011 Electronic Cigarette Passive Smoke Exposure: Current Smokeless Tobacco: Never Tobacco Cessation:Ready to Q uit: Not Asked; Counseling Given: Not Answered Comments:using ecig nicotine 6% Alcohol Use Standard Drinks/Week Comments Not Currently 2 (1 standard drink = 0.6 oz pur e alcohol) Socially PHQ-2 Answer Date Recorded Retired Total Score 19 07/20/2022 PHQ-2 Answer Date Recorded Patient Health Questionnaire-2 Score 0 10/20/2024 Sex and Gender Information Value Date Recorded Sex Assigned at Male 06/24/2020 5:20 PM EDT Legal Sex Male 3:54 PM EST Gender Identity Male 06/24/2020 5:20 PM EDT Sexual Orientation Bisexual 06/24/2020 5: 20 PM EDT Occupation Industry Job Start Date Job End Date Unemployed Not on file Not on file Not on file documented as of this encounter Last Filed Vital Signs Vital Sign Reading Time Taken Comments Blood Pressure 104/78 07/01/2025 10:32 AM EDT Pulse 90 07/01/2025 10:32 AM EDT Temperature - - Respiratory Rate - - Oxygen Saturation 96% 07/01/2025 10:32 AM EDT Inhaled Oxygen Concentration - - Weight 84.4 kg (186 lb) 07/01/2025 10:32 AM EDT Height 175.3 cm (5' 9 ) 07/01/2025 10:32 AM EDT Body Mass Index 27.47 07/01/2025 10:32 AM EDT documented in this encounter Progress Notes * Jeannette Hernandez MD - 07/01/2025 10:45 AM EDT Subjective Migel Quinones is a 29 y.o. male here for chronic right shoulder pain and STI screening. Asymptomatic but would like to get tested before moving in with his boyfriend. He has history of rotator cuff repair in 2014 on the right. He says he was having reduced mobility and pain and popping in that joint and he is have a lot of those similar symptoms now. The pain is rated a 6-7 out of 10. He has started using delta 10 which does help the pain. He is also on tramadol and Flexeril. An MRI was ordered but it was denied by his insurance. I have reviewed the patient's relevant medical history and confirmed it is accurate. I have personally reviewed and performed the ROS. Jeannette Hernandez MD Objective BP 104/78 (BP Location: Left arm) Pulse 90 Ht 175.3 cm (69 ) Wt 84.4 kg (186 lb) SpO2 96% BMI 27.47 kg/m?? Physical Exam Constitutional: Appearance: He is well-developed. Pulmonary: Effort: Pulmonary effort is normal. Musculoskeletal: Right shoulder: Tenderness and crepitus present. No deformity. Decreased range of motion. Neurological: General: No focal deficit present. Mental Status: He is alert. Psychiatric: Behavior: Behavior normal. Thought Content: Thought content normal. Judgment: Judgment normal. Current Medications[1] Assessment & Plan Diagnoses and all orders for this visit: 1. Routine screening for STI (sexually transmitted infection) (Primary) - Hepatitis panel, acute; Future - HIV-1/O/2 ANTIGEN/ANTIBODY, 4TH GENERATION; Future - RPR; Future - Chlamydia trachomatis, Neisseria gonorrhoeae, Trichomonas vaginalis, PCR - Swab, Urine, Clean Catch; Future 2. Chronic right shoulder pain - cyclobenzaprine (FLEXERIL) 10 MG tablet; Take 1 tablet by mouth 3 (Three) Times a Day As Needed for Muscle Spasms. Dispense: 90 tablet; Refill: 2 - XR Shoulder 2+ View Right; Future 3. Chronic insomnia - eszopiclone (LUNESTA) 3 MG tablet; Take 1 tablet by mouth Every Night. Take immediately before bedtime Dispense: 30 tablet; Refill: 2 4. Need for influenza vaccination - Fluzone 6mos+ ([id number]) Other orders - hydrOXYzine pamoate (VISTARIL) 25 MG capsule; Take 1 capsule by mouth 3 times a day. Dispense: 90capsule; Refill: 5 - oxybutynin XL (DITROPAN XL) 15 MG 24 hr tablet; Take 1 tablet by mouth Daily. Dispense: 90 tablet; Refill: 1 Jeannette Hernandez MD Answers submitted by the patient for this visit: Office Visit on 07/01/2025 10:45 AM with Jeannette Hernanedz Lower Extremity Injury Questionnaire (Submitted on 06/29/2025) Chief Complaint: Extremity pain Injury: Yes Date of trauma: 02/10/2014 Injury location: other Injury mechanism: a direct blow Pain location: right shoulder, right arm, right elbow, right wrist, right hand, right fingers Pain quality: aching, burning, shooting, stabbing Pain - numeric: 8/10 Progression since onset: unchanged tingling: Yes numbness: Yes difficulty holding things: Yes upper extremity swelling: No redness: No Foreign body present: no foreign bodies [1] Current Outpatient Medications: abwzyhrfqy-ifpsymgyxvbza-bmrmesuy (FIORICET, ESGIC) 50-325-40 MG per tablet, TAKE 1 TABLET BY MOUTHEVERY SIX HOURS NEEDED FOR HEADACHE., Disp: 10 tablet, Rfl: 4 cyclobenzaprine (FLEXERIL) 10 MG tablet, Take 1 tablet by mouth 3 (Three) Times a Day As Needed forMuscle Spasms., Disp: 90 tablet, Rfl: 2 diclofenac (VOLTAREN) 75 MG EC tablet, 1 tablet 2 (Two) Times a Day., Disp: , Rfl: Erenumab-aooe (Aimovig) 140 MG/ML auto-injector, Inject 1 mL under the skin into the appropriate area as directed Every 30 (Thirty) Days., Disp: 1 mL, Rfl: 11 eszopiclone (LUNESTA) 3 MG tablet, Take 1 tablet by mouth Every Night. Take immediately before bedtime, Disp: 30 tablet, Rfl: 2 gabapentin (NEURONTIN) 800 MG tablet, TAKE 1 TABLET BY MOUTH FOUR TIMES DAILY, Disp: 120 tablet, Rfl: 0 hydrOXYzine pamoate (VISTARIL) 25 MG capsule, TAKE 1 CAPSULE BY MOUTH THREE TIMES DAILY NEEDED FOR ANXIETY MAY CAUSE DROWSINESS, Disp: 30 capsule, Rfl: 1 levocetirizine (XYZAL) 5 MG tablet, 1 tablet Every Evening., Disp: , Rfl: linaclotide (Linzess) 72 MCG capsule capsule, TAKE 1 CAPSULE BY MOUTH DAILY., Disp: 90 capsule, Rfl: 1 metoprolol tartrate (LOPRESSOR) 50 MG tablet, Take 1 tablet by mouth 2 (Two) Times a Day., Disp: 60tablet, Rfl: 11 ondansetron ODT (ZOFRAN-ODT) 4 MG disintegrating tablet, Place 1 tablet on the tongue Every 8 (Eight) Hours As Needed for Nausea or Vomiting., Disp: 30 tablet, Rfl: 5 oxybutynin XL (DITROPAN XL) 15 MG 24 hr tablet, Take 1 tablet by mouth Daily., Disp: 90 tablet, Rfl: 1 QUEtiapine (SEROquel) 25 MG tablet, Take 3 tablets by mouth Every Night., Disp: 90 tablet, Rfl: 3 Senna Plus 8.6-50 MG per tablet, 2 tablets Daily., Disp: , Rfl: traMADol (ULTRAM) 50 MG tablet, TAKE 1 TABLET BY MOUTH EVERY 8 (EIGHT) HOURS NEEDED FOR MODERATEPAIN., Disp: 90 tablet, Rfl: 1 ubrogepant (Ubrelvy) 100 MG tablet, 1 tablet 1 (One) Time As Needed., Disp: , Rfl: venlafaxine XR (EFFEXOR-XR) 150 MG 24 hr capsule, Take 1 capsule by mouth Daily., Disp: 90 capsule,Rfl: 2 vitamin D (ERGOCALCIFEROL) 1.25 MG (34727 UT) capsule capsule, Take 1 capsule by mouth 1 (One) TimePer Week., Disp: 4 capsule, Rfl: 1 documented in this encounter Plan of Treatment Upcoming Encounters Date Type Department Care Team (Late st Contact Info) Description 11/23/2025 3:15 PM EDT Office Visit [facility] [address] [address] Jeannette Hernandez MD 120 [facility] [address] [place] [address] documented as of this encounter Results * XR Shoulder 2+ View Right (07/08/2025) Anatomical Region Laterality Modality Upper Extremities, Shoulder Right Radi ographic Imaging Jeannette Hernandez MD IMG DIAGNOSTIC IMAG ING ORDERABLES Final Result * Chlamydia trachomatis, Neisseria gonorrhoeae, Trichomonas vaginalis, PCR - Swab, Urine, Clean Catch(07/01/2025 11:05 AM EDT) Chlamydia trachomatis, MICHELLE Negative Negative 07/04/2025 4:07 AM EDT [facility] Gonococcus by MICHELLE Negative Negative 07/04/2025 4:07 AM EDT [facility] Trichomonas vaginosis Negative Negative 07/04/2025 4:07 AM EDT [facility] Swab Urine specimen obtained by clean catch procedure / Unknown Collection / Unknown 07/01/2025 11:05 AM EDT 07/01/2025 11:05 AM EDT Narrative [facility] - 07/04/2025 4:07 AM EDT Performed at: [facility] [id number] Clinical Application Manager: Dariela Subramanian MD, Phone: [phone] Jeannette Hernandez MD MICROBIOLOGY - GENE RAL ORDERABLES Final Result Performing Organization Address City/[facility] Co de Phone Number [facility] [address] [place] [address], * RPR (07/01/2025 11:05 AM EDT) RPR Non-Reacti ve Non-Reacti ve 07/02/2025 4:01 PM EDT [facility] Blood Structure of right upper limb / Unknown Venipuncture / Unknown 07/01/2025 11:05 AM EDT 07/01/2025 11:05 AM EDT Jeannette Hernandez MD LAB BLOOD ORDERABLE S Final Result [facility]
[address] [place] [address], * HIV-1/O/2 ANTIGEN/ANTIBODY, 4TH GENERATION (07/01/2025 11:05 AM EDT) Pathologist [facility] HIV DUO Non-Reacti ve Non-Reacti ve 07/02/2025 12:48 AM EDT [facility] Blood Structure of right upper limb / Unknown Venipuncture / Unknown 07/01/2025 11:05 AM EDT 07/01/2025 11:05 AM EDT [facility] - 07/02/2025 12:48 AM EDT The HIV antibody/antigen combo assay is a qualitative assay for HIV that includes the p24 antigen as well as antibodies to HIV types 1 and 2. This test is intended to be used as a screening assay in the diagnosis of HIV infection in patients over the age of 2. Jeannette Hernandez MD LAB BLOOD ORDERABLE S Final Result [facility]
[address] [place] [address], * Hepatitis panel, acute (07/01/2025 11:05 AM EDT) [facility] Hepatitis B Surface Ag Non-Reacti ve Non-Reacti ve 07/01/2025 11:41 PM EDT [facility] Hep A IgM Non-Reacti ve Non-Reacti ve 07/01/2025 11:41 PM EDT [facility] Hep B C IgM Non-Reacti ve Non-Reacti ve 07/01/2025 11:41 PM EDT [facility] Hepatitis C Ab Non-Reacti ve Non-Reacti ve 07/01/2025 11:41 PM EDT [facility] Blood Structure of right upper limb / Unknown Venipuncture / Unknown 07/01/2025 11:05 AM EDT 07/01/2025 11:05 AM EDT [facility] - 07/01/2025 11:41 PM EDT Results may be falsely decreased if patient taking Biotin. Jeannette Hernandez MD LAB BLOOD ORDERABLE S Final Result [facility]
[address] [place] [address], documented in this encounter Visit Diagnoses Diagnosis Routine screening for STI (sexually transmitted infection)- Primary Screening examination for venereal disease Chronic right shoulder pain Pain in joint, shoulder region Chronic insomnia Insomnia, unspecified Need for influenza vaccination Need for prophylactic vaccination and inoculation against influenza documented in this encounter Care Teams Power Distribution Engineer Relationship Specialty Start Date End Date Jeannette Hernandez MD [address] [address] PCP - General Internal Medicine 08/24/16 documented as of this encounter
--- OUTSIDE RECORDS SUMMARY | 2025-07-01 10:10 | XMS_ITS | Encounter Summary ---
Author Organization [facility] ystem Address [address] [place] [address] Care Team Providers Care Track Layer Name Role Phone Jeannette Hernandez MD Primary Care Provi [facility] Encounter Details Date Type Department Care Team (Late st Contact Info) Description 07/01/2025 11:10 AM EDT Lab [facility] [address] [place] [address] Routine screening for STI (sexually transmitted infection) Social History Tobacco Use Types Packs/Day Years Used Date Smoking Tobacco: Every Day Cigarettes 1 16 Started: 011 Electronic Cigarette Passive Smoke Exposure: Current Smokeless Tobacco: Never Comments:using ecig nicotine 6% Alcohol Use Standard [...] on file documented as of this encounter Plan of Treatment Upcoming Encounters Date Type Department Care Team (Late st Contact Info) Description 11/23/2025 3:15 PM EDT Office Visit [facility] [address] [place] [id number] Jeannette Hernandez MD [address] [place] [address] documented as of this encounter Procedures Procedure Name Priority Date/Time Associated Diagnosis Comments HIV-1/O/2 ANTIGEN/ANTIBODY Routine 07/01/2025 11:05 AM EDT Routine screening for STI (sexually transmitted infection) CHLAMYDIA TRACHOMATIS, NEISSERIA GONORRHOEAE, TRICHOMONAS VAGINALIS, PCR Routine 07/01/2025 11:05 AM EDT Routine screening for STI (sexually transmitted infection) HEPATITIS PANEL, ACUTE Routine 07/01/2025 11:05 AM EDT Routine screening for STI (sexually transmitted infection) RPR Routine 07/01/2025 11:05 AM EDT Routine screening for STI (sexually transmitted infection) documented in this encounter Results * Chlamydia trachomatis, Neisseria gonorrhoeae, Trichomonas vaginalis, [...] AM EDT 07/01/2025 11:05 AM EDT Narrative [facility] - 07/04/2025 4:07 AM EDT Performed at: [address] [place] [address] [place] [id number] Maintenance Dispatcher: Dariela Subramanian MD, Phone: [phone] Jeannette Hernandez MD MICROBIOLOGY - GENE RAL ORDERABLES Final Result [facility] [address] [place] [address], * RPR (07/01/2025 11:05 AM EDT) Pathologist [facility] RPR Non-Reacti ve Non-Reacti ve 07/02/2025 4:01 PM EDT [facility] Blood Structure of right upper limb / Unknown Venipuncture / Unknown 07/01/2025 11:05 AM EDT 07/01/2025 11:05 AM EDT Jeannette Hernandez MD LAB BLOOD ORDERABLE S Final Result [facility]
[address] [place] [address], * HIV-1/O/2 ANTIGEN/ANTIBODY, 4TH GENERATION (07/01/2025 11:05 AM EDT) Pathologist [facility] HIV DUO Non-Reacti ve Non-Reacti ve 07/02/2025 12:48 AM EDT [facility] Blood Structure of right upper limb / Unknown Venipuncture / Unknown 07/01/2025 11:05 AM EDT 07/01/2025 11:05 AM EDT Narrative [facility] - 07/02/2025 12:48 AM EDT The [...] MD LAB BLOOD ORDERABLE S Final Result Performing Organization Address City/[facility]/ZIP Co de Phone Number [facility]
[address] [place] [address], * Hepatitis panel, acute (07/01/2025 11:05 AM EDT) Hepatitis B Surface Ag Non-Reacti ve Non-Reacti ve 07/01/2025 11:41 PM EDT [facility] Hep A IgM Non-Reacti ve Non-Reacti ve 07/01/2025 11:41 PM EDT [facility] Hep B C IgM Non-Reacti ve Non-Reacti ve 07/01/2025 11:41 PM EDT [facility] Hepatitis C Ab Non-Reacti ve Non-Reacti ve 07/01/2025 11:41 PM EDT [facility] Blood Structure of right upper limb / Unknown Venipuncture / Unknown 07/01/2025 11:05 AM EDT 07/01/2025 11:05 AM EDT Narrative [facility] - 07/01/2025 11:41 PM EDT Results may be falsely decreased if patient taking Biotin. Jeannette Hernandez MD LAB BLOOD ORDERABLE S Final Result Performing Organization Address City/[facility]/ZIP Co de Phone Number [facility]
[address] [place] [address], documented in this encounter Visit Diagnoses Diagnosis Routine screening for STI (sexually transmitted infection) Screening examination for venereal disease documented in this encounter Care Teams Track Layer Relationship Specialty Start Date End Date Jeannette Hernandez MD [address] [place] [address] PCP - General Internal Medicine 08/24/16 documented as of this encounter
--- OUTSIDE RECORDS SUMMARY | 2025-08-25 08:15 | XMS_ITS | Encounter Summary ---
Author Organization Healthcare Address [address] [place] [address] Care Team Providers Care Landscape And Yardwork Laborer Name Role Phone Jeannette Hernandez MD Primary Care Provider Reason for Visit * Reason Comments Follow-up Encounter Details Date Type Department Care Team (Late st Contact Info) Description 08/25/2025 8:15 AM EST Office Visit [facility] [address] [place] [address] Barbara Mancera MD [address] [facility] [address] [place] [address] Chronic idiopathic constipation (Primary Dx); Other hemorrhoids Social History Tobacco Use Types Packs/Day Years Used Date Smoking Tobacco: Never Smokeless Tobacco: Current Tobacco Cessation:Ready to Q uit: No; Counseling Given: No Alcohol Use Standard Drinks/Week Comments Not Currently 0 (1 standard drink = 0.6 oz pur e alcohol) Humiliation, Afraid, Rape, and Kick questionnair e Answer Date Recorded Within the last year, have y ou been afraid of your partner or ex-partner? No 07/11/2024 Within the last year, have y ou been humiliated or emotionally abused in other ways by your partner or ex-partner? No Within the last year, have y ou been kicked, hit, slapped, or otherwise physically hurt by your partner or ex-partner? No 07/11/2024 Within the last year, have y ou been raped or forced to have any kind of sexual activity by your partner or ex-partner? No 07/11/2024 PHQ-2 Answer Date Recorded Patient Health Questionnaire-2 Score 0 04/15/2024 Hunger Vital Sign Answer Date Recorded Within the past 12 months, y ou worried that your food would run out before you got the money to buy more. Never true 07/11/20 Within the past 12 months, t he food you bought just didn't last and you didn't have money to get more. Never true 07/11/2024 PRAPARE - Transportation Answer Date Re corded In the past 12 months, has l ack of transportation kept you from medical appointments or from getting medications? No 06/18 In the past 12 months, has l ack of transportation kept you from meetings, work, or from getting things needed for daily living? No 07/11/2024 Housing Stability Vital Sign Answer Sly e Recorded In the last 12 months, was t here a time when you were not able to pay the mortgage or rent on time? No 07/11/2024 Number of Places Lived in the Last Year Not on f ile 07/11/2024 In the last 12 months, was t here a time when you did not have a steady place to sleep or slept in a senior living (including now)? No 07/11/2024 Utilities Answer Date Recorded In the past 12 months has th e electric, gas, oil, or water company threatened to shut off services in your home? No 07/11/2024 Sex and Gender Information Value Date Recorded Sex Assigned at Not on file Legal Sex Male 5:56 PM EDT Gender Identity Not on file Sexual Orientation Not on file documented as of this encounter Last Filed Vital Signs Vital Sign Reading Time Taken Comments Blood Pressure 113/79 08/25/2025 8:32 AM EST Pulse 65 08/25/2025 8:32 AM EST Temperature 36.4 C (97.5 F) 08/25/2025 8:32 AM EST Respiratory Rate 16 08/25/2025 8:32 AM EST Oxygen Saturation 98% 08/25/2025 8:32 AM EST Inhaled Oxygen Concentration - - Weight 82.2 kg (181 lb 3.2 oz) 08/25/2025 8:32 A M EST Height 176.2 cm (5' 9.37 ) 08/25/2025 8:32 AM ES T Body Mass Index 26.47 08/25/2025 8:32 AM EST documented in this encounter Plan of Treatment Scheduled Orders Name Type Priority Associated Diagnoses Orde r Schedule XR Abdomen 1 View Imaging Routine Chronic idiopathic constipation Other hemorrhoids Expected: 08/25/2025 (Approximate), Expires: 02/23/2027 XR Abdomen 1 View Imaging Routine Chronic idiopathic constipation Other hemorrhoids Expected: 08/30/2025 (Approximate), Expires: 02/23/2027 documented as of this encounter Visit Diagnoses Diagnosis Chronic idiopathic constipation- Primary Unspecified constipation Other hemorrhoids documented in this encounter Additional Health Concerns Infection Onset Date Last Indicated Resolved Time 

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
--- NOTE | 2025-08-30 | XR_ITS ---
PROCEDURE INFORMATION: Exam: XR Abdomen Exam date and time: 08/30/2025 8:49 AM Age: 29 years old Clinical indication: PT swallowed sitz markers Dr Kelsey tracking progress to schedule surgery. PT is having surgery to remove large intestine due to chronic bleeding and constipation. TECHNIQUE: Imaging protocol: Radiologic exam of the abdomen. Views: Frontal supine view of the abdomen. 1 View. COMPARISON: CT ABDOMEN PELVIS W CON 01/09/2025 8:32 PM FINDINGS: Gastrointestinal tract: There is large fecal burden throughout the colon. There is gasseous distention of the stomach. Bowel gas pattern is otherwise unremarkable. Intraperitoneal space: No free air. There are multiple radiopaque markers projected over the right lower quadrant, mid abdomen, and left lower quadrant. Bones/joints: Unremarkable. IMPRESSION: 1. There is large fecal burden throughout the colon. There is gasseous distention of the stomach. Bowel gas pattern is otherwise unremarkable. 2. There are multiple radiopaque markers projected over the right lower quadrant, mid abdomen, and left lower quadrant.
--- OUTSIDE RECORDS SUMMARY | 2025-08-30 08:45 | XMS_ITS | Encounter Summary ---
Author Organization [facility] ystem Address [address] [place] [address] Care Team Providers Care Child Psychology Teacher Name Role Phone Jeannette Hernandez MD Primary Care Provi [facility] Encounter Details Date Type Department Care Team (Late st Contact Info) Description 02/12/2025 Results Follow-Up [facility] [address] [address] Jeannette Hernandez MD [address] [address] Social History Tobacco Use Types Packs/Day Years [...] Description 11/23/2025 3:15 PM EDT Office Visit [facility] 120 [facility] [address] [place] [address] Jeannette Hernandez MD 120 [facility] [address] [place] [address] documented as of this encounter Visit Diagnoses Not on filedocumented in this encounter Care Teams Child Psychology Teacher Relationship Specialty Start Date End Date Jeannette Hernandez MD [address] [facility] [address] [place] [address] PCP - General Internal Medicine 08/24/16 documented as of this encounter
--- OUTSIDE RECORDS SUMMARY | 2025-08-30 08:45 | XMS_ITS | Encounter Summary ---
Author Organization [facility] ystem Address [address] [place] [address] Care Team Providers Care Manager Telemetry Name Role Phone Jeannette Hernandez MD Primary Care Provi [facility] Encounter Details Date Type Department Care Team (Late st Contact Info) Description 11/26/2024 Results Follow-Up [facility] [address] [phone] Jeannette Hernandez MD [address] [address] Social History Tobacco Use Types Packs/Day Years Used Date Smoking Tobacco: Every Day Cigarettes 1 13 Started: 011 Electronic Cigarette Passive Smoke Exposure: [...] [facility] 120 [facility] [address] [place] [address] Jeannette Hernandez MD 120 [facility] [address] [place] [address] documented as of this encounter Visit Diagnoses Not on filedocumented in this encounter Care Teams Manager Telemetry Relationship Specialty Start Date End Date Jeannette Hernandez MD [address] [facility] [address] [place] [address] PCP - General Internal Medicine 08/24/16 documented as of this encounter
--- OUTSIDE RECORDS SUMMARY | 2025-08-30 08:45 | XMS_ITS | Encounter Summary ---
Author Organization Healthcare Address [address] [place] [address] Care Team Providers Care Fisher Pot Name Role Phone Donna Deepali Hathaway APRN Primary Care Provider [phone]- [phone] Pcp, No Primary Care Provider Jeannette Hernadez MD Primary Care Provider Encounter Details Date Type Department Care Team (Late st Contact Info) Description 12/22/2023 Orders Only External Location [address] [place] [phone] Provider, External Social History Tobacco Use Types Packs/Day Years Used Date Smoking Tobacco: Never Smokeless Tobacco: Current Alcohol Use Standard Drinks/Week Comments Not Currently 0 (1 standard drink = 0.6 oz pur e alcohol) Sex and Gender Information Value Date Recorded Sex Assigned at Not on file Legal Sex Male 5:56 PM EDT Gender Identity Not on file Sexual Orientation Not on file documented as of this encounter Plan of Treatment Not on file documented as of this encounter Procedures Procedure Name Priority Date/Time Associated Diagnosis Comments CT OUTSIDE IMAGES 12/22/2023 9:40 PM EDT documented in this encounter Results * CT OUTSIDE IMAGES (12/22/2023 9:40 PM EDT) Anatomical Region Laterality Modality Computed Tomogra phy 12/22/2023 9:40 PM EDT us External Provider IMG CT PROCEDURES Final Result documented in this encounter Visit Diagnoses Not on filedocumented in this encounter Additional Health Concerns Infection Onset Date Last Indicated Resolved Time 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
--- OUTSIDE RECORDS SUMMARY | 2025-08-30 08:45 | XMS_ITS | Encounter Summary ---
Author Organization [facility] ystem Address [address] [place] [address] Care Team Providers Care Commission Associate Name Role Phone Jeannette Hernandez MD Primary Care Provi henry Reason for Visit * Reason Onset Date Comments Med Refill 06/28/2020 Encounter Details Date Type Department Care Team (Late st Contact Info) Description 06/28/2020 Refill [facility] [address] [phone] Haseeb Morocho MD 120 [facility] [address] [place] [address] Interstitial cystitis; Attention deficit hyperactivity disorder (ADHD), combined type Social History Tobacco Use Types Packs/Day Years Used Date Smoking Tobacco: Every Day Cigarettes 1 13 Started: 2013 Electronic Cigarette Smokeless Tobacco: Never Alcohol Use Standard Drinks/Week Comments No 0 (1 standard drink = 0.6 oz [...] Description 11/23/2025 3:15 PM EDT Office Visit [facility] 120 [facility] [address] [place] [address] Jeannette Hernandez MD 120 [facility] [address] [place] [address] documented as of this encounter Visit Diagnoses Diagnosis Interstitial cystitis Chronic interstitial cystitis Attention deficit hyperactivity disorder (ADHD), combined type documented in this encounter Care Teams Commission Associate Relationship Specialty Start Date End Date Jeannette Hernandez MD [address] [facility] [address] [place] [address] PCP - General Internal Medicine 08/24/16 documented as of this encounter
--- OUTSIDE RECORDS SUMMARY | 2025-08-30 08:45 | XMS_ITS | Encounter Summary ---
Author Organization [facility] Address [address] [place] [address] Care Team Providers Care Herbarium Worker Name Role Phone Jeannette Hernandez MD Primary Care Provider Encounter Details Date Type Department Care Team (Latest Contact Info) Description 08/24/2025 Travel Social History Tobacco Use Types Packs/Day Years [...] place to sleep or slept in a group home (including now)? No 07/11/2024 Utilities Answer Date [...] on file documented as of this encounter Visit Diagnoses [...] documented as of this encounter Care Teams Herbarium Worker Relationship Specialty Start Date End Date Jeannette Hernandez MD [address] [place] [address] PCP - General 03/26/24 documented as of this encounter
--- OUTSIDE RECORDS SUMMARY | 2025-08-30 08:45 | XMS_ITS | Encounter Summary ---
Author Organization [facility] ystem Address [address] [place] [address] Care Team Providers Care Maintenance Repairer Name Role Phone Jeannette Hernandez MD Primary Care Provi henry Reason for Visit * Reason Comments Med Refill Encounter Details Date Type Department Care Team (Late st Contact Info) Description 09/06/2022 Refill [facility] [address] [address] Jeannette Hernandez MD 120 [facility] [address] [place] [phone] Chronic right shoulder pain Social History Tobacco Use Types Packs/Day Years Used Date Smoking Tobacco: Every Day Cigarettes 1 13 Started: 2012 Electronic Cigarette Smokeless Tobacco: Never Alcohol Use Standard Drinks/Week Comments No 0 (1 standard drink = 0.6 oz pur e alcohol) PHQ-2 Answer Date Recorded Retired Total Score 19 07/20/2022 Sex and Gender Information Value Date Recorded [...] Description 11/23/2025 3:15 PM EDT Office Visit [facility] 120 [facility] [address] [place] [phone] Jeannette Hernandez MD 120 [facility] [address] [place] [address] documented as of this encounter Visit Diagnoses Diagnosis Chronic right shoulder pain Pain in joint, shoulder region documented in this encounter Care Teams Maintenance Repairer Relationship Specialty Start Date End Date Jeannette Hernandez MD [address] [place] [address] PCP - General Internal Medicine 08/24/16 documented as of this encounter
--- OUTSIDE RECORDS SUMMARY | 2025-08-30 08:45 | XMS_ITS | Encounter Summary ---
Author Organization [facility] ystem Address [address] [place] [address] Care Team Providers Care Character Impersonator Name Role Phone Jeannette Hernandez MD Primary Care Provi henry Reason for Visit * Reason Comments Med Refill Encounter Details Date Type Department Care Team (Late st Contact Info) Description 10/10/2024 Refill [facility] [address] [phone] Gardiner, Edward, 120 [facility] [address] [place] [address] Chronic right shoulder pain Social History Tobacco Use Types Packs/Day Years Used Date Smoking Tobacco: Former Cigarettes 1 13 S tarted: 2011 Electronic Cigarette Passive Smoke Exposure: Current Smokeless Tobacco: Never Comments:using ecig nicotine 3% Alcohol Use Standard Drinks/Week Comments Not Currently 2 (1 standard drink = 0.6 oz pur e alcohol) Socially PHQ-2 Answer Date Recorded Retired Total Score 19 07/20/2022 PHQ-2 Answer Date Recorded Retired PHQ-9: Brief Depression Severity Measure Score 0 04/15/2024 Sex and Gender Information Value Date Recorded [...] Description 11/23/2025 3:15 PM EDT Office Visit [facility] 120 [facility] [address] [place] [address] Jeannette Hernandez MD 120 [facility] [address] [place] [address] documented as of this encounter Visit Diagnoses Diagnosis Chronic right shoulder pain Pain in joint, shoulder region documented in this encounter Care Teams Character Impersonator Relationship Specialty Start Date End Date Jeannette Hernandez MD [address] [place] [address] PCP - General Internal Medicine 08/24/16 documented as of this encounter
--- OUTSIDE RECORDS SUMMARY | 2025-08-30 08:45 | XMS_ITS | Clinical Summary ---
[facility] Address [address] [place] [address] Care Team Providers Care Digital Marketing Strategist Name Role Phone Jeannette Hernandez MD Primary Care Provi henry Allergies Active Allergy Reactions Criticality Noted Date Comments Codeine 09/08/2016 Doxycycline Other (See Comments) Lidocaine Anaphylaxis High 01/01/2018 Medications * This document contains information received from the source organization and may not represent a complete record from that organization. vitamin D (ERGOCALCIFEROL) 1.25 MG (09322 UT) capsule capsule Take 1 capsule by mouth 1 (One) Time Per Week. 4 capsule 1 025 Active Erenumab-aooe (Aimovig) 140 MG/ML auto-injectorIndi cations:Migraine with aura and without status migrainosus, not intractable Inject 1 mL under the skin into the appropriate area as directed Every 30 (Thirty) Days. 1 mL 11 025 Active QUEtiapine (SEROquel) 25 MG tabletIndications :Chronic insomnia Take 3 tablets by mouth Every Night. 90 tablet 3 025 Active metoprolol tartrate (LOPRESSOR) 50 MG tabletIndications :Tachycardia Take 1 tablet by mouth 2 (Two) Times a Day. 60 tablet 11 Active levocetirizine (XYZAL) 5 MG tablet 1 tablet Every Evening. Active ubrogepant (Ubrelvy) 100 MG tablet 1 tablet 1 (One) Time As Needed. Active Senna Plus 8.6-50 MG per tablet 2 tablets Daily. Active diclofenac (VOLTAREN) 75 MG EC tablet 1 tablet 2 (Two) Times a Day. Active cyclobenzaprine (FLEXERIL) 10 MG tabletIndications :Chronic right shoulder pain Take 1 tablet by mouth 3 (Three) Times a Day As Needed for Muscle Spasms. 90 tablet 2 025 Active eszopiclone (LUNESTA) 3 MG tabletIndications :Chronic insomnia Take 1 tablet by mouth Every Night. Take immediately before bedtime 30 tablet 2 025 Active hydrOXYzine pamoate (VISTARIL) 25 MG capsule Take 1 capsule by mouth 3 times a day. 90 capsule 5 Active oxybutynin XL (DITROPAN XL) 15 MG 24 hr tablet Take 1 tablet by mouth Daily. 90 tablet 1 025 Active traMADol (ULTRAM) 50 MG tabletIndications :Interstitial cystitis Take 1 tablet by mouth Every 8 (Eight) Hours As Needed for Moderate Pain. 90 tablet 1 025 Active gabapentin (NEURONTIN) 800 MG tablet TAKE ONE (1) TABLET BY MOUTH FOUR TIMES DAILY 120 tablet 2 025 Active venlafaxine XR (EFFEXOR-XR) 150 MG 24 hr capsuleIndication s:Chronic insomnia Take 1 capsule by mouth Daily. 90 capsule 2 025 Active ondansetron ODT (ZOFRAN-ODT) 4 MG disintegrating tabletIndications :Nausea DISSOLVE ONE (1) TABLET IN MOUTH EVERY 8 HOURS NEEDED FOR NAUSEA OR VOMITING. 30 tablet 5 025 Active butalbital-acetam inophen-caffeine (FIORICET, ESGIC) 50-325-40 MG per tabletIndications :Migraine with aura and without status migrainosus, not intractable TAKE ONE (1) TABLET BY MOUTH EVERY SIX HOURS NEEDED FOR HEADACHE MAY CAUSE DROWSINESS 10 tablet 3 025 Active Suvorexant (Belsomra) 10 MG tabletIndications :Chronic insomnia Take 10 mg by mouth Every Night. 30 tablet 5 025 Active ondansetron ODT (ZOFRAN-ODT) 4 MG disintegrating tabletIndications :Nausea Place 1 tablet on the tongue Every 8 (Eight) Hours As Needed for Nausea or Vomiting. 30 tablet 5 025 2024 Discontinued linaclotide (Linzess) 72 MCG capsule capsule TAKE 1 CAPSULE BY MOUTH DAILY. 90 capsule 1 025 2024 Discontinued(* Therapy completed) brompheniramine-p seudoephedrine-DM 30-2-10 MG/5ML syrup Take 5 mL by mouth 4 (Four) Times a Day As Needed for Allergies. 118 mL 2 025 2024 Discontinued(* Therapy completed) butalbital-acetam inophen-caffeine (FIORICET, ESGIC) 50-325-40 MG per tabletIndications :Migraine with aura and without status migrainosus, not intractable TAKE 1 TABLET BY MOUTH EVERY SIX HOURS NEEDED FOR HEADACHE. 10 tablet 3 025 2024 Discontinued Active Problems Problem Noted Date Diagnosed Date Insomnia 03/02/2017 Chronic tension headaches 02/25/2014 Interstitial cystitis Kidney stones GERD (gastroesophageal reflux disease) Depression ADHD (attention deficit hyperactivity disorder) Tobacco abuse Resolved Problems Problem Noted Date Diagnosed Date Resolved Date Facial numbness 01/28/2017 10/26/2017 Attention deficit hyperactiv ity disorder (ADHD) 09/08/2016 01/28/2017 Chronic right shoulder pain 09/08/2016 01/28/2017 History of rotator cuff tear 09/08/2016 01/28/2017 Tension headache 04/01/2019 Encounters Date Type Department Care Team Description 08/26/2025 8:36 PM EST - 08/26/2025 10:23 PM EST Emergency [facility] [address] [address] Elvin Srinivasan MD Contusion of dorsum of foot (Primary Dx) Discharge Disposition: Home or Self Care 08/26/2025 Travel 08/26/2025 Prior Authorization [facility] [address] [place] [address] Yeny Rose 08/25/2025 11:30 AM EST Office Visit [facility] [address] [place] [address] Jeannette Hernandez MD Right foot pain (Primary Dx); BRBPR (bright red blood per rectum); Chronic insomnia 08/25/2025 Travel 08/16/2025 Refill [facility] [address] [place] [address] Jeannette Hernandez MD Migraine with aura and without status migrainosus, not intractable 08/04/2025 Refill [facility] [address] [place] [address] Jeannette Hernandez MD Nausea 07/30/2025 Refill [facility] [address] [place] [address] Jeannette Hernandez MD Chronic insomnia 07/22/2025 Refill [facility] [address] [place] [address] Jeannette Hernandez MD 07/14/2025 Refill [facility] [address] [place] [address] Jeannette Hernandez MD Interstitial cystitis 07/06/2025 Refill [facility] [address] [place] [address] Jeannette Hernandez MD Chronic right shoulder pain 07/06/2025 Telephone [facility] [address] [place] [address] Jeannette Hernandez MD 07/04/2025 Refill [facility] [address] [place] [address] Jeannette Hernandez MD Migraine with aura and without status migrainosus, not intractable 07/02/2025 Results Follow-Up [facility] [address] [place] [address] Jeannette Hernandez MD 07/01/2025 11:10 AM EDT Lab [facility] [address] [place] [address] Routine screening for STI (sexually transmitted infection) 07/01/2025 10:45 AM EDT Office Visit [facility] [address] [place] [address] Jeannette Hernandez MD Routine screening for STI (sexually transmitted infection) (Primary Dx); Chronic right shoulder pain; Chronic insomnia; Need for influenza vaccination 07/01/2025 Travel 06/23/2025 Refill [facility] [address] [place] [address] Jeannette Hernandez MD 06/15/2025 Refill [facility] [address] [place] [address] Jeannette Hernandez MD 06/09/2025 Telephone [facility] [address] [place] [address] Jeannette Hernandez MD 06/08/2025 Refill [facility] [address] [place] [address] Jeannette Hernandez MD Acute pain of right shoulder; Tear of right glenoid labrum, subsequent encounter 06/07/2025 Refill [facility] [address] [place] [address] Jeannette Hernandez MD 06/02/2025 Refill [facility] [address] [place] [address] Jeannette Hernandez MD Acute pain of right shoulder; Tear of right glenoid labrum, subsequent encounter from Last 3 Months Immunizations Immunization Administration Dates Next Due COVID-19 (MODERNA) 1st,2nd,3 rd Dose Monovalent 12/21/2020 DTP / HiB 12/20/1995 DTaP, Unspecified 12/24/1998 Fluzone >6mos 07/01/2025,07/30/2024 Hep B, Unspecified 09/20/1995 Influenza Seasonal Injectable 08/17/2016 Influenza, Unspecified 04/25/2023,2021,06/19/2020,2018,08/02/2018,08/17/2016 MMR 12/24/1998,12/20/1995 OPV 12/24/1998 flucelvax quad pfs =>4 YRS 06/17/2019 Family History Medical History Relation Name Comments Arthritis Father Gibran Severe Cancer Father Gibran Hearing loss Father Gibran Right ear total loss, left ear 40% loss Kidney disease Father Gibran Kidney Stones Lung cancer Father Gibran Mental illness Father Gibran Chronic depre ssion due to chronic pain Neuropathy Father Gibran Diabetic Depression Maternal Aunt 1 Shira Crapps After Worke rs Comp Injury Diabetes Maternal Aunt 1 Shira Crapps High Sugar Mental illness Maternal Aunt 1 Shira Crapps Thyroid disease Maternal Aunt 1 Shira Crapps Overacti ve Liver disease Maternal Aunt 2 Luzma De Heart disease Maternal Grandfather Herbert Dwain Hyperlipidemia Maternal Grandfather Herbert Dwain Kidney disease Maternal Grandfather Herbert Dwain Kidn ey Stones Mental illness Maternal Grandfather Herbert Prakash Depr ession Asthma Maternal Grandmother Lucina Prakash Severe COPD Maternal Grandmother Lucina Prakash Severe Cancer Maternal Grandmother Lucina Prakash Non Sm all Cell Lung Anxiety disorder Mother Gibran Arthritis Mother Gibran Severe Cancer Mother Gibran Depression Mother Gibran Diabetes Mother Gibran Hearing loss Mother Gibran Right ear total loss, left ear 40% loss Heart disease Mother Gibran Hyperlipidemia Mother Gibran Hypertension Mother Gibran Kidney disease Mother Gibran Kidney Stones Mental illness Mother Gibran Miscarriages / Stillbirths Mother Gibran Thyroid disease Mother Gibran Hypertension Sister Zee Navas White High BP and flu ctuation of pulse when sit/standing Kidney disease Sister Zee Navas White Kidney Stones Relation Name Status Comments Father Gibran Maternal Aunt 1 Shira Armas Alive Maternal Aunt 2 Luzma Kc Alive Maternal Grandfather Herbert Prakash Alive Maternal Grandmother Lucina Prakash Alive Mother Gibran Alive Sister Zee Navas White Alive Social History Tobacco Use Types Packs/Day Years [...] file Not on file Not on file Last Filed Vital Signs Vital Sign Reading [...] Mass Index 25.74 08/26/2025 8:35 PM EST Plan of Treatment Upcoming Encounters Date Type Department Care Team (Late st Contact Info) Description 11/23/2025 3:15 PM EDT Office Visit [facility] [address] [place] [address] Jeannette Hernandez MD [address] [place] [address] Health Maintenance Due Date Last Done Comments Hepatitis B (2 of 3 - 3-dose series) 10/18/1995 09/20/1995 TDAP/TD VACCINES (1 - Tdap) 2013 ANNUAL PHYSICAL 09/08/2016 Pneumococcal Vaccine 0-49 (1 of 2 - PCV) 09/17/2029 Postponed from 2013 (Not Indicated) HEPATITIS C SCREENING Completed 07/01/2025 , 10/31/2021, 09/06/2020, Additional history exists INFLUENZA VACCINE Completed 07/01/2025, , 04/25/2023, Additional history exists Procedures Procedure Name Priority Date/Time Associated Diagnosis Comments XR ABDOMEN KUB STAT 08/26/2025 9:38 PM EST XR FOOT 3+ VW RIGHT STAT 08/26/2025 9 :00 PM EST XR SHOULDER 2+ VW RIGHT Routine 07/08/2025 Chronic right shoulder pain RPR Routine 07/01/2025 11:05 AM EDT Routine screening for STI (sexually transmitted infection) HIV-1/O/2 ANTIGEN/ANTIBODY Routine 07/01/2025 11:05 AM EDT Routine screening for STI (sexually transmitted infection) HEPATITIS PANEL, ACUTE Routine 07/01/2025 11:05 AM EDT Routine screening for STI (sexually transmitted infection) CHLAMYDIA TRACHOMATIS, NEISSERIA GONORRHOEAE, TRICHOMONAS VAGINALIS, PCR Routine 07/01/2025 11:05 AM EDT Routine screening for STI (sexually transmitted infection) from Last 3 Months Results * XR Abdomen KUB (08/26/2025 9:38 PM EST) Anatomical Region Laterality Modality Body, Abdomen N/A Radiographic Kalyn ging 08/26/2025 10:1 2 PM EST Impressions 08/26/2025 10:15 PM EST Impression: Multiple gas distended loops of bowel. Moderate colonic stool burden. Electronically Signed: Abilio Urrutia MD 08/26/2025 10:15 PM EST Workstation ID: [id number] Narrative 08/26/2025 10:15 PM EST XR ABDOMEN [...] MD 08/26/2025 10:15 PM EST Workstation ID: [id number] us Elvin LYLEG DIAGNOSTIC IMAGING ORDERABLE S Final Result * XR Foot 3+ View Right (08/26/2025 9:00 PM EST) Anatomical Region Laterality Modality Lower Extremities, Foot Right Radiogra phic Imaging 08/26/2025 9:17 PM EST Impressions 08/26/2025 9:20 PM EST Impression: No evidence of acute fracture or malalignment. Electronically Signed: Abilio Urrutia MD 08/26/2025 9:20 PM EST Workstation ID: [id number] Narrative 08/26/2025 9:20 PM EST XR FOOT [...] MD 08/26/2025 9:20 PM EST Workstation ID: [id number] Elvin Srinivasan MD IMG DIAGNOSTIC IMAGING ORDERABLE S Final Result * XR Shoulder 2+ View Right (07/08/2025) Anatomical Region Laterality Modality Upper Extremities, Shoulder Right Radi ographic Imaging Jeannette BUENO DIAGNOSTIC IMAG ING ORDERABLES Final Result * HIV-1/O/2 ANTIGEN/ANTIBODY, 4TH GENERATION (07/01/2025 11:05 AM EDT) HIV DUO Non-Reacti ve Non-Reacti ve 07/02/2025 12:48 AM EDT [facility] Blood Structure of right upper limb / Unknown Venipuncture / Unknown 07/01/2025 11:05 AM EDT 07/01/2025 11:05 AM EDT Narrative [facility] - 07/02/2025 12:48 AM EDT The [...] MD LAB BLOOD ORDERABLE S Final Result [facility]
[address] [place] [address], * Chlamydia trachomatis, Neisseria gonorrhoeae, Trichomonas vaginalis, [...] - 07/04/2025 4:07 AM EDT Performed at: [address] [place] [id number] Airplane Pilot Photogrammetry: Dariela Subramanian MD, Phone: [phone] Jeannette Hernandez MD MICROBIOLOGY - GENE RAL ORDERABLES Final Result [facility] [address] [place] [address], [place] [phone] * Hepatitis panel, acute (07/01/2025 11:05 AM EDT) Hepatitis B Surface Ag Non-Reacti ve Non-Reacti ve 07/01/2025 11:41 PM EDT [facility] Hep A IgM Non-Reacti ve Non-Reacti ve 07/01/2025 11:41 PM EDT [facility] Hep B C IgM Non-Reacti ve Non-Reacti ve 07/01/2025 11:41 PM EDT [facility] Hepatitis C Ab Non-Reacti ve Non-Reacti ve 07/01/2025 11:41 PM EDT [facility] Blood Structure of right upper limb / Unknown Venipuncture / Unknown 07/01/2025 11:05 AM EDT 07/01/2025 11:05 AM EDT Narrative [facility] - 07/01/2025 11:41 PM EDT Results may be falsely decreased if patient taking Biotin. Jeannette Hernandez MD LAB BLOOD ORDERABLE S Final Result [facility]
[address] [place] [address], [place] [phone] * RPR (07/01/2025 11:05 AM EDT) RPR Non-Reacti ve Non-Reacti ve 07/02/2025 4:01 PM EDT [facility] Blood Structure of right upper limb / Unknown Venipuncture / Unknown 07/01/2025 11:05 AM EDT 07/01/2025 11:05 AM EDT Jeannette Hernandez MD LAB BLOOD ORDERABLE S Final Result [facility]
[address] [place] [address], [place] [phone] from Last 3 Months Insurance [employer] MEDICAID [place] Advance Directives * Full Code (Latest Code Status on File) Date Activated Date Inactivated Comments 01/28/2017 8:38 PM 01/29/2017 6:29 PM Care Teams Digital Marketing Strategist Relationship Specialty Start Date End Date Jeannette Hernandez MD [address] [place] [address] PCP - General Internal Medicine 08/24/16
--- OUTSIDE RECORDS SUMMARY | 2025-08-30 08:45 | XMS_ITS | Encounter Summary ---
Author Organization [facility] Address [address] [place] [address] Care Team Providers Care Jig Boring Machine Set Up Operator Name Role Phone Jeannette Hernandez MD Primary Care Provi henry Reason for Visit * Reason Comments Med Refill Encounter Details Date Type Department Care Team (Late st Contact Info) Description 03/16/2024 Refill [facility] [address] [address] Jeannette Hernandez MD 120 [facility] [address] [place], [place] [id number] Interstitial cystitis Social History Tobacco Use Types Packs/Day Years Used Date Smoking Tobacco: Every Day Cigarettes 1 13 Started: 013 Electronic Cigarette Passive Smoke Exposure: Current Smokeless Tobacco: Never Comments:using ecig nicotine 3% Alcohol Use Standard Drinks/Week Comments No 0 [...] Description 11/23/2025 3:15 PM EDT Office Visit [facility] 120 [facility] [address] [place] [address] Jeannette Hernandez MD 120 [facility] [address] [place] [address] documented as of this encounter Visit Diagnoses Diagnosis Interstitial cystitis Chronic interstitial cystitis documented in this encounter Care Teams Jig Boring Machine Set Up Operator Relationship Specialty Start Date End Date Jeannette Hernandez MD [address] [place] [address] PCP - General Internal Medicine 08/24/16 documented as of this encounter
--- OUTSIDE RECORDS SUMMARY | 2025-08-30 08:45 | XMS_ITS | Encounter Summary ---
Author Organization [facility] Address [address] [place] [address] Care Team Providers Care Career Development Coordinator/Teacher Name Role Phone Jeannette Hernandez MD Primary Care Provider Encounter Details Date Type Department Care Team (Latest Contact Info) Description 07/23/2025 Travel Social History Tobacco Use Types Packs/Day [...] place to sleep or slept in a [facility] (including now)? No 07/11/2024 Utilities Answer Date [...] documented as of this encounter Care Teams Career Development Coordinator/Teacher Relationship Specialty Start Date End Date Jeannette Hernandez MD [address] [place] [address] PCP - General 03/26/24 documented as of this encounter
--- OUTSIDE RECORDS SUMMARY | 2025-08-30 08:45 | XMS_ITS | Encounter Summary ---
Author Organization [facility] Address [address] [place] [address] Care Team Providers Care Alumnae Secretary Name Role Phone Jeannette Hernandez MD Primary Care Provi henry Reason for Visit * Reason Onset Date Comments Med Refill 11/01/2024 Encounter Details Date Type Department Care Team (Late st Contact Info) Description 11/01/2024 Refill [facility] [address] [address] Jeannette Hernandez MD 120 [facility] [address] [place] [address] Migraine with aura and without status migrainosus, not intractable Social History Tobacco Use Types Packs/Day Years [...] [facility] 120 [facility] [address] [place] [id number] Jeannette Hernandez MD 120 [facility] [address] [place] [address] documented as of this encounter Visit Diagnoses Diagnosis Migraine with aura and without status migrainosus, not intractable documented in this encounter Care Teams Alumnae Secretary Relationship Specialty Start Date End Date Jeannette Hernandez MD [address] [facility] [address] [place] [address] PCP - General Internal Medicine 08/24/16 documented as of this encounter
--- OUTSIDE RECORDS SUMMARY | 2025-08-30 08:45 | XMS_ITS | Encounter Summary ---
Author Organization [facility] Address [address] [place] [address] Care Team Providers Care Oil Refinery Process Technician Name Role Phone Jeannette Hernandez MD Primary Care Provi [facility] Encounter Details Date Type Department Care Team (Late st Contact Info) Description 07/06/2025 Telephone [facility] [address] [address] Jeannette Hernandez MD 120 [facility] [address] [place], [place] [id number] Social History Tobacco Use Types Packs/Day Years [...] on file documented as of this encounter Miscellaneous Notes * Telephone Encounter - Pushpa Arango RegSched Rep - 07/06/2025 10:27 AM EDT fyi X-ray order faxed at 10:18am, 10:19am, and 10:25am on 07/06/2025 documented in this encounter Plan of Treatment Upcoming Encounters Date Type Department Care Team (Late st Contact Info) Description 11/23/2025 3:15 PM EDT Office Visit [facility] 120 [facility] 100 [place] [phone] Jeannette Hernandez MD 120 [facility] [address] [place] [address] documented as of this encounter Visit Diagnoses Not on filedocumented in this encounter Care Teams Oil Refinery Process Technician Relationship Specialty Start Date End Date Jeannette Hernandez MD [address] [facility] [address] [place] [address] PCP - General Internal Medicine 08/24/16 documented as of this encounter
--- OUTSIDE RECORDS SUMMARY | 2025-08-30 08:45 | XMS_ITS | Encounter Summary ---
Author Organization [facility] ystem Address [address] [place] [address] Care Team Providers Care Handle Bar Assembler Name Role Phone Jeannette Hernandez MD Primary Care Provi [facility] Encounter Details Date Type Department Care Team (Late st Contact Info) Description 01/28/2025 Results Follow-Up [facility] [address] [address] Jeannette Hernandez MD 120 [facility] [address] [place] [address] Social History Tobacco Use Types Packs/Day Years [...] Description 11/23/2025 3:15 PM EDT Office Visit [facility] 120 [facility] [address] [place] [address] Jeannette Hernandez MD 120 [facility] [address] [place] [address] documented as of this encounter Visit Diagnoses Not on filedocumented in this encounter Care Teams Handle Bar Assembler Relationship Specialty Start Date End Date Jeannette Hernandez MD [address] [facility] [address] [place] [address] PCP - General Internal Medicine 08/24/16 documented as of this encounter
--- OUTSIDE RECORDS SUMMARY | 2025-08-30 08:45 | XMS_ITS | Clinical Summary ---
Author Organization [facility] Address [address] [place] [address] Care Team Providers Care Assembler Truck Trailer Name Role Phone Jeannette Hernandez MD Primary Care Provider Allergies Active Allergy Reactions Criticality Noted Date Comments Codeine Shortness of breath High 08/19/2009 Doxycycline Vomiting Low 04/16/2021 Lidocaine Rash Low 01/01/2018 Viscous lidocaine only, tolerates patches without issue Medications ergocalciferol (Vitamin D-2) 1.25 MG (68645 UT) capsule Take 1 capsule (50,000 Units) by mouth 1 (one) time per week. Sunday Active Fesoterodine Fumarate ER (Toviaz) 8 MG tablet sustained-release 24 hour Take 8 mg by mouth 1 (one) time each day. Active gabapentin (Neurontin) 800 MG tablet Take 1 tablet (800 mg) by mouth 4 (four) times a day. Active hydrOXYzine pamoate (Vistaril) 25 MG capsule Take 1 capsule (25 mg) by mouth 3 (three) times a day if needed for anxiety. Active metoprolol tartrate (Lopressor) 25 MG tablet Take 1 tablet (25 mg) by mouth 1 (one) time each day. Active ondansetron ODT (Zofran-ODT) 4 MG disintegrating tablet Take 1 tablet (4 mg) by mouth every 8 (eight) hours if needed for nausea or vomiting. Active traMADol (Ultram) 50 MG tablet Take 1 tablet (50 mg) by mouth every 8 (eight) hours if needed for moderate pain or severe pain. Active acetaminophen (Tylenol) 500 MG tablet Take 2 tablets (1,000 mg) by mouth every 6 (six) hours. 100 tablet 04/04/20 Active lidocaine (Lidoderm) 5 % patch Apply 1 patch topically 1 (one) time each day at the same time over 12 hours. Remove & discard patch within 12 hours or as directed by MD. 15 patch 04/04/20 Active naloxone (Narcan) 4 mg/0.1 mL nasal spray 1. Give 1 spray in nostril for no/slow breathing or cannot wake after opioid use 2. Call 911 3. Repeat in other nostril if symptoms continue 1 each 04/04/20 Active Additional Information Patient not taking.Reported on 10/07/2024 eszopiclone (Lunesta) 1 MG tablet Take 1 tablet (1 mg) by mouth every night. 04/15/20 Active cyclobenzaprine (Flexeril) 5 MG tablet Take 1 tablet (5 mg) by mouth 3 (three) times a day. 30 tablet 04/18/20 24 Active Aimovig 70 MG/ML solution auto-injector Inject 1 mL under the skin every 30 (thirty) days. 06/09/20 Active loratadine (Claritin) 10 MG tablet Take 1 tablet (10 mg) by mouth 1 (one) time each day. 06/04/20 Active valACYclovir (Valtrex) 1 g tablet Take 1 tablet (1,000 mg) by mouth if needed. 04/30/20 Active venlafaxine XR (Effexor-XR) 150 MG 24 hr capsule Take 1 capsule (150 mg) by mouth 1 (one) time each day. Take with 37.5mg 06/04/20 Active metroNIDAZOLE (Flagyl) 500 MG tablet Take one tablet at 1pm, 2pm, and 11pm day BEFORE surgery. SSI COLON. 3 tablet 06/24/20 Active Additional Information Patient not taking.Reported on 10/07/2024 bisacodyl (Dulcolax) 5 MG EC tablet Day before procedure at 4pm take 4 tablets with 8 oz of clear liquid. SSICOLON 4 tablet 06/24/20 Active venlafaxine 37.5 MG 24 hr tablet Take 1 tablet (37.5 mg) by mouth 1 (one) time each day. Take with 150mg Do not crush, chew, or split. Active Ventolin HFA 108 (90 Base) MCG/ACT inhaler 09/19/19 Active metoprolol succinate XL (Toprol-XL) 50 MG 24 hr tablet 09/20/19 Active QUEtiapine (SEROquel) 25 MG tablet TAKE 1 TO 2 TABLETS BY MOUTH EVERY NIGHT Active zolpidem (Ambien) 10 MG tablet 1 tablet (10 mg). 09/16/20 24 Active radiopaque pvc markers ([employer] Radiopaque Markers) capsuleIndications :Chronic idiopathic constipation,Other hemorrhoids Take 1 capsule by mouth 1 time for 1 dose. 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 Chronic constipation 04/04/2024 Resolved Problems Problem Noted Date Diagnosed Date Resolved Date Partial bowel obstruction 03/24/2024 Colon obstruction 03/24/2024 04/04/2024 Encounters Date Type Department Care Team Description 08/25/2025 8:15 AM EST Office Visit [facility] General Surgery [address] [place] [address] Barbara Mancera MD Chronic idiopathic constipation (Primary Dx); Other hemorrhoids 08/25/2025 Travel 08/24/2025 Travel 07/23/2025 Travel from Last 3 Months Family History Medical History Relation Name Comments Anesthesia problems Mother Relation Name Status Comments Mother Social History Tobacco Use Types Packs/Day Years [...] place to sleep or slept in a alf (including now)? No 07/11/2024 Utilities Answer Date Recorded In the past 12 months has th e [employer], gas, oil, or water Quosis threatened to shut off services in your home? No 07/11/2024 Sex and Gender Information Value Date Recorded Sex Assigned at Not on file Legal Sex Male 5:56 PM EDT Gender Identity Not on file Sexual Orientation Not on file Last Filed Vital Signs [...] Mass Index 26.47 08/25/2025 8:32 AM EST Plan of Treatment Health Maintenance Due Date Last Done Comments [facility]-HIV Screening 1994 [facility]-Infant/Child/Adol SDOH Screenings 1994 [facility]- SDOH Screenings 2012 [facility]-Adult SDOH Screenings 2012 [facility]-Hepatitis B Vaccines (3 of 3 - 3-dose series) 04/17/2013 02/20/2013, 09/20/1995 [facility]-Hepatitis A Vaccines (2 of 2 - 2-dose series) 08/22/2013 02/20/2013 [facility]-IPV Vaccines (3 of 3 - 4-dose series) 08/22/2013 02/20/2013, 12/24/1998 [facility]-Depression Screening 04/15/2025 04/15/2024 [id number]-51 Vaccine (2 - season) 2025 12/21/2020 [facility]-DTaP,Tdap,and Td Vaccines (5 - Td or Tdap) 03/25/2034 03/25/2024, 02/20/2013, 12/24/1998, Additional history exists [facility]-Zoster Vaccines (1 of 2) 2044 03/25/2024, 02/20/2013 [facility]-HIB Vaccines Aged Out 12/20/1995 No longer e ligible based on patient's age to complete this topic [facility]-Hepatitis C Screening Completed 09/06/2020 [facility]-Varicella Vaccines Completed 03/25/2024, 2012 [facility]-Obesity Intervention Completed 025, 06/24/2024, 06/24/2024, Additional history exists [facility]-Influenza Vaccine Completed 07/01/2025 , 07/30/2024, 03/25/2024, Additional history exists HPV Vaccines (No Doses Required) Completed [facility]-Pneumococcal Vaccine: Pediatrics (0 to 5 Years) and At-Risk Patients (6 to 49 Years) Aged Out No longer eligible based on patient's age to complete this topic [facility]-Rotavirus Vaccines Aged Out No lo nger eligible based on patient's age to complete this topic Additional Health Concerns Infection Onset Date Last Indicated MRSA 04/15/2024 04/15/2024 Insurance [facility] MEDICA[facility] Advance Directives * Full Code (Latest Code Status on File) Date Activated Date Inactivated Comments 07/10/2024 4:15 PM 07/20/2024 8:29 PM Question Answer Comments Patient has decision-making capacity? Yes * Full Code Date Activated Date Inactivated Comments 03/26/2024 5:54 PM 04/04/2024 6:31 PM Question Answer Comments Patient has decision-making capacity? Yes * Full Code Date Activated Date Inactivated Comments 03/24/2024 11:28 PM 03/26/2024 5:54 PM Question Answer Comments Patient has decision-making capacity? Yes Care Teams Assembler Truck Trailer Relationship Specialty Start Date End Date Jeannette Hernandez MD [address] [place] [address] PCP - General 03/26/24
--- OUTSIDE RECORDS SUMMARY | 2025-08-30 08:45 | XMS_ITS | Encounter Summary ---
Author Organization [facility] Address [address] [place] [address] Care Team Providers Care Shadow Graph Weight Operator Name Role Phone Jeannette Hernandez MD Primary Care Provi henry Reason for Visit * Reason Comments Med Refill Encounter Details Date Type Department Care Team (Late st Contact Info) Description 08/21/2022 Refill [facility] [address] [address] Jeannette Hernandez MD 120 [facility] [address] [place], [place] [id number] Social History Tobacco Use Types Packs/Day Years [...] Description 11/23/2025 3:15 PM EDT Office Visit [facility] [address] [place] [address] Jeannette Hernandez MD 120 [facility] [address] [place] [address] documented as of this encounter Visit Diagnoses Not on filedocumented in this encounter Care Teams Shadow Graph Weight Operator Relationship Specialty Start Date End Date Jeannette Hernandez MD [address] [place] [address] PCP - General Internal Medicine 08/24/16 documented as of this encounter
--- OUTSIDE RECORDS SUMMARY | 2025-08-30 08:45 | XMS_ITS | Encounter Summary ---
Author Organization [facility]stem Address [address] [place] [address] Care Team Providers Care Rubber Curer Name Role Phone Jeannette Hernandez MD Primary Care Provi henry Reason for Visit * Reason Comments Med Refill Encounter Details Date Type Department Care Team (Late st Contact Info) Description 05/05/2024 Refill [facility] [address] [address] Jeannette Hernandez MD 120 [facility] [address] [place] [address] Interstitial cystitis Social History Tobacco Use Types Packs/Day Years Used Date Smoking Tobacco: Every Day Cigarettes Electronic Cigarette Passive Smoke Exposure: Current Smokeless [...] Description 11/23/2025 3:15 PM EDT Office Visit [facility] 120 [facility] [address] [place] [address] Jeannette Hernandez MD 120 [facility] [address] [place] [address] documented as of this encounter Visit Diagnoses Diagnosis Interstitial cystitis Chronic interstitial cystitis documented in this encounter Care Teams Rubber Curer Relationship Specialty Start Date End Date Jeannette Hernandez MD [address] [facility] [address] [place], [place] [id number] PCP - General Internal Medicine 08/24/16 documented as of this encounter
--- OUTSIDE RECORDS SUMMARY | 2025-08-30 08:45 | XMS_ITS | Encounter Summary ---
Author Organization [facility] Address [address] [place] [address] Care Team Providers Care Bunch Breaker Machine Operator Name Role Phone Jeannette Hernandez MD Primary Care Provi henry Reason for Visit * Reason Comments Med Refill Encounter Details Date Type Department Care Team (Late st Contact Info) Description 07/04/2024 Refill [facility] [address] [address] Jeannette Hernandez MD 120 [facility] [address] [place] [address] Interstitial cystitis Social History Tobacco Use Types [...] Description 11/23/2025 3:15 PM EDT Office Visit [facility] 120 [facility] [address] [place] [address] Jeannette Hernandez MD 120 [facility] [address] [place] [address] documented as of this encounter Visit Diagnoses Diagnosis Interstitial cystitis Chronic interstitial cystitis documented in this encounter Care Teams Bunch Breaker Machine Operator Relationship Specialty Start Date End Date Jeannette Hernandez MD [address] [facility] [address] [place], [place] [id number] PCP - General Internal Medicine 08/24/16 documented as of this encounter
--- OUTSIDE RECORDS SUMMARY | 2025-08-30 08:45 | XMS_ITS | Encounter Summary ---
Author Organization [facility] Address [address] [place] [address] Care Team Providers Care Felt Tipping Machine Tender Name Role Phone Jeannette Hernandez MD Primary Care Provider Encounter Details Date Type Department Care Team (Latest Contact Info) Description 08/25/2025 Travel Social History Tobacco Use Types Packs/Day [...] place to sleep or slept in a prison (including now)? No 07/11/2024 Utilities Answer Date [...] documented as of this encounter Care Teams Felt Tipping Machine Tender Relationship Specialty Start Date End Date Jeannette Hernandez MD [address] [place] [address] PCP - General 03/26/24 documented as of this encounter
--- OUTSIDE RECORDS SUMMARY | 2025-08-30 08:45 | XMS_ITS | Encounter Summary ---
Author Organization [facility]stem Address [address] [place] [address] Care Team Providers Care Government Relations Manager Name Role Phone Jeannette Hernandez MD Primary Care Provi henry Reason for Visit * Reason Comments Med Refill Encounter Details Date Type Department Care Team (Late st Contact Info) Description 03/11/2024 Refill [facility] [address] [phone] Jeannette Hernandez MD 120 [facility] [address] [place] [address] [place], [place] [id number] Chronic right shoulder pain Social History Tobacco [...] 11/23/2025 3:15 PM EDT Office Visit [facility] 120 [facility] [address] [place] [address] Jeannette Hernandez MD 120 [facility] [address] [place] [address] documented as of this encounter Visit Diagnoses Diagnosis Chronic right shoulder pain Pain in joint, shoulder region documented in this encounter Care Teams Government Relations Manager Relationship Specialty Start Date End Date Jeannette Hernandez MD [address] [place], [place] [id number] PCP - General Internal Medicine 08/24/16 documented as of this encounter
--- OUTSIDE RECORDS SUMMARY | 2025-08-30 08:45 | XMS_ITS | Encounter Summary ---
Author Organization [facility]stem Address [address] [place] [address] Care Team Providers Care Steamboat Inspector Name Role Phone Jeannette Hernandez MD Primary Care Provi henry Reason for Visit * Reason Onset Date Comments Med Refill 06/28/2022 Encounter Details Date Type Department Care Team (Late st Contact Info) Description 06/28/2022 Refill [facility] [address] [phone] Jeannette Hernandez MD 120 [facility] [address] [place] [address] AGE (acute gastroenteritis); Acute non-recurrent pansinusitis; Interstitial cystitis; Bladder spasm; Chronic insomnia; Bladder spasms; Migraine syndrome; Attention deficit hyperactivity disorder (ADHD), combined type; Chronic right shoulder pain; Cold sore Social History Tobacco Use Types Packs/Day Years Used Date Smoking Tobacco: Every Day Cigarettes 1 13 Started: 2012 Electronic Cigarette Smokeless Tobacco: Never Alcohol Use Standard Drinks/Week Comments No 0 (1 standard drink = 0.6 oz pur e alcohol) PHQ-2 Answer Date Recorded Retired Total Score 0 09/06/2020 Sex and Gender Information Value Date Recorded [...] Description 11/23/2025 3:15 PM EDT Office Visit [facility] [address] [facility] 100 [place] [phone] Jeannette Hernandez MD 120 [facility] [address] [place] [address] documented as of this encounter Visit Diagnoses Diagnosis AGE (acute gastroenteritis) Other and unspecified noninfectious gastroenteritis and colitis Acute non-recurrent pansinusitis Interstitial cystitis Chronic interstitial cystitis Bladder spasm Hypertonicity of bladder Chronic insomnia Insomnia, unspecified Bladder spasms Hypertonicity of bladder Migraine syndrome Migraine with aura, without mention of intractable migraine without mention of status migrainosus Attention deficit hyperactivity disorder (ADHD), combined type Chronic right shoulder pain Pain in joint, shoulder region Cold sore Herpes simplex without mention of complication documented in this encounter Care Teams Steamboat Inspector Relationship Specialty Start Date End Date Jeannette Hernandez MD [address] [place] [address] PCP - General Internal Medicine 08/24/16 documented as of this encounter
--- OUTSIDE RECORDS SUMMARY | 2025-08-30 08:45 | XMS_ITS | Encounter Summary ---
[facility] Organization [facility] Address [address] [place] [address] Care Team Providers Care Credit Control Clerk Name Role Phone Jeannette Hernandez MD Primary Care Provi [facility] Encounter Details Date Type Department Care Team (Latest Contact Info) Description 07/01/2025 Travel Social History Tobacco Use Types Packs/Day [...] Description 11/23/2025 3:15 PM EDT Office Visit [facility] 120 [facility] 100 [place] [address] Jeannette Hernandez MD 120 [facility] [address] [place] [address] documented as of this encounter Visit Diagnoses Not on filedocumented in this encounter Care Teams Credit Control Clerk Relationship Specialty Start Date End Date Jeannette Hernandez MD [address] [facility] [address] [place] [address] PCP - General Internal Medicine 08/24/16 documented as of this encounter
--- OUTSIDE RECORDS SUMMARY | 2025-08-30 08:45 | XMS_ITS | Encounter Summary ---
[facility] Address [address] [place] [address] Care Team Providers Care Multimedia Services Manager Name Role Phone Jeannette Hernandez MD Primary Care Provi [facility] Encounter Details Date Type Department Care Team (Latest Contact Info) Description 08/26/2025 Travel Social History Tobacco Use Types Packs/Day [...] on file documented as of this encounter Functional Status * Calculated C-SSRS Risk Score (Lifetime/Recent) Answer Date of Assessment Author No Risk Indicated 08/26/2025 8:34 PM Micky Pedraza Jr., RN * [place] Suicide Severity Rating Scale (Screener/Recent Self-Report) Question Answer Date of Assessment Author 1. Wish to be (Past 1 Month) No 08/26/2025 8:34 PM Micky Pedraza RN 2. Non-Specific Active Suici mateo Thoughts (Past 1 Month) No 08/26/2025 8:34 PM Samuel Pedraza Jr., RN 6. Suicidal Behavior (Lifetime) No 8:34 PM Micky Pedraza Jr., RN documented as of this encounter Plan of Treatment Upcoming Encounters Date Type Department Care Team (Late st Contact Info) Description 11/23/2025 3:15 PM EDT Office Visit [facility] 120 [facility] 100 [place] [address] Jeannette Hernandez MD 120 [facility] [address] [place] [address] documented as of this encounter Visit Diagnoses Not on filedocumented in this encounter Care Teams Multimedia Services Manager Relationship Specialty Start Date End Date Jeannette Hernandez MD [address] [place] [address] PCP - General Internal Medicine 08/24/16 documented as of this encounter
--- OUTSIDE RECORDS SUMMARY | 2025-08-30 08:45 | XMS_ITS | Encounter Summary ---
Author Organization [facility]stem Address [address] [place] [address] Care Team Providers Care Tool Machine Setup Operator Name Role Phone Jeannette Hernandez MD Primary Care Provi henry Reason for Visit * Reason Onset Date Comments Med Refill 07/06/2025 Encounter Details Date Type Department Care Team (Late st Contact Info) Description 07/06/2025 Refill [facility] [address] [address] Jeannette Hernandez MD 120 [facility] [address] [place] [address] Chronic right shoulder pain Social History Tobacco [...] Description 11/23/2025 3:15 PM EDT Office Visit [facility] [address] [facility] [address] [place] [address] Jeannette Hernandez MD 120 [facility] [address] [place] [address] documented as of this encounter Procedures Procedure Name Priority Date/Time Associated Diagnosis Comments XR SHOULDER 2+ VW RIGHT Routine 07/08/2025 Chronic right shoulder pain documented in this encounter Results * XR Shoulder 2+ View Right (07/08/2025) Anatomical Region Laterality Modality Upper Extremities, Shoulder Right Radi ographic Imaging Jeannette Hernandez MD IMG DIAGNOSTIC IMAG ING ORDERABLES Final Result documented in this encounter Visit Diagnoses Diagnosis Chronic right shoulder pain Pain in joint, shoulder region documented in this encounter Care Teams Tool Machine Setup Operator Relationship Specialty Start Date End Date Jeannette Hernandez MD [address] [facility] [address] [place] [address] PCP - General Internal Medicine 08/24/16 documented as of this encounter
--- OUTSIDE RECORDS SUMMARY | 2025-08-30 08:45 | XMS_ITS | Encounter Summary ---
Author Organization [facility]stem Address [address] [place] [address] Care Team Providers Care Utilization Reviewer Name Role Phone Jeannette Hernandez MD Primary Care Provi henry Reason for Visit * Reason Onset Date Comments Med Refill 11/09/2021 Encounter Details Date Type Department Care Team (Late st Contact Info) Description 11/09/[address] [facility] [address] [address] Jeannette Hernandez MD 120 [facility] [address] [place] [address] Chronic insomnia; Migraine syndrome; Interstitial cystitis; Bladder spasm Social History Tobacco Use Types Packs/Day Years [...] Description 11/23/2025 3:15 PM EDT Office Visit [facility] 120 [facility] [address] [place] [address] Jeannette Hernandez MD 120 [facility] [address] [place], [place] [address] documented as of this encounter Visit Diagnoses Diagnosis Chronic insomnia Insomnia, unspecified Migraine syndrome Migraine with aura, without mention of intractable migraine without mention of status migrainosus Interstitial cystitis Chronic interstitial cystitis Bladder spasm Hypertonicity of bladder documented in this encounter Care Teams Utilization Reviewer Relationship Specialty Start Date End Date Jeannette Hernandez MD [address] [facility] [address] [place] [address] PCP - General Internal Medicine 08/24/16 documented as of this encounter
--- OUTSIDE RECORDS SUMMARY | 2025-08-30 08:45 | XMS_ITS | Encounter Summary ---
Author Organization [facility] ystem Address [address] [place] [address] Care Team Providers Care Barley Steeper Name Role Phone Jeannette Hernandez MD Primary Care Provi [facility] Encounter Details Date Type Department Care Team (Late st Contact Info) Description 07/02/2025 Results Follow-Up [facility] [address] [address] Jeannette Hernandez MD 120 [facility] 100 [place] [address] Social History Tobacco Use Types Packs/Day Years [...] Description 11/23/2025 3:15 PM EDT Office Visit [facility] 120 [facility] [address] [place] [address] Jeannette Hernandez MD 120 [facility] [address] [place] [address] documented as of this encounter Visit Diagnoses Not on filedocumented in this encounter Care Teams Barley Steeper Relationship Specialty Start Date End Date Jeannette Hernandez MD [address] [facility] 200 [place] [address] PCP - General Internal Medicine 08/24/16 documented as of this encounter
--- OUTSIDE RECORDS SUMMARY | 2025-08-30 08:45 | XMS_ITS | Encounter Summary ---
Author Organization [facility] ystem Address [address] [place] [address] Care Team Providers Care Adventure Guide Name Role Phone Jeannette Hernandez MD Primary Care Provi henry Reason for Visit * Reason Comments Med Refill Encounter Details Date Type Department Care Team (Late st Contact Info) Description 07/04/2025 Refill [facility] [address] [phone] Jeannette Hernandez MD 120 [facility] [address] [place], [place] [id number] Migraine with aura and without status migrainosus, [...] 11/23/2025 3:15 PM EDT Office Visit [facility] 120 [facility] 100 [place] [phone] Jeannette Hernandez MD 120 [facility] [address] [place] [address] documented as of this encounter Visit Diagnoses Diagnosis Migraine with aura and without status migrainosus, not intractable documented in this encounter Care Teams Adventure Guide Relationship Specialty Start Date End Date Jeannette Hernandez MD [address] [facility] 200 [place] [address] PCP - General Internal Medicine 08/24/16 documented as of this encounter
--- OUTSIDE RECORDS SUMMARY | 2025-08-30 08:45 | XMS_ITS | Encounter Summary ---
Author Organization [facility] Address [address] [place] [address] Care Team Providers Care Cuff Slitter Name Role Phone Jeannette Hernandez MD Primary Care Provi henry Reason for Visit * Reason Onset Date Comments Med Refill 07/27/2020 Encounter Details Date Type Department Care Team (Late st Contact Info) Description 07/27/2020 Refill Initial Department [address] [place] [address] Candida Natarajan, QM NURSE 610 [facility] 100 [place] [id number] Acute non-recurrent pansinusitis Social History Tobacco Use Types Packs/Day Years [...] Description 11/23/2025 3:15 PM EDT Office Visit [facility] 120 [facility] 100 [place] [phone] Jeannette Hernandez MD 120 [facility] [address] [place] [address] documented as of this encounter Visit Diagnoses Diagnosis Acute non-recurrent pansinusitis documented in this encounter Care Teams Cuff Slitter Relationship Specialty Start Date End Date Jeannette Hernandez MD [address] [facility] 200 [place] [address] PCP - General Internal Medicine 08/24/16 documented as of this encounter
--- OUTSIDE RECORDS SUMMARY | 2025-08-30 08:45 | XMS_ITS | Encounter Summary ---
Author Organization [facility] ystem Address [address] [place] [address] Care Team Providers Care In Shop Service Technician Name Role Phone Jeannette Hernandez MD Primary Care Provi henry Reason for Visit * Reason Onset Date Comments Med Refill 05/30/2021 Encounter Details Date Type Department Care Team (Late st Contact Info) Description 05/30/2021 Refill [facility] 120 [facility] [phone] Van Hassan, Lucina, CLAM PICKER 120 [facility] [address] [place] [address] Upper respiratory tract infection, unspecified type; Mild intermittent reactive airway disease with acute exacerbation; Bronchitis; Cough Social History Tobacco Use Types Packs/Day Years [...] [facility] 120 [facility] 100 [place] [address] Jeannette Hernandez MD 120 [facility] [address] [place] [address] documented as of this encounter Visit Diagnoses Diagnosis Upper respiratory tract infection, unspecified type Mild intermittent reactive airway disease with acute exacerbation Bronchitis Bronchitis, not specified as acute or chronic Cough documented in this encounter Care Teams In Shop Service Technician Relationship Specialty Start Date End Date Jeannette Hernandez MD [address] [facility] 200 [place] [address] PCP - General Internal Medicine 08/24/16 documented as of this encounter
--- OUTSIDE RECORDS SUMMARY | 2025-08-30 08:45 | XMS_ITS | Encounter Summary ---
Author Organization [facility] ystem Address [address] [place] [address] Care Team Providers Care Hogshead Cooper Name Role Phone Jeannette Hernandez MD Primary Care Provi henry Reason for Visit * Reason Comments Med Refill Encounter Details Date Type Department Care Team (Late st Contact Info) Description 02/07/2024 Refill [facility] PRIMARY [facility]ARE [address] [phone] Jeannette Hernandez MD 120 [facility] [address] [place], [place] [phone] Nausea Social History Tobacco Use Types Packs/Day Years [...] [facility] 120 [facility] [address] [place] [address] Jeannette Hernandez MD 120 [facility] [address] [place] [address] documented as of this encounter Visit Diagnoses Diagnosis Nausea Nausea alone documented in this encounter Care Teams Hogshead Cooper Relationship Specialty Start Date End Date Jeannette Hernandez MD [address] [place] [address] PCP - General Internal Medicine 08/24/16 documented as of this encounter
--- OUTSIDE RECORDS SUMMARY | 2025-08-30 08:46 | XMS_ITS | Encounter Summary ---
Author Organization [facility] Address [address] [place] [address] Care Team Providers Care Jewelry Casting Model Maker Apprentice Name Role Phone Jeannette Hernandez MD Primary Care Provi [facility] Encounter Details Date Type Department Care Team [...] CENTER PRIMARY CARE [address] [place] [address] Jeannette Hernandez MD 120 [facility] [address] [place] [address] documented as of this encounter Visit Diagnoses Not on filedocumented in this encounter Care Teams Jewelry Casting Model Maker Apprentice Relationship Specialty Start Date End Date Jeannette Hernandez MD [address] [place] [address] PCP - General Internal Medicine 08/24/16 documented as of this encounter
--- OUTSIDE RECORDS SUMMARY | 2025-08-30 08:46 | XMS_ITS | Encounter Summary ---
Author Organization [facility] ystem Address [address] [place] [address] Care Team Providers Care Chemical Plant Worker Name Role Phone Jeannette Hernandez MD Primary Care Provi henry Reason for Visit * Reason Comments Med Refill Encounter Details Date Type Department Care Team (Late st Contact Info) Description 07/22/2025 Refill [facility] PRIMARY [facility]ARE [address] [phone] Jeannette Hernandez MD 120 [facility] [address] [place], [place] [phone] Social History Tobacco Use Types Packs/Day Years [...] Description 11/23/2025 3:15 PM EDT Office Visit [facility] 120 [facility] [address] [place] [address] Jeannette Hernandez MD 120 [facility] [address] [place] [address] documented as of this encounter Visit Diagnoses Not on filedocumented in this encounter Care Teams Chemical Plant Worker Relationship Specialty Start Date End Date Jeannette Hernandez MD [address] [place], [place] [id number] PCP - General Internal Medicine 08/24/16 documented as of this encounter
--- OUTSIDE RECORDS SUMMARY | 2025-08-30 08:46 | XMS_ITS | Encounter Summary ---
Author Organization [facility] ystem Address [address] [place] [address] Care Team Providers Care Reserves Clerk Name Role Phone Jeannette Hernandez MD Primary Care Provi henry Reason for Visit * Reason Onset Date Comments Med Refill 07/30/2025 Encounter Details Date Type Department Care Team (Late st Contact Info) Description 07/30/2025 Refill [facility] [address] [address] Jeannette Hernandez MD 120 [facility] [address] [place] [address] Chronic insomnia Social History Tobacco Use Types [...] Description 11/23/2025 3:15 PM EDT Office Visit [facility] 120 [facility] [address] [address] [place] [phone] Jeannette Hernandez MD 120 [facility] [address] [place] [address] documented as of this encounter Visit Diagnoses Diagnosis Chronic insomnia Insomnia, unspecified documented in this encounter Care Teams Reserves Clerk Relationship Specialty Start Date End Date Jeannette Hernandez MD [address] [place] [address] PCP - General Internal Medicine 08/24/16 documented as of this encounter
--- OUTSIDE RECORDS SUMMARY | 2025-08-30 08:46 | XMS_ITS | Encounter Summary ---
Author Organization [facility] ystem Address [address] [place] [address] Care Team Providers Care Director Of Pupil Personnel Program Name Role Phone Jeannette Hernandez MD Primary Care Provi henry Reason for Visit * Reason Comments Med Refill Encounter Details Date Type Department Care Team (Late st Contact Info) Description 07/14/2025 Refill [facility]IMARY [facility]ARE [address] [phone] Jeannette Hernandez MD 120 [facility] [address] [place], [place] [phone] Interstitial cystitis Social History Tobacco Use Types [...] Description 11/23/2025 3:15 PM EDT Office Visit [facility] 120 [facility] 100 [place] [address] Jeannette Hernandez MD 120 [facility] [address] [place] [address] documented as of this encounter Visit Diagnoses Diagnosis Interstitial cystitis Chronic interstitial cystitis documented in this encounter Care Teams Director Of Pupil Personnel Program Relationship Specialty Start Date End Date Jeannette Hernandez MD [address] [place] [address] PCP - General Internal Medicine 08/24/16 documented as of this encounter
--- OUTSIDE RECORDS SUMMARY | 2025-08-30 08:46 | XMS_ITS | Encounter Summary ---
Author Organization [facility] ystem Address [address] [place] [address] Care Team Providers Care Chief Financial Officer Name Role Phone Jeannette Hernandez MD Primary Care Provi henry Reason for Visit * Reason Comments Med Refill Encounter Details Date Type Department Care Team (Late st Contact Info) Description 08/04/2025 Refill [facility] [address] [phone] Jeannette Hernandez MD 120 [facility] [address] [place], [place] [phone] Nausea Social History Tobacco Use Types Packs/Day [...] [facility] 120 [facility] 100 [place] [address] Jeannette Hernandez MD 120 [facility] [address] [place] [address] documented as of this encounter Visit Diagnoses Diagnosis Nausea Nausea alone documented in this encounter Care Teams Chief Financial Officer Relationship Specialty Start Date End Date Jeannette Hernandez MD [address] [facility] 200 [place], [place] [id number] PCP - General Internal Medicine 08/24/16 documented as of this encounter
--- OUTSIDE RECORDS SUMMARY | 2025-08-30 08:46 | XMS_ITS | Encounter Summary ---
Author Organization [facility] ystem Address [address] [place] [address] Care Team Providers Care Big Machine Consultant Name Role Phone Jeannette Hernandez MD Primary Care Provi [facility] Encounter Details Date Type Department Care Team (Late st Contact Info) Description 08/26/2025 Prior Authorization [facility]IMARY [facility]ARE [address] [place] [address] Yeny Rose Social History Tobacco Use Types Packs/Day Years [...] encounter Miscellaneous Notes * Telephone Encounter - Yeny Rose - 08/26/2025 9:54 AM ESTSummary: Prior Auth Completed PA on [employer] [id number] documented in this encounter Plan of Treatment Upcoming Encounters Date Type Department Care Team (Late st Contact Info) Description 11/23/2025 3:15 PM EDT Office Visit [facility]IMARY [facility]ARE [address] [place] [address] Jeannette Hernandez MD [address] [place] [address] documented as of this encounter Visit Diagnoses Not on filedocumented in this encounter Care Teams Big Machine Consultant Relationship Specialty Start Date End Date Jeannette Hernandez MD [address] [place] [address] PCP - General Internal Medicine 08/24/16 documented as of this encounter
--- OUTSIDE RECORDS SUMMARY | 2025-08-30 08:46 | XMS_ITS | Encounter Summary ---
Author Organization [facility] ystem Address [address] [place] [address] Care Team Providers Care Victim Witness Administrator Name Role Phone Jeannette Hernandez MD Primary Care Provi henry Reason for Visit * Reason Comments Med Refill Encounter Details Date Type Department Care Team (Late st Contact Info) Description 08/16/2025 Refill [facility] PRIMARY CARE [address] [phone] Jeannette Hernandez MD [address] [facility] [address] [place], [place] [phone] Migraine with aura and without status migrainosus, [...] Description 11/23/2025 3:15 PM EDT Office Visit [facility] 120 [facility] 100 [place] [phone] Jeannette Hernandez MD [address] [facility] [address] [place] [address] documented as of this encounter Visit Diagnoses Diagnosis Migraine with aura and without status migrainosus, not intractable documented in this encounter Care Teams Victim Witness Administrator Relationship Specialty Start Date End Date Jeannette Hernandez MD [address] [facility] 200 [place] [address] PCP - General Internal Medicine 08/24/16 documented as of this encounter
== END 2025-08-30 23:59 | disposition home or self-care (01) ==
PROVIDERS: PCP Internal Medicine; Visit Provider Surgery
DX: K59.04 Chronic idiopathic constipation (principal); K64.8 Other hemorrhoids; R93.3 Abnormal findings on diagnostic imaging of other parts of digestive tract
CPT/HCPCS: 74018